=== PATIENT | female | born 1965 | race Caucasian/White ===

== ENCOUNTER 2021-09-15 23:23 | Inpatient (IN) | payer MEDICARE ==
[~2021-09-15] VITALS: Ht 165.1 cm; Wt 90.2 kg
[~2021-09-15 23:23] MED LIST: AMOX1TAB61 PO; ATEN25TA PO; BUSP15TA PO; CLON0.5T PO; DULO40CA2 PO; GLIP5TAB10 PO; INSU100I13 SQ; METF500T16 PO; PRAZ1CAP2 PO; SIMV20TA18 PO
[2021-09-16] MEDS ORDERED: PIP/TAZO PER PHARMACY MC PRN (00:45)
--- NOTE | 2021-09-16 00:52 | PHYS DOC ---
Past Medical History Past Medical History: Anxiety, Depression, Diabetes-Type II, High Cholesterol, Hypertension, Other Additional Past Medical Histor: drug abuse, sciatica, chronic back pain,neuropathy Past Surgical History: Appendectomy, Cholecystectomy, , Hysterectomy, Tonsillectomy, Other Additional Past Surgical Histo: bilateral carpal tunnel release Smoking Status: Never Smoker Alcohol Use: None Drug Use: Marijuana, Methamphetamine General Adult EDM: Chief Complaint: WOUND CHECK HPI: HPI: 56-year-old female with a history of medical ulcer, type 2 diabetes, previous substance abuse presents to the emergency department complaining of increased swelling redness pain and a lesion to the bottom of her right foot. She reports the lesion has been growing for several weeks, she tried to andrea it with a needle at home but it returned, turned more dark. She has a chronic ulcer over the right great toe that has not healed very well. She reports poor control of her diabetes. She was recently admitted for the wound on her right foot in June 2021. Pain worsens upon ambulation. She admits to some fever and chills. The patient denies nausea, vomiting, chest pain, shortness of breath, abdominal pain, urinary symptoms, cough, recent trauma, or any other complaints. Reports tdap is utd. Review of Systems: Review of Systems: ROS is otherwise negative except for what was mentioned in HPI Heart Score: C/O Chest Pain: No Family History: Family History: non contributory Current Medications: Current Medications Medications (Trade) Dose Ordered Sig/Ray Start Time Stop Time Status Last Admin Dose Admin Piperacillin Sod/ Tazobactam Sod (Zosyn Per Pharmacy) 1 each PRN DAILY PRN 09/16/21 00:45 UNV Sodium Chloride 2,000 ml @ 4,000 mls/hr 1X ONCE 09/16/21 01:00 09/16/21 01:29 UNV Vancomycin HCl (Vanco Per Pharmacy) 1 each PRN DAILY PRN 09/16/21 00:45 UNV Allergies: Allergies: Allergies Coded Allergies Type Severity Reaction Last Updated Verified No Known Drug Allergies 07/10/21 No Physical Exam: PE: Constitutional: No acute distress, non-toxic appearance. HENT: Atraumatic, bilateral external ears normal, nose normal. Eyes: PERRLA, EOMI, conjunctiva normal, no discharge. Neck: Normal range of motion, supple, no stridor. Cardiovascular: Tachycardic pulses, 2+ radial pulse Lungs & Thorax: No respiratory distress, symmetrical expansion. Abdomen: Soft, no tenderness Skin: Warm, dry. Extremities: Right foot with swelling and erythema up to the midfoot, there is a chronic appearing right great toe ulcer that does not appear to be healing well, there is a large indurated chronic appearing lesion to the medial aspect of the plantar foot that is tender to palpation Neurologic: Alert and oriented X 3, normal motor function, normal sensory function, no focal deficits noted. GCS 15. Psychologic: Affect normal, judgment normal, mood normal. Current Patient Data: Labs: Laboratory Tests Test 09/16/21 00:41 09/16/21 02:25 Glucose (Fingerstick) 368 mg/dL (70-99) White Blood Count 13.4 x10^3/uL (4.0-11.0) Red Blood Count 4.76 x10^6/uL (3.50-5.40) Hemoglobin 12.2 g/dL (12.0-15.5) Hematocrit 38.0 % (36.0-47.0) Mean Corpuscular Volume 80 fL (79-100) Mean Corpuscular Hemoglobin 26 pg (25-35) Mean Corpuscular Hemoglobin Concent 32 g/dL (31-37) Red Cell Distribution Width 13.5 % (11.5-14.5) Platelet Count 295 x10^3/uL (140-400) Neutrophils (%) (Auto) 84 % (31-73) Lymphocytes (%) (Auto) 9 % (24-48) Monocytes (%) (Auto) 7 % (0-9) Eosinophils (%) (Auto) 0 % (0-3) Basophils (%) (Auto) 1 % (0-3) Neutrophils # (Auto) 11.2 x10^3/uL (1.8-7.7) Lymphocytes # (Auto) 1.2 x10^3/uL (1.0-4.8) Monocytes # (Auto) 0.9 x10^3/uL (0.0-1.1) Eosinophils # (Auto) 0.0 x10^3/uL (0.0-0.7) Basophils # (Auto) 0.1 x10^3/uL (0.0-0.2) Sodium Level 126 mmol/L (136-145) Potassium Level 4.2 mmol/L (3.5-5.1) Chloride Level 90 mmol/L (98-107) Carbon Dioxide Level 15 mmol/L (21-32) Anion Gap 21 (6-14) Blood Urea Nitrogen 19 mg/dL (7-20) Creatinine 0.9 mg/dL (0.6-1.0) Estimated GFR (Cockcroft-Gault) 65.0 Glucose Level 399 mg/dL (70-99) Lactic Acid Level 0.8 mmol/L (0.4-2.0) Calcium Level 8.5 mg/dL (8.5-10.1) Vital Signs: Vital Signs Date Time Temp Pulse Resp B/P (MAP) Pulse Ox O2 Delivery O2 Flow Rate FiO2 09/16/21 04:00 Room Air 09/16/21 03:00 97.9 100 18 169/79 (109) 98 Room Air 97.9 09/16/21 02:37 22 98 Room Air 09/16/21 02:30 100 20 171/82 (111) 97 Room Air 09/16/21 02:00 112 20 194/88 (123) 96 Room Air 09/16/21 01:30 110 20 191/114 (139) 96 Room Air 09/16/21 00:20 100.7 107 22 194/91 (125) 98 Room Air 100.7 Radiology/Procedures: Radiology/Procedures: PROCEDURE: FOOT RIGHT 3V EXAMINATION: XR FOOT_RIGHT 3 VIEWS CLINICAL HISTORY: Infection TECHNIQUE: XR FOOT_RIGHT 3 VIEWS COMPARISON: 07/10/2021 FINDINGS/ IMPRESSION: Joint spaces and alignment maintained. No evidence of focal osteopenia, osseous destructive process, or periosteal reaction to suggest osteomyelitis. No acute fracture. Small posterior and plantar calcaneal enthesophytes. Soft tissue prominence along the dorsal foot. Vascular calcifications. Electronically signed by: Wilmer Amor DO (09/16/2021 1:05 AM) Course & Med Decision Making: Course & Med Decision Making Insert I&D procedure Indication: abscess Procedure: The patient was positioned appropriately. Local anesthesia was lidocaine with epinephrine. An incision was then made over the apex of the lesion and clear serous material was expressed. The drainage cavity was decompressed. The area was irrigated. The patient tolerated the procedure well. Complications: none. Patient has evidence for infection of the right foot, evidence for poor wound healing secondary to diabetes which is appearing to be uncontrolled. Will admit the patient to the hospital for further care. Antibiotics were given in the emergency department along with fluids, blood cultures obtained Departure Departure Impression: Primary Impression: Right foot infection Additional Impression: Diabetic foot ulcer Disposition: ADMITTED INPATIENT Admitting Physician: MIKIE Mirza) Referrals: DARIA BUSBY M.D. (PCP) PERLA MCDONALD DO Sep 16, 2021 00:52
[2021-09-16] MEDS ORDERED: MORPHINE SULFATE 4 MG/ML INJ. IV ONE (01:00)
[2021-09-16] MEDS ORDERED: ACETAMINOPHEN 500 MG TABLET PO ONE (01:00)
--- NOTE | 2021-09-16 01:07 | RAD ---
EXAMINATION: XR FOOT_RIGHT 3 VIEWS CLINICAL HISTORY: Infection TECHNIQUE: XR FOOT_RIGHT 3 VIEWS COMPARISON: 07/10/2021 FINDINGS/ IMPRESSION: Joint spaces and alignment maintained. No evidence of focal osteopenia, osseous destructive process, or periosteal reaction to suggest osteomyelitis. No acute fracture. Small posterior and plantar calca demarcus enthesophytes. Soft tissue prominence along the dorsal foot. Vascular calcifications. Electronically signed by: Wilmer Amor DO (09/16/2021 1:05 AM) LIANA
[2021-09-16] MEDS ORDERED: LIDOCAINE 1% Multi-Dose 20 ML VIAL. ONE (01:17)
[2021-09-16] MEDS ORDERED: VANCOMYCIN 2 GM in IV NORMAL SALINE 500ML BAG 500 ML IV ONE (01:30)
[2021-09-16] MEDS ORDERED: ONDANSETRON PF 4 MG/2 ML VIAL. IVP PRN (01:45)
[2021-09-16] MEDS: IV NORMAL SALINE 1000ML BAG 1,000 ML IV SCH ×2 (02:30→06:05)
[2021-09-16 02:32] LABS: BASO # 0.1 x10^3/uL (0.0-0.2); BASO % 1 % (0-3); EOS % 0 % (0-3); HEMOGLOBIN 12.2 g/dL (12.0-15.5); LYMPH # 1.2 x10^3/uL (1.0-4.8); LYMPH % 9 % (24-48); MEAN CORPUSCULAR HEMOGLOBIN 26 pg (25-35); MEAN CORPUSCULAR HGB CONC 32 g/dL (31-37); MEAN CORPUSCULAR VOLUME 80 fL (79-100); MONO # 0.9 x10^3/uL (0.0-1.1); MONO % 7 % (0-9); NEUT # 11.2 x10^3/uL (1.8-7.7); NEUT % 84 % (31-73); PLATELET COUNT 295 x10^3/uL (140-400); RED BLOOD COUNT 4.76 x10^6/uL (3.50-5.40); RED CELL DISTRIBUTION WIDTH 13.5 % (11.5-14.5); WHITE BLOOD COUNT 13.4 x10^3/uL (4.0-11.0)
[2021-09-16] MEDS: PIPERACILLIN/TAZOBACTAM 3.375 GM in IV NORMAL SALINE 50ML 50 ML IV SCH ×5 (02:32→23:03)
[2021-09-16 02:42] LABS: CALCIUM 8.5 mg/dL (8.5-10.1); CREATININE 0.9 mg/dL (0.6-1.0); POTASSIUM 4.2 mmol/L (3.5-5.1)
[2021-09-16 03:00] VITALS: BP 169/79
[2021-09-16] MEDS ORDERED: INSULIN REGULAR 100 UNIT/ML 3ML VIAL. SQ ONE (03:30)
[2021-09-16] MEDS ORDERED: INSU100V13 SQ (03:37)
[2021-09-16] MEDS ORDERED: DEXTROSE 50% 25 GM / 50ML DISP.SYRIN. IV PRN ×2 (03:45→13:00)
[2021-09-16] MEDS ORDERED: INSULIN LISPRO 300 UNITS/3 ML VIAL. SQ ONE ×3 (04:15→23:30)
--- NOTE | 2021-09-16 05:12 | NUR ---
0300 ,admitted from ED. assessment done, plan of care discussed with patient, unable to verufy medicationsn list because patient doesn't remember her doses. will refer to am doc and verify with pt's pharmacy.
[2021-09-16 07:00] VITALS: BP 140/76
[2021-09-16] MEDS: VANCOMYCIN PER PHARMACY MC PRN ×2 (07:00→10:18)
--- NOTE | 2021-09-16 07:00 | NUR ---
Pharmacy Vancomycin Dosing Note S:Consulted to monitor and dose vancomycin started 09/16/21. O:ANNABELLE AGGARWAL is a 56 year old F with DIABETIC FOOT INFECTION . Height: 5 feet, 5 inches Weight: 88.0 kg [place] Body Weight: 57.00 Adjusted Body Weight: 69.40 Dosing Weight: Actual Other Antibiotics: ZOSYN 3.375 GM Q6H LABS: Last BUN: 19 Last Creatinine: 0.9 Creatinine Clearance: 77 mL/min Last WBC: 13.4 Last Procalcitonin: Tmax (past 24 hours): Microbiology: I/O: Drug Levels: Last level: on at Last dose given 09/16/21 at 0300 Vancomycin Dosing: Loading Dose: 2000 mg x1 Dosing Weight: Actual Target Trough: 10-20 A: Based on: WT AND CRCL P: 1. Begin Vancomycin 1250 mg IV q12h 2. Follow up Trough level on 09/17/21 at 1430 3. Pharmacy will continue to monitor, follow and adjust therapy as needed. JED GOMEZ RPH, 09/16/21 0700 Signed: 09/16/21 at 0701 by JED GOMEZ RPH PHA
[2021-09-16] MEDS: INSULIN LISPRO 300 UNITS/3 ML VIAL. SQ SCH ×2 (08:00→10:29)
--- NOTE | 2021-09-16 08:48 | PDOC1 ---
History and Physical Date of Service: DOS: DATE: 09/16/21 TIME: 08:45 Chief Complaint: Chief Complain: Foot infection History of Present Illness: HPI: History obtained from discussion with the ED physician and chart review: 56-year-old female with past medical history of methamphetamine abuse, diabetes mellitus 2, depression anxiety, hypertension, dyslipidemia, chronic back pain who presents with right foot pain and lesion to the bottom. She reports that for the past several weeks wound has been worsening and she even tried to andrea it at home but returned and got dark. She also has a chronic ulcer over the right great toe does not regularly well. There is some probably noncompliance with diabetes. Patient states that fast acting insulin causes her to be nauseous and vomit. She was recently admitted for the wound on her right foot in June 2021. Pain worsens upon ambulation. She admits to some fever and chills. Denies nausea, vomiting, chest pain, shortness of breath, abdominal pain, urinary symptoms, cough, recent trauma, or any other complaints. Past Medical/Surgical History: PMH/PSH: Past Medical History: Anxiety, Depression, Diabetes-Type II, High Cholesterol, Hypertension, drug abuse, sciatica, chronic back pain,neuropathy Past Surgical History: Appendectomy, Cholecystectomy, , Hysterectomy, Tonsillectomy, bilateral carpal tunnel release Allergies: Allergies: Coded Allergies: No Known Drug Allergies (Unverified , 07/10/21) Family History: Family History: Reviewed with no relevant findings Social History: Social History: Smoking Status: Never Smoker Alcohol Use: None Drug Use: Marijuana, Methamphetamine Current Medications: Current Medications Current Medications Vancomycin HCl (Vanco Per Pharmacy) 1 each PRN DAILY PRN MC SEE COMMENTS Last administered on 09/16/21at 07:00; Start 09/16/21 at 00:45 Piperacillin Sod/ Tazobactam Sod (Zosyn Per Pharmacy) 1 each PRN DAILY PRN MC SEE COMMENTS; Start 09/16/21 at 00:45 Sodium Chloride 1,000 ml @ 1,000 mls/hr Q1H IV Last administered on 09/16/21at 06:05; Start 09/16/21 at 01:00; Stop 09/16/21 at 02:59; Status DC Morphine Sulfate (Morphine Sulfate) 4 mg 1X ONCE IV Last administered on 09/16/21at 02:37; Start 09/16/21 at 01:00; Stop 09/16/21 at 01:01; Status DC Acetaminophen (Tylenol) 1,000 mg 1X ONCE PO Last administered on 09/16/21at 02:35; Start 09/16/21 at 01:00; Stop 09/16/21 at 01:01; Status DC Vancomycin HCl 2 gm/Sodium Chloride 500 ml @ 250 mls/hr 1X ONCE IV Last administered on 09/16/21at 03:12; Start 09/16/21 at 01:30; Stop 09/16/21 at 03:29; Status DC Piperacillin Sod/ Tazobactam Sod 3.375 gm/Sodium Chloride 50 ml @ 100 mls/hr Q6HRS IV Last administered on 09/16/21at 06:36; Start 09/16/21 at 01:00 Lidocaine HCl (Lidocaine 1% 20ml Vial) 20 ml STK-MED ONCE .ROUTE ; Start 09/16/21 at 01:17; Stop 09/16/21 at 01:17; Status DC Ondansetron HCl (Zofran) 4 mg PRN Q8HRS PRN IVP NAUSEA/VOMITING 1ST CHOICE; Start 09/16/21 at 01:45; Stop 09/17/21 at 01:44 Morphine Sulfate (Morphine Sulfate) 4 mg PRN Q2HR PRN IVP SEVERE PAIN 7-10; Start 09/16/21 at 01:45; Stop 09/17/21 at 01:44 Insulin Human Regular (HumuLIN R VIAL) 10 unit 1X ONCE SQ ; Start 09/16/21 at 03:30; Stop 09/16/21 at 03:31; Status Cancel Insulin Glargine (Lantus Syringe) 15 unit BID SQ ; Start 09/16/21 at 09:00 Insulin Human Lispro (HumaLOG) 0-9 UNITS TIDWMEALS SQ ; Start 09/16/21 at 08:00 Dextrose (Dextrose 50%-Water Syringe) 12.5 gm PRN Q15MIN PRN IV SEE COMMENTS; Start 09/16/21 at 03:45 Insulin Human Lispro (HumaLOG) 10 units 1X ONCE SQ Last administered on 09/16/21at 04:09; Start 09/16/21 at 04:15; Stop 09/16/21 at 04:16; Status DC Vancomycin HCl 1.25 gm/Sodium Chloride 250 ml @ 167 mls/hr Q12H IV ; Start 09/16/21 at 15:00 Vancomycin HCl (Vancomycin Trough Level) 1 each 1X ONCE MC ; Start 09/17/21 at 14:30; Stop 09/17/21 at 14:31 Active Scripts Active Glipizide 5 Mg Tablet 5 Mg PO BIDBFRMEAL 30 Days Reported Levemir (Insulin Detemir) 100 Unit/1 Ml Vial 55 Unit SQ BID Simvastatin 20 Mg Tablet 1 Tab PO QHS Metformin Hcl 500 Mg Tablet Unknown Dose PO Atenolol 25 Mg Tablet Unknown Dose PO DAILY Duloxetine HCl 40 Mg Capsule.dr 60 Mg PO DAILY ROS: Review of Systems Review of System REVIEW OF SYSTEMS: GENERAL: Denies weakness SKIN: No bruising, hair changes or rashes. EYES: No blurred, double or loss of vision. NOSE AND THROAT: No history of nosebleeds, hoarseness or sore throat. HEART: No history of palpitations, chest pain or shortness of breath on exertion. LUNGS: Denies cough, hemoptysis, wheezing or shortness of breath. GASTROINTESTINAL: Denies changes in appetite, nausea, vomiting, diarrhea or constipation. GENITOURINARY: No history of frequency, urgency, hesitancy or nocturia. NEUROLOGIC: Denies history of numbness, tingling, or tremor. PSYCHIATRIC: No history of panic, anxiety or depression. ENDOCRINE: No history of heat or cold intolerance, polyuria or polydipsia. EXTREMITIES: Positive for foot wound Physical Exam: Vital Signs: Vital Signs Date Time Temp Pulse Resp B/P (MAP) Pulse Ox O2 Delivery O2 Flow Rate FiO2 09/16/21 07:56 Room Air 09/16/21 07:00 97.3 78 18 140/76 (97) 96 97.3 Physcial Exam: General: Well developed, well nourished, no acute distress, well appearing HEENT: Pupils equally round and reactive to light, EOMI, no discharge, normal conjunctiva Neck: Supple, no nuchal rigidity, no JVD, trachea midline, no tenderness Cardiac: RRR, no murmurs, no gallops, no rubs Chest/Lungs: CTAB, no wheeze, no rhonchi, no crackles Abdomen: soft, non-distended, no guarding, no peritoneal signs, non-tender Back: No tenderness Extremities: Right foot dressed in bandage. Slight malodorous. No active bleeding or purulence Neuro: Alert and oriented x 4, no focal deficits, normal speech Labs: Labs: Laboratory Tests Test 09/16/21 00:41 09/16/21 02:25 09/16/21 07:40 Glucose (Fingerstick) 368 mg/dL (70-99) 327 mg/dL (70-99) White Blood Count 13.4 x10^3/uL (4.0-11.0) Red Blood Count 4.76 x10^6/uL (3.50-5.40) Hemoglobin 12.2 g/dL (12.0-15.5) Hematocrit 38.0 % (36.0-47.0) Mean Corpuscular Volume 80 fL (79-100) Mean Corpuscular Hemoglobin 26 pg (25-35) Mean Corpuscular Hemoglobin Concent 32 g/dL (31-37) Red Cell Distribution Width 13.5 % (11.5-14.5) Platelet Count 295 x10^3/uL (140-400) Neutrophils (%) (Auto) 84 % (31-73) Lymphocytes (%) (Auto) 9 % (24-48) Monocytes (%) (Auto) 7 % (0-9) Eosinophils (%) (Auto) 0 % (0-3) Basophils (%) (Auto) 1 % (0-3) Neutrophils # (Auto) 11.2 x10^3/uL (1.8-7.7) Lymphocytes # (Auto) 1.2 x10^3/uL (1.0-4.8) Monocytes # (Auto) 0.9 x10^3/uL (0.0-1.1) Eosinophils # (Auto) 0.0 x10^3/uL (0.0-0.7) Basophils # (Auto) 0.1 x10^3/uL (0.0-0.2) Sodium Level 126 mmol/L (136-145) Potassium Level 4.2 mmol/L (3.5-5.1) Chloride Level 90 mmol/L (98-107) Carbon Dioxide Level 15 mmol/L (21-32) Anion Gap 21 (6-14) Blood Urea Nitrogen 19 mg/dL (7-20) Creatinine 0.9 mg/dL (0.6-1.0) Estimated GFR (Cockcroft-Gault) 65.0 Glucose Level 399 mg/dL (70-99) Lactic Acid Level 0.8 mmol/L (0.4-2.0) Calcium Level 8.5 mg/dL (8.5-10.1) Laboratory Tests Test 09/16/21 00:41 09/16/21 02:25 09/16/21 07:40 Glucose (Fingerstick) 368 mg/dL (70-99) 327 mg/dL (70-99) White Blood Count 13.4 x10^3/uL (4.0-11.0) Red Blood Count 4.76 x10^6/uL (3.50-5.40) Hemoglobin 12.2 g/dL (12.0-15.5) Hematocrit 38.0 % (36.0-47.0) Mean Corpuscular Volume 80 fL (79-100) Mean Corpuscular Hemoglobin 26 pg (25-35) Mean Corpuscular Hemoglobin Concent 32 g/dL (31-37) Red Cell Distribution Width 13.5 % (11.5-14.5) Platelet Count 295 x10^3/uL (140-400) Neutrophils (%) (Auto) 84 % (31-73) Lymphocytes (%) (Auto) 9 % (24-48) Monocytes (%) (Auto) 7 % (0-9) Eosinophils (%) (Auto) 0 % (0-3) Basophils (%) (Auto) 1 % (0-3) Neutrophils # (Auto) 11.2 x10^3/uL (1.8-7.7) Lymphocytes # (Auto) 1.2 x10^3/uL (1.0-4.8) Monocytes # (Auto) 0.9 x10^3/uL (0.0-1.1) Eosinophils # (Auto) 0.0 x10^3/uL (0.0-0.7) Basophils # (Auto) 0.1 x10^3/uL (0.0-0.2) Sodium Level 126 mmol/L (136-145) Potassium Level 4.2 mmol/L (3.5-5.1) Chloride Level 90 mmol/L (98-107) Carbon Dioxide Level 15 mmol/L (21-32) Anion Gap 21 (6-14) Blood Urea Nitrogen 19 mg/dL (7-20) Creatinine 0.9 mg/dL (0.6-1.0) Estimated GFR (Cockcroft-Gault) 65.0 Glucose Level 399 mg/dL (70-99) Lactic Acid Level 0.8 mmol/L (0.4-2.0) Calcium Level 8.5 mg/dL (8.5-10.1) Images: Images PROCEDURE: FOOT RIGHT 3V IMPRESSION: Joint spaces and alignment maintained. No evidence of focal osteopenia, osseous destructive process, or periosteal reaction to suggest osteomyelitis. No acute fracture. Small posterior and plantar calcaneal enthesophytes. Soft tissue prominence along the dorsal foot. Vascular calcifications. Assessment/Plan Assessment/Plan Sepsis Streptococcal bacteremia 2 out of 4 bottles Right diabetic foot infected ulcer Hypertensive urgency Hyperglycemia uncontrolled Acute electrolyte derangementhyponatremia, hypochloremia suggestive of acute volume depletion History of diabetes mellitus type 2 History of polysubstance abuse Admit to hospitalist service for further management Continue empiric IV antibiotics Pending vascular surgery consult Wound care consult IV antihypertensive medications Inpatient systolic blood pressure goals between 140 to 180 R ISS and Accu-Cheks, resume home long-acting insulin IV electrolyte replacement as needed PAT evaluation Lovenox for DVT prophylaxis ADA diet CODE STATUS full Discussed with RN and SW Disposition inpatient management as above DPOA: Nicole Metzger Justifications for Admission Other Justification CHRISTIANA AUSTIN MD Sep 16, 2021 08:48
[2021-09-16] MEDS: MORPHINE SULFATE 4 MG/ML INJ. IVP PRN ×3 (08:59→19:16)
[2021-09-16] MEDS ORDERED: INSULIN GLARGINE SYRINGE. SQ SCH (09:00)
[2021-09-16 11:24] VITALS: BP 149/77
[2021-09-16] MEDS: DULoxetine HCL 30 MG CAPSULE.DR PO SCH (13:49)
[2021-09-16] MEDS: VANCOMYCIN 1.25 GM in IV NORMAL SALINE 250ML 250 ML IV SCH (13:50)
--- NOTE | 2021-09-16 14:50 | NUR ---
Wound/Ostomy Care Wound Type/Assessment: Patient seen per wound care consult. See wound assessment. Patient has DFU to right plantar foot and right great toe. The plantar foot is very severe and is reddened with foul odor and infection. Patient states she may have stepped on something and she tried to doctor it at home but was unsuccessful. Patient also has right great toe DFU. Both wounds are draining. The right great toe wound is cleansed, assessed, measured, and pictured. The plantar foot wound is cleansed, assessed, and measured. Patient is tearful at this time as she discusses her diabetes and foot wounds with our wound care physician doctor Katlin. Treatment Recommendations/Plan: Recommendations for Iodoflex (left in room/remove both sides of white mesh) and cover with ABD pad and gauze roll to the right great toe, to the plantar foot just cover with ABD pad and kerlix to manage drainage at this time. Change every other day or sooner depending on drainage. Education provided: Patient educated on dressing changes and POC as well as PU prevention. Offloading surface/device: Patient to be non weight bearing on the right foot. Recommended Referrals/Tests: Dr. Dalal along for assessment, we will order a vascular consult, and arterial doppler of the right lower leg, and an x-ray of the right foot. Discharge Recommendations for dressings: Dressing change instructions left in room. No other wounds noted. Wound care will continue to follow this patient along with her POC. We will plan on seeing this patient again on 09/19/21.
[2021-09-16 15:00] VITALS: BP 149/71
--- NOTE | 2021-09-16 16:15 | RAD ---
US RIGHT LOWER EXTREMITY ARTERIAL DUPLEX EVAL Indication: Reason: foot ulcer / Spl. Instructions: / History: Pain Comparison: None. Procedure: Real-time grayscale, color flow Doppler, and Doppler spectral waveform analysis of the art erial system of the lower extremity is performed. Findings: Right lower extremity: Monophasic waveform within the right posterior tibial, peroneal and anterior t ibial arteries. No significant velocity elevation. Moderate atheromatous plaque. No occlusion. IMPRESSION: 1. Monophasic waveform within the right posterior tibial, peroneal and anterior tibial arteries, ind icating proximal stenosis. CT angiogram can further assess if clinically warranted. 2. Moderate atheromatous plaque. Electronically signed by: Rogerio Jackson DO (09/16/2021 4:12 PM) [id number]
--- NOTE | 2021-09-16 16:40 | PDOC2 ---
Chief Complaint: Chief Complaint: Right foot ulcer Problems: (1) Non-pressure chronic ulcer of right heel and midfoot with necrosis of muscle (2) TYPE 2 DIABETES MELLITUS WITH FOOT ULCER (3) Diabetic foot ulcer Vital Signs: Vital Signs: Vital Signs Date Time Temp Pulse Resp B/P (MAP) Pulse Ox O2 Delivery O2 Flow Rate FiO2 09/16/21 00:20 100.7 107 22 194/91 (125) 98 Room Air 100.7 Vital Signs Date Time Temp Pulse Resp B/P (MAP) Pulse Ox O2 Delivery O2 Flow Rate FiO2 09/16/21 11:24 97.8 81 18 149/77 (101) 96 Room Air 97.8 Allergies: Allergies: Allergies Coded Allergies Type Severity Reaction Last Updated Verified No Known Drug Allergies 07/10/21 No Medications: Home Meds Active Scripts Glipizide (GLIPIZIDE) 5 Mg Tablet, 5 MG PO BIDBFRMEAL for DM2 for 30 Days, #60 TAB 2 Refills Prov:DRAGAN GARCÍA MD 07/12/21 Reported Medications Insulin Detemir (LEVEMIR) 100 Unit/1 Ml Vial, 55 UNIT SQ BID for diabetes, EACH 09/16/21 Simvastatin (SIMVASTATIN) 20 Mg Tablet, 1 TAB PO QHS, #30 TAB 5 Refills 06/24/16 Metformin Hcl (METFORMIN HCL) 500 Mg Tablet, PO for ANTI-DIABETIC, TAB 0 Refills 06/24/16 Atenolol (ATENOLOL) 25 Mg Tablet, PO DAILY, TAB 06/24/16 Duloxetine HCl (Duloxetine HCl) 40 Mg Capsule.dr, 60 MG PO DAILY 06/24/16 Discontinued Reported Medications Insulin Glargine,Hum.rec.anlog (LANTUS SOLOSTAR) 100 Unit/1 Ml Insuln.pen, 80 UNIT SQ QHS, #15 ML 3 Refills 06/24/16 Pain: Pain Location: Foot (Right medial and plantar midfoot) Pain Description: Acute Scale (pain): 6 Pain Context: Worsening Pain Timing: Standing Date of Onset Patient reports that she thought she stepped on something 1 or 2 weeks ago. Then there was a blister. She tried to drain the blister and had a watery bloody discharge. She soaked it in Epsom salts. Pain increased. She was concerned about the look of it so she came to the emergency room. She was admitted for infected diabetic foot ulcer with a white count of 13,400 and initially tachycardia. Blood pressure however is stable. She has had difficulty healing a great toe plantar ulcer of the same foot that has been there for 1 to 2 years. She states that she has seen wound care at other facilities without success. Surgical Date Mild fever. Some nausea which is improving. Appetite is okay. Bowels unchanged (constipation). PSH Lives alone. Non-smoker. Positive history of substance abuse. Physical Exam - Wound #1 Wound Exam Location of Modifier: Right Wound Location: Medial, Plantar Body Site: Foot Associated Signs/Symptoms: Swelling, Hot, Pain, Drainage, Odor Drainage Amount: Minimal Odor: Foul Odor Surrounding Tissue Appearance: edematous (Foot is swollen, erythema extends to dorsal foot) A/P Infected diabetic foot ulcer with foul odor consistent with gangrene. Patient has elevated white count but vital signs are stable. She is on IV antibiotics. She will need surgical exploration and excision of necrotic tissue. I have informed Dr. Morris and he plans to see her tomorrow. Problems: (1) TYPE 2 DIABETES MELLITUS WITH FOOT ULCER (2) Non-pressure chronic ulcer of right heel and midfoot with necrosis of muscle (3) Right foot infection SANDRA ANDERSON MD Sep 16, 2021 16:40
[2021-09-16 17:30] LABS: AMPHETAMINE/METHAMPHETAMINE NEG (NEG); BARBITURATES NEG (NEG); BENZODIAZEPINES NEG (NEG); CANNABINOIDS NEG (NEG); COCAINE NEG (NEG); METHADONE NEG (NEG); OPIATES POS (NEG); PHENCYCLIDINE NEG (NEG)
[2021-09-16 19:00] VITALS: BP 155/92
[2021-09-16] MEDS: LACTOBACILLUS RHAMNOSUS GG 1 CAPSULE. PO SCH (20:45)
[2021-09-16] MEDS: SIMVASTATIN 20 MG TABLET PO SCH (20:45)
[2021-09-16] MEDS: INSULIN GLARGINE SYRINGE. SQ SCH (20:50)
[2021-09-16 23:00] VITALS: BP 141/78
[2021-09-17 03:00] VITALS: BP 148/88
[2021-09-17] MEDS: VANCOMYCIN 1.25 GM in IV NORMAL SALINE 250ML 250 ML IV SCH ×2 (03:15→15:10)
[2021-09-17] MEDS: PIPERACILLIN/TAZOBACTAM 3.375 GM in IV NORMAL SALINE 50ML 50 ML IV SCH ×4 (05:15→23:18)
[2021-09-17 07:00] VITALS: BP 140/94
[2021-09-17] MEDS ORDERED: INSULIN LISPRO 300 UNITS/3 ML VIAL. SQ ONE (08:30)
[2021-09-17 08:37] LABS: CREATININE 0.7 mg/dL (0.6-1.0); GFR 86.9; POTASSIUM 3.9 mmol/L (3.5-5.1)
[2021-09-17] MEDS: MORPHINE SULFATE 4 MG/ML INJ. IVP PRN ×2 (08:46→20:34)
[2021-09-17] MEDS: LACTOBACILLUS RHAMNOSUS GG 1 CAPSULE. PO SCH ×2 (08:46→19:55)
[2021-09-17] MEDS: DULoxetine HCL 30 MG CAPSULE.DR PO SCH (08:46)
[2021-09-17] MEDS: INSULIN GLARGINE SYRINGE. SQ SCH ×2 (08:51→21:00)
[2021-09-17] MEDS: INSULIN LISPRO 300 UNITS/3 ML VIAL. SQ SCH ×3 (08:52→16:11)
[2021-09-17 11:00] VITALS: BP 125/71
--- NOTE | 2021-09-17 12:04 | PDOC ---
[facility] [facility] PROGRESS NOTE Date of Service DOS: DATE: 09/17/21 TIME: 12:00 Chief Complaint Chief Complaint Sepsis Streptococcal bacteremia 2 out of 4 bottles Right diabetic foot infected ulcer Hypertensive urgency Hyperglycemia uncontrolled Acute electrolyte derangementhyponatremia, hypochloremia suggestive of acute volume depletion History of diabetes mellitus type 2 History of polysubstance abuse Pending podiatry evaluation Continue empiric IV antibiotics Pending vascular surgery consult Wound care consult IV antihypertensive medications Inpatient systolic blood pressure goals between 140 to 180 R ISS and Accu-Cheks, resume home long-acting insulin IV electrolyte replacement as needed PAT evaluation Lovenox for DVT prophylaxis ADA diet CODE STATUS full Discussed with RN and SW Disposition inpatient management as above DPOA: Nicole Metzger History of Present Illness History of Present Illness 56-year-old female with past medical history of methamphetamine abuse, diabetes mellitus 2, depression anxiety, hypertension, dyslipidemia, chronic back pain who presents with right foot pain and lesion to the bottom. She reports that for the past several weeks wound has been worsening and she even tried to andrea it at home but returned and got dark. She also has a chronic ulcer over the right great toe does not regularly well. There is some probably noncompliance with diabetes. Patient states that fast acting insulin causes her to be nauseous and vomit. She was recently admitted for the wound on her right foot in June 2021. Pain worsens upon ambulation. She admits to some fever and chills. Denies nausea, vomiting, chest pain, shortness of breath, abdominal pain, urinary symptoms, cough, recent trauma, or any other complaints. 09/17/21 No acute events overnight. Patient seen and examined bedside. Resting comfortably. Pain is well controlled. Seen by wound care Dr. Love's and recommending podiatry consult for surgical debridement of necrotic tissue. Patient's chart, labs, images were reviewed and discussed with RN Vitals/I&O Vitals/I&O: Vital Signs Date Time Temp Pulse Resp B/P (MAP) Pulse Ox O2 Delivery O2 Flow Rate FiO2 09/17/21 10:25 85 09/17/21 07:50 Room Air 09/17/21 07:00 97.9 20 140/94 (109) 94 97.9 I & O 09/16/21 09/16/21 09/17/21 15:00 23:00 07:00 Intake Total 440 ml 150 ml 300 ml Output Total 1 ml Balance 440 ml 150 ml 299 ml Physical Exam General: Alert, Oriented X3, Cooperative Heart: Regular rate Lungs: Clear Abdomen: Normal bowel sounds Extremities: Other (Necrotic wound in the right medial plantar side of the foot with surrounding erythema and some edema. Malodorous) Labs Labs: Laboratory Tests Test 09/16/21 16:58 09/16/21 18:17 09/16/21 22:30 09/17/21 03:15 Urine Opiates Screen Pos (NEG) Urine Methadone Screen Neg (NEG) Urine Barbiturates Neg (NEG) Urine Phencyclidine Screen Neg (NEG) Urine Amphetamine/Methamphetamine Neg (NEG) Urine Benzodiazepines Screen Neg (NEG) Urine Cocaine Screen Neg (NEG) Urine Cannabinoids Screen Neg (NEG) Urine Ethyl Alcohol Neg (NEG) Glucose (Fingerstick) 424 mg/dL (70-99) 305 mg/dL (70-99) 209 mg/dL (70-99) Test 09/17/21 06:05 09/17/21 07:40 09/17/21 11:10 Sodium Level 132 mmol/L (136-145) Potassium Level 3.9 mmol/L (3.5-5.1) Chloride Level 98 mmol/L (98-107) Carbon Dioxide Level 27 mmol/L (21-32) Anion Gap 7 (6-14) Blood Urea Nitrogen 20 mg/dL (7-20) Creatinine 0.7 mg/dL (0.6-1.0) Estimated GFR (Cockcroft-Gault) 86.9 Glucose Level 219 mg/dL (70-99) Calcium Level 8.0 mg/dL (8.5-10.1) Glucose (Fingerstick) 253 mg/dL (70-99) 201 mg/dL (70-99) Assessment and Plan Assessmemt and Plan Problems Medical Problems: (1) Diabetic foot ulcer Status: Acute (2) Right foot infection Status: Acute Comment Review of Relevant I have reviewed the following items jose (where applicable) has been applied. Medications: Current Medications Medications (Trade) Dose Ordered Sig/Ray Route PRN Reason Start Time Stop Time Status Last Admin Dose Admin Vancomycin HCl 1.25 gm/Sodium Chloride 250 ml @ 167 mls/hr Q12H IV 09/16/21 15:00 09/17/21 03:15 Lactobacillus Rhamnosus (Culturelle) 1 cap BID PO 09/16/21 21:00 09/17/21 08:46 Simvastatin (Zocor) 20 mg QHS PO 09/16/21 21:00 09/16/21 20:45 Duloxetine HCl (Cymbalta) 60 mg DAILY PO 09/16/21 14:00 09/16/21 13:49 Insulin Glargine (Lantus Syringe) 55 unit BID SQ 09/16/21 21:00 09/17/21 08:51 Insulin Human Lispro (HumaLOG) 10 units 1X ONCE SQ 09/16/21 19:00 09/16/21 19:03 DC 09/16/21 19:24 Insulin Human Lispro (HumaLOG) 0-9 UNITS TIDWMEALS SQ 09/17/21 08:00 09/17/21 11:46 Insulin Human Lispro (HumaLOG) 10 units 1X ONCE SQ 09/16/21 23:30 09/16/21 23:31 DC 09/16/21 23:08 Insulin Human Lispro (HumaLOG) 10 units 1X ONCE SQ 09/17/21 08:30 09/17/21 08:31 DC 09/17/21 08:53 Justifications for Admission Other Justification CHRISTIANA AUSTIN MD Sep 17, 2021 12:04
--- NOTE | 2021-09-17 13:03 | PDOC2 ---
CONSULT Date of Consult Date of Consult DATE: 09/17/21 TIME: 12:44 Reason for Consult Reason for Consult: Right foot puncture wound Source Source: Patient History of Present Illness Reason for Visit: Patient was admitted on 09/16/2021 for right foot cellulitis following a puncture injury about a week and half ago. Patient is uncertain about what she stepped on or about any residual foreign body in the foot. The puncture wound initially developed bloody/clear blisters which she drained at home herself. Subsequently, the redness, swelling, pain have worsened in addition to new nausea, fever and chills, which prompted her to seek medical attention. Prior to that, she denied any antibiotic therapy for the infection. Upon ED admission, patient was found with leukocytosis, WBC 13.4, blood culture[+] strep B, x-ray was insignificant for cortical interruption or soft tissue emphysema. Patient was then placed on broad-spectrum Vanco and Zosyn of antibiotics. At bedside, patient relates upwards to 10 out of 10 throbbing achy and sharp pain to the right mid arch. The pain is almost constant, worse with pressure, activity and movement. She also relates occasional radiating pain to the posterior calf. Arterial duplex remarked monophasic PT inflow. Per chart review, patient had a history of delayed and nonhealing wound to the right hallux in the setting of type 2 diabetes, possible PAD. Socially, patient lives by herself on disability. Past Surgical History Past Surgical History: Appendectomy, Cholecystectomy Family History Family History: Diabetes, Heart Disease Current Problem List Problem List Problems Medical Problems: (1) Diabetic foot ulcer Status: Acute (2) Right foot infection Status: Acute Current Medications Current Medications Current Medications Vancomycin HCl (Vanco Per Pharmacy) 1 each PRN DAILY PRN MC SEE COMMENTS Last administered on 09/16/21at 10:18; Start 09/16/21 at 00:45 Piperacillin Sod/ Tazobactam Sod (Zosyn Per Pharmacy) 1 each PRN DAILY PRN MC SEE COMMENTS; Start 09/16/21 at 00:45 Sodium Chloride 1,000 ml @ 1,000 mls/hr Q1H IV Last administered on 09/16/21at 06:05; Start 09/16/21 at 01:00; Stop 09/16/21 at 02:59; Status DC Morphine Sulfate (Morphine Sulfate) 4 mg 1X ONCE IV Last administered on 09/16/21at 02:37; Start 09/16/21 at 01:00; Stop 09/16/21 at 01:01; Status DC Acetaminophen (Tylenol) 1,000 mg 1X ONCE PO Last administered on 09/16/21at 02:35; Start 09/16/21 at 01:00; Stop 09/16/21 at 01:01; Status DC Vancomycin HCl 2 gm/Sodium Chloride 500 ml @ 250 mls/hr 1X ONCE IV Last administered on 09/16/21at 03:12; Start 09/16/21 at 01:30; Stop 09/16/21 at 03 :29; Status DC Piperacillin Sod/ Tazobactam Sod 3.375 gm/Sodium Chloride 50 ml @ 100 mls/hr Q6HRS IV Last administered on 09/17/21at 11:42; Start 09/16/21 at 01:00 Lidocaine HCl (Lidocaine 1% 20ml Vial) 20 ml STK-MED ONCE .ROUTE ; Start 09/16/21 at 01:17; Stop 09/16/21 at 01:17; Status DC Ondansetron HCl (Zofran) 4 mg PRN Q8HRS PRN IVP NAUSEA/VOMITING 1ST CHOICE; Start 09/16/21 at 01:45; Stop 09/20/21 at 01:44 Morphine Sulfate (Morphine Sulfate) 4 mg PRN Q2HR PRN IVP SEVERE PAIN 7-10 Last administered on 09/17/21at 08:46; Start 09/16/21 at 01:45; Stop 09/19/21 at 01:44 Insulin Human Regular (HumuLIN R VIAL) 10 unit 1X ONCE SQ ; Start 09/16/21 at 03:30; Stop 09/16/21 at 03:31; Status Cancel Insulin Glargine (Lantus Syringe) 15 unit BID SQ Last administered on 09/16/21at 09:04; Start 09/16/21 at 09:00; Stop 09/16/21 at 13:21; Status DC Insulin Human Lispro (HumaLOG) 0-9 UNITS TIDWMEALS SQ ; Start 09/16/21 at 08:00; Stop 09/16/21 at 13:21; Status DC Dextrose (Dextrose 50%-Water Syringe) 12.5 gm PRN Q15MIN PRN IV SEE COMMENTS; Start 09/16/21 at 03:45; Stop 09/16/21 at 13:46; Status DC Insulin Human Lispro (HumaLOG) 10 units 1X ONCE SQ Last administered on 09/16/21at 04:09; Start 09/16/21 at 04:15; Stop 09/16/21 at 04:16; Status DC Vancomycin HCl 1.25 gm/Sodium Chloride 250 ml @ 167 mls/hr Q12H IV Last administered on 09/17/21at 03:15; Start 09/16/21 at 15:00 Vancomycin HCl (Vancomycin Trough Level) 1 each 1X ONCE MC ; Start 09/17/21 at 14:30; Stop 09/17/21 at 14:31 Lactobacillus Rhamnosus (Culturelle) 1 cap BID PO Last administered on 09/17/21at 08:46; Start 09/16/21 at 21:00 Simvastatin (Zocor) 20 mg QHS PO Last administered on 09/16/21at 20:45; Start 09/16/21 at 21:00 Duloxetine HCl (Cymbalta) 60 mg DAILY PO Last administered on 09/16/21at 13:49; Start 09/16/21 at 14:00 Insulin Glargine (Lantus Syringe) 55 unit BID SQ Last administered on 09/17at 08:51; Start 09/16/21 at 21:00 Dextrose (Dextrose 50%-Water Syringe) 12.5 gm PRN Q15MIN PRN IV SEE COMMENTS; Start 09/16/21 at 13:00 Multivitamins (Thera M Plus) 1 tab DAILY PO ; Start 09/17/21 at 20:00 Ascorbic Acid (Vitamin C) 500 mg DAILY PO ; Start 09/17/21 at 20:00 Insulin Human Lispro (HumaLOG) 10 units 1X ONCE SQ Last administered on 09/16/21at 19:24; Start 09/16/21 at 19:00; Stop 09/16/21 at 19:03; Status DC Insulin Human Lispro (HumaLOG) 0-9 UNITS TIDWMEALS SQ Last administered on 09/17/21at 11:46; Start 09/17/21 at 08:00 Insulin Human Lispro (HumaLOG) 10 units 1X ONCE SQ Last administered on 09/16/21at 23:08; Start 09/16/21 at 23:30; Stop 09/16/21 at 23:31; Status DC Insulin Human Lispro (HumaLOG) 10 units 1X ONCE SQ Last administered on 09/17/21at 08:53; Start 09/17/21 at 08:30; Stop 09/17/21 at 08:31; Status DC Active Scripts Active Glipizide 5 Mg Tablet 5 Mg PO BIDBFRMEAL 30 Days Reported Levemir (Insulin Detemir) 100 Unit/1 Ml Vial 55 Unit SQ BID Simvastatin 20 Mg Tablet 1 Tab PO QHS Metformin Hcl 500 Mg Tablet Unknown Dose PO Atenolol 25 Mg Tablet Unknown Dose PO DAILY Duloxetine HCl 40 Mg Capsule.dr 60 Mg PO DAILY Allergies Allergies: Coded Allergies: No Known Drug Allergies (Unverified , 07/10/21) ROS Review of System CONSTITUTIONAL: No fever. No chills. No dizziness. No weakness. CARDIOVASCULAR: No chest pain. No palpitations. No lower extremity edema. RESPIRATORY: No shortness of breath, cough, pain with respiration. No hemoptysis. No dyspnea. GASTROINTESTINAL: Normal appetite. No nausea, vomiting, diarrhea. GENITOURINARY: No frequency, urgency, nocturia. No hematuria or dysuria. MUSCULOSKELETAL: No arthralgias or myalgias. INTEGUMENTARY: Refer to HPI NEUROLOGIC: No numbness or tingling of the extremities. No weakness. PSYCHIATRIC: No confusion. ENDOCRINE: No fatigue. No weakness. HEMATOLOGICAL: No bleeding. No petechiae. No bruising. ALLERGIES: No asthma. No urticaria Physical Exam Physical Exam General: Pleasant without apparent distress, AOx3 Dermatology: -A full-thickness puncture wound was noted to the medial plantar medial arch. The puncture wound is a linear, measures approximately 1 cm. The periwound is significantly erythematous, edematous and slightly necrotic with an overlying serous blister. The erythema extends > 1 cm from the puncture site. There is no active drainage from the puncture wound. Due to the pain and sensitivity, wound bed exploration was deferred -No proximal streaking or fluctuance proximally along the tarsal tunnel or to the posterior calf Vascular: -DP palpable, PT thready -Foot is warm to touch -Popliteal lymph nodes are nontender Neurology: -Light touch sensation diminished to the level of digits 1 through 5 MSK: -[+] TTP at plantar mid arch, no TTP to tarsal tunnel -Calf is soft however tender on squeeze -Able to move digits -Muscle strength 5 out of 5 across ankle joint Vitals VITALS Vital Signs Date Time Temp Pulse Resp B/P (MAP) Pulse Ox O2 Delivery O2 Flow Rate FiO2 09/17/21 11:00 97.9 89 20 125/71 (89) 96 Room Air 97.9 Labs Labs Laboratory Tests Test 09/16/21 00:41 09/16/21 02:25 09/16/21 07:40 09/16/21 16:58 Glucose (Fingerstick) 368 mg/dL (70-99) 327 mg/dL (70-99) White Blood Count 13.4 x10^3/uL (4.0-11.0) Red Blood Count 4.76 x10^6/uL (3.50-5.40) Hemoglobin 12.2 g/dL (12.0-15.5) Hematocrit 38.0 % (36.0-47.0) Mean Corpuscular Volume 80 fL (79-100) Mean Corpuscular Hemoglobin 26 pg (25-35) Mean Corpuscular Hemoglobin Concent 32 g/dL (31-37) Red Cell Distribution Width 13.5 % (11.5-14.5) Platelet Count 295 x10^3/uL (140-400) Neutrophils (%) (Auto) 84 % (31-73) Lymphocytes (%) (Auto) 9 % (24-48) Monocytes (%) (Auto) 7 % (0-9) Eosinophils (%) (Auto) 0 % (0-3) Basophils (%) (Auto) 1 % (0-3) Neutrophils # (Auto) 11.2 x10^3/uL (1.8-7.7) Lymphocytes # (Auto) 1.2 x10^3/uL (1.0-4.8) Monocytes # (Auto) 0.9 x10^3/uL (0.0-1.1) Eosinophils # (Auto) 0.0 x10^3/uL (0.0-0.7) Basophils # (Auto) 0.1 x10^3/uL (0.0-0.2) Sodium Level 126 mmol/L (136-145) Potassium Level 4.2 mmol/L (3.5-5.1) Chloride Level 90 mmol/L (98-107) Carbon Dioxide Level 15 mmol/L (21-32) Anion Gap 21 (6-14) Blood Urea Nitrogen 19 mg/dL (7-20) Creatinine 0.9 mg/dL (0.6-1.0) Estimated GFR (Cockcroft-Gault) 65.0 Glucose Level 399 mg/dL (70-99) Lactic Acid Level 0.8 mmol/L (0.4-2.0) Calcium Level 8.5 mg/dL (8.5-10.1) Urine Opiates Screen Pos (NEG) Urine Methadone Screen Neg (NEG) Urine Barbiturates Neg (NEG) Urine Phencyclidine Screen Neg (NEG) Urine Amphetamine/Methamphetamine Neg (NEG) Urine Benzodiazepines Screen Neg (NEG) Urine Cocaine Screen Neg (NEG) Urine Cannabinoids Screen Neg (NEG) Urine Ethyl Alcohol Neg (NEG) Test 09/16/21 18:17 09/16/21 22:30 09/17/21 03:15 09/17/21 06:05 Glucose (Fingerstick) 424 mg/dL (70-99) 305 mg/dL (70-99) 209 mg/dL (70-99) Sodium Level 132 mmol/L (136-145) Potassium Level 3.9 mmol/L (3.5-5.1) Chloride Level 98 mmol/L (98-107) Carbon Dioxide Level 27 mmol/L (21-32) Anion Gap 7 (6-14) Blood Urea Nitrogen 20 mg/dL (7-20) Creatinine 0.7 mg/dL (0.6-1.0) Estimated GFR (Cockcroft-Gault) 86.9 Glucose Level 219 mg/dL (70-99) Calcium Level 8.0 mg/dL (8.5-10.1) Test 09/17/21 07:40 09/17/21 11:10 Glucose (Fingerstick) 253 mg/dL (70-99) 201 mg/dL (70-99) Laboratory Tests Test 09/16/21 16:58 09/16/21 18:17 09/16/21 22:30 09/17/21 03:15 Urine Opiates Screen Pos (NEG) Urine Methadone Screen Neg (NEG) Urine Barbiturates Neg (NEG) Urine Phencyclidine Screen Neg (NEG) Urine Amphetamine/Methamphetamine Neg (NEG) Urine Benzodiazepines Screen Neg (NEG) Urine Cocaine Screen Neg (NEG) Urine Cannabinoids Screen Neg (NEG) Urine Ethyl Alcohol Neg (NEG) Glucose (Fingerstick) 424 mg/dL (70-99) 305 mg/dL (70-99) 209 mg/dL (70-99) Test 09/17/21 06:05 09/17/21 07:40 09/17/21 11:10 Sodium Level 132 mmol/L (136-145) Potassium Level 3.9 mmol/L (3.5-5.1) Chloride Level 98 mmol/L (98-107) Carbon Dioxide Level 27 mmol/L (21-32) Anion Gap 7 (6-14) Blood Urea Nitrogen 20 mg/dL (7-20) Creatinine 0.7 mg/dL (0.6-1.0) Estimated GFR (Cockcroft-Gault) 86.9 Glucose Level 219 mg/dL (70-99) Calcium Level 8.0 mg/dL (8.5-10.1) Glucose (Fingerstick) 253 mg/dL (70-99) 201 mg/dL (70-99) Assessment/Plan Assessment/Plan Cellulitis, deep tissue abscess, possible nonradiolucent residual foreign body i n the setting of type 2 diabetes, peripheral neuropathy and PAD -Wound was sharply debrided to tolerance to the dermis layer without any purulence or fluctuance noted. The site was then dressed with Betadine wet-to-dry gauze and secured with Kerlix and tape -Twice daily dressing change as above -Avoid pressure weightbearing to right lower extremity, PT evaluate and treat for upper body mobility and balance -Deep tissue culture collected and sent for anaerobes, aerobes Gram stain and sensitivity -Blood culture: Strep B -Continue with broad-spectrum IV Vanco and Zosyn, de-escalate pending wound culture speciation -Trend WBC daily -DVT prophylaxis per internal medicine -Pending MRI of the right foot to evaluate the tendon/joint/deep structure involvement for preoperative planning [however, MRI is down and not available until Sunday?] -N.p.o. after midnight -May consider deep venous ultrasound for DVT rule out given the calf tenderness. The pain could also be stemmed from midfoot infection Dispo: Based on the radiographic and clinical examination, there is no emergency with surgical intervention today. I think is reasonable to wait for MRI to further evaluate soft tissue involvement. However if the MRI is not performed by today, we need to decompress and debride the soft tissue infection tomorrow on 09/18 in order to prevent proximal spread. I explained to patient that stage I surgical intervention is source control and it may require serial debridements. Then stage II is to salvage the foot and preserve a functional limb. However given the mid arch location of puncture wound, if the infection has traveled down the flexors/ deep compartment, limb salvage will be rather challenging. The plan for surgical intervention on 09/18 is I&D of the right foot including resection of bone, tendon, antibiotic beads, wound VAC application, posterior splint application. BUZZ BERMEO DPM Sep 17, 2021 13:03
[2021-09-17 14:58] VITALS: BP 151/85
[2021-09-17 15:03] LABS: VANC TR 14.1 mcg/mL (10.0-20.0)
[2021-09-17] MEDS: VANCOMYCIN PER PHARMACY MC PRN (15:44)
--- NOTE | 2021-09-17 15:44 | NUR ---
Pharmacy Vancomycin Dosing Note S: Consulted to monitor and dose vancomycin started 09/16/21. O: ANNABELLE AGGARWAL is a 56 year old F with a diabetic foot infection. Other Antibiotics: ZOSYN 3.375 GM Q6H LABS: Last BUN: 20 Last Creatinine: 0.7 Creatinine Clearance: 99 mL/min Last WBC: 13.4 Last Procalcitonin: Tmax (past 24 hours): 100.7 Microbiology: BLOOD CX (09/16): STREP WOUND CX (09/16): STREP TISSUE CX (09/17): COLLECTED I/O: 2890/1 void Drug Levels: Last Trough level: 14.1 on 09/17/21 at 1430 Last dose given 09/17/21 at 0315 Vancomycin Dosing: Dosing Weight: Actual Target Trough: 10-20 A: Patient receiving vancomycin 1250 mg IV q 12hrs. A trough of 14.1 mcg/ml is within goal range. Renal function improved. P: 1. Continue Vancomycin 1250 mg IV q12h 2. Follow up trough in 5 - 7 days or if changes in renal function occur. 3. Pharmacy will continue to monitor, follow and adjust therapy as needed. JOHN ALVARADO, [facility], 09/17/21 [id number]
[2021-09-17] MEDS: ENOXAPARIN 40 MG/0.4 ML SYRINGE. SQ SCH (17:04)
[2021-09-17 19:00] VITALS: BP 151/77
[2021-09-17] MEDS: ASCORBIC ACID 500 MG TABLET PO SCH (19:55)
[2021-09-17] MEDS: MULTIVITAMIN with MINERAL TABLET. PO SCH (19:55)
[2021-09-17] MEDS: SIMVASTATIN 20 MG TABLET PO SCH (19:55)
[2021-09-17 23:00] VITALS: BP 143/77
[2021-09-18] VITALS (8 sets, daily range): BP systolic 131–162; BP diastolic 70–89
[2021-09-18] MEDS: VANCOMYCIN 1.25 GM in IV NORMAL SALINE 250ML 250 ML IV SCH ×2 (02:29→14:01)
[2021-09-18] MEDS ORDERED: PROCHLORPERAZINE 10 MG/2 ML VIAL. IVP PRN (06:00)
[2021-09-18] MEDS ORDERED: HYDROmorphone 2 MG/ML VIAL IVP PRN (06:00)
[2021-09-18] MEDS ORDERED: IV RINGERS,LACTATED 1000ML 1,000 ML IV SCH (06:00)
[2021-09-18] MEDS ORDERED: MORPHINE SULFATE 2 MG/ML INJ. IVP PRN (06:00)
[2021-09-18] MEDS ORDERED: fentaNYL PF VIAL 100 MCG/2 ML VIAL IVP PRN (06:00)
[2021-09-18] MEDS: PIPERACILLIN/TAZOBACTAM 3.375 GM in IV NORMAL SALINE 50ML 50 ML IV SCH ×4 (06:23→22:56)
[2021-09-18] MEDS: LACTOBACILLUS RHAMNOSUS GG 1 CAPSULE. PO SCH ×2 (06:53→20:09)
[2021-09-18] MEDS: DULoxetine HCL 30 MG CAPSULE.DR PO SCH (06:54)
[2021-09-18] MEDS: MULTIVITAMIN with MINERAL TABLET. PO SCH (06:54)
[2021-09-18] MEDS: ASCORBIC ACID 500 MG TABLET PO SCH (06:54)
[2021-09-18] MEDS: INSULIN LISPRO 300 UNITS/3 ML VIAL. SQ SCH ×3 (08:00→17:19)
[2021-09-18] MEDS: INSULIN GLARGINE SYRINGE. SQ SCH ×2 (08:08→21:06)
[2021-09-18] MEDS ORDERED: ceFAZolin SODIUM 1 GM in IV NORMAL SALINE 1000ML BAG 1,000 ML IRR ONE ×3 (08:30)
[2021-09-18] MEDS ORDERED: TOBRAMYCIN POWDER 1.2 GM VIAL. ONE (08:34)
[2021-09-18] MEDS ORDERED: VANCOMYCIN 1 GM VIAL. ONE (08:34)
[2021-09-18] MEDS ORDERED: ONDANSETRON PF 4 MG/2 ML VIAL. ONE (09:00)
[2021-09-18] MEDS ORDERED: PROPOFOL 10 MG/ML (20ML) VIAL. IV ONE (09:00)
[2021-09-18] MEDS ORDERED: LIDOCAINE 2% PF 5 ML VIAL. ONE (09:00)
[2021-09-18] MEDS ORDERED: DEXAMETHASONE SOD PHOS 4 MG/ML VIAL ONE (09:00)
[2021-09-18] MEDS ORDERED: SEVOFLURANE 61 TO 120 MINUTES. IH ONE (09:00)
[2021-09-18] MEDS: VANCOMYCIN PER PHARMACY MC PRN (09:39)
[2021-09-18] MEDS ORDERED: DEXTROSE 50% 25 GM / 50ML DISP.SYRIN. IV PRN (09:45)
[2021-09-18] MEDS ORDERED: ACETAMINOPHEN 325 MG TABLET. PO ONE (09:45)
--- NOTE | 2021-09-18 09:45 | PDOC4 ---
OPERATIVE NOTE Date: Date: Sep 18, 2021 BUZZ BERMEO DPM Sep 18, 2021 09:45
[2021-09-18] MEDS ORDERED: fentaNYL PF VIAL 100 MCG/2 ML VIAL ONE (09:58)
[2021-09-18] MEDS ORDERED: PROCHLORPERAZINE 10 MG/2 ML VIAL. ONE (09:59)
[2021-09-18] MEDS: fentaNYL PF VIAL 100 MCG/2 ML VIAL IVP PRN ×2 (10:13→10:26)
[2021-09-18] MEDS: ENOXAPARIN 40 MG/0.4 ML SYRINGE. SQ SCH (10:15)
--- NOTE | 2021-09-18 10:31 | PDOC4 ---
OPERATIVE NOTE Date: Date: Sep 18, 2021 Pre-Op Diagnosis: Right foot cellulitis, deep tissue abscess in the setting of type 2 diabetes, peripheral neuropathy Post-Op Diagnosis: Same as above Procedure Performed: Right foot incision and drainage, deep tissue culture, permanent specimen, wound VAC application. Surgeon: Buzz Bermeo DPM Anesthesia Type: General Blood Loss: 5 cc Specimans Obtained: Deep tissue of the right plantar mid arch Findings: Significant erythema, necrotic tissue changes to the plantar medial posterior mi dfoot. Upon incision, there was moderate purulence and necrotic changes to the plantar fascia, but minimally to ABH, EDB. The second compartment was not violated with intact deep fascia. There was no violation of the tarsal tunnel or deep flexor tendons. There was no foreign body noted into the wound bed. Complications: None Operative Note: Patient was brought into the operating room and placed on the operating table in a supine position. A timeout was performed to confirm patient's identity, location of surgery and procedure. After induction of general anesthesia, a pneumatic right thigh tourniquet was placed with pressure set 250 mmHg. The right lower extremity was then scrubbed, prepped and draped in the usual sterile manner. The right lower extremity was elevated for gravity exsanguination and the tourniquet was inflated to 250 mmHg. Then the attention was directed to the right plantar midfoot. A curvilinear incision was made overlying the necrotic tissue following the trajectory of the posterior tibialis tendon. The incision was carried deep to the plantar fascial layer with a combination of sharp and blunt dissection with care to preserve and protect all the neurovascular bundles. At this time, intraoperative finding remarked moderate purulence and necrotic changes to the plantar fascial band, however minimally to the ABH, EDB. The necrotic tissue and purulence were limited to the first compartment without violation of the deep fascial ligament, deep flexor tendons, tarsal tunnel. Deep tissue culture was collected at this time for anaerobes, aerobes and sensitivity. The gross specimen was sent for pathology. All the necrotic tissue including the plantar fascial band, necrotic adipose tissue and muscle belly were excised with a combination of a rongeur and a #15 blade, until healthy bleeding tissue. Then 4 L of normal saline used to irrigate the surgical site copiously. Afterwards, wound site inspection was negative for purulence, necrotic tissue. The tissue appeared granular with healthy pinpoint bleeding. Then a repeat deep tissue culture was collected for anaerobes, aerobes and sensitivity. Tourniquet was deflated and adequate wound bed bleeding was noted without any pulsating bleeders. Then the site was dressed with a wound VAC with pressure sealed at 125 millimercury on continuous. The right surgical foot was dressed with 4 x 4 gauze, soft roll and Benoit bandage with minimal compression. Patient tolerated procedure anesthesia well with vital signs stable and neurovascular status intact. Patient was then transferred to PACU for continued recovery. Plan for repeat incision and drainage and wound VAC application on Sunday. N.p.o. after midnight. Patient will also benefit from a window caser/elementary school social worker consult for short-term facility discharge given the complex social situation at home. BUZZ BERMEO DPM Sep 18, 2021 10:31
--- NOTE | 2021-09-18 12:58 | PDOC ---
[facility] PROGRESS NOTE Date of Service DOS: DATE: 09/18/21 TIME: 12:56 Chief Complaint Chief Complaint Sepsis Streptococcal bacteremia 2 out of 4 bottles Right diabetic foot infected ulcer Hypertensive urgency Hyperglycemia uncontrolled Acute electrolyte derangementhyponatremia, hypochloremia suggestive of acute volume depletion History of diabetes mellitus type 2 History of polysubstance abuse Pending podiatry evaluation Continue empiric IV antibiotics Pending vascular surgery consult Wound care consult IV antihypertensive medications Inpatient systolic blood pressure goals between 140 to 180 R ISS and Accu-Cheks, resume home long-acting insulin IV electrolyte replacement as needed PAT evaluation Lovenox for DVT prophylaxis ADA diet CODE STATUS full Discussed with RN and SW Disposition inpatient management as above DPOA: Nicole Metzger History of Present Illness History of Present Illness 56-year-old female with past medical history of methamphetamine abuse, diabetes mellitus 2, depression anxiety, hypertension, dyslipidemia, chronic back pain who presents with right foot pain and lesion to the bottom. She reports that for the past several weeks wound has been worsening and she even tried to andrea it at home but returned and got dark. She also has a chronic ulcer over the right great toe does not regularly well. There is some probably noncompliance with diabetes. Patient states that fast acting insulin causes her to be nauseous and vomit. She was recently admitted for the wound on her right foot in June 2021. Pain worsens upon ambulation. She admits to some fever and chills. Denies nausea, vomiting, chest pain, shortness of breath, abdominal pain, urinary symptoms, cough, recent trauma, or any other complaints. 09/17/21 No acute events overnight. Patient seen and examined bedside. Resting comfortably. Pain is well controlled. Seen by wound care Dr. Love's and recommending podiatry consult for surgical debridement of necrotic tissue. Patient's chart, labs, images were reviewed and discussed with RN 09/18/21 No acute events overnight. Patient taken to the OR today for surgical debridement with Dr. Morris. No concerns with nursing. Sugars are better controlled, ranging between 106-136. Patient's chart, labs, images were reviewed and discussed with RN Vitals/I&O Vitals/I&O: Vital Signs Date Time Temp Pulse Resp B/P (MAP) Pulse Ox O2 Delivery O2 Flow Rate FiO2 09/18/21 11:15 69 18 132/70 (90) 93 Room Air 10/24/21 10:35 97.3 97.3 09/18/21 10:13 10.0 I & O 09/17/21 09/17/21 09/18/21 15:00 23:00 07:00 Intake Total 300 ml 100 ml 200 ml Balance 300 ml 100 ml 200 ml Physical Exam General: Alert, Oriented X3, Cooperative Heart: Regular rate Lungs: Clear Abdomen: Normal bowel sounds Extremities: Other (Necrotic wound in the right medial plantar side of the foot with surrounding erythema and some edema. Malodorous) Labs Labs: Laboratory Tests Test 09/17/21 14:30 09/17/21 15:59 09/17/21 16:05 09/17/21 17:30 Vancomycin Level Trough 14.1 mcg/mL (10.0-20.0) Vancomycin Last Dose Date 09/17/21 Vancomycin Last Dose Time 0300 Glucose (Fingerstick) 77 mg/dL (70-99) 106 mg/dL (70-99) SARS-CoV-2 RNA (EDVIN) Negative (Negative) SARS-CoV-2 Antigen (Rapid) Negative (NEGATIVE) Test 09/18/21 08:07 09/18/21 09:52 09/18/21 10:44 Glucose (Fingerstick) 115 mg/dL (70-99) 113 mg/dL (70-99) 136 mg/dL (70-99) Assessment and Plan Assessmemt and Plan Problems Medical Problems: (1) Diabetic foot ulcer Status: Acute (2) Right foot infection Status: Acute Comment Review of Relevant I have reviewed the following items jose (where applicable) has been applied. Medications: Current Medications Medications (Trade) Dose Ordered Sig/Ray Route PRN Reason Start Time Stop Time Status Last Admin Dose Admin Vancomycin HCl (Vancomycin Trough Level) 1 each 1X ONCE MC 09/17/21 14:30 09/17/21 14:31 DC 09/17/21 14:30 Multivitamins (Thera M Plus) 1 tab DAILY PO 09/17/21 20:00 09/17/21 19:55 Ascorbic Acid (Vitamin C) 500 mg DAILY PO 09/17/21 20:00 09/17/21 19:55 Enoxaparin Sodium (Lovenox 40mg Syringe) 40 mg Q24H SQ 09/17/21 16:00 09/17/21 17:04 Fentanyl Citrate (Fentanyl 2ml Vial) 50 mcg PRN Q5MIN PRN IVP MODERATE PAIN 4-6 09/18/21 06:00 09/19/21 05:59 09/18/21 10:26 Ringer's Solution 1,000 ml @ 30 mls/hr Q24H IV 09/18/21 06:00 09/18/21 17:59 09/18/21 08:50 Prochlorperazine Edisylate (Compazine) 5 mg PACU PRN PRN IVP NAUSEA, MRX1 09/18/21 06:00 09/19/21 05:59 09/18/21 10:12 Acetaminophen (Tylenol) 650 mg 1X ONCE PO 09/18/21 09:45 09/18/21 09:46 DC 09/18/21 11:25 Justifications for Admission Other Justification CHRISTIANA AUSTIN MD Sep 18, 2021 12:58
[2021-09-18] MEDS: MORPHINE SULFATE 4 MG/ML INJ. IVP PRN ×3 (17:15→22:55)
[2021-09-18] MEDS: SIMVASTATIN 20 MG TABLET PO SCH (20:09)
[2021-09-19] MEDS: MORPHINE SULFATE 4 MG/ML INJ. IVP PRN (01:25)
[2021-09-19] MEDS: VANCOMYCIN 1.25 GM in IV NORMAL SALINE 250ML 250 ML IV SCH ×2 (03:02→16:38)
[2021-09-19 03:19] VITALS: BP 169/74
[2021-09-19] MEDS: PIPERACILLIN/TAZOBACTAM 3.375 GM in IV NORMAL SALINE 50ML 50 ML IV SCH ×3 (05:07→18:00)
[2021-09-19 07:00] VITALS: BP 157/82
[2021-09-19 07:49] LABS: BASO # 0.1 x10^3/uL (0.0-0.2); BASO % 1 % (0-3); EOS # 0.1 x10^3/uL (0.0-0.7); EOS % 1 % (0-3); HEMOGLOBIN 12.4 g/dL (12.0-15.5); LYMPH # 2.2 x10^3/uL (1.0-4.8); LYMPH % 17 % (24-48); MEAN CORPUSCULAR HEMOGLOBIN 26 pg (25-35); MEAN CORPUSCULAR HGB CONC 32 g/dL (31-37); MEAN CORPUSCULAR VOLUME 80 fL (79-100); MONO % 8 % (0-9); NEUT # 9.7 x10^3/uL (1.8-7.7); NEUT % 74 % (31-73); PLATELET COUNT 356 x10^3/uL (140-400); RED BLOOD COUNT 4.87 x10^6/uL (3.50-5.40); RED CELL DISTRIBUTION WIDTH 14.2 % (11.5-14.5); WHITE BLOOD COUNT 13.1 x10^3/uL (4.0-11.0)
[2021-09-19] MEDS: INSULIN LISPRO 300 UNITS/3 ML VIAL. SQ SCH ×3 (08:00→16:29)
[2021-09-19 08:05] LABS: CALCIUM 8.3 mg/dL (8.5-10.1); GFR 57.6; POTASSIUM 3.7 mmol/L (3.5-5.1)
[2021-09-19] MEDS: DULoxetine HCL 30 MG CAPSULE.DR PO SCH (08:43)
[2021-09-19] MEDS: MULTIVITAMIN with MINERAL TABLET. PO SCH (08:44)
[2021-09-19] MEDS: LACTOBACILLUS RHAMNOSUS GG 1 CAPSULE. PO SCH ×2 (08:45→20:57)
[2021-09-19] MEDS: INSULIN GLARGINE SYRINGE. SQ SCH ×2 (08:56→21:03)
[2021-09-19] MEDS: ASCORBIC ACID 500 MG TABLET PO SCH (09:48)
[2021-09-19 11:32] VITALS: BP 147/77
--- NOTE | 2021-09-19 13:25 | PDOC ---
[facility] PROGRESS NOTE Date of Service DOS: DATE: 09/19/21 TIME: 13:11 Chief Complaint Chief Complaint Sepsis Streptococcal bacteremia 2 out of 4 bottles Right diabetic foot infected ulcer Hypertensive urgency Hyperglycemia uncontrolled Acute electrolyte derangementhyponatremia, hypochloremia suggestive of acute volume depletion History of diabetes mellitus type 2 History of polysubstance abuse Pending podiatry evaluation Continue empiric IV antibiotics Pending vascular surgery consult Wound care consult IV antihypertensive medications Inpatient systolic blood pressure goals between 140 to 180 R ISS and Accu-Cheks, resume home long-acting insulin IV electrolyte replacement as needed PAT evaluation Lovenox for DVT prophylaxis ADA diet CODE STATUS full Discussed with RN and SW Disposition inpatient management as above DPOA: iNcole Metzger History of Present Illness History of Present Illness 56-year-old female with past medical history of methamphetamine abuse, diabetes mellitus 2, depression anxiety, hypertension, dyslipidemia, chronic back pain who presents with right foot pain and lesion to the bottom. She reports that for the past several weeks wound has been worsening and she even tried to andrea it at home but returned and got dark. She also has a chronic ulcer over the right great toe does not regularly well. There is some probably noncompliance with diabetes. Patient states that fast acting insulin causes her to be nauseous and vomit. She was recently admitted for the wound on her right foot in June 2021. Pain worsens upon ambulation. She admits to some fever and chills. Denies nausea, vomiting, chest pain, shortness of breath, abdominal pain, urinary symptoms, cough, recent trauma, or any other complaints. 09/17/21 No acute events overnight. Patient seen and examined bedside. Resting comfortably. Pain is well controlled. Seen by wound care Dr. Love's and recommending podiatry consult for surgical debridement of necrotic tissue. Patient's chart, labs, images were reviewed and discussed with RN 09/18/21 No acute events overnight. Patient taken to the OR today for surgical debridement with Dr. Morris. No concerns with nursing. Sugars are better controlled, ranging between 106-136. Patient's chart, labs, images were reviewed and discussed with RN 09/19: Afebrile. S/P right foot I&D with placement of wound VAC. Blood cultures positive for strep agalactiae (group B strep) that is resistant to erythromycin but largely pansensitive. Wound cultures with staph aureus and group B strep. Continue current antibiotic regimen for now, follow wound cultures for final cultures and sensitivities. Patient tells me that she is having repeat surgery on Sunday. Discussed p.o. pain medication is more appropriate at this time but will leave IV morphine on for when she becomes n.p.o. for any further surgical intervention. Vitals/I&O Vitals/I&O: Vital Signs Date Time Temp Pulse Resp B/P (MAP) Pulse Ox O2 Delivery O2 Flow Rate FiO2 09/19/21 11:32 97.4 74 16 147/77 (100) 95 Room Air 97.4 09/19/21 01:57 10.0 I & O 09/18/21 09/18/21 09/19/21 15:00 23:00 07:00 Intake Total 1160 ml 5400 ml 480 ml Output Total 30 ml Balance 1130 ml 5400 ml 480 ml Physical Exam General: Alert, Oriented X3, Cooperative Heart: Regular rate Lungs: Clear Abdomen: Normal bowel sounds Extremities: Other (Right with dressings clean/dry/intact. No active bleeding or purulence.) Skin: Other (Necrotic wound in the right medial plantar side of the foot with surrounding erythema and some edema) Labs Labs: Laboratory Tests Test 09/18/21 17:10 09/18/21 20:49 09/19/21 07:25 09/19/21 08:07 Glucose (Fingerstick) 207 mg/dL (70-99) 307 mg/dL (70-99) 290 mg/dL (70-99) White Blood Count 13.1 x10^3/uL (4.0-11.0) Red Blood Count 4.87 x10^6/uL (3.50-5.40) Hemoglobin 12.4 g/dL (12.0-15.5) Hematocrit 39.0 % (36.0-47.0) Mean Corpuscular Volume 80 fL (79-100) Mean Corpuscular Hemoglobin 26 pg (25-35) Mean Corpuscular Hemoglobin Concent 32 g/dL (31-37) Red Cell Distribution Width 14.2 % (11.5-14.5) Platelet Count 356 x10^3/uL (140-400) Neutrophils (%) (Auto) 74 % (31-73) Lymphocytes (%) (Auto) 17 % (24-48) Monocytes (%) (Auto) 8 % (0-9) Eosinophils (%) (Auto) 1 % (0-3) Basophils (%) (Auto) 1 % (0-3) Neutrophils # (Auto) 9.7 x10^3/uL (1.8-7.7) Lymphocytes # (Auto) 2.2 x10^3/uL (1.0-4.8) Monocytes # (Auto) 1.0 x10^3/uL (0.0-1.1) Eosinophils # (Auto) 0.1 x10^3/uL (0.0-0.7) Basophils # (Auto) 0.1 x10^3/uL (0.0-0.2) Sodium Level 135 mmol/L (136-145) Potassium Level 3.7 mmol/L (3.5-5.1) Chloride Level 99 mmol/L (98-107) Carbon Dioxide Level 31 mmol/L (21-32) Anion Gap 5 (6-14) Blood Urea Nitrogen 20 mg/dL (7-20) Creatinine 1.0 mg/dL (0.6-1.0) Estimated GFR (Cockcroft-Gault) 57.6 Glucose Level 296 mg/dL (70-99) Calcium Level 8.3 mg/dL (8.5-10.1) Test 09/19/21 11:08 Glucose (Fingerstick) 314 mg/dL (70-99) Assessment and Plan Assessmemt and Plan Problems Medical Problems: (1) Diabetic foot ulcer Status: Acute (2) Right foot infection Status: Acute Comment Review of Relevant I have reviewed the following items jose (where applicable) has been applied. Justifications for Admission Other Justification PAU CHENG MD Sep 19, 2021 13:25
[2021-09-19] MEDS: VANCOMYCIN PER PHARMACY MC PRN ×2 (14:10→18:10)
[2021-09-19 14:49] VITALS: BP 130/67
[2021-09-19] MEDS ORDERED: MORPHINE SULFATE 4 MG/ML INJ. IV PRN (15:00)
--- NOTE | 2021-09-19 16:35 | NUR ---
50ml sanguinous drainage in vac
[2021-09-19] MEDS: ENOXAPARIN 40 MG/0.4 ML SYRINGE. SQ SCH (16:39)
--- NOTE | 2021-09-19 17:39 | NUR ---
pt stated that her iv in the right hand was stinging when vancomycin started to run at 1500. Tried running the vancomycin in the in in the left wrist. pt said it was stinging also. tried flushing both IV but pt stated stinging when flushing. pt was nervous about starting a new IV. Charge nurse came in to try to start a new IV but was unable to. She stated she would contact the nursing form setter supervisor to start IV. Was not able to run the Vancomycin @1500. Removed iv in the left wrist.
--- NOTE | 2021-09-19 18:38 | NUR ---
d/c pt's iv in right hand. Pt had swelling in her hand and stated it was painful.
[2021-09-19 19:28] VITALS: BP 145/75
[2021-09-19] MEDS: SIMVASTATIN 20 MG TABLET PO SCH (20:57)
[2021-09-19] MEDS: HYDROcodone/APAP 7.5/325MG 1 TAB TABLET PO PRN (20:59)
[2021-09-19 22:43] VITALS: BP 147/70
[2021-09-20] MEDS: PIPERACILLIN/TAZOBACTAM 3.375 GM in IV NORMAL SALINE 50ML 50 ML IV SCH ×5 (00:21→23:47)
[2021-09-20 03:00] VITALS: BP 136/70
[2021-09-20] MEDS: VANCOMYCIN 1.25 GM in IV NORMAL SALINE 250ML 250 ML IV SCH ×2 (03:02→14:33)
[2021-09-20] MEDS: HYDROcodone/APAP 7.5/325MG 1 TAB TABLET PO PRN ×4 (03:03→23:48)
[2021-09-20 04:48] LABS: BASO # 0.1 x10^3/uL (0.0-0.2); BASO % 1 % (0-3); EOS # 0.3 x10^3/uL (0.0-0.7); EOS % 3 % (0-3); HEMATOCRIT 36.8 % (36.0-47.0); HEMOGLOBIN 11.6 g/dL (12.0-15.5); LYMPH # 2.7 x10^3/uL (1.0-4.8); LYMPH % 27 % (24-48); MEAN CORPUSCULAR HEMOGLOBIN 25 pg (25-35); MEAN CORPUSCULAR HGB CONC 31 g/dL (31-37); MEAN CORPUSCULAR VOLUME 80 fL (79-100); MONO # 0.8 x10^3/uL (0.0-1.1); MONO % 7 % (0-9); NEUT # 6.4 x10^3/uL (1.8-7.7); NEUT % 63 % (31-73); PLATELET COUNT 355 x10^3/uL (140-400); RED BLOOD COUNT 4.63 x10^6/uL (3.50-5.40); RED CELL DISTRIBUTION WIDTH 14.4 % (11.5-14.5); WHITE BLOOD COUNT 10.3 x10^3/uL (4.0-11.0)
[2021-09-20 07:00] VITALS: BP 183/90
[2021-09-20] MEDS: INSULIN LISPRO 300 UNITS/3 ML VIAL. SQ SCH ×3 (08:00→16:22)
[2021-09-20] MEDS ORDERED: hydrALAZINE 20 MG/ML VIAL. IVP PRN (08:15)
[2021-09-20] MEDS: ASCORBIC ACID 500 MG TABLET PO SCH (08:32)
[2021-09-20] MEDS: LACTOBACILLUS RHAMNOSUS GG 1 CAPSULE. PO SCH ×2 (08:32→20:47)
[2021-09-20] MEDS: DULoxetine HCL 30 MG CAPSULE.DR PO SCH (08:32)
[2021-09-20] MEDS: MULTIVITAMIN with MINERAL TABLET. PO SCH (08:33)
[2021-09-20] MEDS: INSULIN GLARGINE SYRINGE. SQ SCH ×2 (08:37→20:52)
--- NOTE | 2021-09-20 08:58 | PDOC ---
PROGRESS NOTES Date of Service DATE: 09/20/21 TIME: 08:50 Subjective Subjective [DOS 09/18/21] right foot incision and drainage, wound VAC application Patient was seen at bedside. Denies overnight events or constitutional symptoms. The dressing/VAC has been kept clean and dry and tolerated well. The VAC is functioning at 125 millimercury. The pain is well managed with current medicine, and rated 4/10, sharp localized to the plantar midfoot, radiating towards the ankle?. Otherwise, patient has tolerated the IV antibiotics well. Objective Objective Vital Signs Date Time Temp Pulse Resp B/P (MAP) Pulse Ox O2 Delivery O2 Flow Rate FiO2 09/20/21 08:34 77 183/90 09/20/21 07:00 98.3 16 98 Room Air 98.3 09/19/21 01:57 10.0 Intake and Output 09/20/21 07:00 Intake Total 1900 ml Output Total 300 ml Balance 1600 ml Intake Oral 1500 ml IV Total 400 ml Output Urine Total 300 ml # Voids 2 Physical Exam Physical Exam General: Pleasant without apparent distress, AOx3 Right foot focused Dermatology: -Dressing is clean, dry and intact -VAC is functioning at 125 mill mercury, less than 50 cc of sanguinous drainage since surgery -No proximal streaking, erythema, fluctuance to the tarsal tunnel or proximal leg Vascular: -Foot is warm to touch with CFT less than 3 seconds x 5 -Calf is soft and nontender Neurology: -Light touch sensation diminished to the level of digits 1 through 5 MSK: -[+] Minimal TTP at the surgical site near plantar mid arch and also along the tarsal tunnel -Able to move digits -Muscle strength 5 out of 5 across ankle joint -Calf is soft and nontender -No TTP to popliteal lymph nodes Diagnosis DIAGNOSIS Cellulitis, deep tissue abscess, bacteremia in the setting of type 2 diabetes, PAD, peripheral neuropathy Assessment Assessment Problems Medical Problems: (1) Diabetic foot ulcer Status: Acute (2) Right foot infection Status: Acute Plan Plan of Care -Explained clinical findings to patient. Intraoperatively, the infection was limited to the first compartment of the foot with near complete necrosis of the plantar fascial band. There was no proximal tracking along the flexor tendons or deeper compartment. The wound bed was granular with exposed muscle bellies. The challenges with healing is vascular inflow to the plantar foot, soft tissue coverage, compliance with nonweightbearing and wound care recommendations. -Continue with broad-spectrum IV antibiotics -Deep tissue culture 09/18: + Strep B and GPC before washout, only rare amount strep B after washout -Blood culture 09/16: + Strep B, repeat blood culture 09/19: NGTD -Trend WBC daily, today downtrending to 10.3 -Keep the dressing and VAC clean, dry and intact with seal at 125 mmHg -Nonweightbearing to right lower extremity, PT eval and treat -N.p.o. after midnight in preparation for surgery tomorrow for repeat I&D, wound VAC application and possible Achilles lengthening and possible resection of tendon, ligament, bone for source control -Recommend ID consult -Recommend sr. social media & mobile manager consult for discharge placement Dispo: Source control stage will likely conclude after tomorrow where patient will be discharged with a wound VAC therapy, 3 times a week dressing change by wound care nurse. Then the second stage of limb salvage with possible skin graft will be a week or 2 after that. Comment Review of Relevant I have reviewed the following items jose (where applicable) has been applied. Labs Laboratory Tests Test 09/18/21 09:52 09/18/21 10:44 09/18/21 17:10 09/18/21 20:49 Glucose (Fingerstick) 113 mg/dL (70-99) 136 mg/dL (70-99) 207 mg/dL (70-99) 307 mg/dL (70-99) Test 09/19/21 07:25 09/19/21 08:07 09/19/21 11:08 09/19/21 20:32 White Blood Count 13.1 x10^3/uL (4.0-11.0) Red Blood Count 4.87 x10^6/uL (3.50-5.40) Hemoglobin 12.4 g/dL (12.0-15.5) Hematocrit 39.0 % (36.0-47.0) Mean Corpuscular Volume 80 fL (79-100) Mean Corpuscular Hemoglobin 26 pg (25-35) Mean Corpuscular Hemoglobin Concent 32 g/dL (31-37) Red Cell Distribution Width 14.2 % (11.5-14.5) Platelet Count 356 x10^3/uL (140-400) Neutrophils (%) (Auto) 74 % (31-73) Lymphocytes (%) (Auto) 17 % (24-48) Monocytes (%) (Auto) 8 % (0-9) Eosinophils (%) (Auto) 1 % (0-3) Basophils (%) (Auto) 1 % (0-3) Neutrophils # (Auto) 9.7 x10^3/uL (1.8-7.7) Lymphocytes # (Auto) 2.2 x10^3/uL (1.0-4.8) Monocytes # (Auto) 1.0 x10^3/uL (0.0-1.1) Eosinophils # (Auto) 0.1 x10^3/uL (0.0-0.7) Basophils # (Auto) 0.1 x10^3/uL (0.0-0.2) Sodium Level 135 mmol/L (136-145) Potassium Level 3.7 mmol/L (3.5-5.1) Chloride Level 99 mmol/L (98-107) Carbon Dioxide Level 31 mmol/L (21-32) Anion Gap 5 (6-14) Blood Urea Nitrogen 20 mg/dL (7-20) Creatinine 1.0 mg/dL (0.6-1.0) Estimated GFR (Cockcroft-Gault) 57.6 Glucose Level 296 mg/dL (70-99) Calcium Level 8.3 mg/dL (8.5-10.1) Glucose (Fingerstick) 290 mg/dL (70-99) 314 mg/dL (70-99) 291 mg/dL (70-99) Test 09/20/21 03:55 09/20/21 07:43 White Blood Count 10.3 x10^3/uL (4.0-11.0) Red Blood Count 4.63 x10^6/uL (3.50-5.40) Hemoglobin 11.6 g/dL (12.0-15.5) Hematocrit 36.8 % (36.0-47.0) Mean Corpuscular Volume 80 fL (79-100) Mean Corpuscular Hemoglobin 25 pg (25-35) Mean Corpuscular Hemoglobin Concent 31 g/dL (31-37) Red Cell Distribution Width 14.4 % (11.5-14.5) Platelet Count 355 x10^3/uL (140-400) Neutrophils (%) (Auto) 63 % (31-73) Lymphocytes (%) (Auto) 27 % (24-48) Monocytes (%) (Auto) 7 % (0-9) Eosinophils (%) (Auto) 3 % (0-3) Basophils (%) (Auto) 1 % (0-3) Neutrophils # (Auto) 6.4 x10^3/uL (1.8-7.7) Lymphocytes # (Auto) 2.7 x10^3/uL (1.0-4.8) Monocytes # (Auto) 0.8 x10^3/uL (0.0-1.1) Eosinophils # (Auto) 0.3 x10^3/uL (0.0-0.7) Basophils # (Auto) 0.1 x10^3/uL (0.0-0.2) Glucose (Fingerstick) 124 mg/dL (70-99) Laboratory Tests Test 09/19/21 11:08 09/19/21 20:32 09/20/21 03:55 09/20/21 07:43 Glucose (Fingerstick) 314 mg/dL (70-99) 291 mg/dL (70-99) 124 mg/dL (70-99) White Blood Count 10.3 x10^3/uL (4.0-11.0) Red Blood Count 4.63 x10^6/uL (3.50-5.40) Hemoglobin 11.6 g/dL (12.0-15.5) Hematocrit 36.8 % (36.0-47.0) Mean Corpuscular Volume 80 fL (79-100) Mean Corpuscular Hemoglobin 25 pg (25-35) Mean Corpuscular Hemoglobin Concent 31 g/dL (31-37) Red Cell Distribution Width 14.4 % (11.5-14.5) Platelet Count 355 x10^3/uL (140-400) Neutrophils (%) (Auto) 63 % (31-73) Lymphocytes (%) (Auto) 27 % (24-48) Monocytes (%) (Auto) 7 % (0-9) Eosinophils (%) (Auto) 3 % (0-3) Basophils (%) (Auto) 1 % (0-3) Neutrophils # (Auto) 6.4 x10^3/uL (1.8-7.7) Lymphocytes # (Auto) 2.7 x10^3/uL (1.0-4.8) Monocytes # (Auto) 0.8 x10^3/uL (0.0-1.1) Eosinophils # (Auto) 0.3 x10^3/uL (0.0-0.7) Basophils # (Auto) 0.1 x10^3/uL (0.0-0.2) Microbiology 09/19/21 Blood Culture - Preliminary, Resulted NO GROWTH AFTER 1 DAY 09/18/21 Gram Stain - Final, Resulted 09/18/21 Aerobic and Anaerobic Culture - Preliminary, Resulted Medications Current Medications Vancomycin HCl (Vanco Per Pharmacy) 1 each PRN DAILY PRN MC SEE COMMENTS Last administered on 09/19/21at 14:10; Start 09/16/21 at 00:45 Piperacillin Sod/ Tazobactam Sod (Zosyn Per Pharmacy) 1 each PRN DAILY PRN MC SEE COMMENTS; Start 09/16/21 at 00:45 Sodium Chloride 1,000 ml @ 1,000 mls/hr Q1H IV Last administered on 09/16/21at 06:05; Start 09/16/21 at 01:00; Stop 09/16/21 at 02:59; Status DC Morphine Sulfate (Morphine Sulfate) 4 mg 1X ONCE IV Last administered on 09/16/21at 02:37; Start 09/16/21 at 01:00; Stop 09/16/21 at 01:01; Status DC Acetaminophen (Tylenol) 1,000 mg 1X ONCE PO Last administered on 09/16/21at 02:35; Start 09/16/21 at 01:00; Stop 09/16/21 at 01:01; Status DC Vancomycin HCl 2 gm/Sodium Chloride 500 ml @ 250 mls/hr 1X ONCE IV Last administered on 09/16/21at 03:12; Start 09/16/21 at 01:30; Stop 09/16/21 at 03:29; Status DC Piperacillin Sod/ Tazobactam Sod 3.375 gm/Sodium Chloride 50 ml @ 100 mls/hr Q6HRS IV Last administered on 09/20/21at 05:38; Start 09/16/21 at 01:00 Lidocaine HCl (Lidocaine 1% 20ml Vial) 20 ml STK-MED ONCE .ROUTE ; Start 09/16/21 at 01:17; Stop 09/16/21 at 01:17; Status DC Ondansetron HCl (Zofran) 4 mg PRN Q8HRS PRN IVP NAUSEA/VOMITING 1ST CHOICE; Start 09/16/21 at 01:45; Stop 09/20/21 at 01:44; Status DC Morphine Sulfate (Morphine Sulfate) 4 mg PRN Q2HR PRN IVP SEVERE PAIN 7-10 Last administered on 09/19/21at 01:25; Start 09/16/21 at 01:45; Stop 09/19/21 at 01:44; Status DC Insulin Human Regular (HumuLIN R VIAL) 10 unit 1X ONCE SQ ; Start 09/16/21 at 03:30; Stop 09/16/21 at 03:31; Status Cancel Insulin Glargine (Lantus Syringe) 15 unit BID SQ Last administered on 09/16at 09:04; Start 09/16/21 at 09:00; Stop 09/16/21 at 13:21; Status DC Insulin Human Lispro (HumaLOG) 0-9 UNITS TIDWMEALS SQ ; Start 09/16/21 at 08:00; Stop 09/16/21 at 13:21; Status DC Dextrose (Dextrose 50%-Water Syringe) 12.5 gm PRN Q15MIN PRN IV SEE COMMENTS; Start 09/16/21 at 03:45; Stop 09/16/21 at 13:46; Status DC Insulin Human Lispro (HumaLOG) 10 units 1X ONCE SQ Last administered on 09/16/21at 04:09; Start 09/16/21 at 04:15; Stop 09/16/21 at 04:16; Status DC Vancomycin HCl 1.25 gm/Sodium Chloride 250 ml @ 167 mls/hr Q12H IV Last administered on 09/20/21at 03:02; Start 09/16/21 at 15:00 Vancomycin HCl (Vancomycin Trough Level) 1 each 1X ONCE MC Last administered on 09/17/21at 14:30; Start 09/17/21 at 14:30; Stop 09/17/21 at 14:31; Status DC Lactobacillus Rhamnosus (Culturelle) 1 cap BID PO Last administered on 09/20/21at 08:32; Start 09/16/21 at 21:00 Simvastatin (Zocor) 20 mg QHS PO Last administered on 09/19/21at 20:57; Start 09/16/21 at 21:00 Duloxetine HCl (Cymbalta) 60 mg DAILY PO Last administered on 09/16/21at 13:49; Start 09/16/21 at 14:00 Insulin Glargine (Lantus Syringe) 55 unit BID SQ Last administered on 09/20/21at 08:37; Start 09/16/21 at 21:00 Dextrose (Dextrose 50%-Water Syringe) 12.5 gm PRN Q15MIN PRN IV SEE COMMENTS; Start 09/16/21 at 13:00 Multivitamins (Thera M Plus) 1 tab DAILY PO Last administered on 09/20/21at 08:33; Start 09/17/21 at 20:00 Ascorbic Acid (Vitamin C) 500 mg DAILY PO Last administered on 09/20/21at 08:32; Start 09/17/21 at 20:00 Insulin Human Lispro (HumaLOG) 10 units 1X ONCE SQ Last administered on 09/16/21at 19:24; Start 09/16/21 at 19:00; Stop 09/16/21 at 19:03; Status DC Insulin Human Lispro (HumaLOG) 0-9 UNITS TIDWMEALS SQ Last administered on 09/18/21at 17:19; Start 09/17/21 at 08:00 Insulin Human Lispro (HumaLOG) 10 units 1X ONCE SQ Last administered on 09/16/21at 23:08; Start 09/16/21 at 23:30; Stop 09/16/21 at 23:31; Status DC Insulin Human Lispro (HumaLOG) 10 units 1X ONCE SQ Last administered on 09/17/21at 08:53; Start 09/17/21 at 08:30; Stop 09/17/21 at 08:31; Status DC Enoxaparin Sodium (Lovenox 40mg Syringe) 40 mg Q24H SQ Last administered on 09/19/21at 16:39; Start 09/17/21 at 16:00 Fentanyl Citrate (Fentanyl 2ml Vial) 25 mcg PRN Q5MIN PRN IVP MILD PAIN 1-3; Start 09/18/21 at 06:00; Stop 09/19/21 at 05:59; Status DC Fentanyl Citrate (Fentanyl 2ml Vial) 50 mcg PRN Q5MIN PRN IVP MODERATE PAIN 4-6 Last administered on 09/18/21at 10:26; Start 09/18/21 at 06:00; Stop 09/19/21 at 05:59; Status DC Morphine Sulfate (Morphine Sulfate) 1 mg PRN Q10MIN PRN IVP SEVERE PAIN 7-10; Start 09/18/21 at 06:00; Stop 09/19/21 at 05:59; Status DC Ringer's Solution 1,000 ml @ 30 mls/hr Q24H IV Last administered on 09/18/21at 08:50; Start 09/18/21 at 06:00; Stop 09/18/21 at 17:59; Status DC Hydromorphone HCl (Dilaudid) 0.5 mg PRN Q10MIN PRN IVP SEVERE PAIN 7-10, 2nd CHOICE; Start 09/18/21 at 06:00; Stop 09/19/21 at 05:59; Status DC Prochlorperazine Edisylate (Compazine) 5 mg PACU PRN PRN IVP NAUSEA, MRX1 Last administered on 09/18/21at 10:12; Start 09/18/21 at 06:00; Stop 09/19/21 at 05:59; Status DC Cefazolin Sodium 1 gm/Sodium Chloride 1,000 ml @ 1,000 mls/hr 1X ONCE IRR ; Start 09/18/21 at 08:30; Stop 09/18/21 at 09:29; Status DC Cefazolin Sodium 1 gm/Sodium Chloride 1,000 ml @ 1,000 mls/hr 1X ONCE IRR ; Start 09/18/21 at 08:30; Stop 09/18/21 at 09:29; Status DC Cefazolin Sodium 1 gm/Sodium Chloride 1,000 ml @ 1,000 mls/hr 1X ONCE IRR ; Start 09/18/21 at 08:30; Stop 09/18/21 at 09:29; Status DC Vancomycin HCl (Vancomycin) 1 gm STK-MED ONCE .ROUTE ; Start 09/18/21 at 08:34; Stop 09/18/21 at 08:34; Status DC Tobramycin Sulfate (Tobramycin Powder) 1.2 gm STK-MED ONCE .ROUTE ; Start 09/18/21 at 08:34; Stop 09/18/21 at 08:35; Status DC Ondansetron HCl (Zofran) 4 mg STK-MED ONCE .ROUTE ; Start 09/18/21 at 09:00; Stop 09/18/21 at 09:00; Status DC Propofol (Diprivan) 200 mg STK-MED ONCE IV ; Start 09/18/21 at 09:00; Stop 09/18/21 at 09:00; Status DC Lidocaine HCl (Lidocaine Pf 2% Vial) 5 ml STK-MED ONCE .ROUTE ; Start 09/18/21 at 09:00; Stop 09/18/21 at 09:00; Status DC Dexamethasone Sodium Phosphate (Decadron) 4 mg STK-MED ONCE .ROUTE ; Start 09/18/21 at 09:00; Stop 09/18/21 at 09:01; Status DC Sevoflurane (Ultane) 60 ml STK-MED ONCE IH ; Start 09/18/21 at 09:00; Stop 09/18/21 at 09:01; Status DC Dextrose (Dextrose 50%-Water Syringe) 12.5 gm PRN Q15MIN PRN IV SEE COMMENTS; Start 09/18/21 at 09:45; Stop 09/19/21 at 10:20; Status DC Acetaminophen (Tylenol) 650 mg 1X ONCE PO Last administered on 09/18/21at 11:25; Start 09/18/21 at 09:45; Stop 09/18/21 at 09:46; Status DC Fentanyl Citrate (Fentanyl 2ml Vial) 100 mcg STK-MED ONCE .ROUTE ; Start 09/18/21 at 09:58; Stop 09/18/21 at 09:58; Status DC Prochlorperazine Edisylate (Compazine) 10 mg STK-MED ONCE .ROUTE ; Start 09/18/21 at 09:59; Stop 09/18/21 at 09:59; Status DC Acetaminophen/ Hydrocodone Bitart (Lortab 5/325) 1 tab PRN Q4HRS PRN PO MILD- MODERATE PAIN; Start 09/19/21 at 15:00 Acetaminophen/ Hydrocodone Bitart (Lortab 7.5/325) 1 tab PRN Q6HRS PRN PO SEVERE PAIN Last administered on 09/20/21at 03:03; Start 09/19/21 at 15:00 Morphine Sulfate (Morphine Sulfate) 4 mg PRN Q2HR PRN IV PAIN; Start 09/19/21 at 15:00 Hydralazine HCl (Apresoline Inj) 10 mg PRN Q4HRS PRN IVP ELEVATED BP, SEE COMMENTS Last administered on 09/20/21at 08:34; Start 09/20/21 at 08:15 Active Scripts Active Glipizide 5 Mg Tablet 5 Mg PO BIDBFRMEAL 30 Days Reported Levemir (Insulin Detemir) 100 Unit/1 Ml Vial 55 Unit SQ BID Simvastatin 20 Mg Tablet 1 Tab PO QHS Metformin Hcl 500 Mg Tablet Unknown Dose PO Atenolol 25 Mg Tablet Unknown Dose PO DAILY Duloxetine HCl 40 Mg Capsule.dr 60 Mg PO DAILY Vitals/I & O Vital Sign - Last 24 Hours 09/19/21 09/19/21 09/19/21 09/19/21 11:32 14:49 19:28 19:40 Temp 97.4 97.4 97.6 97.4 97.4 97.6 Pulse 74 75 81 Resp 16 16 16 B/P (MAP) 147/77 (100) 130/67 (88) 145/75 (98) Pulse Ox 95 98 95 O2 Delivery Room Air Room Air Room Air Room Air 09/19/21 09/19/21 09/19/21 09/20/21 20:59 21:30 22:43 03:00 Temp 98.1 97.9 98.1 97.9 Pulse 74 77 Resp 18 16 B/P (MAP) 147/70 (95) 136/70 (92) Pulse Ox 95 96 O2 Delivery Room Air Room Air Room Air Room Air 09/20/21 09/20/21 09/20/21 03:03 07:00 08:34 Temp 98.3 98.3 Pulse 77 77 Resp 16 B/P (MAP) 183/90 (121) 183/90 Pulse Ox 98 O2 Delivery Room Air Room Air Intake and Output 09/19/21 09/19/21 09/20/21 15:00 23:00 07:00 Intake Total 750 ml 300 ml 850 ml Output Total 300 ml Balance 450 ml 300 ml 850 ml Justifications for Admission Other Justification BUZZ BERMEO DPKurt Sep 20, 2021 08:58
[2021-09-20 11:00] VITALS: BP 157/70
--- NOTE | 2021-09-20 11:46 | PDOC ---
Infectious Disease Note Vital Signs: Vital Signs Vital Signs Date Time Temp Pulse Resp B/P (MAP) Pulse Ox O2 Delivery O2 Flow Rate FiO2 09/20/21 10:18 Room Air 09/20/21 08:34 77 183/90 09/20/21 07:00 98.3 16 98 98.3 Medications: Inpatient Meds: Medications reviewed. Labs: Lab Laboratory Tests Test 09/19/21 20:32 09/20/21 03:55 09/20/21 07:43 09/20/21 10:25 Glucose (Fingerstick) 291 mg/dL (70-99) 124 mg/dL (70-99) 148 mg/dL (70-99) White Blood Count 10.3 x10^3/uL (4.0-11.0) Red Blood Count 4.63 x10^6/uL (3.50-5.40) Hemoglobin 11.6 g/dL (12.0-15.5) Hematocrit 36.8 % (36.0-47.0) Mean Corpuscular Volume 80 fL (79-100) Mean Corpuscular Hemoglobin 25 pg (25-35) Mean Corpuscular Hemoglobin Concent 31 g/dL (31-37) Red Cell Distribution Width 14.4 % (11.5-14.5) Platelet Count 355 x10^3/uL (140-400) Neutrophils (%) (Auto) 63 % (31-73) Lymphocytes (%) (Auto) 27 % (24-48) Monocytes (%) (Auto) 7 % (0-9) Eosinophils (%) (Auto) 3 % (0-3) Basophils (%) (Auto) 1 % (0-3) Neutrophils # (Auto) 6.4 x10^3/uL (1.8-7.7) Lymphocytes # (Auto) 2.7 x10^3/uL (1.0-4.8) Monocytes # (Auto) 0.8 x10^3/uL (0.0-1.1) Eosinophils # (Auto) 0.3 x10^3/uL (0.0-0.7) Basophils # (Auto) 0.1 x10^3/uL (0.0-0.2) Objective: Assessment: Patient seen and examined ID consult to follow Bacteremia Right foot infection Sepsis Streptococcal bacteremia 2 out of 4 bottles present on admission Right diabetic foot infected ulcer polymicrobial infection status post surgery last Sunday Hypertensive urgency Hyperglycemia uncontrolled Acute electrolyte derangementhyponatremia, hypochloremia suggestive of acute volume depletion History of diabetes mellitus type 2 History of polysubstance abuse Plan: Plan of Care Continue current treatment Monitor renal functions closely Vancomycin dosing per renal function and pharmacy protocol Awaiting repeat surgery tomorrow Wound care as directed Offload Continue supportive care Thank you for this consult HALLIE SNELL MD Sep 20, 2021 11:46
--- NOTE | 2021-09-20 14:10 | PDOC ---
[facility] PROGRESS NOTE Date of Service DOS: DATE: 09/20/21 TIME: 14:08 Chief Complaint Chief Complaint Sepsis Streptococcal bacteremia 2 out of 4 bottles Right diabetic foot infected ulcer Hypertensive urgency Hyperglycemia uncontrolled Acute electrolyte derangementhyponatremia, hypochloremia suggestive of acute volume depletion History of diabetes mellitus type 2 History of polysubstance abuse Pending podiatry evaluation Continue empiric IV antibiotics Pending vascular surgery consult Wound care consult IV antihypertensive medications Inpatient systolic blood pressure goals between 140 to 180 R ISS and Accu-Cheks, resume home long-acting insulin IV electrolyte replacement as needed PAT evaluation Lovenox for DVT prophylaxis ADA diet CODE STATUS full Discussed with RN and SW Disposition inpatient management as above DPOA: Nicole Metzger History of Present Illness History of Present Illness 56-year-old female with past medical history of methamphetamine abuse, diabetes mellitus 2, depression anxiety, hypertension, dyslipidemia, chronic back pain who presents with right foot pain and lesion to the bottom. She reports that for the past several weeks wound has been worsening and she even tried to andrea it at home but returned and got dark. She also has a chronic ulcer over the right great toe does not regularly well. There is some probably noncompliance with diabetes. Patient states that fast acting insulin causes her to be nauseous and vomit. She was recently admitted for the wound on her right foot in June 2021. Pain worsens upon ambulation. She admits to some fever and chills. Denies nausea, vomiting, chest pain, shortness of breath, abdominal pain, urinary symptoms, cough, recent trauma, or any other complaints. 09/17/21 No acute events overnight. Patient seen and examined bedside. Resting comfortably. Pain is well controlled. Seen by wound care Dr. Love's and recommending podiatry consult for surgical debridement of necrotic tissue. Patient's chart, labs, images were reviewed and discussed with RN 09/18/21 No acute events overnight. Patient taken to the OR today for surgical debridement with Dr. Morris. No concerns with nursing. Sugars are better controlled, ranging between 106-136. Patient's chart, labs, images were reviewed and discussed with RN 09/19: Afebrile. S/P right foot I&D with placement of wound VAC. Blood cultures positive for strep agalactiae (group B strep) that is resistant to erythromycin but largely pansensitive. Wound cultures with staph aureus and group B strep. Continue current antibiotic regimen for now, follow wound cultures for final cultures and sensitivities. Patient tells me that she is having repeat surgery on Sunday. Discussed p.o. pain medication is more appropriate at this time but will leave IV morphine on for when she becomes n.p.o. for any further surgical intervention. 09/20: Afebrile. WBC improving. She will need to be NPO after midnight for repeat I&D, wound VAC application, and possible Achilles lengthening. Discussed with RN. Vitals/I&O Vitals/I&O: Vital Signs Date Time Temp Pulse Resp B/P (MAP) Pulse Ox O2 Delivery O2 Flow Rate FiO2 09/20/21 11:00 97.8 85 18 157/70 (99) 97 Room Air 97.8 I & O 09/19/21 09/19/21 09/20/21 15:00 23:00 07:00 Intake Total 750 ml 300 ml 850 ml Output Total 300 ml Balance 450 ml 300 ml 850 ml Physical Exam General: Alert, Oriented X3, Cooperative Heart: Regular rate Lungs: Clear Abdomen: Normal bowel sounds Extremities: Other (Right with dressings clean/dry/intact. No active bleeding or purulence.) Skin: Other (Necrotic wound in the right medial plantar side of the foot with surrounding erythema and some edema) Labs Labs: Laboratory Tests Test 09/19/21 20:32 09/20/21 03:55 09/20/21 07:43 09/20/21 10:25 Glucose (Fingerstick) 291 mg/dL (70-99) 124 mg/dL (70-99) 148 mg/dL (70-99) White Blood Count 10.3 x10^3/uL (4.0-11.0) Red Blood Count 4.63 x10^6/uL (3.50-5.40) Hemoglobin 11.6 g/dL (12.0-15.5) Hematocrit 36.8 % (36.0-47.0) Mean Corpuscular Volume 80 fL (79-100) Mean Corpuscular Hemoglobin 25 pg (25-35) Mean Corpuscular Hemoglobin Concent 31 g/dL (31-37) Red Cell Distribution Width 14.4 % (11.5-14.5) Platelet Count 355 x10^3/uL (140-400) Neutrophils (%) (Auto) 63 % (31-73) Lymphocytes (%) (Auto) 27 % (24-48) Monocytes (%) (Auto) 7 % (0-9) Eosinophils (%) (Auto) 3 % (0-3) Basophils (%) (Auto) 1 % (0-3) Neutrophils # (Auto) 6.4 x10^3/uL (1.8-7.7) Lymphocytes # (Auto) 2.7 x10^3/uL (1.0-4.8) Monocytes # (Auto) 0.8 x10^3/uL (0.0-1.1) Eosinophils # (Auto) 0.3 x10^3/uL (0.0-0.7) Basophils # (Auto) 0.1 x10^3/uL (0.0-0.2) Assessment and Plan Assessmemt and Plan Problems Medical Problems: (1) Diabetic foot ulcer Status: Acute (2) Right foot infection Status: Acute Comment Review of Relevant I have reviewed the following items jose (where applicable) has been applied. Medications: Current Medications Medications (Trade) Dose Ordered Sig/Ray Route PRN Reason Start Time Stop Time Status Last Admin Dose Admin Acetaminophen/ Hydrocodone Bitart (Lortab 7.5/325) 1 tab PRN Q6HRS PRN PO SEVERE PAIN 09/19/21 15:00 09/20/21 09:48 Hydralazine HCl (Apresoline Inj) 10 mg PRN Q4HRS PRN IVP ELEVATED BP, SEE COMMENTS 09/20/21 08:15 09/20/21 08:34 Justifications for Admission Other Justification PAU CHENG MD Sep 20, 2021 14:10
[2021-09-20 15:00] VITALS: BP 157/72
[2021-09-20] MEDS: VANCOMYCIN PER PHARMACY MC PRN (15:06)
[2021-09-20] MEDS: ENOXAPARIN 40 MG/0.4 ML SYRINGE. SQ SCH (15:29)
[2021-09-20 19:00] VITALS: BP 168/81
[2021-09-20] MEDS: SIMVASTATIN 20 MG TABLET PO SCH (20:47)
--- NOTE | 2021-09-20 22:26 | CONS ---
DATE OF CONSULTATION: 09/20/2021 REFERRING PHYSICIAN: Dr. Lopez. REASON FOR CONSULTATION: Antibiotic management. HISTORY OF PRESENT ILLNESS: A 56-year-old female with past medical history of methamphetamine use, diabetes mellitus 2, depression, anxiety, hypertension, dyslipidemia, chronic pain, presented to the ER with complaints of right foot pain and blister on the bottom of the foot, which started 2 weeks ago. The patient had a wound, which she noticed a couple of weeks ago, but tried to andrea at home and started getting swollen, redness and pain, worse over the last 2 weeks. The patient has been noncompliant with her diabetes control. She had been treated recently for the wound on the right foot in 06/2021. She had trouble with ambulation. She had fevers, chills white count was elevated on admission. She was started on vancomycin and Zosyn. She underwent I and D by Podiatry on last Sunday. She is awaiting repeat surgery tomorrow. ID consult has been requested for antibiotic management. The patient had wound culture, which was positive for Staph aureus, MSSA, Lactobacillus jensenii and group B strep. The patient's blood cultures were positive for group B strep on 09/16/2021. The patient had surgical cultures are positive for group B strep. Repeat blood cultures are negative from 09/19. ID consultation requested for antibiotic management. Today, the patient complains of pain in the foot, but which is under control with pain medication. She denies any further episodes of fevers, chills, nausea, vomiting, diarrhea, abdominal pain, chest pain, shortness of breath, headache, sore throat, difficulty swallowing, symptoms, rash or other joint pain. PAST MEDICAL HISTORY: Anxiety, depression, diabetes mellitus 2, hyperlipidemia, hypertension, methamphetamine use, sciatica, chronic back pain, neuropathy. PAST SURGICAL HISTORY: Reviewed. ALLERGIES: NO KNOWN DRUG ALLERGIES. SOCIAL HISTORY: Nonsmoker, no alcohol, marijuana, methamphetamine. Lives alone. CURRENT MEDICATIONS: IV vancomycin and Zosyn. Other medications reviewed in medication list. REVIEW OF SYSTEMS: Negative except for above in HPI. PHYSICAL EXAMINATION: VITAL SIGNS: Stable, afebrile. GENERAL APPEARANCE: Well-developed, well-nourished female, lying in bed comfortably, in no acute distress, nontoxic appearing. HEENT: Normocephalic, atraumatic. Normal conjunctivae. NECK: Supple, no JVD, no lymphadenopathy. LUNGS: Clear bilaterally. No wheezing. HEART: S1, S2. No gallops or murmurs. ABDOMEN: Soft, obese. Bowel sounds present, nontender, nondistended. GENITOURINARY: No Givens in place. EXTREMITIES: Right foot dressing in place along with wound VAC, not taken down. Slight swelling, mild redness and warmth. Per the patient, warmth and edema have been improving. NEUROLOGIC: Alert and oriented x 3, grossly nonfocal. PIV looks clean. PSYCHIATRIC: Calm and cooperative. LABORATORY DATA: WBC 10.3, was 13.4, hemoglobin 11.6, platelets 355. Sodium 135, potassium 3.7, chloride 99, bicarbonate 31, BUN 20, creatinine 1.0, glucose 296, calcium 8.3. Lactate 0.8. MICRO: Wound culture as above. Blood culture as above. Repeat blood cultures negative from 09/19/2021. IMAGING: Foot x-ray reviewed, duplex lower extremity arterial study reviewed. IMPRESSION: 1. Sepsis from right foot infection. 2. Right foot infection, status post incision and drainage. 3. Streptococcal bacteremia, 2/4 bottles present on admission. 4. Leukocytosis 5. Diabetes mellitus. 6. Fever 7. Hypertensive urgency 8. History of polysubstance abuse. 9. Anemia. RECOMMENDATIONS: 1. Continue IV Vanco and Zosyn 2. Monitor renal functions closely. 3. Vancomycin dosing per renal function per pharmacy protocol. 4. The patient is awaiting repeat surgery tomorrow. 5. Wound/VAC care as directed. 6. Offload. 7. Monitor labs and cultures. 8. Continue supportive care. Discussed with nursing staff. Thank you for allowing me to participate in this patient's care. If you have any questions, do not hesitate to contact me. MARIELA/PRETTY/CHERRI DR: Олег TID: [id number] MTDD
[2021-09-20 23:11] VITALS: BP 168/78
[2021-09-21] MEDS: VANCOMYCIN 1.25 GM in IV NORMAL SALINE 250ML 250 ML IV SCH ×2 (02:42→15:26)
[2021-09-21 03:13] VITALS: BP 145/64
[2021-09-21] MEDS: PIPERACILLIN/TAZOBACTAM 3.375 GM in IV NORMAL SALINE 50ML 50 ML IV SCH ×4 (05:42→23:40)
[2021-09-21] MEDS ORDERED: PROCHLORPERAZINE 10 MG/2 ML VIAL. IVP PRN (06:00)
[2021-09-21] MEDS ORDERED: HYDROmorphone 2 MG/ML VIAL IVP PRN (06:00)
[2021-09-21] MEDS ORDERED: fentaNYL PF VIAL 100 MCG/2 ML VIAL IVP PRN (06:00)
[2021-09-21] MEDS ORDERED: MORPHINE SULFATE 2 MG/ML INJ. IVP PRN (06:00)
[2021-09-21] MEDS: IV RINGERS,LACTATED 1000ML 1,000 ML IV SCH ×2 (06:00→09:00)
[2021-09-21 07:00] VITALS: BP 208/88
[2021-09-21 07:53] LABS: BASO # 0.1 x10^3/uL (0.0-0.2); BASO % 1 % (0-3); EOS # 0.4 x10^3/uL (0.0-0.7); EOS % 3 % (0-3); HEMATOCRIT 38.3 % (36.0-47.0); HEMOGLOBIN 12.5 g/dL (12.0-15.5); LYMPH # 3.1 x10^3/uL (1.0-4.8); LYMPH % 23 % (24-48); MEAN CORPUSCULAR HEMOGLOBIN 26 pg (25-35); MEAN CORPUSCULAR HGB CONC 33 g/dL (31-37); MEAN CORPUSCULAR VOLUME 80 fL (79-100); MONO # 1.2 x10^3/uL (0.0-1.1); MONO % 9 % (0-9); NEUT # 8.9 x10^3/uL (1.8-7.7); NEUT % 65 % (31-73); PLATELET COUNT 434 x10^3/uL (140-400); RED BLOOD COUNT 4.81 x10^6/uL (3.50-5.40); RED CELL DISTRIBUTION WIDTH 14.3 % (11.5-14.5); WHITE BLOOD COUNT 13.6 x10^3/uL (4.0-11.0)
[2021-09-21 07:57] LABS: CALCIUM 8.3 mg/dL (8.5-10.1); CREATININE 1.1 mg/dL (0.6-1.0); GFR 51.6; POTASSIUM 3.1 mmol/L (3.5-5.1)
[2021-09-21] MEDS: INSULIN LISPRO 300 UNITS/3 ML VIAL. SQ SCH ×3 (08:00→17:00)
--- NOTE | 2021-09-21 08:10 | PDOC ---
Infectious Disease Note Subjective: Subjective Pt just returned from surgery Has postop pain Vital Signs: Vital Signs Vital Signs Date Time Temp Pulse Resp B/P (MAP) Pulse Ox O2 Delivery O2 Flow Rate FiO2 09/21/21 03:17 Room Air 09/21/21 03:13 98.1 79 16 145/64 (91) 96 98.1 Physical Exam: PHYSICAL EXAM GENERAL APPEARANCE: Well-developed, well-nourished female, lying in bed comfortably, in no acute distress, nontoxic appearing. HEENT: Normocephalic, atraumatic. Normal conjunctivae. NECK: Supple, no JVD, no lymphadenopathy. LUNGS: Clear bilaterally. No wheezing. HEART: S1, S2. No gallops or murmurs. ABDOMEN: Soft, obese. Bowel sounds present, nontender, nondistended. GENITOURINARY: No Givens in place. EXTREMITIES: Right foot dressing in place along with wound VAC, not taken down. Slight swelling, mild redness and warmth. Per the patient, warmth and edema have been improving. NEUROLOGIC: Alert and oriented x 3, grossly nonfocal. PIV looks clean. PSYCHIATRIC: Calm and cooperative. Medications: Inpatient Meds: Medications reviewed. Labs: Lab Laboratory Tests Test 09/20/21 10:25 09/20/21 17:01 09/20/21 19:34 09/21/21 06:30 Glucose (Fingerstick) 148 mg/dL (70-99) 152 mg/dL (70-99) 165 mg/dL (70-99) White Blood Count 13.6 x10^3/uL (4.0-11.0) Red Blood Count 4.81 x10^6/uL (3.50-5.40) Hemoglobin 12.5 g/dL (12.0-15.5) Hematocrit 38.3 % (36.0-47.0) Mean Corpuscular Volume 80 fL (79-100) Mean Corpuscular Hemoglobin 26 pg (25-35) Mean Corpuscular Hemoglobin Concent 33 g/dL (31-37) Red Cell Distribution Width 14.3 % (11.5-14.5) Platelet Count 434 x10^3/uL (140-400) Neutrophils (%) (Auto) 65 % (31-73) Lymphocytes (%) (Auto) 23 % (24-48) Monocytes (%) (Auto) 9 % (0-9) Eosinophils (%) (Auto) 3 % (0-3) Basophils (%) (Auto) 1 % (0-3) Neutrophils # (Auto) 8.9 x10^3/uL (1.8-7.7) Lymphocytes # (Auto) 3.1 x10^3/uL (1.0-4.8) Monocytes # (Auto) 1.2 x10^3/uL (0.0-1.1) Eosinophils # (Auto) 0.4 x10^3/uL (0.0-0.7) Basophils # (Auto) 0.1 x10^3/uL (0.0-0.2) Sodium Level 145 mmol/L (136-145) Potassium Level 3.1 mmol/L (3.5-5.1) Chloride Level 107 mmol/L (98-107) Carbon Dioxide Level 31 mmol/L (21-32) Anion Gap 7 (6-14) Blood Urea Nitrogen 14 mg/dL (7-20) Creatinine 1.1 mg/dL (0.6-1.0) Estimated GFR (Cockcroft-Gault) 51.6 Glucose Level 65 mg/dL (70-99) Calcium Level 8.3 mg/dL (8.5-10.1) Test 09/21/21 07:38 Glucose (Fingerstick) 79 mg/dL (70-99) Micro 1023 STAPHYLOCOCCUS AUREUS methicillin sensitive STREPTOCOCCUS AGALACTIAE GRP B UNIDENTIFIED ORGANISM LACTOBACILLUS JENSENII BETA STREP GROUP B Objective: Assessment: 1. Sepsis from right foot infection. 2. Deep right foot infection, status post incision and drainage on September 18. 3. Streptococcal bacteremia, 2/4 bottles present on admission. 4. Fever and leukocytosis 5. Diabetes mellitus. 6. Electrolyte imbalance 7. Hypertensive urgency. 8. History of polysubstance abuse. 9. Anemia. Cultures positive for Plan: Plan of Care 1. Continue IV Zosyn and IV vancomycin.MOnitor renal func 2. Intra-operative cultures pending at this time 3. s/p repeat surgery today 4.. Wound/VAC care as directed. 5 offload. 6.. Monitor labs and cultures. 7. Continue supportive care. HALLIE SNELL MD Sep 21, 2021 08:10
[2021-09-21] MEDS ORDERED: PROPOFOL 10 MG/ML (20ML) VIAL. IV ONE (08:11)
[2021-09-21] MEDS ORDERED: ONDANSETRON PF 4 MG/2 ML VIAL. ONE (08:11)
[2021-09-21] MEDS ORDERED: LIDOCAINE 2% PF 5 ML VIAL. ONE (08:11)
[2021-09-21] MEDS ORDERED: DEXAMETHASONE SOD PHOS 4 MG/ML VIAL ONE (08:11)
[2021-09-21] MEDS ORDERED: PHENYLEPHRINE in 0.9% NACL PF 1 MG/10 ML SYRINGE. IV ONE (08:11)
[2021-09-21] MEDS ORDERED: MIDAZOLAM HCL/PF 2 MG/2 ML VIAL. ONE (08:12)
[2021-09-21] MEDS ORDERED: LIDOCAINE 1% PF 2 ML VIAL. ONE (08:27)
[2021-09-21] MEDS: ASCORBIC ACID 500 MG TABLET PO SCH (09:00)
[2021-09-21] MEDS: LACTOBACILLUS RHAMNOSUS GG 1 CAPSULE. PO SCH ×2 (09:00→20:44)
[2021-09-21] MEDS: INSULIN GLARGINE SYRINGE. SQ SCH ×2 (09:00→20:49)
[2021-09-21] MEDS: DULoxetine HCL 30 MG CAPSULE.DR PO SCH (09:00)
[2021-09-21] MEDS: MULTIVITAMIN with MINERAL TABLET. PO SCH (09:00)
[2021-09-21] MEDS ORDERED: GLYCOPYRROLATE 1 MG/5 ML VIAL. ONE (09:11)
[2021-09-21] MEDS ORDERED: ePHEDrine PF IN SALINE 50 MG/10 ML SYRINGE. IV ONE (09:11)
[2021-09-21 09:20] LABS: % BANDS 9 % (0-9); % EOS 1 % (0-5); % LYMPHS 26 % (24-48); % MONOS 6 % (0-10); % SEGS 58 % (35-66); PLT ESTIMATE ADEQUATE (ADEQUATE)
[2021-09-21] MEDS ORDERED: fentaNYL PF VIAL 100 MCG/2 ML VIAL ONE ×2 (09:28→10:10)
[2021-09-21] MEDS ORDERED: SEVOFLURANE 31 TO 60 MINUTES. IH ONE (09:37)
--- NOTE | 2021-09-21 09:58 | PDOC4 ---
OPERATIVE NOTE Date: Date: Sep 18, 2021 Pre-Op Diagnosis: Right foot soft tissue infection without osseous involvement in the setting of type 2 diabetes, peripheral neuropathy and PAD Post-Op Diagnosis: Same as above Procedure Performed: Right foot repeat I&D, wound VAC application and a posterior splint application Surgeon: Buzz Bermeo DPM Anesthesia Type: General Blood Loss: 5 cc Specimans Obtained: None except for swab culture after washout for anaerobes, aerobes, culture and sensitivity Findings: Wound base is granular without exposed tendon, bone or neurovascular structures. The soft tissue violation is limited to the first plantar compartment with total resection of the plantar fascia from the incision site. There is no proximal streaking, fluctuance. The periwound erythema, edema have almost completely resolved. Wound bed bleeds adequately. Complications: None Operative Note: Patient was brought into the operating room and placed on the operating table in a supine position. A timeout was performed to confirm patient's identity, location of surgery and procedure. After induction of general anesthesia, a pneumatic right thigh tourniquet was placed with pressure set 250 mmHg. The right lower extremity was then scrubbed, prepped and draped in the usual sterile manner. The right lower extremity was elevated for gravity exsanguination and the tourniquet was inflated to 250 mmHg. Then the attention was directed to the right plantar midfoot. The wound bed was noted to granular without violation of the deep flexor tendons, Achilles tendon, osseous structures or tarsal tunnel. The ABH, EDB muscle bellies were granular without any necrotic changes. The plantar fascia was resected from last surgery. There was no undermining, proximal streaking, fluctuance around the wound margins. The periwound erythema, edema had almost completely resolved. Then 3 L of normal saline used to irrigate the surgical site copiously. Then a repeat deep tissue culture was collected for anaerobes, aerobes and sensitivity. The wound size was measured at 7 x 8.5 cm, tourniquet was deflated and adequate wound bed bleeding was noted without any pulsating bleeders. Then the site was dressed with a wound VAC with pressure sealed at 125 millimercury on continuous. The right surgical foot was dressed with 4 x 4 gauze, soft roll and Benoit bandage with minimal compression. Patient tolerated procedure anesthesia well with vital signs stable and neurovascular status intact. Patient was then transferred to PACU for continued recovery. Plan for wound VAC change in 2 days at bedside and then patient can be discharged to a SNF with wound care dressing change by a nurse twice a week and weekly office dressing change by me. Patient's white blood cell count spiked but clinically not likely stemmed from the foot. Please work-up for possible atelectasis or UTI. BUZZ BERMEO DPM Sep 21, 2021 09:58
[2021-09-21] MEDS: fentaNYL PF VIAL 100 MCG/2 ML VIAL IVP PRN ×6 (10:12→12:33)
[2021-09-21] MEDS ORDERED: oxyCODONE/APAP 5/325 1 TAB TABLET PO ONE (10:30)
[2021-09-21] MEDS ORDERED: ACETAMINOPHEN 325 MG TABLET. PO ONE (10:30)
[2021-09-21 11:18] VITALS: BP 199/93
--- NOTE | 2021-09-21 11:22 | PDOC ---
[employer] PROGRESS NOTE Date of Service DOS: DATE: 09/21/21 TIME: 11:20 Chief Complaint Chief Complaint Sepsis Streptococcal bacteremia 2 out of 4 bottles Right diabetic foot infected ulcer Hypertensive urgency Hyperglycemia uncontrolled Acute electrolyte derangementhyponatremia, hypochloremia suggestive of acute volume depletion History of diabetes mellitus type 2 History of polysubstance abuse Pending podiatry evaluation Continue empiric IV antibiotics Pending vascular surgery consult Wound care consult IV antihypertensive medications Inpatient systolic blood pressure goals between 140 to 180 R ISS and Accu-Cheks, resume home long-acting insulin IV electrolyte replacement as needed PAT evaluation Lovenox for DVT prophylaxis ADA diet CODE STATUS full Discussed with RN and SW Disposition inpatient management as above DPOA: Nicole Metzger History of Present Illness History of Present Illness 56-year-old female with past medical history of methamphetamine abuse, diabetes mellitus 2, depression anxiety, hypertension, dyslipidemia, chronic back pain who presents with right foot pain and lesion to the bottom. She reports that for the past several weeks wound has been worsening and she even tried to andrea it at home but returned and got dark. She also has a chronic ulcer over the right great toe does not regularly well. There is some probably noncompliance with diabetes. Patient states that fast acting insulin causes her to be nauseous and vomit. She was recently admitted for the wound on her right foot in June 2021. Pain worsens upon ambulation. She admits to some fever and chills. Denies nausea, vomiting, chest pain, shortness of breath, abdominal pain, urinary symptoms, cough, recent trauma, or any other complaints. 09/17/21 No acute events overnight. Patient seen and examined bedside. Resting comfortably. Pain is well controlled. Seen by wound care Dr. Love's and recommending podiatry consult for surgical debridement of necrotic tissue. Patient's chart, labs, images were reviewed and discussed with RN 09/18/21 No acute events overnight. Patient taken to the OR today for surgical debridement with Dr. Morris. No concerns with nursing. Sugars are better controlled, ranging between 106-136. Patient's chart, labs, images were reviewed and discussed with RN 09/19: Afebrile. S/P right foot I&D with placement of wound VAC. Blood cultures positive for strep agalactiae (group B strep) that is resistant to erythromycin but largely pansensitive. Wound cultures with staph aureus and group B strep. Continue current antibiotic regimen for now, follow wound cultures for final cultures and sensitivities. Patient tells me that she is having repeat surgery on Sunday. Discussed p.o. pain medication is more appropriate at this time but will leave IV morphine on for when she becomes n.p.o. for any further surgical intervention. 09/20: Afebrile. WBC improving. She will need to be NPO after midnight for repeat I&D, wound VAC application, and possible Achilles lengthening. Discussed with RN. 09/21: Patient seen postoperatively this morning. Right foot is wrapped in bed and bandaged with wound VAC in place. Follow intraoperative cultures. Patient has some questions about repeat surgical cramps; will defer to Dr. Morris. Continue IV antibiotics, per ID. Vitals/I&O Vitals/I&O: Vital Signs Date Time Temp Pulse Resp B/P (MAP) Pulse Ox O2 Delivery O2 Flow Rate FiO2 09/21/21 11:18 97.3 94 18 199/93 (128) 98 Room Air 97.3 09/21/21 10:12 6.0 I & O 09/20/21 09/20/21 09/21/21 15:00 23:00 07:00 Intake Total 50 ml 410 ml 170 ml Output Total 25 ml Balance 50 ml 385 ml 170 ml Physical Exam Physical Exam: GENERAL APPEARANCE: Well-developed, well-nourished female, lying in bed comfortably, in no acute distress, nontoxic appearing. HEENT: Normocephalic, atraumatic. Normal conjunctivae. NECK: Supple, no JVD, no lymphadenopathy. LUNGS: Clear bilaterally. No wheezing. HEART: S1, S2. No gallops or murmurs. ABDOMEN: Soft, obese. Bowel sounds present, nontender, nondistended. GENITOURINARY: No Givens in place. EXTREMITIES: Right foot dressing in place along with wound VAC, not taken down. Slight swelling, mild redness and warmth. Per the patient, warmth and edema have been improving. NEUROLOGIC: Alert and oriented x 3, grossly nonfocal. PIV looks clean. PSYCHIATRIC: Calm and cooperative. General: Alert, Oriented X3, Cooperative Heart: Regular rate Lungs: Clear Abdomen: Normal bowel sounds Extremities: Other (Right with dressings clean/dry/intact. No active bleeding or purulence.) Skin: Other (Necrotic wound in the right medial plantar side of the foot with surrounding erythema and some edema) Labs Labs: Laboratory Tests Test 09/20/21 17:01 09/20/21 19:34 09/21/21 06:30 09/21/21 07:38 Glucose (Fingerstick) 152 mg/dL (70-99) 165 mg/dL (70-99) 79 mg/dL (70-99) White Blood Count 13.6 x10^3/uL (4.0-11.0) Red Blood Count 4.81 x10^6/uL (3.50-5.40) Hemoglobin 12.5 g/dL (12.0-15.5) Hematocrit 38.3 % (36.0-47.0) Mean Corpuscular Volume 80 fL (79-100) Mean Corpuscular Hemoglobin 26 pg (25-35) Mean Corpuscular Hemoglobin Concent 33 g/dL (31-37) Red Cell Distribution Width 14.3 % (11.5-14.5) Platelet Count 434 x10^3/uL (140-400) Neutrophils (%) (Auto) 65 % (31-73) Lymphocytes (%) (Auto) 23 % (24-48) Monocytes (%) (Auto) 9 % (0-9) Eosinophils (%) (Auto) 3 % (0-3) Basophils (%) (Auto) 1 % (0-3) Neutrophils # (Auto) 8.9 x10^3/uL (1.8-7.7) Lymphocytes # (Auto) 3.1 x10^3/uL (1.0-4.8) Monocytes # (Auto) 1.2 x10^3/uL (0.0-1.1) Eosinophils # (Auto) 0.4 x10^3/uL (0.0-0.7) Basophils # (Auto) 0.1 x10^3/uL (0.0-0.2) Segmented Neutrophils % 58 % (35-66) Band Neutrophils % 9 % (0-9) Lymphocytes % 26 % (24-48) Monocytes % 6 % (0-10) Eosinophils % 1 % (0-5) Platelet Estimate Adequate (ADEQUATE) Sodium Level 145 mmol/L (136-145) Potassium Level 3.1 mmol/L (3.5-5.1) Chloride Level 107 mmol/L (98-107) Carbon Dioxide Level 31 mmol/L (21-32) Anion Gap 7 (6-14) Blood Urea Nitrogen 14 mg/dL (7-20) Creatinine 1.1 mg/dL (0.6-1.0) Estimated GFR (Cockcroft-Gault) 51.6 Glucose Level 65 mg/dL (70-99) Calcium Level 8.3 mg/dL (8.5-10.1) Test 09/21/21 09:55 Glucose (Fingerstick) 135 mg/dL (70-99) Assessment and Plan Assessmemt and Plan Problems Medical Problems: (1) Diabetic foot ulcer Status: Acute (2) Right foot infection Status: Acute Comment Review of Relevant I have reviewed the following items jose (where applicable) has been applied. Medications: Current Medications Medications (Trade) Dose Ordered Sig/Ray Route PRN Reason Start Time Stop Time Status Last Admin Dose Admin Fentanyl Citrate (Fentanyl 2ml Vial) 25 mcg PRN Q5MIN PRN IVP MILD PAIN 1-3 09/21/21 06:00 09/22/21 05:59 09/21/21 10:33 Ringer's Solution 1,000 ml @ 30 mls/hr Q24H IV 09/21/21 06:00 09/21/21 17:59 09/21/21 09:00 Justifications for Admission Other Justification PAU CHENG MD Sep 21, 2021 11:22
[2021-09-21] MEDS: HYDROcodone/APAP 5/325MG 1 TAB TABLET PO PRN ×3 (13:06→23:47)
[2021-09-21] MEDS: VANCOMYCIN PER PHARMACY MC PRN (13:29)
[2021-09-21 15:00] VITALS: BP 186/92
[2021-09-21] MEDS: hydrALAZINE 20 MG/ML VIAL. IVP PRN (15:44)
--- NOTE | 2021-09-21 16:09 | PATHOLOGY ---
[facility] Accession Number: [id number] . 01 Material submitted: . foot - R MIDFOOT. Modifiers: right, mid . 01 Clinical history: . I and D R MIDFOOT DIABETIC FOOT ULCER . 02 Diagnosis: Segment of skin, subcutaneous tissue, and skeletal muscle tissue, right mid foot incision and drainage: - Ulceration and necrosis of skin and subcutaneous tissue with acute cellulitis and with focal acute inflammation of underlying skeletal muscle tissue. (JPM:[facility]; 09/21/2021) [facility] 09/21/2021 1049 Local . 02 Electronically signed: . Pete Zelaya MD, Pathologist NPI- [id number] . 01 Gross description: . The specimen is received in formalin, labeled "Lou Metzger, R mid foot". Received is an excision of gonzales-crawford skin with attached underlying necrotic-appearing tissue measuring 4.2 x 0.7 x 1.4 cm in greatest dimensions. The specimen is submitted representatively in cassette A1. ([facility]; 09/20/2021) QA/[facility] 09/20/2021 1148 Local . 02 Pathologist provided ICD-10: L97.519, I96, L03.031, M60.88 . 02 CPT . 830403 Specimen Comment: A courtesy copy of this report has been sent to [phone] Specimen Comment: [id number], Specimen Comment: Report sent to , DR AUSTIN / DR BUSBY Specimen Comment: A duplicate report has been generated due to demographic updates. Performed at: 01 [facility] [address], [place], [place] [id number] MD Melvin Flowers MD Phone: [phone] Performed at: [address] [id number] MD Pete Zelaya MD Phone: [phone]
[2021-09-21] MEDS: ENOXAPARIN 40 MG/0.4 ML SYRINGE. SQ SCH (16:30)
[2021-09-21 19:00] VITALS: BP 158/76
[2021-09-21] MEDS: SIMVASTATIN 20 MG TABLET PO SCH (20:44)
[2021-09-21 22:53] VITALS: BP 166/79
[2021-09-22] MEDS: VANCOMYCIN 1.25 GM in IV NORMAL SALINE 250ML 250 ML IV SCH (02:34)
[2021-09-22 03:25] VITALS: BP 175/77
[2021-09-22 05:07] LABS: CREATININE 1.4 mg/dL (0.6-1.0)
[2021-09-22] MEDS: PIPERACILLIN/TAZOBACTAM 3.375 GM in IV NORMAL SALINE 50ML 50 ML IV SCH (06:04)
[2021-09-22] MEDS: HYDROcodone/APAP 5/325MG 1 TAB TABLET PO PRN ×2 (06:05→10:37)
--- NOTE | 2021-09-22 06:36 | NUR ---
IP: Pt is mrsa + in foot wound requiring contact precautions.
[2021-09-22 07:15] VITALS: BP 183/81
[2021-09-22] MEDS: INSULIN LISPRO 300 UNITS/3 ML VIAL. SQ SCH ×3 (08:00→16:55)
--- NOTE | 2021-09-22 08:11 | PDOC ---
Infectious Disease Note Subjective: Subjective Patient without complaints Vital Signs: Vital Signs Vital Signs Date Time Temp Pulse Resp B/P (MAP) Pulse Ox O2 Delivery O2 Flow Rate FiO2 09/22/21 07:15 98.1 79 18 183/81 (115) 98 Room Air 98.1 09/21/21 10:12 6.0 Physical Exam: PHYSICAL EXAM GENERAL APPEARANCE: Well-developed, well-nourished female, lying in bed comfortably, in no acute distress, nontoxic appearing. HEENT: Normocephalic, atraumatic. Normal conjunctivae. NECK: Supple, no JVD, no lymphadenopathy. LUNGS: Clear bilaterally. No wheezing. HEART: S1, S2. No gallops or murmurs. ABDOMEN: Soft, obese. Bowel sounds present, nontender, nondistended. GENITOURINARY: No Givens in place. EXTREMITIES: Right foot dressing in place along with wound VAC, not taken down. Slight swelling, mild redness and warmth. Per the patient, warmth and edema have been improving. NEUROLOGIC: Alert and oriented x 3, grossly nonfocal. PIV looks clean. PSYCHIATRIC: Calm and cooperative. Medications: Inpatient Meds: Medications reviewed. Labs: Lab Laboratory Tests Test 09/21/21 09:55 09/21/21 11:46 09/21/21 16:28 09/21/21 20:39 Glucose (Fingerstick) 135 mg/dL (70-99) 126 mg/dL (70-99) 262 mg/dL (70-99) 327 mg/dL (70-99) Test 09/22/21 03:35 09/22/21 07:10 Creatinine 1.4 mg/dL (0.6-1.0) Estimated GFR (Cockcroft-Gault) 39.0 Glucose (Fingerstick) 198 mg/dL (70-99) Micro 1023 STAPHYLOCOCCUS AUREUS methicillin sensitive STREPTOCOCCUS AGALACTIAE GRP B UNIDENTIFIED ORGANISM LACTOBACILLUS JENSENII BETA STREP GROUP B Objective: Assessment: 1. Sepsis from right foot infection. 2. Deep right foot infection, status post incision and drainage on September 18. And September 21 3. Streptococcal bacteremia, 2/4 bottles present on admission. 4. Fever and leukocytosis 5. Diabetes mellitus. 6. Electrolyte imbalance 7. Hypertensive urgency. 8. History of polysubstance abuse. 9. Anemia. Cultures positive as above Plan: Plan of Care 1. Change IV Zosyn to meropenem and DC IV vancomycin 2. Intra-operative cultures pending at this time 3. s/p repeat surgery September 21, 2021 4.. Wound/VAC care as directed. 5 offload. 6.. Monitor labs and cultures. 7. Continue supportive care. HALLIE SNELL MD Sep 22, 2021 08:11
[2021-09-22] MEDS: LACTOBACILLUS RHAMNOSUS GG 1 CAPSULE. PO SCH ×2 (08:43→21:42)
[2021-09-22] MEDS: MULTIVITAMIN with MINERAL TABLET. PO SCH (08:43)
[2021-09-22] MEDS: ASCORBIC ACID 500 MG TABLET PO SCH (08:43)
[2021-09-22] MEDS: INSULIN GLARGINE SYRINGE. SQ SCH ×2 (08:49→21:46)
[2021-09-22] MEDS: DULoxetine HCL 30 MG CAPSULE.DR PO SCH (09:00)
--- NOTE | 2021-09-22 09:25 | NUR ---
Patient refuses Humalog saying makes her sick and cymbalta makes her drowsy.
--- NOTE | 2021-09-22 09:34 | PDOC ---
[facility] [facility] PROGRESS NOTE Date of Service DOS: DATE: 09/22/21 TIME: 09:26 Chief Complaint Chief Complaint Sepsis Streptococcal bacteremia 2 out of 4 bottles Right diabetic foot infected ulcer Hypertensive urgency Hyperglycemia uncontrolled Acute electrolyte derangementhyponatremia, hypochloremia suggestive of acute volume depletion History of diabetes mellitus type 2 History of polysubstance abuse Pending podiatry evaluation Continue empiric IV antibiotics Pending vascular surgery consult Wound care consult IV antihypertensive medications Inpatient systolic blood pressure goals between 140 to 180 R ISS and Accu-Cheks, resume home long-acting insulin IV electrolyte replacement as needed PAT evaluation Lovenox for DVT prophylaxis ADA diet CODE STATUS full Discussed with RN and SW Disposition inpatient management as above DPOA: Nicole Metzger History of Present Illness History of Present Illness 56-year-old female with past medical history of methamphetamine abuse, diabetes mellitus 2, depression anxiety, hypertension, dyslipidemia, chronic back pain who presents with right foot pain and lesion to the bottom. She reports that for the past several weeks wound has been worsening and she even tried to andrea it at home but returned and got dark. She also has a chronic ulcer over the right great toe does not regularly well. There is some probably noncompliance with diabetes. Patient states that fast acting insulin causes her to be nauseous and vomit. She was recently admitted for the wound on her right foot in June 2021. Pain worsens upon ambulation. She admits to some fever and chills. Denies nausea, vomiting, chest pain, shortness of breath, abdominal pain, urinary symptoms, cough, recent trauma, or any other complaints. 09/17/21 No acute events overnight. Patient seen and examined bedside. Resting comfortably. Pain is well controlled. Seen by wound care Dr. Love's and recommending podiatry consult for surgical debridement of necrotic tissue. Patient's chart, labs, images were reviewed and discussed with RN 09/18/21 No acute events overnight. Patient taken to the OR today for surgical debridement with Dr. Morris. No concerns with nursing. Sugars are better controlled, ranging between 106-136. Patient's chart, labs, images were reviewed and discussed with RN 09/19: Afebrile. S/P right foot I&D with placement of wound VAC. Blood cultures positive for strep agalactiae (group B strep) that is resistant to erythromycin but largely pansensitive. Wound cultures with staph aureus and group B strep. Continue current antibiotic regimen for now, follow wound cultures for final cultures and sensitivities. Patient tells me that she is having repeat surgery on Sunday. Discussed p.o. pain medication is more appropriate at this time but will leave IV morphine on for when she becomes n.p.o. for any further surgical intervention. 09/20: Afebrile. WBC improving. She will need to be NPO after midnight for repeat I&D, wound VAC application, and possible Achilles lengthening. Discussed with RN. 09/21: Patient seen postoperatively this morning. Right foot is wrapped in bed and bandaged with wound VAC in place. Follow intraoperative cultures. Patient has some questions about repeat surgical grafts; will defer to Dr. Morris. Continue IV antibiotics, per ID. 09/22: Patient seen POD #1, s/p right foot repeat I&D, with wound VAC and posterior splint application. Plan for wound VAC change tomorrow at bedside, per Dr. Morris. Will continue to follow intraoperative cultures. Encourage working with PT today. Asking for increase and dose of pain medication. Vitals/I&O Vitals/I&O: Vital Signs Date Time Temp Pulse Resp B/P (MAP) Pulse Ox O2 Delivery O2 Flow Rate FiO2 09/22/21 07:15 98.1 79 18 183/81 (115) 98 Room Air 98.1 09/21/21 10:12 6.0 I & O 09/21/21 09/21/21 09/22/21 15:00 23:00 07:00 Intake Total 1000 ml 490 ml 400 ml Output Total 5 ml Balance 995 ml 490 ml 400 ml Physical Exam Physical Exam: GENERAL APPEARANCE: Well-developed, well-nourished female, lying in bed comfortably, in no acute distress, nontoxic appearing. HEENT: Normocephalic, atraumatic. Normal conjunctivae. NECK: Supple, no JVD, no lymphadenopathy. LUNGS: Clear bilaterally. No wheezing. HEART: S1, S2. No gallops or murmurs. ABDOMEN: Soft, obese. Bowel sounds present, nontender, nondistended. GENITOURINARY: No Givens in place. EXTREMITIES: Right foot dressing in place along with wound VAC, not taken down. Slight swelling, mild redness and warmth. Per the patient, warmth and edema have been improving. NEUROLOGIC: Alert and oriented x 3, grossly nonfocal. PIV looks clean. PSYCHIATRIC: Calm and cooperative. General: Alert, Oriented X3, Cooperative Heart: Regular rate Lungs: Clear Abdomen: Normal bowel sounds Extremities: Other (Right with dressings clean/dry/intact. No active bleeding or purulence.) Skin: Other (Necrotic wound in the right medial plantar side of the foot with surrounding erythema and some edema) Labs Labs: Laboratory Tests Test 09/21/21 09:55 09/21/21 11:46 09/21/21 16:28 09/21/21 20:39 Glucose (Fingerstick) 135 mg/dL (70-99) 126 mg/dL (70-99) 262 mg/dL (70-99) 327 mg/dL (70-99) Test 09/22/21 03:35 09/22/21 07:10 Creatinine 1.4 mg/dL (0.6-1.0) Estimated GFR (Cockcroft-Gault) 39.0 Glucose (Fingerstick) 198 mg/dL (70-99) Assessment and Plan Assessmemt and Plan Problems Medical Problems: (1) Diabetic foot ulcer Status: Acute (2) Right foot infection Status: Acute Comment Review of Relevant I have reviewed the following items jose (where applicable) has been applied. Medications: Current Medications Medications (Trade) Dose Ordered Sig/Ray Route PRN Reason Start Time Stop Time Status Last Admin Dose Admin Hydralazine HCl (Apresoline Inj) 10 mg PRN Q4HRS PRN IVP ELEVATED BP, SEE COMMENTS 09/21/21 15:00 09/21/21 15:44 Justifications for Admission Other Justification PAU CHENG MD Sep 22, 2021 09:34
[2021-09-22 11:03] VITALS: BP 172/85
[2021-09-22] MEDS: MEROPENEM 500 MG in IV NORMAL SALINE 50ML 50 ML IV SCH ×2 (12:45→17:39)
[2021-09-22 15:04] VITALS: BP 129/73
[2021-09-22] MEDS: ENOXAPARIN 40 MG/0.4 ML SYRINGE. SQ SCH (16:22)
[2021-09-22 19:00] VITALS: BP 159/82
[2021-09-22] MEDS: HYDROcodone/APAP 10/325 1 TAB TABLET PO PRN (19:53)
[2021-09-22] MEDS: SIMVASTATIN 20 MG TABLET PO SCH (21:43)
[2021-09-22 23:00] VITALS: BP 181/88
[2021-09-23] MEDS: MEROPENEM 500 MG in IV NORMAL SALINE 50ML 50 ML IV SCH ×5 (00:09→23:09)
[2021-09-23 03:00] VITALS: BP 203/105
[2021-09-23] MEDS: HYDROcodone/APAP 10/325 1 TAB TABLET PO PRN ×2 (03:38→16:56)
[2021-09-23] MEDS: hydrALAZINE 20 MG/ML VIAL. IVP PRN ×3 (03:41→14:49)
[2021-09-23 07:00] VITALS: BP 232/112
[2021-09-23] MEDS: INSULIN LISPRO 300 UNITS/3 ML VIAL. SQ SCH ×3 (07:00→11:39)
--- NOTE | 2021-09-23 08:32 | PDOC ---
Infectious Disease Note Subjective: Subjective Patient complains of nausea Underwent wound dressing earlier today and is complaining of postop site pain Denies fever, vomiting, diarrhea, abdominal pain. Patient has constipation Vital Signs: Vital Signs Vital Signs Date Time Temp Pulse Resp B/P (MAP) Pulse Ox O2 Delivery O2 Flow Rate FiO2 09/23/21 07:00 98.1 89 18 232/112 (152) 96 Room Air 98.1 09/22/21 08:00 6.0 Physical Exam: PHYSICAL EXAM GENERAL APPEARANCE: Well-developed, well-nourished female, lying in bed comfortably, in no acute distress, nontoxic appearing. HEENT: Normocephalic, atraumatic. Normal conjunctivae. NECK: Supple, no JVD, no lymphadenopathy. LUNGS: Clear bilaterally. No wheezing. HEART: S1, S2. No gallops or murmurs. ABDOMEN: Soft, obese. Bowel sounds present, nontender, nondistended. GENITOURINARY: No Givens in place. EXTREMITIES: Right foot dressing in place along with wound VAC, not taken down. Slight swelling, mild redness and warmth. Per the patient, warmth and edema have been improving. NEUROLOGIC: Alert and oriented x 3, grossly nonfocal. PIV looks clean. PSYCHIATRIC: Calm and cooperative. Medications: Inpatient Meds: Medications reviewed. Labs: Lab Laboratory Tests Test 09/22/21 11:52 09/22/21 16:50 09/22/21 20:09 09/23/21 07:36 Glucose (Fingerstick) 154 mg/dL (70-99) 149 mg/dL (70-99) 227 mg/dL (70-99) 114 mg/dL (70-99) Micro 1023 STAPHYLOCOCCUS AUREUS methicillin sensitive STREPTOCOCCUS AGALACTIAE GRP B UNIDENTIFIED ORGANISM LACTOBACILLUS JENSENII BETA STREP GROUP B RUN DATE: 09/21/21 [facility] *LIVE* PAGE 1 RUN TIME: 1028 Specimen Inquiry PATIENT: ANNABELLE AGGARWAL ACCT: [id number] LOC: [address] [place] [address] U: [id number] AGE/SX: 56/F ROOM: 414 RE09/16/[address]: CHRISTIANA AUSTIN MD : 1965 BED: 1 DIS: STATUS: ADM IN TLOC: ---- -------- SPEC #: [id number] DIPIKA: 09/17/21 STATUS: RES REQ #: [id number] RECD: 09/17/[address]: BUZZ BERMEO Kurt SOURCE: FOOT ENTR: 09/17/[address]: MARLINE WHITMORE [facility] ADRIA HIGGINBOTHAM M.D., KEVIN Y MD ORDERED: EDWIGE/JULIA/YANY COMMENTS: Has specimen been collected/obtained? Y Procedure Result GRAM STAIN Final Final GRAM POSITIVE RODS:MANY GRAM POSITIVE COCCI:MANY SQUAMOUS EPI CELL:MODERATE PMN (WBCs):NONE SEEN Unless otherwise specified, Testing Performed by: [address] [id number] For Inquires, the Physician may contact the Microbiology department at [phone] ANAEROBIC-AEROBIC CULTURE Preliminary Preliminary MODERATE GRAM POSITIVE COCCI on 09/19/21 at 0745 FINAL ID= [STAPHYLOCOCCUS AUREUS (MRSA)] FINAL ID= [BETA STREP GROUP B] FEW Mixed skin josr isolated on 09/20/21 at 0859 STAPHYLOCOCCUS AUREUS (MRSA) STREPTOCOCCUS AGALACTIAE GRP B UNIDENTIFIED ORGANISM LACTOBACILLUS JENSENII BETA STREP GROUP B ANTIMICROBIAL SUSCEPTIBILITY Preliminary Comment POS MOR TYPE 38 STAPHYLOCOCCUS AUREUS (MRSA) ANTIBIOTIC RESULT INTERPRETATION AZITHROMYCIN >4 R CLINDAMYCIN <=0.25 S CEFOXITIN SCREEN >4 POS CIPROFLOXACIN <=1 S CEFTAROLINE <=0.5 S DAPTOMYCIN <=0.5 S ERYTHROMYCIN >4 R GENTAMICIN <=4 S - RUN DATE: 09/21/21 [facility] *LIVE* PAGE 2 RUN TIME: 1028 Specimen Inquiry SPEC: [id number] PATIENT: ANNABELLE AGGARWAL [id number] (Continued) Procedure Result CONTINUED ON NEXT PAGE RUN DATE: 09/21/21 [facility] *LIVE* PAGE 3 RUN TIME: 1028 Specimen Inquiry -- SPEC: [id number] PATIENT: ANNABELLE AGGARWAL [id number] (Continued) Procedure Result ANTIMICROBIAL SUSCEPTIBILITY Preliminary (continued) INDUCIBLE CLINDAMYCIN <=4/0.5 NEG LINEZOLID 2 S LEVOFLOXACIN <=1 S OXACILLIN >2 R PENICILLIN >2 R* RIFAMPIN <=1 S TRIMETHOPRIM/SULFAMETHOXAZOLE <=0.5/9.5 S TETRACYCLINE <=4 S VANCOMYCIN 1 S Unless otherwise specified, Testing Performed by: [address] [id number] For Inquires, the Physician may contact the Microbiology department at [phone] Objective: Assessment: 1. Sepsis from right foot infection. 2. Deep right foot infection, status post incision and drainage on September 18. And September 21 3. Streptococcal bacteremia, 2/4 bottles present on admission. 4. Fever and leukocytosis 5. Diabetes mellitus. 6. Electrolyte imbalance 7. Hypertensive urgency. 8. History of polysubstance abuse. 9. Anemia. Cultures MRSA not MSSA including others Plan: Plan of Care 1. Continue meropenem and start daptomycin was on IV vancomycin 2. Intra-operative cultures pending 3. Wound/VAC care as directed. 4. Monitor labs including weekly CPK 5 offload. 6.. Monitor cultures. 7. Continue supportive care. HALLIE SNELL MD Sep 23, 2021 08:32
[2021-09-23 08:42] LABS: BASO # 0.2 x10^3/uL (0.0-0.2); BASO % 1 % (0-3); EOS # 0.5 x10^3/uL (0.0-0.7); EOS % 3 % (0-3); HEMATOCRIT 41.5 % (36.0-47.0); HEMOGLOBIN 12.6 g/dL (12.0-15.5); LYMPH # 2.9 x10^3/uL (1.0-4.8); LYMPH % 17 % (24-48); MEAN CORPUSCULAR HEMOGLOBIN 25 pg (25-35); MEAN CORPUSCULAR HGB CONC 30 g/dL (31-37); MEAN CORPUSCULAR VOLUME 82 fL (79-100); MONO # 1.2 x10^3/uL (0.0-1.1); MONO % 7 % (0-9); NEUT # 12.2 x10^3/uL (1.8-7.7); NEUT % 72 % (31-73); PLATELET COUNT 457 x10^3/uL (140-400); RED BLOOD COUNT 5.08 x10^6/uL (3.50-5.40); RED CELL DISTRIBUTION WIDTH 14.8 % (11.5-14.5)
[2021-09-23] MEDS: INSULIN GLARGINE SYRINGE. SQ SCH ×2 (09:00→21:27)
[2021-09-23] MEDS: LACTOBACILLUS RHAMNOSUS GG 1 CAPSULE. PO SCH ×2 (09:21→21:23)
[2021-09-23] MEDS: MULTIVITAMIN with MINERAL TABLET. PO SCH (09:21)
[2021-09-23] MEDS: ASCORBIC ACID 500 MG TABLET PO SCH (09:21)
[2021-09-23] MEDS: DULoxetine HCL 30 MG CAPSULE.DR PO SCH (09:21)
[2021-09-23] MEDS ORDERED: ONDANSETRON PF 4 MG/2 ML VIAL. IVP PRN (09:45)
[2021-09-23] MEDS: DOCUSATE SODIUM 100 MG CAPSULE. PO SCH (10:37)
--- NOTE | 2021-09-23 10:42 | PDOC ---
PROGRESS NOTES Date of Service DATE: 09/23/21 TIME: 10:42 Subjective Subjective Patient was seen resting comfortably in bed. She relates the pain to the surgical foot is very tolerable. She has been tolerating the dressing, VAC well. She denies any constitutional symptoms however she has not had a bowel movement for a few days. Otherwise, she denies any symptoms of UTI, shortness of breath, calf pain. Objective Objective Vital Signs Date Time Temp Pulse Resp B/P (MAP) Pulse Ox O2 Delivery O2 Flow Rate FiO2 09/23/21 09:23 89 232/112 09/23/21 08:00 Room Air 09/23/21 07:00 98.1 18 96 98.1 09/22/21 08:00 6.0 Intake and Output 09/23/21 07:00 Intake Total 1340 ml Balance 1340 ml Intake Oral 1240 ml IV Total 100 ml # Voids 2 Physical Exam Physical Exam General: Pleasant without apparent distress, AOx3 Right foot focused Dermatology: -Dressing is clean, dry and intact -VAC is functioning at 125 mill mercury, less than 100 cc of sanguinous drainage since surgery -No proximal streaking, erythema, fluctuance to the tarsal tunnel or proximal leg Vascular: -Foot is warm to touch with CFT less than 3 seconds x 5 -Calf is soft and nontender Neurology: -Light touch sensation diminished to the level of digits 1 through 5 MSK: -[-] TTP at the tarsal tunnel or the distal leg -Able to move digits -Muscle strength 5 out of 5 across ankle joint -Calf is soft and nontender -No TTP to popliteal lymph nodes Assessment Assessment Problems Medical Problems: (1) Diabetic foot ulcer Status: Acute (2) Right foot infection Status: Acute Plan Plan of Care -Explained clinical findings to patient -Patient currently is on meropenem and daptomycin, ID is following -Deep tissue culture 09/21: No growth to date -Deep tissue culture 09/18: + Strep B, lactobacilli -Blood culture 09/16: + Strep B, MRSA. -Repeat blood culture: NGTD -WBC is trending up at 17, however clinically, the wound was clean, granular from surgery. Clinical exam was insignificant for proximal streaking or tracking infection. -Keep the dressing and VAC clean, dry and intact with seal at 125 mmHg -Nonweightbearing to right lower extremity, PT eval and treat -Recommend social work assistant consult for discharge placement -Continue with daily WBC trending, continue desiccating possible other source of infection in the setting of leukocytosis -Plan for dressing change and wound VAC change on Sunday. If the intraoperative culture returns negative, WBC trends down, clinically the wound looks clean and healthy, will consider skin graft application on next Sunday. Comment Review of Relevant I have reviewed the following items jose (where applicable) has been applied. Labs Laboratory Tests Test 09/21/21 11:46 09/21/21 16:28 09/21/21 20:39 09/22/21 03:35 Glucose (Fingerstick) 126 mg/dL (70-99) 262 mg/dL (70-99) 327 mg/dL (70-99) Creatinine 1.4 mg/dL (0.6-1.0) Estimated GFR (Cockcroft-Gault) 39.0 Test 09/22/21 07:10 09/22/21 11:52 09/22/21 16:50 09/22/21 20:09 Glucose (Fingerstick) 198 mg/dL (70-99) 154 mg/dL (70-99) 149 mg/dL (70-99) 227 mg/dL (70-99) Test 09/23/21 07:36 09/23/21 08:30 Glucose (Fingerstick) 114 mg/dL (70-99) White Blood Count 17.0 x10^3/uL (4.0-11.0) Red Blood Count 5.08 x10^6/uL (3.50-5.40) Hemoglobin 12.6 g/dL (12.0-15.5) Hematocrit 41.5 % (36.0-47.0) Mean Corpuscular Volume 82 fL (79-100) Mean Corpuscular Hemoglobin 25 pg (25-35) Mean Corpuscular Hemoglobin Concent 30 g/dL (31-37) Red Cell Distribution Width 14.8 % (11.5-14.5) Platelet Count 457 x10^3/uL (140-400) Neutrophils (%) (Auto) 72 % (31-73) Lymphocytes (%) (Auto) 17 % (24-48) Monocytes (%) (Auto) 7 % (0-9) Eosinophils (%) (Auto) 3 % (0-3) Basophils (%) (Auto) 1 % (0-3) Neutrophils # (Auto) 12.2 x10^3/uL (1.8-7.7) Lymphocytes # (Auto) 2.9 x10^3/uL (1.0-4.8) Monocytes # (Auto) 1.2 x10^3/uL (0.0-1.1) Eosinophils # (Auto) 0.5 x10^3/uL (0.0-0.7) Basophils # (Auto) 0.2 x10^3/uL (0.0-0.2) Laboratory Tests Test 09/22/21 11:52 09/22/21 16:50 09/22/21 20:09 09/23/21 07:36 Glucose (Fingerstick) 154 mg/dL (70-99) 149 mg/dL (70-99) 227 mg/dL (70-99) 114 mg/dL (70-99) Test 09/23/21 08:30 White Blood Count 17.0 x10^3/uL (4.0-11.0) Red Blood Count 5.08 x10^6/uL (3.50-5.40) Hemoglobin 12.6 g/dL (12.0-15.5) Hematocrit 41.5 % (36.0-47.0) Mean Corpuscular Volume 82 fL (79-100) Mean Corpuscular Hemoglobin 25 pg (25-35) Mean Corpuscular Hemoglobin Concent 30 g/dL (31-37) Red Cell Distribution Width 14.8 % (11.5-14.5) Platelet Count 457 x10^3/uL (140-400) Neutrophils (%) (Auto) 72 % (31-73) Lymphocytes (%) (Auto) 17 % (24-48) Monocytes (%) (Auto) 7 % (0-9) Eosinophils (%) (Auto) 3 % (0-3) Basophils (%) (Auto) 1 % (0-3) Neutrophils # (Auto) 12.2 x10^3/uL (1.8-7.7) Lymphocytes # (Auto) 2.9 x10^3/uL (1.0-4.8) Monocytes # (Auto) 1.2 x10^3/uL (0.0-1.1) Eosinophils # (Auto) 0.5 x10^3/uL (0.0-0.7) Basophils # (Auto) 0.2 x10^3/uL (0.0-0.2) Microbiology 09/21/21 Gram Stain - Final, Resulted 09/21/21 Aerobic and Anaerobic Culture - Preliminary, Resulted 09/19/21 Blood Culture - Preliminary, Resulted NO GROWTH AFTER 4 DAYS Medications Current Medications Vancomycin HCl (Vanco Per Pharmacy) 1 each PRN DAILY PRN MC SEE COMMENTS Last administered on 09/21/21at 13:29; Start 09/16/21 at 00:45; Stop 09/22/21 at 08:12; Status DC Piperacillin Sod/ Tazobactam Sod (Zosyn Per Pharmacy) 1 each PRN DAILY PRN MC SEE COMMENTS; Start 09/16/21 at 00:45; Stop 09/22/21 at 09:42; Status DC Sodium Chloride 1,000 ml @ 1,000 mls/hr Q1H IV Last administered on 09/16/21at 06:05; Start 09/16/21 at 01:00; Stop 09/16/21 at 02:59; Status DC Morphine Sulfate (Morphine Sulfate) 4 mg 1X ONCE IV Last administered on 09/16/21at 02:37; Start 09/16/21 at 01:00; Stop 09/16/21 at 01:01; Status DC Acetaminophen (Tylenol) 1,000 mg 1X ONCE PO Last administered on 09/16/21at 02:35; Start 09/16/21 at 01:00; Stop 09/16/21 at 01:01; Status DC Vancomycin HCl 2 gm/Sodium Chloride 500 ml @ 250 mls/hr 1X ONCE IV Last administered on 09/16/21at 03:12; Start 09/16/21 at 01:30; Stop 09/16/21 at 03:29; Status DC Piperacillin Sod/ Tazobactam Sod 3.375 gm/Sodium Chloride 50 ml @ 100 mls/hr Q6HRS IV Last administered on 09/22/21at 06:04; Start 09/16/21 at 01:00; Stop 09/22/21 at 08:12; Status DC Lidocaine HCl (Lidocaine 1% 20ml Vial) 20 ml STK-MED ONCE .ROUTE ; Start 09/16/21 at 01:17; Stop 09/16/21 at 01:17; Status DC Ondansetron HCl (Zofran) 4 mg PRN Q8HRS PRN IVP NAUSEA/VOMITING 1ST CHOICE; Start 09/16/21 at 01:45; Stop 09/20/21 at 01:44; Status DC Morphine Sulfate (Morphine Sulfate) 4 mg PRN Q2HR PRN IVP SEVERE PAIN 7-10 Last administered on 09/19/21at 01:25; Start 09/16/21 at 01:45; Stop 09/19/21 at 01:44; Status DC Insulin Human Regular (HumuLIN R VIAL) 10 unit 1X ONCE SQ ; Start 09/16/21 at 03:30; Stop 09/16/21 at 03:31; Status Cancel Insulin Glargine (Lantus Syringe) 15 unit BID SQ Last administered on 09/16/21at 09:04; Start 09/16/21 at 09:00; Stop 09/16/21 at 13:21; Status DC Insulin Human Lispro (HumaLOG) 0-9 UNITS TIDWMEALS SQ ; Start 09/16/21 at 08:00; Stop 09/16/21 at 13:21; Status DC Dextrose (Dextrose 50%-Water Syringe) 12.5 gm PRN Q15MIN PRN IV SEE COMMENTS; Start 09/16/21 at 03:45; Stop 09/16/21 at 13:46; Status DC Insulin Human Lispro (HumaLOG) 10 units 1X ONCE SQ Last administered on 09/16/21at 04:09; Start 09/16/21 at 04:15; Stop 09/16/21 at 04:16; Status DC Vancomycin HCl 1.25 gm/Sodium Chloride 250 ml @ 167 mls/hr Q12H IV Last administered on 09/22/21at 02:34; Start 09/16/21 at 15:00; Stop 09/22/21 at 08:12; Status DC Vancomycin HCl (Vancomycin Trough Level) 1 each 1X ONCE MC Last administered on 09/17/21at 14:30; Start 09/17/21 at 14:30; Stop 09/17/21 at 14:31; Status DC Lactobacillus Rhamnosus (Culturelle) 1 cap BID PO Last administered on 09/23/21at 09:21; Start 09/16/21 at 21:00 Simvastatin (Zocor) 20 mg QHS PO Last administered on 09/22/21at 21:43; Start 09/16/21 at 21:00 Duloxetine HCl (Cymbalta) 60 mg DAILY PO Last administered on 09/23/21at 09:21; Start 09/16/21 at 14:00 Insulin Glargine (Lantus Syringe) 55 unit BID SQ Last administered on 1 at 21:46; Start 09/16/21 at 21:00 Dextrose (Dextrose 50%-Water Syringe) 12.5 gm PRN Q15MIN PRN IV SEE COMMENTS; Start 09/16/21 at 13:00 Multivitamins (Thera M Plus) 1 tab DAILY PO Last administered on 09/23/21at 09:21; Start 09/17/21 at 20:00 Ascorbic Acid (Vitamin C) 500 mg DAILY PO Last administered on 09/23/21at 09:21; Start 09/17/21 at 20:00 Insulin Human Lispro (HumaLOG) 10 units 1X ONCE SQ Last administered on 09/16/21at 19:24; Start 09/16/21 at 19:00; Stop 09/16/21 at 19:03; Status DC Insulin Human Lispro (HumaLOG) 0-9 UNITS TIDWMEALS SQ Last administered on 09/18/21at 17:19; Start 09/17/21 at 08:00 Insulin Human Lispro (HumaLOG) 10 units 1X ONCE SQ Last administered on 09/16/21at 23:08; Start 09/16/21 at 23:30; Stop 09/16/21 at 23:31; Status DC Insulin Human Lispro (HumaLOG) 10 units 1X ONCE SQ Last administered on 09/17/21at 08:53; Start 09/17/21 at 08:30; Stop 09/17/21 at 08:31; Status DC Enoxaparin Sodium (Lovenox 40mg Syringe) 40 mg Q24H SQ Last administered on 09/22/21at 16:22; Start 09/17/21 at 16:00 Fentanyl Citrate (Fentanyl 2ml Vial) 25 mcg PRN Q5MIN PRN IVP MILD PAIN 1-3; Start 09/18/21 at 06:00; Stop 09/19/21 at 05:59; Status DC Fentanyl Citrate (Fentanyl 2ml Vial) 50 mcg PRN Q5MIN PRN IVP MODERATE PAIN 4-6 Last administered on 09/18/21at 10:26; Start 09/18/21 at 06:00; Stop 09/19/21 at 05:59; Status DC Morphine Sulfate (Morphine Sulfate) 1 mg PRN Q10MIN PRN IVP SEVERE PAIN 7-10; Start 09/18/21 at 06:00; Stop 09/19/21 at 05:59; Status DC Ringer's Solution 1,000 ml @ 30 mls/hr Q24H IV Last administered on 09/18/21at 08:50; Start 09/18/21 at 06:00; Stop 09/18/21 at 17:59; Status DC Hydromorphone HCl (Dilaudid) 0.5 mg PRN Q10MIN PRN IVP SEVERE PAIN 7-10, 2nd CHOICE; Start 09/18/21 at 06:00; Stop 09/19/21 at 05:59; Status DC Prochlorperazine Edisylate (Compazine) 5 mg PACU PRN PRN IVP NAUSEA, MRX1 Last administered on 09/18/21at 10:12; Start 09/18/21 at 06:00; Stop 09/19/21 at 05:59; Status DC Cefazolin Sodium 1 gm/Sodium Chloride 1,000 ml @ 1,000 mls/hr 1X ONCE IRR ; Start 09/18/21 at 08:30; Stop 09/18/21 at 09:29; Status DC Cefazolin Sodium 1 gm/Sodium Chloride 1,000 ml @ 1,000 mls/hr 1X ONCE IRR ; Start 09/18/21 at 08:30; Stop 09/18/21 at 09:29; Status DC Cefazolin Sodium 1 gm/Sodium Chloride 1,000 ml @ 1,000 mls/hr 1X ONCE IRR ; Start 09/18/21 at 08:30; Stop 09/18/21 at 09:29; Status DC Vancomycin HCl (Vancomycin) 1 gm STK-MED ONCE .ROUTE ; Start 09/18/21 at 08:34; Stop 09/18/21 at 08:34; Status DC Tobramycin Sulfate (Tobramycin Powder) 1.2 gm STK-MED ONCE .ROUTE ; Start 09/18/21 at 08:34; Stop 09/18/21 at 08:35; Status DC Ondansetron HCl (Zofran) 4 mg STK-MED ONCE .ROUTE ; Start 09/18/21 at 09:00; Stop 09/18/21 at 09:00; Status DC Propofol (Diprivan) 200 mg STK-MED ONCE IV ; Start 09/18/21 at 09:00; Stop 09/18/21 at 09:00; Status DC Lidocaine HCl (Lidocaine Pf 2% Vial) 5 ml STK-MED ONCE .ROUTE ; Start 09/18/21 at 09:00; Stop 09/18/21 at 09:00; Status DC Dexamethasone Sodium Phosphate (Decadron) 4 mg STK-MED ONCE .ROUTE ; Start 09/18/21 at 09:00; Stop 09/18/21 at 09:01; Status DC Sevoflurane (Ultane) 60 ml STK-MED ONCE IH ; Start 09/18/21 at 09:00; Stop 09/18/21 at 09:01; Status DC Dextrose (Dextrose 50%-Water Syringe) 12.5 gm PRN Q15MIN PRN IV SEE COMMENTS; Start 09/18/21 at 09:45; Stop 09/19/21 at 10:20; Status DC Acetaminophen (Tylenol) 650 mg 1X ONCE PO Last administered on 09/18/21at 11:25; Start 09/18/21 at 09:45; Stop 09/18/21 at 09:46; Status DC Fentanyl Citrate (Fentanyl 2ml Vial) 100 mcg STK-MED ONCE .ROUTE ; Start 09/18/21 at 09:58; Stop 09/18/21 at 09:58; Status DC Prochlorperazine Edisylate (Compazine) 10 mg STK-MED ONCE .ROUTE ; Start 09/18/21 at 09:59; Stop 09/18/21 at 09:59; Status DC Acetaminophen/ Hydrocodone Bitart (Lortab 5/325) 1 tab PRN Q4HRS PRN PO MILD- MODERATE PAIN Last administered on 09/22/21at 10:37; Start 09/19/21 at 15:00; Stop 09/22/21 at 11:36; Status DC Acetaminophen/ Hydrocodone Bitart (Lortab 7.5/325) 1 tab PRN Q6HRS PRN PO SEVERE PAIN Last administered on 09/20/21at 23:48; Start 09/19/21 at 15:00; Stop 09/21/21 at 09:58; Status DC Morphine Sulfate (Morphine Sulfate) 4 mg PRN Q2HR PRN IV PAIN Last administered on 09/21/21at 02:47; Start 09/19/21 at 15:00; Stop 09/21/21 at 09:58; Status DC Hydralazine HCl (Apresoline Inj) 10 mg PRN Q4HRS PRN IVP ELEVATED BP, SEE COMMENTS Last administered on 09/20/21at 08:34; Start 09/20/21 at 08:15; Stop 09/21/21 at 09:58; Status DC Fentanyl Citrate (Fentanyl 2ml Vial) 25 mcg PRN Q5MIN PRN IVP MILD PAIN 1-3 Last administered on 09/21/21at 10:33; Start 09/21/21 at 06:00; Stop 09/22/21 at 05:59; Status DC Fentanyl Citrate (Fentanyl 2ml Vial) 50 mcg PRN Q5MIN PRN IVP MODERATE PAIN 4- 6; Start 09/21/21 at 06:00; Stop 09/21/21 at 09:58; Status DC Morphine Sulfate (Morphine Sulfate) 1 mg PRN Q10MIN PRN IVP SEVERE PAIN 7-10; Start 09/21/21 at 06:00; Stop 09/21/21 at 09:58; Status DC Ringer's Solution 1,000 ml @ 30 mls/hr Q24H IV Last administered on 09/21/21at 09:00; Start 09/21/21 at 06:00; Stop 09/21/21 at 17:59; Status DC Hydromorphone HCl (Dilaudid) 0.5 mg PRN Q10MIN PRN IVP SEVERE PAIN 7-10, 2nd CHOICE; Start 09/21/21 at 06:00; Stop 09/22/21 at 05:59; Status DC Prochlorperazine Edisylate (Compazine) 5 mg PACU PRN PRN IVP NAUSEA, MRX1; Start 09/21/21 at 06:00; Stop 09/22/21 at 05:59; Status DC Phenylephrine HCl (PHENYLEPHRINE in 0.9% NACL PF) 1 mg STK-MED ONCE IV ; Start 09/21/21 at 08:11; Stop 09/21/21 at 08:11; Status DC Dexamethasone Sodium Phosphate (Decadron) 4 mg STK-MED ONCE .ROUTE ; Start 09/21/21 at 08:11; Stop 09/21/21 at 08:11; Status DC Ondansetron HCl (Zofran) 4 mg STK-MED ONCE .ROUTE ; Start 09/21/21 at 08:11; Stop 09/21/21 at 08:11; Status DC Propofol (Diprivan) 200 mg STK-MED ONCE IV ; Start 09/21/21 at 08:11; Stop 09/21/21 at 08:12; Status DC Lidocaine HCl (Lidocaine Pf 2% Vial) 5 ml STK-MED ONCE .ROUTE ; Start 09/21/21 at 08:11; Stop 09/21/21 at 08:12; Status DC Midazolam HCl (Versed) 2 mg STK-MED ONCE .ROUTE ; Start 09/21/21 at 08:12; Stop 09/21/21 at 08:13; Status DC Lidocaine HCl (Xylocaine-Mpf 1% 2ml Vial) 2 ml STK-MED ONCE .ROUTE ; Start 09/21/21 at 08:27; Stop 09/21/21 at 08:27; Status DC Glycopyrrolate (Robinul) 1 mg STK-MED ONCE .ROUTE ; Start 09/21/21 at 09:11; Stop 09/21/21 at 09:11; Status DC Ephedrine Sulfate (ePHEDrine PF IN SALINE SYRINGE) 50 mg STK-MED ONCE IV ; Start 09/21/21 at 09:11; Stop 09/21/21 at 09:11; Status DC Fentanyl Citrate (Fentanyl 2ml Vial) 100 mcg STK-MED ONCE .ROUTE ; Start 09/21/21 at 09:28; Stop 09/21/21 at 09:28; Status DC Sevoflurane (Ultane) 30 ml STK-MED ONCE IH ; Start 09/21/21 at 09:37; Stop 09/21/21 at 09:38; Status DC Acetaminophen (Tylenol) 650 mg 1X ONCE PO ; Start 09/21/21 at 10:30; Stop 09/21/21 at 09:58; Status DC Oxycodone/ Acetaminophen (Percocet 5/325) 1 tab 1X ONCE PO ; Start 09/21/21 at 10:30; Stop 09/21/21 at 09:58; Status DC Fentanyl Citrate (Fentanyl 2ml Vial) 100 mcg STK-MED ONCE .ROUTE ; Start 09/21/21 at 10:10; Stop 09/21/21 at 10:10; Status DC Vancomycin HCl (Vancomycin Trough Level) 1 each 1X ONCE MC ; Start 09/22/21 at 14:30; Stop 09/22/21 at 08:15; Status DC Hydralazine HCl (Apresoline Inj) 10 mg PRN Q4HRS PRN IVP ELEVATED BP, SEE COMMENTS Last administered on 09/23/21at 09:23; Start 09/21/21 at 15:00 Meropenem 500 mg/ Sodium Chloride 50 ml @ 100 mls/hr Q6HRS IV Last administered on 09/23/21at 05:55; Start 09/22/21 at 12:00 Acetaminophen/ Hydrocodone Bitart (Lortab 10/325) 1 tab PRN Q6HRS PRN PO PAIN Last administered on 09/23/21at 03:38; Start 09/22/21 at 11:45 Daptomycin 420 mg/ Sodium Chloride 50 ml @ 100 mls/hr Q24H IV ; Start 09/23/21 at 10:00 Ondansetron HCl (Zofran) 4 mg PRN Q6HRS PRN IVP NAUSEA/VOMITING Last administered on 09/23/21at 10:37; Start 09/23/21 at 09:45 Docusate Sodium (Colace) 100 mg DAILY PO ; Start 09/24/21 at 10:00; Stop 09/23/21 at 09:47; Status DC Docusate Sodium (Colace) 100 mg DAILY PO Last administered on 09/23/21at 10:37; Start 09/23/21 at 10:00 Active Scripts Active Glipizide 5 Mg Tablet 5 Mg PO BIDBFRMEAL 30 Days Reported Levemir (Insulin Detemir) 100 Unit/1 Ml Vial 55 Unit SQ BID Simvastatin 20 Mg Tablet 1 Tab PO QHS Metformin Hcl 500 Mg Tablet Unknown Dose PO Atenolol 25 Mg Tablet Unknown Dose PO DAILY Duloxetine HCl 40 Mg Capsule.dr 60 Mg PO DAILY Vitals/I & O Vital Sign - Last 24 Hours 09/22/21 09/22/21 09/22/21 09/22/21 11:03 15:04 19:00 19:50 Temp 98.3 97.3 97.9 98.3 97.3 97.9 Pulse 69 69 92 Resp 20 18 18 B/P (MAP) 172/85 (114) 129/73 (91) 159/82 (107) Pulse Ox 96 95 93 O2 Delivery Room Air Room Air Room Air 09/22/21 09/22/21 09/22/21 09/23/21 19:53 20:23 23:00 03:00 Temp 98.1 98.0 98.1 98.0 Pulse 79 94 Resp 20 20 18 18 B/P (MAP) 181/88 (119) 203/105 (137) Pulse Ox 95 96 O2 Delivery Room Air Room Air 09/23/21 09/23/21 09/23/21 09/23/21 03:38 03:41 04:08 07:00 Temp 98.1 98.1 Pulse 60 89 Resp 18 18 18 B/P (MAP) 203/105 232/112 (152) Pulse Ox 96 O2 Delivery Room Air Room Air Room Air 09/23/21 09/23/21 08:00 09:23 Pulse 89 B/P (MAP) 232/112 O2 Delivery Room Air Intake and Output 09/22/21 09/22/21 09/23/21 15:00 23:00 07:00 Intake Total 410 ml 570 ml 360 ml Balance 410 ml 570 ml 360 ml Justifications for Admission Other Justification BUZZ BERMEO DPM Sep 23, 2021 10:42
[2021-09-23] MEDS: DAPTOmycin (GENERIC) IVPB 420 MG in IV NORMAL SALINE 50ML 50 ML IV SCH (11:04)
[2021-09-23 11:27] VITALS: BP 190/85
--- NOTE | 2021-09-23 14:42 | PDOC ---
[facility] PROGRESS NOTE Date of Service DOS: DATE: 09/23/21 TIME: 14:38 Chief Complaint Chief Complaint Sepsis Streptococcal bacteremia 2 out of 4 bottles Right diabetic foot infected ulcer Hypertensive urgency Hyperglycemia uncontrolled Acute electrolyte derangementhyponatremia, hypochloremia suggestive of acute volume depletion History of diabetes mellitus type 2 History of polysubstance abuse Pending podiatry evaluation Continue empiric IV antibiotics Pending vascular surgery consult Wound care consult IV antihypertensive medications Inpatient systolic blood pressure goals between 140 to 180 R ISS and Accu-Cheks, resume home long-acting insulin IV electrolyte replacement as needed PAT evaluation Lovenox for DVT prophylaxis ADA diet CODE STATUS full Discussed with RN and SW Disposition inpatient management as above DPOA: Nicole Metzger History of Present Illness History of Present Illness 56-year-old female with past medical history of methamphetamine abuse, diabetes mellitus 2, depression anxiety, hypertension, dyslipidemia, chronic back pain who presents with right foot pain and lesion to the bottom. She reports that for the past several weeks wound has been worsening and she even tried to andrea it at home but returned and got dark. She also has a chronic ulcer over the right great toe does not regularly well. There is some probably noncompliance with diabetes. Patient states that fast acting insulin causes her to be nauseous and vomit. She was recently admitted for the wound on her right foot in June 2021. Pain worsens upon ambulation. She admits to some fever and chills. Denies nausea, vomiting, chest pain, shortness of breath, abdominal pain, urinary symptoms, cough, recent trauma, or any other complaints. 09/17/21 No acute events overnight. Patient seen and examined bedside. Resting comfortably. Pain is well controlled. Seen by wound care Dr. Love's and recommending podiatry consult for surgical debridement of necrotic tissue. Patient's chart, labs, images were reviewed and discussed with RN 09/18/21 No acute events overnight. Patient taken to the OR today for surgical debridement with Dr. Morris. No concerns with nursing. Sugars are better controlled, ranging between 106-136. Patient's chart, labs, images were reviewed and discussed with RN 09/19: Afebrile. S/P right foot I&D with placement of wound VAC. Blood cultures positive for strep agalactiae (group B strep) that is resistant to erythromycin but largely pansensitive. Wound cultures with staph aureus and group B strep. Continue current antibiotic regimen for now, follow wound cultures for final cultures and sensitivities. Patient tells me that she is having repeat surgery on Sunday. Discussed p.o. pain medication is more appropriate at this time but will leave IV morphine on for when she becomes n.p.o. for any further surgical intervention. 09/20: Afebrile. WBC improving. She will need to be NPO after midnight for repeat I&D, wound VAC application, and possible Achilles lengthening. Discussed with RN. 09/21: Patient seen postoperatively this morning. Right foot is wrapped in bed and bandaged with wound VAC in place. Follow intraoperative cultures. Patient has some questions about repeat surgical grafts; will defer to Dr. Morris. Continue IV antibiotics, per ID. 09/22: Patient seen POD #1, s/p right foot repeat I&D, with wound VAC and posterior splint application. Plan for wound VAC change tomorrow at bedside, per Dr. Morris. Will continue to follow intraoperative cultures. Encourage working with PT today. Asking for increase and dose of pain medication. 09/15: POD #2 s/p right foot repeat I&D, with wound VAC and posterior splint application. Worsening leukocytosis noted this morning. Wound cultures came back positive for MRSA. Daptomycin initiated, per ID. Also some significant hyperte nsion today. Started on Norvasc. If blood pressure improves with pain improvement, Norvasc can likely be stopped. Poor appetite this morning that she contributes to antibiotic regimen. Recommended liquid diet and antiemetics as needed. Continue IV antibiotics, per ID. Vitals/I&O Vitals/I&O: Vital Signs Date Time Temp Pulse Resp B/P (MAP) Pulse Ox O2 Delivery O2 Flow Rate FiO2 09/23/21 11:27 97.9 96 18 190/85 (120) 93 Room Air 97.9 09/22/21 08:00 6.0 I & O 09/22/21 09/22/21 09/23/21 14:59 22:59 06:59 Intake Total 410 ml 570 ml 360 ml Balance 410 ml 570 ml 360 ml Physical Exam Physical Exam: GENERAL APPEARANCE: Well-developed, well-nourished female, lying in bed comfortably, in no acute distress, nontoxic appearing. HEENT: Normocephalic, atraumatic. Normal conjunctivae. NECK: Supple, no JVD, no lymphadenopathy. LUNGS: Clear bilaterally. No wheezing. HEART: S1, S2. No gallops or murmurs. ABDOMEN: Soft, obese. Bowel sounds present, nontender, nondistended. GENITOURINARY: No Givens in place. EXTREMITIES: Right foot dressing in place along with wound VAC, not taken down. Slight swelling, mild redness and warmth. Per the patient, warmth and edema have been improving. NEUROLOGIC: Alert and oriented x 3, grossly nonfocal. PIV looks clean. PSYCHIATRIC: Calm and cooperative. General: Alert, Oriented X3, Cooperative Heart: Regular rate Lungs: Clear Abdomen: Normal bowel sounds Extremities: Other (Right with dressings clean/dry/intact. No active bleeding or purulence.) Skin: Other (Necrotic wound in the right medial plantar side of the foot with surrounding erythema and some edema) Labs Labs: Laboratory Tests Test 09/22/21 16:50 09/22/21 20:09 09/23/21 07:36 09/23/21 08:30 Glucose (Fingerstick) 149 mg/dL (70-99) 227 mg/dL (70-99) 114 mg/dL (70-99) White Blood Count 17.0 x10^3/uL (4.0-11.0) Red Blood Count 5.08 x10^6/uL (3.50-5.40) Hemoglobin 12.6 g/dL (12.0-15.5) Hematocrit 41.5 % (36.0-47.0) Mean Corpuscular Volume 82 fL (79-100) Mean Corpuscular Hemoglobin 25 pg (25-35) Mean Corpuscular Hemoglobin Concent 30 g/dL (31-37) Red Cell Distribution Width 14.8 % (11.5-14.5) Platelet Count 457 x10^3/uL (140-400) Neutrophils (%) (Auto) 72 % (31-73) Lymphocytes (%) (Auto) 17 % (24-48) Monocytes (%) (Auto) 7 % (0-9) Eosinophils (%) (Auto) 3 % (0-3) Basophils (%) (Auto) 1 % (0-3) Neutrophils # (Auto) 12.2 x10^3/uL (1.8-7.7) Lymphocytes # (Auto) 2.9 x10^3/uL (1.0-4.8) Monocytes # (Auto) 1.2 x10^3/uL (0.0-1.1) Eosinophils # (Auto) 0.5 x10^3/uL (0.0-0.7) Basophils # (Auto) 0.2 x10^3/uL (0.0-0.2) Assessment and Plan Assessmemt and Plan Problems Medical Problems: (1) Diabetic foot ulcer Status: Acute (2) Right foot infection Status: Acute Comment Review of Relevant I have reviewed the following items jose (where applicable) has been applied. Medications: Current Medications Medications (Trade) Dose Ordered Sig/Ray Route PRN Reason Start Time Stop Time Status Last Admin Dose Admin Daptomycin 420 mg/ Sodium Chloride 50 ml @ 100 mls/hr Q24H IV 09/23/21 10:00 09/23/21 11:04 Ondansetron HCl (Zofran) 4 mg PRN Q6HRS PRN IVP NAUSEA/VOMITING 09/23/21 09:45 09/23/21 10:37 Docusate Sodium (Colace) 100 mg DAILY PO 09/23/21 10:00 09/23/21 10:37 Justifications for Admission Other Justification PAU CHENG MD Sep 23, 2021 14:42
[2021-09-23] MEDS: ENOXAPARIN 40 MG/0.4 ML SYRINGE. SQ SCH (14:46)
[2021-09-23 15:05] VITALS: BP 189/92
[2021-09-23 19:25] VITALS: BP 161/70
[2021-09-23] MEDS: SIMVASTATIN 20 MG TABLET PO SCH (21:23)
[2021-09-23 23:02] VITALS: BP 142/78
[2021-09-24 03:04] VITALS: BP 174/84
[2021-09-24] MEDS: MEROPENEM 500 MG in IV NORMAL SALINE 50ML 50 ML IV SCH ×3 (05:21→18:02)
[2021-09-24 07:00] VITALS: BP 156/70
[2021-09-24 07:15] LABS: BASO # 0.1 x10^3/uL (0.0-0.2); BASO % 0 % (0-3); EOS # 0.5 x10^3/uL (0.0-0.7); EOS % 3 % (0-3); HEMATOCRIT 40.1 % (36.0-47.0); HEMOGLOBIN 12.6 g/dL (12.0-15.5); LYMPH # 2.2 x10^3/uL (1.0-4.8); LYMPH % 13 % (24-48); MEAN CORPUSCULAR HEMOGLOBIN 25 pg (25-35); MEAN CORPUSCULAR HGB CONC 32 g/dL (31-37); MEAN CORPUSCULAR VOLUME 80 fL (79-100); MONO # 1.1 x10^3/uL (0.0-1.1); MONO % 7 % (0-9); NEUT # 13.1 x10^3/uL (1.8-7.7); NEUT % 77 % (31-73); PLATELET COUNT 477 x10^3/uL (140-400); RED CELL DISTRIBUTION WIDTH 14.9 % (11.5-14.5)
[2021-09-24 07:32] LABS: CALCIUM 8.5 mg/dL (8.5-10.1); GFR 25.9; POTASSIUM 4.4 mmol/L (3.5-5.1)
[2021-09-24] MEDS: INSULIN LISPRO 300 UNITS/3 ML VIAL. SQ SCH ×3 (08:00→17:00)
--- NOTE | 2021-09-24 08:08 | PDOC ---
Infectious Disease Note Subjective: Subjective Patient feels much better today next Underwent wound dressing earlier today and wound pictures noted on patient's mother's phone Discussed with Dr. Morris and her wound is stable Denies headache sore throat fever, vomiting, diarrhea, abdominal pain. symptoms Patient has constipation Vital Signs: Vital Signs Vital Signs Date Time Temp Pulse Resp B/P (MAP) Pulse Ox O2 Delivery O2 Flow Rate FiO2 09/24/21 03:04 98.7 94 18 174/84 (114) 95 Room Air 98.7 Physical Exam: PHYSICAL EXAM GENERAL APPEARANCE: Well-developed, well-nourished female, lying in bed comfortably, in no acute distress, nontoxic appearing. HEENT: Normocephalic, atraumatic. Normal conjunctivae. NECK: Supple, no JVD, no lymphadenopathy. LUNGS: Clear bilaterally. No wheezing. HEART: S1, S2. No gallops or murmurs. ABDOMEN: Soft, obese. Bowel sounds present, nontender, nondistended. GENITOURINARY: No Givens in place. EXTREMITIES: Right foot dressing in place along with wound VAC, not taken down. No warmth or swelling noted in the right lower extremity NEUROLOGIC: Alert and oriented x 3, grossly nonfocal. PIV looks clean. PSYCHIATRIC: Calm and cooperative. Medications: Inpatient Meds: Medications reviewed. Labs: Lab Laboratory Tests Test 09/23/21 08:30 09/23/21 16:55 09/23/21 20:48 09/24/21 06:25 White Blood Count 17.0 x10^3/uL (4.0-11.0) 17.0 x10^3/uL (4.0-11.0) Red Blood Count 5.08 x10^6/uL (3.50-5.40) 5.00 x10^6/uL (3.50-5.40) Hemoglobin 12.6 g/dL (12.0-15.5) 12.6 g/dL (12.0-15.5) Hematocrit 41.5 % (36.0-47.0) 40.1 % (36.0-47.0) Mean Corpuscular Volume 82 fL (79-100) 80 fL (79-100) Mean Corpuscular Hemoglobin 25 pg (25-35) 25 pg (25-35) Mean Corpuscular Hemoglobin Concent 30 g/dL (31-37) 32 g/dL (31-37) Red Cell Distribution Width 14.8 % (11.5-14.5) 14.9 % (11.5-14.5) Platelet Count 457 x10^3/uL (140-400) 477 x10^3/uL (140-400) Neutrophils (%) (Auto) 72 % (31-73) 77 % (31-73) Lymphocytes (%) (Auto) 17 % (24-48) 13 % (24-48) Monocytes (%) (Auto) 7 % (0-9) 7 % (0-9) Eosinophils (%) (Auto) 3 % (0-3) 3 % (0-3) Basophils (%) (Auto) 1 % (0-3) 0 % (0-3) Neutrophils # (Auto) 12.2 x10^3/uL (1.8-7.7) 13.1 x10^3/uL (1.8-7.7) Lymphocytes # (Auto) 2.9 x10^3/uL (1.0-4.8) 2.2 x10^3/uL (1.0-4.8) Monocytes # (Auto) 1.2 x10^3/uL (0.0-1.1) 1.1 x10^3/uL (0.0-1.1) Eosinophils # (Auto) 0.5 x10^3/uL (0.0-0.7) 0.5 x10^3/uL (0.0-0.7) Basophils # (Auto) 0.2 x10^3/uL (0.0-0.2) 0.1 x10^3/uL (0.0-0.2) Glucose (Fingerstick) 191 mg/dL (70-99) 145 mg/dL (70-99) Sodium Level 139 mmol/L (136-145) Potassium Level 4.4 mmol/L (3.5-5.1) Chloride Level 104 mmol/L (98-107) Carbon Dioxide Level 30 mmol/L (21-32) Anion Gap 5 (6-14) Blood Urea Nitrogen 27 mg/dL (7-20) Creatinine 2.0 mg/dL (0.6-1.0) Estimated GFR (Cockcroft-Gault) 25.9 Glucose Level 76 mg/dL (70-99) Calcium Level 8.5 mg/dL (8.5-10.1) Creatine Kinase 16 U/L (26-192) Test 09/24/21 07:34 Glucose (Fingerstick) 80 mg/dL (70-99) Micro 1023 STAPHYLOCOCCUS AUREUS methicillin sensitive STREPTOCOCCUS AGALACTIAE GRP B UNIDENTIFIED ORGANISM LACTOBACILLUS JENSENII BETA STREP GROUP B RUN DATE: 09/21/21 [facility] *LIVE* PAGE 1 RUN TIME: 1028 Specimen Inquiry PATIENT: ANNABELLE AGGARWAL ACCT: [id number] LOC: [address] [place] [address] U: [id number] AGE/SX: 56/F ROOM: [facility] RE09/16/[address]: CHRISTIANA AUSTIN MD : 1965 BED: 1 DIS: STATUS: ADM IN TLOC: SPEC #: [id number] DIPIKA: 09/17/21-1199 STATUS: RES REQ #: [id number] RECD: 09/17/[address]: BUZZ MORRISM SOURCE: FOOT ENTR: 09/17/[address]: MARLINE WHITMORE DO [facility]: ADRIA HIGGINBOTHAM M.D., KEVIN Y MD ORDERED: ANAER/AEROB/GS COMMENTS: Has specimen been collected/obtained? Y Procedure Result GRAM STAIN Final Final GRAM POSITIVE RODS:MANY GRAM POSITIVE COCCI:MANY SQUAMOUS EPI CELL:MODERATE PMN (WBCs):NONE SEEN Unless otherwise specified, Testing Performed by: [place] [address] For Inquires, the Physician may contact the Microbiology department at [phone] ANAEROBIC-AEROBIC CULTURE Preliminary Preliminary MODERATE GRAM POSITIVE COCCI on 09/19/21 at 0745 FINAL ID= [STAPHYLOCOCCUS AUREUS (MRSA)] FINAL ID= [BETA STREP GROUP B] FEW Mixed skin josr isolated on 09/20/21 at 0859 STAPHYLOCOCCUS AUREUS (MRSA) STREPTOCOCCUS AGALACTIAE GRP B UNIDENTIFIED ORGANISM LACTOBACILLUS JENSENII BETA STREP GROUP B ANTIMICROBIAL SUSCEPTIBILITY Preliminary Comment POS MOR TYPE 38 STAPHYLOCOCCUS AUREUS (MRSA) ANTIBIOTIC RESULT INTERPRETATION AZITHROMYCIN >4 R CLINDAMYCIN <=0.25 S CEFOXITIN SCREEN >4 POS CIPROFLOXACIN <=1 S CEFTAROLINE <=0.5 S DAPTOMYCIN <=0.5 S ERYTHROMYCIN >4 R GENTAMICIN <=4 S RUN DATE: 09/21/21 [facility] *LIVE* PAGE 2 RUN TIME: 1028 Specimen Inquiry SPEC: [id number] PATIENT: ANNABELLE AGGARWAL [id number] (Continued) Procedure Result CONTINUED ON NEXT PAGE RUN DATE: 09/21/21 [facility] *LIVE* PAGE 3 RUN TIME: 1028 Specimen Inquiry SPEC: [id number] PATIENT: ANNABELLE AGGARWAL [id number] (Continued) ---- -------- Procedure Result ANTIMICROBIAL SUSCEPTIBILITY Preliminary (continued) INDUCIBLE CLINDAMYCIN <=4/0.5 NEG LINEZOLID 2 S LEVOFLOXACIN <=1 S OXACILLIN >2 R PENICILLIN >2 R* RIFAMPIN <=1 S TRIMETHOPRIM/SULFAMETHOXAZOLE <=0.5/9.5 S TETRACYCLINE <=4 S VANCOMYCIN 1 S Unless otherwise specified, Testing Performed by: [address] [address] For Inquires, the Physician may contact the Microbiology department at [phone] Objective: Assessment: 1. Sepsis from right foot infection. 2. Deep right foot infection, status post incision and drainage on September 18. And September 21 3. Streptococcal bacteremia, 2/4 bottles present on admission. 4. Fever improving 5. Diabetes mellitus. 6. Electrolyte imbalance 7. Hypertensive urgency. 8. History of polysubstance abuse. 9. Anemia. Cultures MRSA not MSSA including others Leukocytosis could be reactive. If fevers will panculture. Plan: Plan of Care 1. Continue meropenem and daptomycin was on IV vancomycin 2. Intra-operative cultures pending 3. Wound/VAC care as directed. 4. Monitor labs including weekly CPK 5 offload. 6.. Monitor cultures. 7. Continue supportive care. Leukocytosis could be reactive from nausea and or constipation. Wound is healthy per discussion with Dr. Morris. Management per primary. Will trend WBC Discussed with Dr. Morris Discussed with RN Discussed with mother at bedside HALLIE SNELL MD Sep 24, 2021 08:08
[2021-09-24] MEDS: HYDROcodone/APAP 10/325 1 TAB TABLET PO PRN (08:11)
[2021-09-24] MEDS: DOCUSATE SODIUM 100 MG CAPSULE. PO SCH (09:21)
[2021-09-24] MEDS: LACTOBACILLUS RHAMNOSUS GG 1 CAPSULE. PO SCH ×2 (09:22→21:18)
[2021-09-24] MEDS: MULTIVITAMIN with MINERAL TABLET. PO SCH (09:22)
[2021-09-24] MEDS: ASCORBIC ACID 500 MG TABLET PO SCH (09:23)
[2021-09-24] MEDS: DULoxetine HCL 30 MG CAPSULE.DR PO SCH (09:23)
[2021-09-24] MEDS: INSULIN GLARGINE SYRINGE. SQ SCH ×2 (09:28→21:24)
[2021-09-24] MEDS: DAPTOmycin (GENERIC) IVPB 420 MG in IV NORMAL SALINE 50ML 50 ML IV SCH (09:29)
[2021-09-24] MEDS ORDERED: DOCUSATE SODIUM 100 MG CAPSULE. PO SCH (10:00)
--- NOTE | 2021-09-24 10:02 | PDOC ---
[employer] PROGRESS NOTE Date of Service DOS: DATE: 09/24/21 TIME: 09:57 Chief Complaint Chief Complaint Sepsis Streptococcal bacteremia 2 out of 4 bottles Right diabetic foot infected ulcer Hypertensive urgency Hyperglycemia uncontrolled Acute electrolyte derangementhyponatremia, hypochloremia suggestive of acute volume depletion History of diabetes mellitus type 2 History of polysubstance abuse Pending podiatry evaluation Continue empiric IV antibiotics Pending vascular surgery consult Wound care consult IV antihypertensive medications Inpatient systolic blood pressure goals between 140 to 180 R ISS and Accu-Cheks, resume home long-acting insulin IV electrolyte replacement as needed PAT evaluation Lovenox for DVT prophylaxis ADA diet CODE STATUS full Discussed with RN and SW Disposition inpatient management as above DPOA: Nicole Metzger History of Present Illness History of Present Illness 56-year-old female with past medical history of methamphetamine abuse, diabetes mellitus 2, depression anxiety, hypertension, dyslipidemia, chronic back pain who presents with right foot pain and lesion to the bottom. She reports that for the past several weeks wound has been worsening and she even tried to andrea it at home but returned and got dark. She also has a chronic ulcer over the right great toe does not regularly well. There is some probably noncompliance with diabetes. Patient states that fast acting insulin causes her to be nauseous and vomit. She was recently admitted for the wound on her right foot in June 2021. Pain worsens upon ambulation. She admits to some fever and chills. Denies nausea, vomiting, chest pain, shortness of breath, abdominal pain, urinary symptoms, cough, recent trauma, or any other complaints. 09/17/21 No acute events overnight. Patient seen and examined bedside. Resting comfortably. Pain is well controlled. Seen by wound care Dr. Love's and recommending podiatry consult for surgical debridement of necrotic tissue. Patient's chart, labs, images were reviewed and discussed with RN 09/18/21 No acute events overnight. Patient taken to the OR today for surgical debridement with Dr. Morris. No concerns with nursing. Sugars are better controlled, ranging between 106-136. Patient's chart, labs, images were reviewed and discussed with RN 09/19: Afebrile. S/P right foot I&D with placement of wound VAC. Blood cultures positive for strep agalactiae (group B strep) that is resistant to erythromycin but largely pansensitive. Wound cultures with staph aureus and group B strep. Continue current antibiotic regimen for now, follow wound cultures for final cultures and sensitivities. Patient tells me that she is having repeat surgery on Sunday. Discussed p.o. pain medication is more appropriate at this time but will leave IV morphine on for when she becomes n.p.o. for any further surgical intervention. 09/20: Afebrile. WBC improving. She will need to be NPO after midnight for repeat I&D, wound VAC application, and possible Achilles lengthening. Discussed with RN. 09/21: Patient seen postoperatively this morning. Right foot is wrapped in bed and bandaged with wound VAC in place. Follow intraoperative cultures. Patient has some questions about repeat surgical grafts; will defer to Dr. Morris. Continue IV antibiotics, per ID. 09/22: Patient seen POD #1, s/p right foot repeat I&D, with wound VAC and posterior splint application. Plan for wound VAC change tomorrow at bedside, per Dr. Morris. Will continue to follow intraoperative cultures. Encourage working with PT today. Asking for increase and dose of pain medication. 09/23: POD #2 s/p right foot repeat I&D, with wound VAC and posterior splint application. Worsening leukocytosis noted this morning. Wound cultures came back positive for MRSA. Daptomycin initiated, per ID. Also some significant hyperte nsion today. Started on Norvasc. If blood pressure improves with pain improvement, Norvasc can likely be stopped. Poor appetite this morning that she contributes to antibiotic regimen. Recommended liquid diet and antiemetics as needed. Continue IV antibiotics, per ID. 09/24: WBC 17.0. Right diabetic foot wound growing MRSA. Continue treatment with daptomycin and meropenem, per ID. Repeat blood cultures with no growth to date. Some worsening renal function this morning. Will provide IV fluids; if no improvement will consult nephrology. She reports she has not had a bowel movement 2 days, requesting for some prune juice. She is now amenable to rehab; given wound VAC requirements, likely [facility]. Vitals/I&O Vitals/I&O: Vital Signs Date Time Temp Pulse Resp B/P (MAP) Pulse Ox O2 Delivery O2 Flow Rate FiO2 09/24/21 09:22 83 156/70 09/24/21 07:00 97.6 18 95 Room Air 97.6 I & O 09/23/21 09/23/21 09/24/21 15:00 23:00 07:00 Intake Total 420 ml 200 ml 480 ml Balance 420 ml 200 ml 480 ml Physical Exam Physical Exam: GENERAL APPEARANCE: Well-developed, well-nourished female, lying in bed comfortably, in no acute distress, nontoxic appearing. HEENT: Normocephalic, atraumatic. Normal conjunctivae. NECK: Supple, no JVD, no lymphadenopathy. LUNGS: Clear bilaterally. No wheezing. HEART: S1, S2. No gallops or murmurs. ABDOMEN: Soft, obese. Bowel sounds present, nontender, nondistended. GENITOURINARY: No Givens in place. EXTREMITIES: Right foot dressing in place along with wound VAC, not taken down. Slight swelling, mild redness and warmth. Per the patient, warmth and edema have been improving. NEUROLOGIC: Alert and oriented x 3, grossly nonfocal. PIV looks clean. PSYCHIATRIC: Calm and cooperative. General: Alert, Oriented X3, Cooperative Heart: Regular rate Lungs: Clear Abdomen: Normal bowel sounds Extremities: Other (Right with dressings clean/dry/intact. No active bleeding or purulence.) Skin: Other (Necrotic wound in the right medial plantar side of the foot with surrounding erythema and some edema) Labs Labs: Laboratory Tests Test 09/23/21 16:55 09/23/21 20:48 09/24/21 06:25 09/24/21 07:34 Glucose (Fingerstick) 191 mg/dL (70-99) 145 mg/dL (70-99) 80 mg/dL (70-99) White Blood Count 17.0 x10^3/uL (4.0-11.0) Red Blood Count 5.00 x10^6/uL (3.50-5.40) Hemoglobin 12.6 g/dL (12.0-15.5) Hematocrit 40.1 % (36.0-47.0) Mean Corpuscular Volume 80 fL (79-100) Mean Corpuscular Hemoglobin 25 pg (25-35) Mean Corpuscular Hemoglobin Concent 32 g/dL (31-37) Red Cell Distribution Width 14.9 % (11.5-14.5) Platelet Count 477 x10^3/uL (140-400) Neutrophils (%) (Auto) 77 % (31-73) Lymphocytes (%) (Auto) 13 % (24-48) Monocytes (%) (Auto) 7 % (0-9) Eosinophils (%) (Auto) 3 % (0-3) Basophils (%) (Auto) 0 % (0-3) Neutrophils # (Auto) 13.1 x10^3/uL (1.8-7.7) Lymphocytes # (Auto) 2.2 x10^3/uL (1.0-4.8) Monocytes # (Auto) 1.1 x10^3/uL (0.0-1.1) Eosinophils # (Auto) 0.5 x10^3/uL (0.0-0.7) Basophils # (Auto) 0.1 x10^3/uL (0.0-0.2) Sodium Level 139 mmol/L (136-145) Potassium Level 4.4 mmol/L (3.5-5.1) Chloride Level 104 mmol/L (98-107) Carbon Dioxide Level 30 mmol/L (21-32) Anion Gap 5 (6-14) Blood Urea Nitrogen 27 mg/dL (7-20) Creatinine 2.0 mg/dL (0.6-1.0) Estimated GFR (Cockcroft-Gault) 25.9 Glucose Level 76 mg/dL (70-99) Calcium Level 8.5 mg/dL (8.5-10.1) Creatine Kinase 16 U/L (26-192) Assessment and Plan Assessmemt and Plan Problems Medical Problems: (1) Diabetic foot ulcer Status: Acute (2) Right foot infection Status: Acute Comment Review of Relevant I have reviewed the following items jose (where applicable) has been applied. Medications: Current Medications Medications (Trade) Dose Ordered Sig/Ray Route PRN Reason Start Time Stop Time Status Last Admin Dose Admin Daptomycin 420 mg/ Sodium Chloride 50 ml @ 100 mls/hr Q24H IV 09/23/21 10:00 09/24/21 09:29 Docusate Sodium (Colace) 100 mg DAILY PO 09/23/21 10:00 09/24/21 09:21 Amlodipine Besylate (Norvasc) 10 mg DAILY PO 09/24/21 09:00 09/24/21 09:22 Amlodipine Besylate (Norvasc) 10 mg 1X ONCE PO 10/29/21 14:45 09/23/21 14:46 DC 09/23/21 14:45 Justifications for Admission Other Justification PAU CHENG MD Sep 24, 2021 10:02
[2021-09-24] MEDS ORDERED: traMADol 50 MG TABLET PO PRN (10:15)
[2021-09-24] MEDS ORDERED: ACETAMINOPHEN 325 MG TABLET. PO PRN (10:15)
[2021-09-24] MEDS ORDERED: IV NORMAL SALINE 1000ML BAG 1,000 ML IV ONE (10:15)
[2021-09-24 11:00] VITALS: BP 181/92
--- NOTE | 2021-09-24 11:25 | PDOC ---
PROGRESS NOTES Date of Service DATE: 09/24/21 TIME: 11:20 Subjective Subjective Patient was seen resting comfortably in bed. She has been tolerating the VAC, dressing and splint well. Her nausea has improved since last night. Patient denies any constitutional symptoms however relates diminished appetite. Patient denies any bowel movement. Objective Objective Vital Signs Date Time Temp Pulse Resp B/P (MAP) Pulse Ox O2 Delivery O2 Flow Rate FiO2 09/24/21 09:22 83 156/70 09/24/21 07:00 97.6 18 95 Room Air 97.6 09/22/21 08:00 6.0 Intake and Output 09/24/21 07:00 Intake Total 1100 ml Balance 1100 ml Intake Oral 1100 ml # Voids 3 Physical Exam Physical Exam General: Pleasant without apparent distress, AOx3 Right foot focused Dermatology: -Dressing is clean, dry and intact -VAC is functioning at 125 mmHg, less than 50 cc of sanguinous drainage since surgery -Upon dressing change, the wound bed is granular with exposed tendon without any necrotic changes. There is no proximal tracking, undermining or deep compartment violation -Skin edges are healthy and granular -No proximal streaking, erythema, fluctuance to the tarsal tunnel or proximal leg Vascular: -Foot is warm to touch with CFT less than 3 seconds x 5 -Calf is soft and nontender Neurology: -Light touch sensation diminished to the level of digits 1 through 5 MSK: -[-] TTP at the tarsal tunnel or the distal leg or foot -Able to move digits -Muscle strength 5 out of 5 across ankle joint -Calf is soft and nontender -No TTP to popliteal lymph nodes Assessment Assessment Problems Medical Problems: (1) Diabetic foot ulcer Status: Acute (2) Right foot infection Status: Acute Plan Plan of Care -Explained clinical findings to patient -Patient currently is on meropenem and daptomycin, ID is following -Deep tissue culture 09/21: No growth to date -Deep tissue culture 09/18: + Strep B, lactobacilli -Blood culture 09/16: + Strep B, MRSA. -Repeat blood culture: neg -WBC is still at 17, however clinically, the wound was clean, granular from surgery. Clinical exam was insignificant for proximal streaking or tracking infection. -The foot was dressed with VAC functioning at 125 mmHg. Surgical lower extremity was immobilized in a well-padded posterior splint with ankle held in near 90 degrees -Nonweightbearing to right lower extremity, PT eval and treat -Recommend director of social services consult for discharge placement -Continue with daily WBC trending, continue investigating possible other source of infection in the setting of leukocytosis Dispo: Clinically, the wound looks clean granular without residual infection. Last wound culture has been negative. I will plan for possible skin graft application for wound closure on next Sunday if the leukocytosis resolves. Comment Review of Relevant I have reviewed the following items jose (where applicable) has been applied. Labs Laboratory Tests Test 09/22/21 11:52 09/22/21 16:50 09/22/21 20:09 09/23/21 07:36 Glucose (Fingerstick) 154 mg/dL (70-99) 149 mg/dL (70-99) 227 mg/dL (70-99) 114 mg/dL (70-99) Test 09/23/21 08:30 09/23/21 16:55 09/23/21 20:48 09/24/21 06:25 White Blood Count 17.0 x10^3/uL (4.0-11.0) 17.0 x10^3/uL (4.0-11.0) Red Blood Count 5.08 x10^6/uL (3.50-5.40) 5.00 x10^6/uL (3.50-5.40) Hemoglobin 12.6 g/dL (12.0-15.5) 12.6 g/dL (12.0-15.5) Hematocrit 41.5 % (36.0-47.0) 40.1 % (36.0-47.0) Mean Corpuscular Volume 82 fL (79-100) 80 fL (79-100) Mean Corpuscular Hemoglobin 25 pg (25-35) 25 pg (25-35) Mean Corpuscular Hemoglobin Concent 30 g/dL (31-37) 32 g/dL (31-37) Red Cell Distribution Width 14.8 % (11.5-14.5) 14.9 % (11.5-14.5) Platelet Count 457 x10^3/uL (140-400) 477 x10^3/uL (140-400) Neutrophils (%) (Auto) 72 % (31-73) 77 % (31-73) Lymphocytes (%) (Auto) 17 % (24-48) 13 % (24-48) Monocytes (%) (Auto) 7 % (0-9) 7 % (0-9) Eosinophils (%) (Auto) 3 % (0-3) 3 % (0-3) Basophils (%) (Auto) 1 % (0-3) 0 % (0-3) Neutrophils # (Auto) 12.2 x10^3/uL (1.8-7.7) 13.1 x10^3/uL (1.8-7.7) Lymphocytes # (Auto) 2.9 x10^3/uL (1.0-4.8) 2.2 x10^3/uL (1.0-4.8) Monocytes # (Auto) 1.2 x10^3/uL (0.0-1.1) 1.1 x10^3/uL (0.0-1.1) Eosinophils # (Auto) 0.5 x10^3/uL (0.0-0.7) 0.5 x10^3/uL (0.0-0.7) Basophils # (Auto) 0.2 x10^3/uL (0.0-0.2) 0.1 x10^3/uL (0.0-0.2) Glucose (Fingerstick) 191 mg/dL (70-99) 145 mg/dL (70-99) Sodium Level 139 mmol/L (136-145) Potassium Level 4.4 mmol/L (3.5-5.1) Chloride Level 104 mmol/L (98-107) Carbon Dioxide Level 30 mmol/L (21-32) Anion Gap 5 (6-14) Blood Urea Nitrogen 27 mg/dL (7-20) Creatinine 2.0 mg/dL (0.6-1.0) Estimated GFR (Cockcroft-Gault) 25.9 Glucose Level 76 mg/dL (70-99) Calcium Level 8.5 mg/dL (8.5-10.1) Creatine Kinase 16 U/L (26-192) Test 09/24/21 07:34 Glucose (Fingerstick) 80 mg/dL (70-99) Laboratory Tests Test 09/23/21 16:55 09/23/21 20:48 09/24/21 06:25 09/24/21 07:34 Glucose (Fingerstick) 191 mg/dL (70-99) 145 mg/dL (70-99) 80 mg/dL (70-99) White Blood Count 17.0 x10^3/uL (4.0-11.0) Red Blood Count 5.00 x10^6/uL (3.50-5.40) Hemoglobin 12.6 g/dL (12.0-15.5) Hematocrit 40.1 % (36.0-47.0) Mean Corpuscular Volume 80 fL (79-100) Mean Corpuscular Hemoglobin 25 pg (25-35) Mean Corpuscular Hemoglobin Concent 32 g/dL (31-37) Red Cell Distribution Width 14.9 % (11.5-14.5) Platelet Count 477 x10^3/uL (140-400) Neutrophils (%) (Auto) 77 % (31-73) Lymphocytes (%) (Auto) 13 % (24-48) Monocytes (%) (Auto) 7 % (0-9) Eosinophils (%) (Auto) 3 % (0-3) Basophils (%) (Auto) 0 % (0-3) Neutrophils # (Auto) 13.1 x10^3/uL (1.8-7.7) Lymphocytes # (Auto) 2.2 x10^3/uL (1.0-4.8) Monocytes # (Auto) 1.1 x10^3/uL (0.0-1.1) Eosinophils # (Auto) 0.5 x10^3/uL (0.0-0.7) Basophils # (Auto) 0.1 x10^3/uL (0.0-0.2) Sodium Level 139 mmol/L (136-145) Potassium Level 4.4 mmol/L (3.5-5.1) Chloride Level 104 mmol/L (98-107) Carbon Dioxide Level 30 mmol/L (21-32) Anion Gap 5 (6-14) Blood Urea Nitrogen 27 mg/dL (7-20) Creatinine 2.0 mg/dL (0.6-1.0) Estimated GFR (Cockcroft-Gault) 25.9 Glucose Level 76 mg/dL (70-99) Calcium Level 8.5 mg/dL (8.5-10.1) Creatine Kinase 16 U/L (26-192) Microbiology 09/21/21 Gram Stain - Final, Resulted 09/21/21 Aerobic and Anaerobic Culture - Preliminary, Resulted 09/19/21 Blood Culture - Final, Complete NO GROWTH AFTER 5 DAYS Medications Current Medications Vancomycin HCl (Vanco Per Pharmacy) 1 each PRN DAILY PRN MC SEE COMMENTS Last administered on 09/21/21at 13:29; Start 09/16/21 at 00:45; Stop 09/22/21 at 08:12; Status DC Piperacillin Sod/ Tazobactam Sod (Zosyn Per Pharmacy) 1 each PRN DAILY PRN MC SEE COMMENTS; Start 09/16/21 at 00:45; Stop 09/22/21 at 09:42; Status DC Sodium Chloride 1,000 ml @ 1,000 mls/hr Q1H IV Last administered on 09/16/21at 06:05; Start 09/16/21 at 01:00; Stop 09/16/21 at 02:59; Status DC Morphine Sulfate (Morphine Sulfate) 4 mg 1X ONCE IV Last administered on 09/16/21at 02:37; Start 09/16/21 at 01:00; Stop 09/16/21 at 01:01; Status DC Acetaminophen (Tylenol) 1,000 mg 1X ONCE PO Last administered on 09/16/21at 02:35; Start 09/16/21 at 01:00; Stop 09/16/21 at 01:01; Status DC Vancomycin HCl 2 gm/Sodium Chloride 500 ml @ 250 mls/hr 1X ONCE IV Last administered on 09/16/21at 03:12; Start 09/16/21 at 01:30; Stop 09/16/21 at 03:29; Status DC Piperacillin Sod/ Tazobactam Sod 3.375 gm/Sodium Chloride 50 ml @ 100 mls/hr Q6HRS IV Last administered on 09/22/21at 06:04; Start 09/16/21 at 01:00; Stop 09/22/21 at 08:12; Status DC Lidocaine HCl (Lidocaine 1% 20ml Vial) 20 ml STK-MED ONCE .ROUTE ; Start 09/16/21 at 01:17; Stop 09/16/21 at 01:17; Status DC Ondansetron HCl (Zofran) 4 mg PRN Q8HRS PRN IVP NAUSEA/VOMITING 1ST CHOICE; Start 09/16/21 at 01:45; Stop 09/20/21 at 01:44; Status DC Morphine Sulfate (Morphine Sulfate) 4 mg PRN Q2HR PRN IVP SEVERE PAIN 7-10 Last administered on 09/19/21at 01:25; Start 09/16/21 at 01:45; Stop 09/19/21 at 01:44; Status DC Insulin Human Regular (HumuLIN R VIAL) 10 unit 1X ONCE SQ ; Start 09/16/21 at 03:30; Stop 09/16/21 at 03:31; Status Cancel Insulin Glargine (Lantus Syringe) 15 unit BID SQ Last administered on 09/16/21at 09:04; Start 09/16/21 at 09:00; Stop 09/16/21 at 13:21; Status DC Insulin Human Lispro (HumaLOG) 0-9 UNITS TIDWMEALS SQ ; Start 09/16/21 at 08:00; Stop 09/16/21 at 13:21; Status DC Dextrose (Dextrose 50%-Water Syringe) 12.5 gm PRN Q15MIN PRN IV SEE COMMENTS; Start 09/16/21 at 03:45; Stop 09/16/21 at 13:46; Status DC Insulin Human Lispro (HumaLOG) 10 units 1X ONCE SQ Last administered on 09/16/21at 04:09; Start 09/16/21 at 04:15; Stop 09/16/21 at 04:16; Status DC Vancomycin HCl 1.25 gm/Sodium Chloride 250 ml @ 167 mls/hr Q12H IV Last administered on 09/22/21at 02:34; Start 09/16/21 at 15:00; Stop 09/22/21 at 08:12; Status DC Vancomycin HCl (Vancomycin Trough Level) 1 each 1X ONCE MC Last administered on 09/17/21at 14:30; Start 09/17/21 at 14:30; Stop 09/17/21 at 14:31; Status DC Lactobacillus Rhamnosus (Culturelle) 1 cap BID PO Last administered on 09/24/21at 09:22; Start 09/16/21 at 21:00 Simvastatin (Zocor) 20 mg QHS PO Last administered on 09/23/21at 21:23; Start 09/16/21 at 21:00 Duloxetine HCl (Cymbalta) 60 mg DAILY PO Last administered on 09/24/21at 09:23; Start 09/16/21 at 14:00 Insulin Glargine (Lantus Syringe) 55 unit BID SQ Last administered on 09/24/21at 09:28; Start 09/16/21 at 21:00 Dextrose (Dextrose 50%-Water Syringe) 12.5 gm PRN Q15MIN PRN IV SEE COMMENTS; Start 09/16/21 at 13:00 Multivitamins (Thera M Plus) 1 tab DAILY PO Last administered on 09/24/21at 09:22; Start 09/17/21 at 20:00 Ascorbic Acid (Vitamin C) 500 mg DAILY PO Last administered on 09/24/21at 09:23; Start 09/17/21 at 20:00 Insulin Human Lispro (HumaLOG) 10 units 1X ONCE SQ Last administered on 09/16/21at 19:24; Start 09/16/21 at 19:00; Stop 09/16/21 at 19:03; Status DC Insulin Human Lispro (HumaLOG) 0-9 UNITS TIDWMEALS SQ Last administered on 09/18/21at 17:19; Start 09/17/21 at 08:00 Insulin Human Lispro (HumaLOG) 10 units 1X ONCE SQ Last administered on 09/16/21at 23:08; Start 09/16/21 at 23:30; Stop 09/16/21 at 23:31; Status DC Insulin Human Lispro (HumaLOG) 10 units 1X ONCE SQ Last administered on 09/17/21at 08:53; Start 09/17/21 at 08:30; Stop 09/17/21 at 08:31; Status DC Enoxaparin Sodium (Lovenox 40mg Syringe) 40 mg Q24H SQ Last administered on 09/23/21at 14:46; Start 09/17/21 at 16:00 Fentanyl Citrate (Fentanyl 2ml Vial) 25 mcg PRN Q5MIN PRN IVP MILD PAIN 1-3; Start 09/18/21 at 06:00; Stop 09/19/21 at 05:59; Status DC Fentanyl Citrate (Fentanyl 2ml Vial) 50 mcg PRN Q5MIN PRN IVP MODERATE PAIN 4-6 Last administered on 09/18/21at 10:26; Start 09/18/21 at 06:00; Stop 09/19/21 at 05:59; Status DC Morphine Sulfate (Morphine Sulfate) 1 mg PRN Q10MIN PRN IVP SEVERE PAIN 7-10; Start 09/18/21 at 06:00; Stop 09/19/21 at 05:59; Status DC Ringer's Solution 1,000 ml @ 30 mls/hr Q24H IV Last administered on 09/18/21at 08:50; Start 09/18/21 at 06:00; Stop 09/18/21 at 17:59; Status DC Hydromorphone HCl (Dilaudid) 0.5 mg PRN Q10MIN PRN IVP SEVERE PAIN 7-10, 2nd CHOICE; Start 09/18/21 at 06:00; Stop 09/19/21 at 05:59; Status DC Prochlorperazine Edisylate (Compazine) 5 mg PACU PRN PRN IVP NAUSEA, MRX1 Last administered on 09/18/21at 10:12; Start 09/18/21 at 06:00; Stop 09/19/21 at 05:59; Status DC Cefazolin Sodium 1 gm/Sodium Chloride 1,000 ml @ 1,000 mls/hr 1X ONCE IRR ; Start 09/18/21 at 08:30; Stop 09/18/21 at 09:29; Status DC Cefazolin Sodium 1 gm/Sodium Chloride 1,000 ml @ 1,000 mls/hr 1X ONCE IRR ; Start 09/18/21 at 08:30; Stop 09/18/21 at 09:29; Status DC Cefazolin Sodium 1 gm/Sodium Chloride 1,000 ml @ 1,000 mls/hr 1X ONCE IRR ; Start 09/18/21 at 08:30; Stop 09/18/21 at 09:29; Status DC Vancomycin HCl (Vancomycin) 1 gm STK-MED ONCE .ROUTE ; Start 09/18/21 at 08:34; Stop 09/18/21 at 08:34; Status DC Tobramycin Sulfate (Tobramycin Powder) 1.2 gm STK-MED ONCE .ROUTE ; Start 09/18/21 at 08:34; Stop 09/18/21 at 08:35; Status DC Ondansetron HCl (Zofran) 4 mg STK-MED ONCE .ROUTE ; Start 09/18/21 at 09:00; Stop 09/18/21 at 09:00; Status DC Propofol (Diprivan) 200 mg STK-MED ONCE IV ; Start 09/18/21 at 09:00; Stop 09/18/21 at 09:00; Status DC Lidocaine HCl (Lidocaine Pf 2% Vial) 5 ml STK-MED ONCE .ROUTE ; Start 09/18/21 at 09:00; Stop 09/18/21 at 09:00; Status DC Dexamethasone Sodium Phosphate (Decadron) 4 mg STK-MED ONCE .ROUTE ; Start 09/18/21 at 09:00; Stop 09/18/21 at 09:01; Status DC Sevoflurane (Ultane) 60 ml STK-MED ONCE IH ; Start 09/18/21 at 09:00; Stop 09/18/21 at 09:01; Status DC Dextrose (Dextrose 50%-Water Syringe) 12.5 gm PRN Q15MIN PRN IV SEE COMMENTS; Start 09/18/21 at 09:45; Stop 09/19/21 at 10:20; Status DC Acetaminophen (Tylenol) 650 mg 1X ONCE PO Last administered on 09/18/21at 11:25; Start 09/18/21 at 09:45; Stop 09/18/21 at 09:46; Status DC Fentanyl Citrate (Fentanyl 2ml Vial) 100 mcg STK-MED ONCE .ROUTE ; Start 09/18/21 at 09:58; Stop 09/18/21 at 09:58; Status DC Prochlorperazine Edisylate (Compazine) 10 mg STK-MED ONCE .ROUTE ; Start 09/18/21 at 09:59; Stop 09/18/21 at 09:59; Status DC Acetaminophen/ Hydrocodone Bitart (Lortab 5/325) 1 tab PRN Q4HRS PRN PO MILD- MODERATE PAIN Last administered on 09/22/21at 10:37; Start 09/19/21 at 15:00; Stop 09/22/21 at 11:36; Status DC Acetaminophen/ Hydrocodone Bitart (Lortab 7.5/325) 1 tab PRN Q6HRS PRN PO SEVERE PAIN Last administered on 09/20/21at 23:48; Start 09/19/21 at 15:00; Stop 09/21/21 at 09:58; Status DC Morphine Sulfate (Morphine Sulfate) 4 mg PRN Q2HR PRN IV PAIN Last administered on 09/21/21at 02:47; Start 09/19/21 at 15:00; Stop 09/21/21 at 09:58; Status DC Hydralazine HCl (Apresoline Inj) 10 mg PRN Q4HRS PRN IVP ELEVATED BP, SEE COMMENTS Last administered on 09/20/21at 08:34; Start 09/20/21 at 08:15; Stop 09/21/21 at 09:58; Status DC Fentanyl Citrate (Fentanyl 2ml Vial) 25 mcg PRN Q5MIN PRN IVP MILD PAIN 1-3 Last administered on 09/21/21at 10:33; Start 09/21/21 at 06:00; Stop 09/22/21 at 05:59; Status DC Fentanyl Citrate (Fentanyl 2ml Vial) 50 mcg PRN Q5MIN PRN IVP MODERATE PAIN 4- 6; Start 09/21/21 at 06:00; Stop 09/21/21 at 09:58; Status DC Morphine Sulfate (Morphine Sulfate) 1 mg PRN Q10MIN PRN IVP SEVERE PAIN 7-10; Start 09/21/21 at 06:00; Stop 09/21/21 at 09:58; Status DC Ringer's Solution 1,000 ml @ 30 mls/hr Q24H IV Last administered on 09/21/21at 09:00; Start 09/21/21 at 06:00; Stop 09/21/21 at 17:59; Status DC Hydromorphone HCl (Dilaudid) 0.5 mg PRN Q10MIN PRN IVP SEVERE PAIN 7-10, 2nd CHOICE; Start 09/21/21 at 06:00; Stop 09/22/21 at 05:59; Status DC Prochlorperazine Edisylate (Compazine) 5 mg PACU PRN PRN IVP NAUSEA, MRX1; Start 09/21/21 at 06:00; Stop 09/22/21 at 05:59; Status DC Phenylephrine HCl (PHENYLEPHRINE in 0.9% NACL PF) 1 mg STK-MED ONCE IV ; Start 09/21/21 at 08:11; Stop 09/21/21 at 08:11; Status DC Dexamethasone Sodium Phosphate (Decadron) 4 mg STK-MED ONCE .ROUTE ; Start 09/21/21 at 08:11; Stop 09/21/21 at 08:11; Status DC Ondansetron HCl (Zofran) 4 mg STK-MED ONCE .ROUTE ; Start 09/21/21 at 08:11; Stop 09/21/21 at 08:11; Status DC Propofol (Diprivan) 200 mg STK-MED ONCE IV ; Start 09/21/21 at 08:11; Stop 09/21/21 at 08:12; Status DC Lidocaine HCl (Lidocaine Pf 2% Vial) 5 ml STK-MED ONCE .ROUTE ; Start 09/21/21 at 08:11; Stop 09/21/21 at 08:12; Status DC Midazolam HCl (Versed) 2 mg STK-MED ONCE .ROUTE ; Start 09/21/21 at 08:12; Stop 09/21/21 at 08:13; Status DC Lidocaine HCl (Xylocaine-Mpf 1% 2ml Vial) 2 ml STK-MED ONCE .ROUTE ; Start 09/21/21 at 08:27; Stop 09/21/21 at 08:27; Status DC Glycopyrrolate (Robinul) 1 mg STK-MED ONCE .ROUTE ; Start 09/21/21 at 09:11; Stop 09/21/21 at 09:11; Status DC Ephedrine Sulfate (ePHEDrine PF IN SALINE SYRINGE) 50 mg STK-MED ONCE IV ; Start 09/21/21 at 09:11; Stop 09/21/21 at 09:11; Status DC Fentanyl Citrate (Fentanyl 2ml Vial) 100 mcg STK-MED ONCE .ROUTE ; Start 09/21/21 at 09:28; Stop 09/21/21 at 09:28; Status DC Sevoflurane (Ultane) 30 ml STK-MED ONCE IH ; Start 09/21/21 at 09:37; Stop 09/21/21 at 09:38; Status DC Acetaminophen (Tylenol) 650 mg 1X ONCE PO ; Start 09/21/21 at 10:30; Stop 09/21/21 at 09:58; Status DC Oxycodone/ Acetaminophen (Percocet 5/325) 1 tab 1X ONCE PO ; Start 09/21/21 at 10:30; Stop 09/21/21 at 09:58; Status DC Fentanyl Citrate (Fentanyl 2ml Vial) 100 mcg STK-MED ONCE .ROUTE ; Start 09/21/21 at 10:10; Stop 09/21/21 at 10:10; Status DC Vancomycin HCl (Vancomycin Trough Level) 1 each 1X ONCE MC ; Start 09/22/21 at 14:30; Stop 09/22/21 at 08:15; Status DC Hydralazine HCl (Apresoline Inj) 10 mg PRN Q4HRS PRN IVP ELEVATED BP, SEE COMMENTS Last administered on 09/23/21at 14:49; Start 09/21/21 at 15:00 Meropenem 500 mg/ Sodium Chloride 50 ml @ 100 mls/hr Q6HRS IV Last administered on 09/24/21at 05:21; Start 09/22/21 at 12:00 Acetaminophen/ Hydrocodone Bitart (Lortab 10/325) 1 tab PRN Q6HRS PRN PO PAIN Last administered on 09/24/21at 08:11; Start 09/22/21 at 11:45; Stop 09/24/21 at 10:14; Status DC Daptomycin 420 mg/ Sodium Chloride 50 ml @ 100 mls/hr Q24H IV Last administered on 09/24/21at 09:29; Start 09/23/21 at 10:00 Ondansetron HCl (Zofran) 4 mg PRN Q6HRS PRN IVP NAUSEA/VOMITING Last administered on 09/23/21at 10:37; Start 09/23/21 at 09:45 Docusate Sodium (Colace) 100 mg DAILY PO ; Start 09/24/21 at 10:00; Stop 09/23/21 at 09:47; Status DC Docusate Sodium (Colace) 100 mg DAILY PO Last administered on 09/24/21at 09:21; Start 09/23/21 at 10:00 Amlodipine Besylate (Norvasc) 10 mg DAILY PO Last administered on 09/24/21at 09:22; Start 09/24/21 at 09:00 Amlodipine Besylate (Norvasc) 10 mg 1X ONCE PO Last administered on 09/23/21at 14:45; Start 09/23/21 at 14:45; Stop 09/23/21 at 14:46; Status DC Sodium Chloride 1,000 ml @ 125 mls/hr 1X ONCE IV ; Start 09/24/21 at 10:15; Stop 09/24/21 at 18:14 Tramadol HCl (Ultram) 50 mg PRN Q6HRS PRN PO MODERATE PAIN; Start 09/24/21 at 10:15 Acetaminophen (Tylenol) 650 mg QID PRN PO MILD PAIN / TEMP > 100.3'F; Start 09/24/21 at 10:15 Acetaminophen/ Hydrocodone Bitart (Lortab 5/325) 1 tab PRN QID PRN PO SEVERE PAIN; Start 09/24/21 at 10:15 Active Scripts Active Glipizide 5 Mg Tablet 5 Mg PO BIDBFRMEAL 30 Days Reported Levemir (Insulin Detemir) 100 Unit/1 Ml Vial 55 Unit SQ BID Simvastatin 20 Mg Tablet 1 Tab PO QHS Metformin Hcl 500 Mg Tablet Unknown Dose PO Atenolol 25 Mg Tablet Unknown Dose PO DAILY Duloxetine HCl 40 Mg Capsule.dr 60 Mg PO DAILY Vitals/I & O Vital Sign - Last 24 Hours 09/23/21 09/23/21 09/23/21 09/23/21 11:27 14:45 14:49 15:05 Temp 97.9 98.2 97.9 98.2 Pulse 96 94 94 95 Resp 18 18 B/P (MAP) 190/85 (120) 189/92 189/92 189/92 (124) Pulse Ox 93 92 O2 Delivery Room Air Room Air 09/23/21 09/23/21 09/23/21 09/24/21 19:25 20:00 23:02 03:04 Temp 98.6 98.8 98.7 98.6 98.8 98.7 Pulse 91 86 94 Resp 20 18 18 B/P (MAP) 161/70 (100) 142/78 (99) 174/84 (114) Pulse Ox 93 94 95 O2 Delivery Room Air Room Air Room Air Room Air 09/24/21 09/24/21 07:00 09:22 Temp 97.6 97.6 Pulse 83 83 Resp 18 B/P (MAP) 156/70 (98) 156/70 Pulse Ox 95 O2 Delivery Room Air Intake and Output 09/23/21 09/23/21 09/24/21 15:00 23:00 07:00 Intake Total 420 ml 200 ml 480 ml Balance 420 ml 200 ml 480 ml Justifications for Admission Other Justification BUZZ BERMEO DPM Sep 24, 2021 11:25
[2021-09-24 15:00] VITALS: BP 180/85
[2021-09-24] MEDS: ENOXAPARIN 40 MG/0.4 ML SYRINGE. SQ SCH (18:01)
[2021-09-24 19:00] VITALS: BP 133/76
[2021-09-24] MEDS: SIMVASTATIN 20 MG TABLET PO SCH (21:18)
[2021-09-24 23:00] VITALS: BP 124/73
[2021-09-25 03:00] VITALS: BP 179/78
[2021-09-25] MEDS: MEROPENEM 500 MG in IV NORMAL SALINE 50ML 50 ML IV SCH ×4 (05:51→18:15)
[2021-09-25 07:00] VITALS: BP 175/80
[2021-09-25 07:58] LABS: BASO % 0 % (0-3); EOS # 0.7 x10^3/uL (0.0-0.7); EOS % 5 % (0-3); HEMATOCRIT 37.4 % (36.0-47.0); LYMPH # 2.5 x10^3/uL (1.0-4.8); LYMPH % 16 % (24-48); MEAN CORPUSCULAR HEMOGLOBIN 26 pg (25-35); MEAN CORPUSCULAR HGB CONC 32 g/dL (31-37); MEAN CORPUSCULAR VOLUME 80 fL (79-100); MONO # 1.1 x10^3/uL (0.0-1.1); MONO % 7 % (0-9); NEUT # 10.9 x10^3/uL (1.8-7.7); NEUT % 72 % (31-73); PLATELET COUNT 425 x10^3/uL (140-400); RED BLOOD COUNT 4.68 x10^6/uL (3.50-5.40); RED CELL DISTRIBUTION WIDTH 14.5 % (11.5-14.5); WHITE BLOOD COUNT 15.3 x10^3/uL (4.0-11.0)
[2021-09-25] MEDS: INSULIN LISPRO 300 UNITS/3 ML VIAL. SQ SCH ×3 (08:00→17:00)
[2021-09-25 08:25] LABS: CALCIUM 8.4 mg/dL (8.5-10.1); GFR 25.9; POTASSIUM 4.8 mmol/L (3.5-5.1)
[2021-09-25] MEDS: MULTIVITAMIN with MINERAL TABLET. PO SCH (09:00)
[2021-09-25] MEDS: DULoxetine HCL 30 MG CAPSULE.DR PO SCH (09:00)
--- NOTE | 2021-09-25 09:18 | PDOC ---
[employer] PROGRESS NOTE Date of Service DOS: DATE: 09/25/21 TIME: 09:14 Chief Complaint Chief Complaint Sepsis Streptococcal bacteremia 2 out of 4 bottles Right diabetic foot infected ulcer Hypertensive urgency Hyperglycemia uncontrolled Acute electrolyte derangementhyponatremia, hypochloremia suggestive of acute volume depletion History of diabetes mellitus type 2 History of polysubstance abuse Pending podiatry evaluation Continue empiric IV antibiotics Pending vascular surgery consult Wound care consult IV antihypertensive medications Inpatient systolic blood pressure goals between 140 to 180 R ISS and Accu-Cheks, resume home long-acting insulin IV electrolyte replacement as needed PAT evaluation Lovenox for DVT prophylaxis ADA diet CODE STATUS full Discussed with RN and SW Disposition inpatient management as above DPOA: Nicole Metzger History of Present Illness History of Present Illness 56-year-old female with past medical history of methamphetamine abuse, diabetes mellitus 2, depression anxiety, hypertension, dyslipidemia, chronic back pain who presents with right foot pain and lesion to the bottom. She reports that for the past several weeks wound has been worsening and she even tried to andrea it at home but returned and got dark. She also has a chronic ulcer over the right great toe does not regularly well. There is some probably noncompliance with diabetes. Patient states that fast acting insulin causes her to be nauseous and vomit. She was recently admitted for the wound on her right foot in June 2021. Pain worsens upon ambulation. She admits to some fever and chills. Denies nausea, vomiting, chest pain, shortness of breath, abdominal pain, urinary symptoms, cough, recent trauma, or any other complaints. 09/17/21 No acute events overnight. Patient seen and examined bedside. Resting comfortably. Pain is well controlled. Seen by wound care Dr. Love's and recommending podiatry consult for surgical debridement of necrotic tissue. Patient's chart, labs, images were reviewed and discussed with RN 09/18/21 No acute events overnight. Patient taken to the OR today for surgical debridement with Dr. Morris. No concerns with nursing. Sugars are better controlled, ranging between 106-136. Patient's chart, labs, images were reviewed and discussed with RN 09/19: Afebrile. S/P right foot I&D with placement of wound VAC. Blood cultures positive for strep agalactiae (group B strep) that is resistant to erythromycin but largely pansensitive. Wound cultures with staph aureus and group B strep. Continue current antibiotic regimen for now, follow wound cultures for final cultures and sensitivities. Patient tells me that she is having repeat surgery on Sunday. Discussed p.o. pain medication is more appropriate at this time but will leave IV morphine on for when she becomes n.p.o. for any further surgical intervention. 09/20: Afebrile. WBC improving. She will need to be NPO after midnight for repeat I&D, wound VAC application, and possible Achilles lengthening. Discussed with RN. 09/21: Patient seen postoperatively this morning. Right foot is wrapped in bed and bandaged with wound VAC in place. Follow intraoperative cultures. Patient has some questions about repeat surgical grafts; will defer to Dr. Morris. Continue IV antibiotics, per ID. 09/22: Patient seen POD #1, s/p right foot repeat I&D, with wound VAC and posterior splint application. Plan for wound VAC change tomorrow at bedside, per Dr. Morris. Will continue to follow intraoperative cultures. Encourage working with PT today. Asking for increase and dose of pain medication. 09/23: POD #2 s/p right foot repeat I&D, with wound VAC and posterior splint application. Worsening leukocytosis noted this morning. Wound cultures came back positive for MRSA. Daptomycin initiated, per ID. Also some significant hyperte nsion today. Started on Norvasc. If blood pressure improves with pain improvement, Norvasc can likely be stopped. Poor appetite this morning that she contributes to antibiotic regimen. Recommended liquid diet and antiemetics as needed. Continue IV antibiotics, per ID. 09/24: WBC 17.0. Right diabetic foot wound growing MRSA. Continue treatment with daptomycin and meropenem, per ID. Repeat blood cultures with no growth to date. Some worsening renal function this morning. Will provide IV fluids; if no improvement will consult nephrology. She reports she has not had a bowel movement 2 days, requesting for some prune juice. She is now amenable to rehab; given wound VAC requirements, likely [facility]. 09/25: WBC 15.3. Will place consult with nephrology due to EN. Dr. Morris will plan for skin graft application for wound closure next week. Wound VAC in place; once stable will look to [facility] for rehab. Continue daptomycin and meropenem, per ID. Vitals/I&O Vitals/I&O: Vital Signs Date Time Temp Pulse Resp B/P (MAP) Pulse Ox O2 Delivery O2 Flow Rate FiO2 09/25/21 07:00 97.6 82 18 175/80 (111) 94 Room Air 97.6 I & O 09/24/21 09/24/21 09/25/21 15:00 23:00 07:00 Intake Total 100 ml 410 ml Balance 100 ml 410 ml Physical Exam Physical Exam: GENERAL APPEARANCE: Well-developed, well-nourished female, lying in bed comfortably, in no acute distress, nontoxic appearing. HEENT: Normocephalic, atraumatic. Normal conjunctivae. NECK: Supple, no JVD, no lymphadenopathy. LUNGS: Clear bilaterally. No wheezing. HEART: S1, S2. No gallops or murmurs. ABDOMEN: Soft, obese. Bowel sounds present, nontender, nondistended. GENITOURINARY: No Givens in place. EXTREMITIES: Right foot dressing in place along with wound VAC, not taken down. No warmth or swelling noted in the right lower extremity NEUROLOGIC: Alert and oriented x 3, grossly nonfocal. PIV looks clean. PSYCHIATRIC: Calm and cooperative. General: Alert, Oriented X3, Cooperative Heart: Regular rate Lungs: Clear Abdomen: Normal bowel sounds Extremities: Other (Right with dressings clean/dry/intact. No active bleeding or purulence.) Skin: Other (Necrotic wound in the right medial plantar side of the foot with surrounding erythema and some edema) Labs Labs: Laboratory Tests Test 09/24/21 11:38 09/24/21 16:43 09/24/21 20:08 09/25/21 06:55 Glucose (Fingerstick) 146 mg/dL (70-99) 227 mg/dL (70-99) 263 mg/dL (70-99) White Blood Count 15.3 x10^3/uL (4.0-11.0) Red Blood Count 4.68 x10^6/uL (3.50-5.40) Hemoglobin 12.0 g/dL (12.0-15.5) Hematocrit 37.4 % (36.0-47.0) Mean Corpuscular Volume 80 fL (79-100) Mean Corpuscular Hemoglobin 26 pg (25-35) Mean Corpuscular Hemoglobin Concent 32 g/dL (31-37) Red Cell Distribution Width 14.5 % (11.5-14.5) Platelet Count 425 x10^3/uL (140-400) Neutrophils (%) (Auto) 72 % (31-73) Lymphocytes (%) (Auto) 16 % (24-48) Monocytes (%) (Auto) 7 % (0-9) Eosinophils (%) (Auto) 5 % (0-3) Basophils (%) (Auto) 0 % (0-3) Neutrophils # (Auto) 10.9 x10^3/uL (1.8-7.7) Lymphocytes # (Auto) 2.5 x10^3/uL (1.0-4.8) Monocytes # (Auto) 1.1 x10^3/uL (0.0-1.1) Eosinophils # (Auto) 0.7 x10^3/uL (0.0-0.7) Basophils # (Auto) 0.0 x10^3/uL (0.0-0.2) Sodium Level 137 mmol/L (136-145) Potassium Level 4.8 mmol/L (3.5-5.1) Chloride Level 103 mmol/L (98-107) Carbon Dioxide Level 31 mmol/L (21-32) Anion Gap 3 (6-14) Blood Urea Nitrogen 32 mg/dL (7-20) Creatinine 2.0 mg/dL (0.6-1.0) Estimated GFR (Cockcroft-Gault) 25.9 Glucose Level 81 mg/dL (70-99) Calcium Level 8.4 mg/dL (8.5-10.1) Test 09/25/21 07:31 Glucose (Fingerstick) 88 mg/dL (70-99) Assessment and Plan Assessmemt and Plan Problems Medical Problems: (1) Diabetic foot ulcer Status: Acute (2) Right foot infection Status: Acute Comment Review of Relevant I have reviewed the following items jose (where applicable) has been applied. Medications: Current Medications Medications (Trade) Dose Ordered Sig/Ray Route PRN Reason Start Time Stop Time Status Last Admin Dose Admin Sodium Chloride 1,000 ml @ 125 mls/hr 1X ONCE IV 09/24/21 10:15 09/24/21 18:14 DC 09/24/21 10:15 Justifications for Admission Other Justification PAU CHENG MD Sep 25, 2021 09:18
--- NOTE | 2021-09-25 09:23 | PDOC ---
Infectious Disease Note Subjective: Subjective Patient feels very tired today. Again has nausea today Tolerating p.o. intake well WBC down to 15 K Denies headache sore throat fever, vomiting, diarrhea, abdominal pain. symptoms, shortness of breath or cough Patient has constipation Had small bowel movement yesterday Vital Signs: Vital Signs Vital Signs Date Time Temp Pulse Resp B/P (MAP) Pulse Ox O2 Delivery O2 Flow Rate FiO2 09/25/21 07:00 97.6 82 18 175/80 (111) 94 Room Air 97.6 Physical Exam: PHYSICAL EXAM GENERAL APPEARANCE: Well-developed, well-nourished female, lying in bed comfortably, in no acute distress, nontoxic appearing. HEENT: Normocephalic, atraumatic. Normal conjunctivae. NECK: Supple, no JVD, no lymphadenopathy. LUNGS: Clear bilaterally. No wheezing. HEART: S1, S2. No gallops or murmurs. ABDOMEN: Soft, obese. Bowel sounds present, nontender, nondistended. GENITOURINARY: No Givens in place. EXTREMITIES: Right foot dressing in place along with wound VAC, not taken down. No warmth or swelling noted in the right lower extremity NEUROLOGIC: Alert and oriented x 3, grossly nonfocal. PIV looks clean. PSYCHIATRIC: Calm and cooperative. Medications: Inpatient Meds: Medications reviewed. Labs: Lab Laboratory Tests Test 09/24/21 11:38 09/24/21 16:43 09/24/21 20:08 09/25/21 06:55 Glucose (Fingerstick) 146 mg/dL (70-99) 227 mg/dL (70-99) 263 mg/dL (70-99) White Blood Count 15.3 x10^3/uL (4.0-11.0) Red Blood Count 4.68 x10^6/uL (3.50-5.40) Hemoglobin 12.0 g/dL (12.0-15.5) Hematocrit 37.4 % (36.0-47.0) Mean Corpuscular Volume 80 fL (79-100) Mean Corpuscular Hemoglobin 26 pg (25-35) Mean Corpuscular Hemoglobin Concent 32 g/dL (31-37) Red Cell Distribution Width 14.5 % (11.5-14.5) Platelet Count 425 x10^3/uL (140-400) Neutrophils (%) (Auto) 72 % (31-73) Lymphocytes (%) (Auto) 16 % (24-48) Monocytes (%) (Auto) 7 % (0-9) Eosinophils (%) (Auto) 5 % (0-3) Basophils (%) (Auto) 0 % (0-3) Neutrophils # (Auto) 10.9 x10^3/uL (1.8-7.7) Lymphocytes # (Auto) 2.5 x10^3/uL (1.0-4.8) Monocytes # (Auto) 1.1 x10^3/uL (0.0-1.1) Eosinophils # (Auto) 0.7 x10^3/uL (0.0-0.7) Basophils # (Auto) 0.0 x10^3/uL (0.0-0.2) Sodium Level 137 mmol/L (136-145) Potassium Level 4.8 mmol/L (3.5-5.1) Chloride Level 103 mmol/L (98-107) Carbon Dioxide Level 31 mmol/L (21-32) Anion Gap 3 (6-14) Blood Urea Nitrogen 32 mg/dL (7-20) Creatinine 2.0 mg/dL (0.6-1.0) Estimated GFR (Cockcroft-Gault) 25.9 Glucose Level 81 mg/dL (70-99) Calcium Level 8.4 mg/dL (8.5-10.1) Test 09/25/21 07:31 Glucose (Fingerstick) 88 mg/dL (70-99) Micro 1023 STAPHYLOCOCCUS AUREUS methicillin sensitive STREPTOCOCCUS AGALACTIAE GRP B UNIDENTIFIED ORGANISM LACTOBACILLUS JENSENII BETA STREP GROUP B RUN DATE: 09/21/21 [facility] *LIVE* PAGE 1 RUN TIME: 1028 Specimen Inquiry PATIENT: ANNABELLE AGGARWAL ACCT: [id number] LOC: [address] [place] [address] U: [id number] AGE/SX: 56/F ROOM: 414 RE09/16/[address]: CHRISTIANA AUSTIN MD : 1965 BED: 1 DIS: STATUS: ADM IN TLOC: -------- ---- SPEC #: [id number] DIPIKA: 09/17/21 STATUS: RES REQ #: [id number] RECD: 09/17/[address]: BUZZ MORRIS DP SOURCE: FOOT ENTR: 09/17/[address]: MARLINE WHITMORE DO SPDESC: ADRIA HIGGINBOTHAM M.D., KEVIN Y MD ORDERED: EDWIGE/JULIA/YANY COMMENTS: Has specimen been collected/obtained? Y Procedure Result GRAM STAIN Final Final GRAM POSITIVE RODS:MANY GRAM POSITIVE COCCI:MANY SQUAMOUS EPI CELL:MODERATE PMN (WBCs):NONE SEEN Unless otherwise specified, Testing Performed by: [address] [address] For Inquires, the Physician may contact the Microbiology department at [phone] ANAEROBIC-AEROBIC CULTURE Preliminary Preliminary MODERATE GRAM POSITIVE COCCI on 09/19/21 at 0745 FINAL ID= [STAPHYLOCOCCUS AUREUS (MRSA)] FINAL ID= [BETA STREP GROUP B] FEW Mixed skin josr isolated on 09/20/21 at 0880 STAPHYLOCOCCUS AUREUS (MRSA) STREPTOCOCCUS AGALACTIAE GRP B UNIDENTIFIED ORGANISM LACTOBACILLUS JENSENII BETA STREP GROUP B ANTIMICROBIAL SUSCEPTIBILITY Preliminary Comment POS MOR TYPE 38 STAPHYLOCOCCUS AUREUS (MRSA) ANTIBIOTIC RESULT INTERPRETATION AZITHROMYCIN >4 R CLINDAMYCIN <=0.25 S CEFOXITIN SCREEN >4 POS CIPROFLOXACIN <=1 S CEFTAROLINE <=0.5 S DAPTOMYCIN <=0.5 S ERYTHROMYCIN >4 R GENTAMICIN <=4 S ----- ------- RUN DATE: 09/21/21 [facility] *LIVE* PAGE 2 RUN TIME: 1028 Specimen Inquiry SPEC: [id number] PATIENT: ALESSIAANNABELLE [id number] (Continued) Procedure Result CONTINUED ON NEXT PAGE RUN DATE: 09/21/21 [facility] *LIVE* PAGE 3 RUN TIME: 1028 Specimen Inquiry ------ ------ SPEC: [id number] PATIENT: ANNABELLE AGGARWAL [id number] (Continued) Procedure Result ANTIMICROBIAL SUSCEPTIBILITY Preliminary (continued) INDUCIBLE CLINDAMYCIN <=4/0.5 NEG LINEZOLID 2 S LEVOFLOXACIN <=1 S OXACILLIN >2 R PENICILLIN >2 R* RIFAMPIN <=1 S TRIMETHOPRIM/SULFAMETHOXAZOLE <=0.5/9.5 S TETRACYCLINE <=4 S VANCOMYCIN 1 S Unless otherwise specified, Testing Performed by: [address] [address] For Inquires, the Physician may contact the Microbiology department at [phone] Objective: Assessment: 1. Sepsis from right foot infection. 2. Deep right foot infection, status post incision and drainage on September 18. And September 21 3. Streptococcal bacteremia, 2/4 bottles present on admission. 4. Fever improving 5. Diabetes mellitus. 6. Electrolyte imbalance 7. Hypertensive urgency. 8. History of polysubstance abuse. 9. Anemia. Cultures MRSA and MSSA including others Leukocytosis could be reactive. Improving. If fevers will panculture. Plan: Plan of Care 1. Continue meropenem and daptomycin was on IV vancomycin patient has polymicrobial organisms on cultures including MRSA, MSSA, lactobacillus, group B strep 2. Intra-operative cultures pending 3. Wound/VAC care as directed. 4. Monitor labs including weekly CPK 5 offload. 6.. Monitor cultures. 7. Continue supportive care. Leukocytosis could be reactive from nausea and or constipation. Wound is healthy per discussion with Dr. Morris. Management per primary. Micro results reviewed. Will trend WBC Discussed with Dr. Morris Discussed with RN Discussed with mother at bedside HALLIE SNELL MD Sep 25, 2021 09:23
[2021-09-25] MEDS: ASCORBIC ACID 500 MG TABLET PO SCH (09:42)
[2021-09-25] MEDS: DOCUSATE SODIUM 100 MG CAPSULE. PO SCH (09:42)
[2021-09-25] MEDS: LACTOBACILLUS RHAMNOSUS GG 1 CAPSULE. PO SCH ×2 (09:42→21:38)
[2021-09-25] MEDS: INSULIN GLARGINE SYRINGE. SQ SCH ×2 (09:48→21:43)
[2021-09-25 11:00] VITALS: BP 176/81
[2021-09-25] MEDS: DAPTOmycin (GENERIC) IVPB 420 MG in IV NORMAL SALINE 50ML 50 ML IV SCH (11:15)
[2021-09-25 15:00] VITALS: BP 181/83
[2021-09-25] MEDS: ENOXAPARIN 40 MG/0.4 ML SYRINGE. SQ SCH (18:15)
[2021-09-25 19:00] VITALS: BP 145/65
[2021-09-25] MEDS: SIMVASTATIN 20 MG TABLET PO SCH (21:38)
[2021-09-25] MEDS: hydrALAZINE 20 MG/ML VIAL. IVP PRN (22:39)
[2021-09-25 23:00] VITALS: BP 164/75
[2021-09-26] MEDS: MEROPENEM 500 MG in IV NORMAL SALINE 50ML 50 ML IV SCH ×4 (00:04→21:41)
[2021-09-26] MEDS: HYDROcodone/APAP 5/325MG 1 TAB TABLET PO PRN (00:27)
[2021-09-26 03:00] VITALS: BP 152/65
[2021-09-26 07:00] VITALS: BP 159/69
[2021-09-26 07:55] LABS: BASO # 0.1 x10^3/uL (0.0-0.2); BASO % 0 % (0-3); EOS # 0.7 x10^3/uL (0.0-0.7); EOS % 5 % (0-3); HEMATOCRIT 38.6 % (36.0-47.0); LYMPH # 2.6 x10^3/uL (1.0-4.8); LYMPH % 17 % (24-48); MEAN CORPUSCULAR HEMOGLOBIN 25 pg (25-35); MEAN CORPUSCULAR HGB CONC 31 g/dL (31-37); MEAN CORPUSCULAR VOLUME 80 fL (79-100); MONO # 1.3 x10^3/uL (0.0-1.1); MONO % 9 % (0-9); NEUT # 10.3 x10^3/uL (1.8-7.7); NEUT % 69 % (31-73); PLATELET COUNT 425 x10^3/uL (140-400); RED BLOOD COUNT 4.83 x10^6/uL (3.50-5.40); RED CELL DISTRIBUTION WIDTH 14.9 % (11.5-14.5); WHITE BLOOD COUNT 14.9 x10^3/uL (4.0-11.0)
[2021-09-26] MEDS: INSULIN LISPRO 300 UNITS/3 ML VIAL. SQ SCH ×3 (08:00→17:00)
[2021-09-26 08:15] LABS: CALCIUM 8.6 mg/dL (8.5-10.1); CREATININE 2.1 mg/dL (0.6-1.0); GFR 24.5; POTASSIUM 5.1 mmol/L (3.5-5.1)
[2021-09-26] MEDS: DULoxetine HCL 30 MG CAPSULE.DR PO SCH (09:00)
[2021-09-26] MEDS: INSULIN GLARGINE SYRINGE. SQ SCH ×2 (09:00→21:48)
[2021-09-26] MEDS: DOCUSATE SODIUM 100 MG CAPSULE. PO SCH (09:00)
[2021-09-26] MEDS: LACTOBACILLUS RHAMNOSUS GG 1 CAPSULE. PO SCH ×2 (09:06→21:41)
[2021-09-26] MEDS: MULTIVITAMIN with MINERAL TABLET. PO SCH (09:06)
[2021-09-26] MEDS: ASCORBIC ACID 500 MG TABLET PO SCH (09:06)
--- NOTE | 2021-09-26 09:30 | PDOC ---
Infectious Disease Note Subjective: Subjective Patient states she feels tired as she did not get good sleep last night Tolerating p.o. intake well WBC down to 15 K Denies headache sore throat fever, nausea or vomiting, diarrhea, abdominal pain. symptoms, shortness of breath or cough Vital Signs: Vital Signs Vital Signs Date Time Temp Pulse Resp B/P (MAP) Pulse Ox O2 Delivery O2 Flow Rate FiO2 09/26/21 09:07 82 159/69 09/26/21 07:00 98.2 18 92 Room Air 98.2 Physical Exam: PHYSICAL EXAM GENERAL APPEARANCE: Well-developed, well-nourished female, lying in bed comfortably, in no acute distress, nontoxic appearing. HEENT: Normocephalic, atraumatic. Normal conjunctivae. NECK: Supple, no JVD, no lymphadenopathy. LUNGS: Clear bilaterally. No wheezing. HEART: S1, S2. No gallops or murmurs. ABDOMEN: Soft, obese. Bowel sounds present, nontender, nondistended. GENITOURINARY: No Givens in place. EXTREMITIES: Right foot dressing in place along with wound VAC, not taken down. No warmth or swelling noted in the right lower extremity NEUROLOGIC: Alert and oriented x 3, grossly nonfocal. PIV looks clean. PSYCHIATRIC: Calm and cooperative. Medications: Inpatient Meds: Medications reviewed. Labs: Lab Laboratory Tests Test 09/25/21 11:50 09/25/21 16:45 09/25/21 20:12 09/26/21 06:40 Glucose (Fingerstick) 133 mg/dL (70-99) 148 mg/dL (70-99) 181 mg/dL (70-99) White Blood Count 14.9 x10^3/uL (4.0-11.0) Red Blood Count 4.83 x10^6/uL (3.50-5.40) Hemoglobin 12.0 g/dL (12.0-15.5) Hematocrit 38.6 % (36.0-47.0) Mean Corpuscular Volume 80 fL (79-100) Mean Corpuscular Hemoglobin 25 pg (25-35) Mean Corpuscular Hemoglobin Concent 31 g/dL (31-37) Red Cell Distribution Width 14.9 % (11.5-14.5) Platelet Count 425 x10^3/uL (140-400) Neutrophils (%) (Auto) 69 % (31-73) Lymphocytes (%) (Auto) 17 % (24-48) Monocytes (%) (Auto) 9 % (0-9) Eosinophils (%) (Auto) 5 % (0-3) Basophils (%) (Auto) 0 % (0-3) Neutrophils # (Auto) 10.3 x10^3/uL (1.8-7.7) Lymphocytes # (Auto) 2.6 x10^3/uL (1.0-4.8) Monocytes # (Auto) 1.3 x10^3/uL (0.0-1.1) Eosinophils # (Auto) 0.7 x10^3/uL (0.0-0.7) Basophils # (Auto) 0.1 x10^3/uL (0.0-0.2) Sodium Level 139 mmol/L (136-145) Potassium Level 5.1 mmol/L (3.5-5.1) Chloride Level 102 mmol/L (98-107) Carbon Dioxide Level 31 mmol/L (21-32) Anion Gap 6 (6-14) Blood Urea Nitrogen 30 mg/dL (7-20) Creatinine 2.1 mg/dL (0.6-1.0) Estimated GFR (Cockcroft-Gault) 24.5 Glucose Level 68 mg/dL (70-99) Calcium Level 8.6 mg/dL (8.5-10.1) Test 09/26/21 08:18 Glucose (Fingerstick) 65 mg/dL (70-99) Micro 1023 STAPHYLOCOCCUS AUREUS methicillin sensitive STREPTOCOCCUS AGALACTIAE GRP B UNIDENTIFIED ORGANISM LACTOBACILLUS JENSENII BETA STREP GROUP B RUN DATE: 09/21/21 [facility] [employer] [facility] *LIVE* PAGE 1 RUN TIME: 1028 Specimen Inquiry PATIENT: ANNABELLE AGGARWAL ACCT: [id number] LOC: [address] [place] [address] U: [id number] AGE/SX: 56/F ROOM: 414 RE09/16/[address]: CHRISTIANA AUSTIN MD : 1965 BED: 1 DIS: STATUS: ADM IN TLOC: SPEC #: [id number] DIPIKA: 09/17/21 STATUS: RES REQ #: [id number] RECD: 09/17/[address]: BUZZ MORRIS [facility] SOURCE: FOOT ENTR: 09/17/[address]: MARLINE WHITMORE DO SPDESC: ADRIA HIGGINBOTHAM M.D., KEVIN Y MD ORDERED: EDWIGE/JULIA/YANY COMMENTS: Has specimen been collected/obtained? Y Procedure Result GRAM STAIN Final Final GRAM POSITIVE RODS:MANY GRAM POSITIVE COCCI:MANY SQUAMOUS EPI CELL:MODERATE PMN (WBCs):NONE SEEN Unless otherwise specified, Testing Performed by: [address] [address] For Inquires, the Physician may contact the Microbiology department at [phone] ANAEROBIC-AEROBIC CULTURE Preliminary Preliminary MODERATE GRAM POSITIVE COCCI on 09/19/21 at 0745 FINAL ID= [STAPHYLOCOCCUS AUREUS (MRSA)] FINAL ID= [BETA STREP GROUP B] FEW Mixed skin josr isolated on 09/20/21 at 0827 STAPHYLOCOCCUS AUREUS (MRSA) STREPTOCOCCUS AGALACTIAE GRP B UNIDENTIFIED ORGANISM LACTOBACILLUS JENSENII BETA STREP GROUP B ANTIMICROBIAL SUSCEPTIBILITY Preliminary Comment POS MOR TYPE 38 STAPHYLOCOCCUS AUREUS (MRSA) ANTIBIOTIC RESULT INTERPRETATION AZITHROMYCIN >4 R CLINDAMYCIN <=0.25 S CEFOXITIN SCREEN >4 POS CIPROFLOXACIN <=1 S CEFTAROLINE <=0.5 S DAPTOMYCIN <=0.5 S ERYTHROMYCIN >4 R GENTAMICIN <=4 S RUN DATE: 09/21/21 [facility] *LIVE* PAGE 2 RUN TIME: 1028 Specimen Inquiry SPEC: [id number] PATIENT: MARY ALICE AGGARWALSA [id number] (Continued) Procedure Result CONTINUED ON NEXT PAGE RUN DATE: 09/21/21 [facility] *LIVE* PAGE 3 RUN TIME: 1028 Specimen Inquiry SPEC: [id number] PATIENT: ANNABELLE AGGARWAL [id number] (Continued) --- --------- Procedure Result ANTIMICROBIAL SUSCEPTIBILITY Preliminary (continued) INDUCIBLE CLINDAMYCIN <=4/0.5 NEG LINEZOLID 2 S LEVOFLOXACIN <=1 S OXACILLIN >2 R PENICILLIN >2 R* RIFAMPIN <=1 S TRIMETHOPRIM/SULFAMETHOXAZOLE <=0.5/9.5 S TETRACYCLINE <=4 S VANCOMYCIN 1 S Unless otherwise specified, Testing Performed by: [address] [address] For Inquires, the Physician may contact the Microbiology department at [phone] Objective: Assessment: 1. Sepsis from right foot infection. 2. Deep right foot infection, status post incision and drainage on September 18. And September 21 3. Streptococcal bacteremia, 2/4 bottles present on admission. 4. Fever improving 5. Diabetes mellitus. 6. Electrolyte imbalance 7. Hypertensive urgency. 8. History of polysubstance abuse. 9. Anemia. Cultures MRSA and MSSA including others Leukocytosis could be reactive. Improving. If fevers will panculture. Plan: Plan of Care 1. Continue meropenem and daptomycin -was on IV vancomycin patient has polymicrobial organisms on cultures including MRSA, MSSA, lactobacillus, group B strep 2. Intra-operative cultures pending from 09/21/2021 3. Wound/VAC care as directed. 4. Monitor labs including weekly CPK 5 strict offload. 6.. Monitor cultures. 7. Continue supportive care. Leukocytosis could be reactive from nausea and or constipation. Wound is healthy per discussion with Dr. Morris. Management per primary. Trend WBC Discussed with Dr. Morris last weekend Discussed with HALLIE SCHILLING MD Sep 26, 2021 09:30
[2021-09-26] MEDS: DAPTOmycin (GENERIC) IVPB 420 MG in IV NORMAL SALINE 50ML 50 ML IV SCH (10:32)
[2021-09-26 11:00] VITALS: BP 173/86
--- NOTE | 2021-09-26 13:06 | PDOC ---
[facility] PROGRESS NOTE Date of Service DOS: DATE: 09/26/21 TIME: 13:05 Chief Complaint Chief Complaint Sepsis Streptococcal bacteremia 2 out of 4 bottles Right diabetic foot infected ulcer Hypertensive urgency Hyperglycemia uncontrolled Acute electrolyte derangementhyponatremia, hypochloremia suggestive of acute volume depletion History of diabetes mellitus type 2 History of polysubstance abuse Podiatry following Continue IV antibiotics per infectious disease Wound care consult IV antihypertensive medications Inpatient systolic blood pressure goals between 140 to 180 R ISS and Accu-Cheks, resume home long-acting insulin IV electrolyte replacement as needed PAT evaluation Lovenox for DVT prophylaxis ADA diet CODE STATUS full Discussed with RN and SW Disposition inpatient management as above DPOA: Nicole Metzger History of Present Illness History of Present Illness 56-year-old female with past medical history of methamphetamine abuse, diabetes mellitus 2, depression anxiety, hypertension, dyslipidemia, chronic back pain w ho presents with right foot pain and lesion to the bottom. She reports that for the past several weeks wound has been worsening and she even tried to andrea it at home but returned and got dark. She also has a chronic ulcer over the right great toe does not regularly well. There is some probably noncompliance with diabetes. Patient states that fast acting insulin causes her to be nauseous and vomit. She was recently admitted for the wound on her right foot in June 2021. Pain worsens upon ambulation. She admits to some fever and chills. Denies nausea, vomiting, chest pain, shortness of breath, abdominal pain, urinary symptoms, cough, recent trauma, or any other complaints. 09/17/21 No acute events overnight. Patient seen and examined bedside. Resting comfortably. Pain is well controlled. Seen by wound care Dr. Love's and recommending podiatry consult for surgical debridement of necrotic tissue. Patient's chart, labs, images were reviewed and discussed with RN 09/18/21 No acute events overnight. Patient taken to the OR today for surgical debridement with Dr. Morris. No concerns with nursing. Sugars are better controlled, ranging between 106-136. Patient's chart, labs, images were reviewed and discussed with RN 09/19: Afebrile. S/P right foot I&D with placement of wound VAC. Blood cultures positive for strep agalactiae (group B strep) that is resistant to erythromycin but largely pansensitive. Wound cultures with staph aureus and group B strep. Continue current antibiotic regimen for now, follow wound cultures for final cultures and sensitivities. Patient tells me that she is having repeat surgery on Sunday. Discussed p.o. pain medication is more appropriate at this time but will leave IV morphine on for when she becomes n.p.o. for any further surgical intervention. 09/20: Afebrile. WBC improving. She will need to be NPO after midnight for repeat I&D, wound VAC application, and possible Achilles lengthening. Discussed with RN. 09/21: Patient seen postoperatively this morning. Right foot is wrapped in bed and bandaged with wound VAC in place. Follow intraoperative cultures. Patient has some questions about repeat surgical grafts; will defer to Dr. Morris. Continue IV antibiotics, per ID. 09/22: Patient seen POD #1, s/p right foot repeat I&D, with wound VAC and posterior splint application. Plan for wound VAC change tomorrow at bedside, per Dr. Morris. Will continue to follow intraoperative cultures. Encourage working with PT today. Asking for increase and dose of pain medication. 09/23: POD #2 s/p right foot repeat I&D, with wound VAC and posterior splint application. Worsening leukocytosis noted this morning. Wound cultures came back positive for MRSA. Daptomycin initiated, per ID. Also some significant hypertension today. Started on Norvasc. If blood pressure improves with pain improvement, Norvasc can likely be stopped. Poor appetite this morning that she contributes to antibiotic regimen. Recommended liquid diet and antiemetics as needed. Continue IV antibiotics, per ID. 09/24: WBC 17.0. Right diabetic foot wound growing MRSA. Continue treatment with daptomycin and meropenem, per ID. Repeat blood cultures with no growth to date. Some worsening renal function this morning. Will provide IV fluids; if no improvement will consult nephrology. She reports she has not had a bowel movement 2 days, requesting for some prune juice. She is now amenable to rehab; given wound VAC requirements, likely [facility]. 09/25: WBC 15.3. Will place consult with nephrology due to EN. Dr. Morris will plan for skin graft application for wound closure next week. Wound VAC in place; once stable will look to [facility] for rehab. Continue daptomycin and meropenem, per ID. 09/26 Patient evaluated examined at bedside. White cell trending down. Patient complaining of some tiredness this morning did not get much sleep last night. Appears planning for skin graft on Sunday. Continue wound care. Plan of care discussed with bedside RN. Vitals/I&O Vitals/I&O: Vital Signs Date Time Temp Pulse Resp B/P (MAP) Pulse Ox O2 Delivery O2 Flow Rate FiO2 09/26/21 11:00 98.2 92 18 173/86 (115) 96 Room Air 98.2 I & O 09/25/21 09/25/21 09/26/21 15:00 23:00 07:00 Intake Total 100 ml Balance 100 ml Physical Exam Physical Exam: GENERAL APPEARANCE: Well-developed, well-nourished female, lying in bed comfortably, in no acute distress, nontoxic appearing. HEENT: Normocephalic, atraumatic. Normal conjunctivae. NECK: Supple, no JVD, no lymphadenopathy. LUNGS: Clear bilaterally. No wheezing. HEART: S1, S2. No gallops or murmurs. ABDOMEN: Soft, obese. Bowel sounds present, nontender, nondistended. GENITOURINARY: No Givens in place. EXTREMITIES: Right foot dressing in place along with wound VAC, not taken down. No warmth or swelling noted in the right lower extremity NEUROLOGIC: Alert and oriented x 3, grossly nonfocal. PIV looks clean. PSYCHIATRIC: Calm and cooperative. General: Alert, Oriented X3, Cooperative Heart: Regular rate Lungs: Clear Abdomen: Normal bowel sounds Extremities: Other (Right with dressings clean/dry/intact. No active bleeding or purulence.) Skin: Other (Necrotic wound in the right medial plantar side of the foot with s urrounding erythema and some edema) Labs Labs: Laboratory Tests Test 09/25/21 16:45 09/25/21 20:12 09/26/21 06:40 09/26/21 08:18 Glucose (Fingerstick) 148 mg/dL (70-99) 181 mg/dL (70-99) 65 mg/dL (70-99) White Blood Count 14.9 x10^3/uL (4.0-11.0) Red Blood Count 4.83 x10^6/uL (3.50-5.40) Hemoglobin 12.0 g/dL (12.0-15.5) Hematocrit 38.6 % (36.0-47.0) Mean Corpuscular Volume 80 fL (79-100) Mean Corpuscular Hemoglobin 25 pg (25-35) Mean Corpuscular Hemoglobin Concent 31 g/dL (31-37) Red Cell Distribution Width 14.9 % (11.5-14.5) Platelet Count 425 x10^3/uL (140-400) Neutrophils (%) (Auto) 69 % (31-73) Lymphocytes (%) (Auto) 17 % (24-48) Monocytes (%) (Auto) 9 % (0-9) Eosinophils (%) (Auto) 5 % (0-3) Basophils (%) (Auto) 0 % (0-3) Neutrophils # (Auto) 10.3 x10^3/uL (1.8-7.7) Lymphocytes # (Auto) 2.6 x10^3/uL (1.0-4.8) Monocytes # (Auto) 1.3 x10^3/uL (0.0-1.1) Eosinophils # (Auto) 0.7 x10^3/uL (0.0-0.7) Basophils # (Auto) 0.1 x10^3/uL (0.0-0.2) Sodium Level 139 mmol/L (136-145) Potassium Level 5.1 mmol/L (3.5-5.1) Chloride Level 102 mmol/L (98-107) Carbon Dioxide Level 31 mmol/L (21-32) Anion Gap 6 (6-14) Blood Urea Nitrogen 30 mg/dL (7-20) Creatinine 2.1 mg/dL (0.6-1.0) Estimated GFR (Cockcroft-Gault) 24.5 Glucose Level 68 mg/dL (70-99) Calcium Level 8.6 mg/dL (8.5-10.1) Test 09/26/21 11:37 Glucose (Fingerstick) 129 mg/dL (70-99) Assessment and Plan Assessmemt and Plan Problems Medical Problems: (1) Diabetic foot ulcer Status: Acute (2) Right foot infection Status: Acute Comment Review of Relevant I have reviewed the following items jose (where applicable) has been applied. Justifications for Admission Other Justification DRAGAN CARDENAS MD Sep 26, 2021 13:06
--- NOTE | 2021-09-26 13:11 | PDOC2 ---
CONSULT Date of Consult Date of Consult DATE: 09/26/21 TIME: 13:04 Reason for Consult Reason for Consult: EN Referring Physician Referring Physician: PROSPER Identification/Chief Complaint Chief Complaint FOOT PAIN Source Source: Chart review, Patient History of Present Illness Reason for Visit: THIS IS A 56 YR OLD WITH RIGHT FOOT PAIN. SHE APPARENTLY TRIED TO TX AT HOME BY LANCING IT. DEVELOPED SWELLING, REDNESS WITH FEVERS AND CHILLS. NOTED TO LEUCOCYTOSIS ON EVALUATION. NOW ON ANTIBIOTICS. SHE HAS UNDERWENT I&D BY PODIATRY. NO HX OF ANY CKD. NO HX REPORTED. NO NEPHROTOXINS READILY IDENTIFIED. SHE HAS BEEN HEMODYNAMICALLY STABLE. CR OF 2.1 NOW. RENAL CONSULT DUE TO ABOVE Past Medical History Past Medical History METH ABUSE, SCIATICA Cardiovascular: HTN, Hyperlipidemia CENTRAL NERVOUS SYSTEM: Periperal neuropathy GI: Constipation Musculoskeletal: Osteoarthritis Endocrine: Diabetes Past Surgical History Past Surgical History: Appendectomy, Cholecystectomy Family History Family History: Diabetes, Heart Disease Social History <1 pack per day ALCOHOL: rare Drugs: Crystal meth Lives: with Family Current Problem List Problem List Problems Medical Problems: (1) Diabetic foot ulcer Status: Acute (2) Right foot infection Status: Acute Current Medications Current Medications Current Medications Vancomycin HCl (Vanco Per Pharmacy) 1 each PRN DAILY PRN MC SEE COMMENTS Last administered on 09/21/21at 13:29; Start 09/16/21 at 00:45; Stop 09/22/21 at 08:12; Status DC Piperacillin Sod/ Tazobactam Sod (Zosyn Per Pharmacy) 1 each PRN DAILY PRN MC SEE COMMENTS; Start 09/16/21 at 00:45; Stop 09/22/21 at 09:42; Status DC Sodium Chloride 1,000 ml @ 1,000 mls/hr Q1H IV Last administered on 09/16/21at 06:05; Start 09/16/21 at 01:00; Stop 09/16/21 at 02:59; Status DC Morphine Sulfate (Morphine Sulfate) 4 mg 1X ONCE IV Last administered on 09/16/21at 02:37; Start 09/16/21 at 01:00; Stop 09/16/21 at 01:01; Status DC Acetaminophen (Tylenol) 1,000 mg 1X ONCE PO Last administered on 09/16/21at 02:35; Start 09/16/21 at 01:00; Stop 09/16/21 at 01:01; Status DC Vancomycin HCl 2 gm/Sodium Chloride 500 ml @ 250 mls/hr 1X ONCE IV Last administered on 09/16/21at 03:12; Start 09/16/21 at 01:30; Stop 09/16/21 at 03:29; Status DC Piperacillin Sod/ Tazobactam Sod 3.375 gm/Sodium Chloride 50 ml @ 100 mls/hr Q6HRS IV Last administered on 09/22/21at 06:04; Start 09/16/21 at 01:00; Stop 09/22/21 at 08:12; Status DC Lidocaine HCl (Lidocaine 1% 20ml Vial) 20 ml STK-MED ONCE .ROUTE ; Start 09/16/21 at 01:17; Stop 09/16/21 at 01:17; Status DC Ondansetron HCl (Zofran) 4 mg PRN Q8HRS PRN IVP NAUSEA/VOMITING 1ST CHOICE; Start 09/16/21 at 01:45; Stop 09/20/21 at 01:44; Status DC Morphine Sulfate (Morphine Sulfate) 4 mg PRN Q2HR PRN IVP SEVERE PAIN 7-10 Last administered on 09/19/21at 01:25; Start 09/16/21 at 01:45; Stop 09/19/21 at 01:44; Status DC Insulin Human Regular (HumuLIN R VIAL) 10 unit 1X ONCE SQ ; Start 09/16/21 at 03:30; Stop 09/16/21 at 03:31; Status Cancel Insulin Glargine (Lantus Syringe) 15 unit BID SQ Last administered on 09/16/21at 09:04; Start 09/16/21 at 09:00; Stop 09/16/21 at 13:21; Status DC Insulin Human Lispro (HumaLOG) 0-9 UNITS TIDWMEALS SQ ; Start 09/16/21 at 08 :00; Stop 09/16/21 at 13:21; Status DC Dextrose (Dextrose 50%-Water Syringe) 12.5 gm PRN Q15MIN PRN IV SEE COMMENTS; Start 09/16/21 at 03:45; Stop 09/16/21 at 13:46; Status DC Insulin Human Lispro (HumaLOG) 10 units 1X ONCE SQ Last administered on 09/16/21at 04:09; Start 09/16/21 at 04:15; Stop 09/16/21 at 04:16; Status DC Vancomycin HCl 1.25 gm/Sodium Chloride 250 ml @ 167 mls/hr Q12H IV Last administered on 09/22/21at 02:34; Start 09/16/21 at 15:00; Stop 09/22/21 at 08:12; Status DC Vancomycin HCl (Vancomycin Trough Level) 1 each 1X ONCE MC Last administered on 09/17/21at 14:30; Start 09/17/21 at 14:30; Stop 09/17/21 at 14:31; Status DC Lactobacillus Rhamnosus (Culturelle) 1 cap BID PO Last administered on 09/26/21at 09:06; Start 09/16/21 at 21:00 Simvastatin (Zocor) 20 mg QHS PO Last administered on 09/25/21at 21:38; Start 09/16/21 at 21:00 Duloxetine HCl (Cymbalta) 60 mg DAILY PO Last administered on 09/24/21at 09:23; Start 09/16/21 at 14:00 Insulin Glargine (Lantus Syringe) 55 unit BID SQ Last administered on 09/25/21at 21:43; Start 09/16/21 at 21:00 Dextrose (Dextrose 50%-Water Syringe) 12.5 gm PRN Q15MIN PRN IV SEE COMMENTS; Start 09/16/21 at 13:00 Multivitamins (Thera M Plus) 1 tab DAILY PO Last administered on 09/26/21at 09:06; Start 09/17/21 at 20:00 Ascorbic Acid (Vitamin C) 500 mg DAILY PO Last administered on 09/26/21at 09:06; Start 09/17/21 at 20:00 Insulin Human Lispro (HumaLOG) 10 units 1X ONCE SQ Last administered on 09/16/21at 19:24; Start 09/16/21 at 19:00; Stop 09/16/21 at 19:03; Status DC Insulin Human Lispro (HumaLOG) 0-9 UNITS TIDWMEALS SQ Last administered on 09/18/21at 17:19; Start 09/17/21 at 08:00 Insulin Human Lispro (HumaLOG) 10 units 1X ONCE SQ Last administered on 09/16/21at 23:08; Start 09/16/21 at 23:30; Stop 09/16/21 at 23:31; Status DC Insulin Human Lispro (HumaLOG) 10 units 1X ONCE SQ Last administered on 1 at 08:53; Start 09/17/21 at 08:30; Stop 09/17/21 at 08:31; Status DC Enoxaparin Sodium (Lovenox 40mg Syringe) 40 mg Q24H SQ Last administered on 09/25/21at 18:15; Start 09/17/21 at 16:00 Fentanyl Citrate (Fentanyl 2ml Vial) 25 mcg PRN Q5MIN PRN IVP MILD PAIN 1-3; Start 09/18/21 at 06:00; Stop 09/19/21 at 05:59; Status DC Fentanyl Citrate (Fentanyl 2ml Vial) 50 mcg PRN Q5MIN PRN IVP MODERATE PAIN 4-6 Last administered on 09/18/21at 10:26; Start 09/18/21 at 06:00; Stop 09/19/21 at 05:59; Status DC Morphine Sulfate (Morphine Sulfate) 1 mg PRN Q10MIN PRN IVP SEVERE PAIN 7-10; Start 09/18/21 at 06:00; Stop 09/19/21 at 05:59; Status DC Ringer's Solution 1,000 ml @ 30 mls/hr Q24H IV Last administered on 09/18/21at 08:50; Start 09/18/21 at 06:00; Stop 09/18/21 at 17:59; Status DC Hydromorphone HCl (Dilaudid) 0.5 mg PRN Q10MIN PRN IVP SEVERE PAIN 7-10, 2nd CHOICE; Start 09/18/21 at 06:00; Stop 09/19/21 at 05:59; Status DC Prochlorperazine Edisylate (Compazine) 5 mg PACU PRN PRN IVP NAUSEA, MRX1 Last administered on 09/18/21at 10:12; Start 09/18/21 at 06:00; Stop 09/19/21 at 05:59; Status DC Cefazolin Sodium 1 gm/Sodium Chloride 1,000 ml @ 1,000 mls/hr 1X ONCE IRR ; Start 09/18/21 at 08:30; Stop 09/18/21 at 09:29; Status DC Cefazolin Sodium 1 gm/Sodium Chloride 1,000 ml @ 1,000 mls/hr 1X ONCE IRR ; Start 09/18/21 at 08:30; Stop 09/18/21 at 09:29; Status DC Cefazolin Sodium 1 gm/Sodium Chloride 1,000 ml @ 1,000 mls/hr 1X ONCE IRR ; Start 09/18/21 at 08:30; Stop 09/18/21 at 09:29; Status DC Vancomycin HCl (Vancomycin) 1 gm STK-MED ONCE .ROUTE ; Start 09/18/21 at 08:34; Stop 09/18/21 at 08:34; Status DC Tobramycin Sulfate (Tobramycin Powder) 1.2 gm STK-MED ONCE .ROUTE ; Start 09/18/21 at 08:34; Stop 09/18/21 at 08:35; Status DC Ondansetron HCl (Zofran) 4 mg STK-MED ONCE .ROUTE ; Start 09/18/21 at 09:00; Stop 09/18/21 at 09:00; Status DC Propofol (Diprivan) 200 mg STK-MED ONCE IV ; Start 09/18/21 at 09:00; Stop 09/18/21 at 09:00; Status DC Lidocaine HCl (Lidocaine Pf 2% Vial) 5 ml STK-MED ONCE .ROUTE ; Start 09/18/21 at 09:00; Stop 09/18/21 at 09:00; Status DC Dexamethasone Sodium Phosphate (Decadron) 4 mg STK-MED ONCE .ROUTE ; Start 09/18/21 at 09:00; Stop 09/18/21 at 09:01; Status DC Sevoflurane (Ultane) 60 ml STK-MED ONCE IH ; Start 09/18/21 at 09:00; Stop 09/18/21 at 09:01; Status DC Dextrose (Dextrose 50%-Water Syringe) 12.5 gm PRN Q15MIN PRN IV SEE COMMENTS; Start 09/18/21 at 09:45; Stop 09/19/21 at 10:20; Status DC Acetaminophen (Tylenol) 650 mg 1X ONCE PO Last administered on 09/18/21at 11:25; Start 09/18/21 at 09:45; Stop 09/18/21 at 09:46; Status DC Fentanyl Citrate (Fentanyl 2ml Vial) 100 mcg STK-MED ONCE .ROUTE ; Start 09/18/21 at 09:58; Stop 09/18/21 at 09:58; Status DC Prochlorperazine Edisylate (Compazine) 10 mg STK-MED ONCE .ROUTE ; Start 09/18/21 at 09:59; Stop 09/18/21 at 09:59; Status DC Acetaminophen/ Hydrocodone Bitart (Lortab 5/325) 1 tab PRN Q4HRS PRN PO MILD- MODERATE PAIN Last administered on 09/22/21at 10:37; Start 09/19/21 at 15:00; Stop 09/22/21 at 11:36; Status DC Acetaminophen/ Hydrocodone Bitart (Lortab 7.5/325) 1 tab PRN Q6HRS PRN PO SEVERE PAIN Last administered on 09/20/21at 23:48; Start 09/19/21 at 15:00; Stop 09/21/21 at 09:58; Status DC Morphine Sulfate (Morphine Sulfate) 4 mg PRN Q2HR PRN IV PAIN Last administered on 09/21/21at 02:47; Start 09/19/21 at 15:00; Stop 09/21/21 at 09:58; Status DC Hydralazine HCl (Apresoline Inj) 10 mg PRN Q4HRS PRN IVP ELEVATED BP, SEE COMMENTS Last administered on 09/20/21at 08:34; Start 09/20/21 at 08:15; Stop 09/21/21 at 09:58; Status DC Fentanyl Citrate (Fentanyl 2ml Vial) 25 mcg PRN Q5MIN PRN IVP MILD PAIN 1-3 Last administered on 09/21/21at 10:33; Start 09/21/21 at 06:00; Stop 09/22/21 at 05:59; Status DC Fentanyl Citrate (Fentanyl 2ml Vial) 50 mcg PRN Q5MIN PRN IVP MODERATE PAIN 4- 6; Start 09/21/21 at 06:00; Stop 09/21/21 at 09:58; Status DC Morphine Sulfate (Morphine Sulfate) 1 mg PRN Q10MIN PRN IVP SEVERE PAIN 7-10; Start 09/21/21 at 06:00; Stop 09/21/21 at 09:58; Status DC Ringer's Solution 1,000 ml @ 30 mls/hr Q24H IV Last administered on 09/21/21at 09:00; Start 09/21/21 at 06:00; Stop 09/21/21 at 17:59; Status DC Hydromorphone HCl (Dilaudid) 0.5 mg PRN Q10MIN PRN IVP SEVERE PAIN 7-10, 2nd CHOICE; Start 09/21/21 at 06:00; Stop 09/22/21 at 05:59; Status DC Prochlorperazine Edisylate (Compazine) 5 mg PACU PRN PRN IVP NAUSEA, MRX1; Start 09/21/21 at 06:00; Stop 09/22/21 at 05:59; Status DC Phenylephrine HCl (PHENYLEPHRINE in 0.9% NACL PF) 1 mg STK-MED ONCE IV ; Start 09/21/21 at 08:11; Stop 09/21/21 at 08:11; Status DC Dexamethasone Sodium Phosphate (Decadron) 4 mg STK-MED ONCE .ROUTE ; Start 09/21/21 at 08:11; Stop 09/21/21 at 08:11; Status DC Ondansetron HCl (Zofran) 4 mg STK-MED ONCE .ROUTE ; Start 09/21/21 at 08:11; Stop 09/21/21 at 08:11; Status DC Propofol (Diprivan) 200 mg STK-MED ONCE IV ; Start 09/21/21 at 08:11; Stop 09/21/21 at 08:12; Status DC Lidocaine HCl (Lidocaine Pf 2% Vial) 5 ml STK-MED ONCE .ROUTE ; Start 09/21/21 at 08:11; Stop 09/21/21 at 08:12; Status DC Midazolam HCl (Versed) 2 mg STK-MED ONCE .ROUTE ; Start 09/21/21 at 08:12; Stop 09/21/21 at 08:13; Status DC Lidocaine HCl (Xylocaine-Mpf 1% 2ml Vial) 2 ml STK-MED ONCE .ROUTE ; Start 09/21/21 at 08:27; Stop 09/21/21 at 08:27; Status DC Glycopyrrolate (Robinul) 1 mg STK-MED ONCE .ROUTE ; Start 09/21/21 at 09:11; Stop 09/21/21 at 09:11; Status DC Ephedrine Sulfate (ePHEDrine PF IN SALINE SYRINGE) 50 mg STK-MED ONCE IV ; Start 09/21/21 at 09:11; Stop 09/21/21 at 09:11; Status DC Fentanyl Citrate (Fentanyl 2ml Vial) 100 mcg STK-MED ONCE .ROUTE ; Start 09/21/21 at 09:28; Stop 09/21/21 at 09:28; Status DC Sevoflurane (Ultane) 30 ml STK-MED ONCE IH ; Start 09/21/21 at 09:37; Stop 09/21/21 at 09:38; Status DC Acetaminophen (Tylenol) 650 mg 1X ONCE PO ; Start 09/21/21 at 10:30; Stop 09/21/21 at 09:58; Status DC Oxycodone/ Acetaminophen (Percocet 5/325) 1 tab 1X ONCE PO ; Start 09/21/21 at 10:30; Stop 09/21/21 at 09:58; Status DC Fentanyl Citrate (Fentanyl 2ml Vial) 100 mcg STK-MED ONCE .ROUTE ; Start 09/21/21 at 10:10; Stop 09/21/21 at 10:10; Status DC Vancomycin HCl (Vancomycin Trough Level) 1 each 1X ONCE MC ; Start 09/22/21 at 14:30; Stop 09/22/21 at 08:15; Status DC Hydralazine HCl (Apresoline Inj) 10 mg PRN Q4HRS PRN IVP ELEVATED BP, SEE COMMENTS Last administered on 09/25/21at 22:39; Start 09/21/21 at 15:00 Meropenem 500 mg/ Sodium Chloride 50 ml @ 100 mls/hr Q6HRS IV Last administered on 09/26/21at 06:00; Start 09/22/21 at 12:00; Stop 09/26/21 at 11:13; Status DC Acetaminophen/ Hydrocodone Bitart (Lortab 10/325) 1 tab PRN Q6HRS PRN PO PAIN Last administered on 09/24/21at 08:11; Start 09/22/21 at 11:45; Stop 09/24/21 at 10:14; Status DC Daptomycin 420 mg/ Sodium Chloride 50 ml @ 100 mls/hr Q24H IV Last administered on 09/26/21at 10:32; Start 09/23/21 at 10:00 Ondansetron HCl (Zofran) 4 mg PRN Q6HRS PRN IVP NAUSEA/VOMITING Last administered on 09/23/21at 10:37; Start 09/23/21 at 09:45 Docusate Sodium (Colace) 100 mg DAILY PO ; Start 09/24/21 at 10:00; Stop 09/23/21 at 09:47; Status DC Docusate Sodium (Colace) 100 mg DAILY PO Last administered on 09/25/21at 09:42; Start 09/23/21 at 10:00 Amlodipine Besylate (Norvasc) 10 mg DAILY PO Last administered on 09/26/21at 0 9:07; Start 09/24/21 at 09:00 Amlodipine Besylate (Norvasc) 10 mg 1X ONCE PO Last administered on 09/23/21at 14:45; Start 09/23/21 at 14:45; Stop 09/23/21 at 14:46; Status DC Sodium Chloride 1,000 ml @ 125 mls/hr 1X ONCE IV Last administered on at 10:15; Start 09/24/21 at 10:15; Stop 09/24/21 at 18:14; Status DC Tramadol HCl (Ultram) 50 mg PRN Q6HRS PRN PO MODERATE PAIN; Start 09/24/21 at 10:15 Acetaminophen (Tylenol) 650 mg QID PRN PO MILD PAIN / TEMP > 100.3'F; Start 09/24/21 at 10:15 Acetaminophen/ Hydrocodone Bitart (Lortab 5/325) 1 tab PRN QID PRN PO SEVERE PAIN Last administered on 09/26/21at 00:27; Start 09/24/21 at 10:15 Meropenem 500 mg/ Sodium Chloride 50 ml @ 100 mls/hr Q8HRS IV ; Start 09/26/21 at 14:00 Active Scripts Active Glipizide 5 Mg Tablet 5 Mg PO BIDBFRMEAL 30 Days Reported Levemir (Insulin Detemir) 100 Unit/1 Ml Vial 55 Unit SQ BID Simvastatin 20 Mg Tablet 1 Tab PO QHS Metformin Hcl 500 Mg Tablet Unknown Dose PO Atenolol 25 Mg Tablet Unknown Dose PO DAILY Duloxetine HCl 40 Mg Capsule.dr 60 Mg PO DAILY Allergies Allergies: Coded Allergies: I S O L A T I O N *CONTACT* (Verified Allergy, Unknown, 09/22/21) mrsa No Known Medication Allergies (Verified Allergy, Unknown, 09/22/21) ROS General: YES: Chills, Fatigue PSYCHOLOGICAL ROS: YES: Anxiety, Depression Eyes: Yes Decreased vision HEENT: YES: Heacaches Respiratory: YES: Cough Gastrointestinal: Yes Constipation Genitourinary: YES Frequency Musculoskeletal: Yes Muscular Weakness Neurological: Yes Weakness Skin: Yes Skin Lesion Changes Physical Exam General: Alert, Oriented X3, Cooperative, No acute distress HEENT: Atraumatic, PERRLA Lungs: Clear to auscultation Heart: Regular rate Abdomen: Normal bowel sounds, Soft, No tenderness Extremities: Other (RLE EDEMA, WOUND BANDAGED) Skin: No breakdown Neuro: Normal speech Psych/Mental Status: Mental status NL MUSCULOSKELETAL: No deformity Vitals VITALS Vital Signs Date Time Temp Pulse Resp B/P (MAP) Pulse Ox O2 Delivery O2 Flow Rate FiO2 09/26/21 11:00 98.2 92 18 173/86 (115) 96 Room Air 98.2 Labs Labs Laboratory Tests Test 09/24/21 16:43 09/24/21 20:08 09/25/21 06:55 09/25/21 07:31 Glucose (Fingerstick) 227 mg/dL (70-99) 263 mg/dL (70-99) 88 mg/dL (70-99) White Blood Count 15.3 x10^3/uL (4.0-11.0) Red Blood Count 4.68 x10^6/uL (3.50-5.40) Hemoglobin 12.0 g/dL (12.0-15.5) Hematocrit 37.4 % (36.0-47.0) Mean Corpuscular Volume 80 fL (79-100) Mean Corpuscular Hemoglobin 26 pg (25-35) Mean Corpuscular Hemoglobin Concent 32 g/dL (31-37) Red Cell Distribution Width 14.5 % (11.5-14.5) Platelet Count 425 x10^3/uL (140-400) Neutrophils (%) (Auto) 72 % (31-73) Lymphocytes (%) (Auto) 16 % (24-48) Monocytes (%) (Auto) 7 % (0-9) Eosinophils (%) (Auto) 5 % (0-3) Basophils (%) (Auto) 0 % (0-3) Neutrophils # (Auto) 10.9 x10^3/uL (1.8-7.7) Lymphocytes # (Auto) 2.5 x10^3/uL (1.0-4.8) Monocytes # (Auto) 1.1 x10^3/uL (0.0-1.1) Eosinophils # (Auto) 0.7 x10^3/uL (0.0-0.7) Basophils # (Auto) 0.0 x10^3/uL (0.0-0.2) Sodium Level 137 mmol/L (136-145) Potassium Level 4.8 mmol/L (3.5-5.1) Chloride Level 103 mmol/L (98-107) Carbon Dioxide Level 31 mmol/L (21-32) Anion Gap 3 (6-14) Blood Urea Nitrogen 32 mg/dL (7-20) Creatinine 2.0 mg/dL (0.6-1.0) Estimated GFR (Cockcroft-Gault) 25.9 Glucose Level 81 mg/dL (70-99) Calcium Level 8.4 mg/dL (8.5-10.1) Test 09/25/21 11:50 09/25/21 16:45 09/25/21 20:12 09/26/21 06:40 Glucose (Fingerstick) 133 mg/dL (70-99) 148 mg/dL (70-99) 181 mg/dL (70-99) White Blood Count 14.9 x10^3/uL (4.0-11.0) Red Blood Count 4.83 x10^6/uL (3.50-5.40) Hemoglobin 12.0 g/dL (12.0-15.5) Hematocrit 38.6 % (36.0-47.0) Mean Corpuscular Volume 80 fL (79-100) Mean Corpuscular Hemoglobin 25 pg (25-35) Mean Corpuscular Hemoglobin Concent 31 g/dL (31-37) Red Cell Distribution Width 14.9 % (11.5-14.5) Platelet Count 425 x10^3/uL (140-400) Neutrophils (%) (Auto) 69 % (31-73) Lymphocytes (%) (Auto) 17 % (24-48) Monocytes (%) (Auto) 9 % (0-9) Eosinophils (%) (Auto) 5 % (0-3) Basophils (%) (Auto) 0 % (0-3) Neutrophils # (Auto) 10.3 x10^3/uL (1.8-7.7) Lymphocytes # (Auto) 2.6 x10^3/uL (1.0-4.8) Monocytes # (Auto) 1.3 x10^3/uL (0.0-1.1) Eosinophils # (Auto) 0.7 x10^3/uL (0.0-0.7) Basophils # (Auto) 0.1 x10^3/uL (0.0-0.2) Sodium Level 139 mmol/L (136-145) Potassium Level 5.1 mmol/L (3.5-5.1) Chloride Level 102 mmol/L (98-107) Carbon Dioxide Level 31 mmol/L (21-32) Anion Gap 6 (6-14) Blood Urea Nitrogen 30 mg/dL (7-20) Creatinine 2.1 mg/dL (0.6-1.0) Estimated GFR (Cockcroft-Gault) 24.5 Glucose Level 68 mg/dL (70-99) Calcium Level 8.6 mg/dL (8.5-10.1) Test 09/26/21 08:18 09/26/21 11:37 Glucose (Fingerstick) 65 mg/dL (70-99) 129 mg/dL (70-99) Laboratory Tests Test 09/25/21 16:45 09/25/21 20:12 09/26/21 06:40 09/26/21 08:18 Glucose (Fingerstick) 148 mg/dL (70-99) 181 mg/dL (70-99) 65 mg/dL (70-99) White Blood Count 14.9 x10^3/uL (4.0-11.0) Red Blood Count 4.83 x10^6/uL (3.50-5.40) Hemoglobin 12.0 g/dL (12.0-15.5) Hematocrit 38.6 % (36.0-47.0) Mean Corpuscular Volume 80 fL (79-100) Mean Corpuscular Hemoglobin 25 pg (25-35) Mean Corpuscular Hemoglobin Concent 31 g/dL (31-37) Red Cell Distribution Width 14.9 % (11.5-14.5) Platelet Count 425 x10^3/uL (140-400) Neutrophils (%) (Auto) 69 % (31-73) Lymphocytes (%) (Auto) 17 % (24-48) Monocytes (%) (Auto) 9 % (0-9) Eosinophils (%) (Auto) 5 % (0-3) Basophils (%) (Auto) 0 % (0-3) Neutrophils # (Auto) 10.3 x10^3/uL (1.8-7.7) Lymphocytes # (Auto) 2.6 x10^3/uL (1.0-4.8) Monocytes # (Auto) 1.3 x10^3/uL (0.0-1.1) Eosinophils # (Auto) 0.7 x10^3/uL (0.0-0.7) Basophils # (Auto) 0.1 x10^3/uL (0.0-0.2) Sodium Level 139 mmol/L (136-145) Potassium Level 5.1 mmol/L (3.5-5.1) Chloride Level 102 mmol/L (98-107) Carbon Dioxide Level 31 mmol/L (21-32) Anion Gap 6 (6-14) Blood Urea Nitrogen 30 mg/dL (7-20) Creatinine 2.1 mg/dL (0.6-1.0) Estimated GFR (Cockcroft-Gault) 24.5 Glucose Level 68 mg/dL (70-99) Calcium Level 8.6 mg/dL (8.5-10.1) Test 09/26/21 11:37 Glucose (Fingerstick) 129 mg/dL (70-99) Assessment/Plan Assessment/Plan IMP EN-SUSPICIOUS FOR IN SEPSIS RIGHT FOOT INFECTION STREP BACTEREMIA HTN POORLY CONTROLLED DM II-POORLY CONTROLLED PLAN ANTIBIOTICS HYDRATION AVOID NEPHROTOXINS CHECK UA-RULE OUT INTERSTITIAL NEPHRITIS WILL FOLLOW LABS IN BETTINA BHATTI MD Sep 26, 2021 13:11
[2021-09-26] MEDS: IV NORMAL SALINE 1000ML BAG 1,000 ML IV SCH (13:28)
[2021-09-26 15:00] VITALS: BP 192/85
[2021-09-26] MEDS: ENOXAPARIN 40 MG/0.4 ML SYRINGE. SQ SCH (17:16)
[2021-09-26] MEDS: hydrALAZINE 20 MG/ML VIAL. IVP PRN (17:16)
[2021-09-26 19:00] VITALS: BP 144/64
[2021-09-26] MEDS: SIMVASTATIN 20 MG TABLET PO SCH (21:41)
[2021-09-26 23:00] VITALS: BP 155/70
[2021-09-27 03:00] VITALS: BP 159/71
[2021-09-27] MEDS: IV NORMAL SALINE 1000ML BAG 1,000 ML IV SCH ×3 (03:06→14:16)
[2021-09-27 04:54] LABS: BASO # 0.1 x10^3/uL (0.0-0.2); BASO % 1 % (0-3); EOS # 0.7 x10^3/uL (0.0-0.7); EOS % 5 % (0-3); HEMATOCRIT 35.6 % (36.0-47.0); HEMOGLOBIN 11.2 g/dL (12.0-15.5); LYMPH # 2.5 x10^3/uL (1.0-4.8); LYMPH % 19 % (24-48); MEAN CORPUSCULAR HEMOGLOBIN 25 pg (25-35); MEAN CORPUSCULAR HGB CONC 32 g/dL (31-37); MEAN CORPUSCULAR VOLUME 80 fL (79-100); MONO # 1.2 x10^3/uL (0.0-1.1); MONO % 9 % (0-9); NEUT # 9.1 x10^3/uL (1.8-7.7); NEUT % 67 % (31-73); PLATELET COUNT 414 x10^3/uL (140-400); RED BLOOD COUNT 4.46 x10^6/uL (3.50-5.40); WHITE BLOOD COUNT 13.6 x10^3/uL (4.0-11.0)
[2021-09-27 05:02] LABS: CALCIUM 8.3 mg/dL (8.5-10.1); GFR 25.9; POTASSIUM 5.1 mmol/L (3.5-5.1)
[2021-09-27 05:05] LABS: BILIRUBIN,URINE NEGATIVE (NEG); CLARITY,URINE CLEAR; COLOR,URINE YELLOW; NITRITE,URINE NEGATIVE (NEG); PH,URINE 7.5 (<5.0-8.0); PROTEIN,URINE NEGATIVE (NEG-TRACE); UROBILINOGEN,URINE 0.2 mg/dL (0.2 mg/dL)
[2021-09-27 05:13] LABS: BACTERIA,URINE FEW /HPF (0-FEW); YEAST,URINE PRESENT /HPF
[2021-09-27] MEDS: MEROPENEM 500 MG in IV NORMAL SALINE 50ML 50 ML IV SCH ×3 (06:29→21:05)
[2021-09-27 07:00] VITALS: BP 178/82
[2021-09-27] MEDS: INSULIN LISPRO 300 UNITS/3 ML VIAL. SQ SCH ×3 (08:00→17:00)
--- NOTE | 2021-09-27 08:27 | PDOC ---
Infectious Disease Note Subjective: Subjective Patient feels okay WBC trending down Still feels very tired Cannot sleep well at night Postoperative pain is under control Vital Signs: Vital Signs Vital Signs Date Time Temp Pulse Resp B/P (MAP) Pulse Ox O2 Delivery O2 Flow Rate FiO2 09/27/21 07:00 97.3 84 18 178/82 (114) 96 Room Air 97.3 Physical Exam: PHYSICAL EXAM GENERAL APPEARANCE: Well-developed, well-nourished female, lying in bed comfortably, in no acute distress, nontoxic appearing. HEENT: Normocephalic, atraumatic. Normal conjunctivae. NECK: Supple, no JVD, no lymphadenopathy. LUNGS: Clear bilaterally. No wheezing. HEART: S1, S2. No gallops or murmurs. ABDOMEN: Soft, obese. Bowel sounds present, nontender, nondistended. GENITOURINARY: No Givens in place. EXTREMITIES: Right foot dressing in place along with wound VAC, not taken down. No warmth or swelling noted in the right lower extremity NEUROLOGIC: Alert and oriented x 3, grossly nonfocal. PIV looks clean. PSYCHIATRIC: Calm and cooperative. Medications: Inpatient Meds: Medications reviewed. Labs: Lab Laboratory Tests Test 09/26/21 11:37 09/26/21 17:07 09/26/21 21:14 09/27/21 03:40 Glucose (Fingerstick) 129 mg/dL (70-99) 200 mg/dL (70-99) 227 mg/dL (70-99) White Blood Count 13.6 x10^3/uL (4.0-11.0) Red Blood Count 4.46 x10^6/uL (3.50-5.40) Hemoglobin 11.2 g/dL (12.0-15.5) Hematocrit 35.6 % (36.0-47.0) Mean Corpuscular Volume 80 fL (79-100) Mean Corpuscular Hemoglobin 25 pg (25-35) Mean Corpuscular Hemoglobin Concent 32 g/dL (31-37) Red Cell Distribution Width 15.0 % (11.5-14.5) Platelet Count 414 x10^3/uL (140-400) Neutrophils (%) (Auto) 67 % (31-73) Lymphocytes (%) (Auto) 19 % (24-48) Monocytes (%) (Auto) 9 % (0-9) Eosinophils (%) (Auto) 5 % (0-3) Basophils (%) (Auto) 1 % (0-3) Neutrophils # (Auto) 9.1 x10^3/uL (1.8-7.7) Lymphocytes # (Auto) 2.5 x10^3/uL (1.0-4.8) Monocytes # (Auto) 1.2 x10^3/uL (0.0-1.1) Eosinophils # (Auto) 0.7 x10^3/uL (0.0-0.7) Basophils # (Auto) 0.1 x10^3/uL (0.0-0.2) Sodium Level 138 mmol/L (136-145) Potassium Level 5.1 mmol/L (3.5-5.1) Chloride Level 104 mmol/L (98-107) Carbon Dioxide Level 30 mmol/L (21-32) Anion Gap 4 (6-14) Blood Urea Nitrogen 30 mg/dL (7-20) Creatinine 2.0 mg/dL (0.6-1.0) Estimated GFR (Cockcroft-Gault) 25.9 Glucose Level 98 mg/dL (70-99) Calcium Level 8.3 mg/dL (8.5-10.1) Test 09/27/21 04:00 09/27/21 08:15 Urine Collection Type Void Urine Color Yellow Urine Clarity Clear Urine pH 7.5 (<5.0-8.0) Urine Specific [place] 1.010 (1.000-1.030) Urine Protein Negative mg/dL (NEG-TRACE) Urine Glucose (UA) Negative mg/dL (NEG) Urine Ketones (Stick) Negative mg/dL (NEG) Urine Blood Small (NEG) Urine Nitrite Negative (NEG) Urine Bilirubin Negative (NEG) Urine Urobilinogen Dipstick 0.2 mg/dL (0.2 mg/dL) Urine Leukocyte Esterase Trace (NEG) Urine RBC 3-5 /HPF (0-2) Urine WBC 1-4 /HPF (0-4) Urine Squamous Epithelial Cells Many /LPF Urine Bacteria Few /HPF (0-FEW) Urine Mucus Slight /LPF Urine Yeast Present /HPF Glucose (Fingerstick) 85 mg/dL (70-99) Micro 1023 STAPHYLOCOCCUS AUREUS methicillin sensitive STREPTOCOCCUS AGALACTIAE GRP B UNIDENTIFIED ORGANISM LACTOBACILLUS JENSENII BETA STREP GROUP B -- RUN DATE: 09/21/21 [facility] *LIVE* PAGE 1 RUN TIME: 1028 Specimen Inquiry PATIENT: ANNABELLE AGGARWAL ACCT: [id number] LOC: [address] [place] [address] U: [id number] AGE/SX: 56/F ROOM: [facility] RE09/16/[address]: CHRISTIANA AUSTIN MD : 1965 BED: 1 DIS: STATUS: ADM IN TLOC: SPEC #: [id number] DIPIKA: 09/17/21 STATUS: RES REQ #: [id number] RECD: 09/17/[address]: BUZZ BERMEO DPM SOURCE: FOOT ENTR: 09/17/[address]: MARLINE WHITMORE DO SPDESC: ADRIA HIGGINBOTHAM M.D., KEVIN Y MD ORDERED: ANAER/AEROB/GS COMMENTS: Has specimen been collected/obtained? Y Procedure Result GRAM STAIN Final Final GRAM POSITIVE RODS:MANY GRAM POSITIVE COCCI:MANY SQUAMOUS EPI CELL:MODERATE PMN (WBCs):NONE SEEN Unless otherwise specified, Testing Performed by: [address] [address] For Inquires, the Physician may contact the Microbiology department at [phone] ANAEROBIC-AEROBIC CULTURE Preliminary Preliminary MODERATE GRAM POSITIVE COCCI on 09/19/21 at 0745 FINAL ID= [STAPHYLOCOCCUS AUREUS (MRSA)] FINAL ID= [BETA STREP GROUP B] FEW Mixed skin josr isolated on 09/20/21 at 0859 STAPHYLOCOCCUS AUREUS (MRSA) STREPTOCOCCUS AGALACTIAE GRP B UNIDENTIFIED ORGANISM LACTOBACILLUS JENSENII BETA STREP GROUP B ANTIMICROBIAL SUSCEPTIBILITY Preliminary Comment POS MOR TYPE 38 STAPHYLOCOCCUS AUREUS (MRSA) ANTIBIOTIC RESULT INTERPRETATION AZITHROMYCIN >4 R CLINDAMYCIN <=0.25 S CEFOXITIN SCREEN >4 POS CIPROFLOXACIN <=1 S CEFTAROLINE <=0.5 S DAPTOMYCIN <=0.5 S ERYTHROMYCIN >4 R GENTAMICIN <=4 S RUN DATE: 09/21/21 [facility] *LIVE* PAGE 2 RUN TIME: 1028 Specimen Inquiry SPEC: [id number] PATIENT: ANNABELLE AGGARWAL [id number] (C ontinued) Procedure Result CONTINUED ON NEXT PAGE RUN DATE: 09/21/21 [facility] *LIVE* PAGE 3 RUN TIME: 1028 Specimen Inquiry SPEC: [id number] PATIENT: ANNABELLE AGGARWAL [id number] (Continued) - Procedure Result ANTIMICROBIAL SUSCEPTIBILITY Preliminary (continued) INDUCIBLE CLINDAMYCIN <=4/0.5 NEG LINEZOLID 2 S LEVOFLOXACIN <=1 S OXACILLIN >2 R PENICILLIN >2 R* RIFAMPIN <=1 S TRIMETHOPRIM/SULFAMETHOXAZOLE <=0.5/9.5 S TETRACYCLINE <=4 S VANCOMYCIN 1 S Unless otherwise specified, Testing Performed by: [facility] [address] [place] [address] For Inquires, the Physician may contact the Microbiology department at [phone] Objective: Assessment: 1. Sepsis from right foot infection. 2. Deep right foot infection, status post incision and drainage on September 18. And September 21 Cultures from September 21 remain negative 3. Group B streptococcal bacteremia, 2/4 bottles present on admission. 4. Fever improving 5. Diabetes mellitus. 6. Electrolyte imbalance 7. Hypertensive urgency. 8. History of polysubstance abuse. 9. Anemia. Cultures MRSA and MSSA including others Leukocytosis could be reactive. Improving. If fevers will panculture. Plan: Plan of Care 1. Continue meropenem and daptomycin -was on IV vancomycin patient has polymicrobial organisms on cultures including MRSA, MSSA, lactobacillus, group B strep 2. Intra-operative cultures pending from 09/21/2021 3. Wound/VAC care as directed. 4. Monitor labs including weekly CPK 5 strict offload. 6.. Monitor cultures. 7. Continue supportive care. Leukocytosis could be reactive from nausea and or constipation. HALLIE SNELL MD Sep 27, 2021 08:27
[2021-09-27] MEDS: DOCUSATE SODIUM 100 MG CAPSULE. PO SCH (08:50)
[2021-09-27] MEDS: LACTOBACILLUS RHAMNOSUS GG 1 CAPSULE. PO SCH ×2 (08:53→21:05)
[2021-09-27] MEDS: ASCORBIC ACID 500 MG TABLET PO SCH (08:54)
[2021-09-27] MEDS: MULTIVITAMIN with MINERAL TABLET. PO SCH (08:54)
[2021-09-27] MEDS: DULoxetine HCL 30 MG CAPSULE.DR PO SCH (08:54)
[2021-09-27] MEDS: INSULIN GLARGINE SYRINGE. SQ SCH ×2 (09:04→21:11)
[2021-09-27] MEDS: DAPTOmycin (GENERIC) IVPB 420 MG in IV NORMAL SALINE 50ML 50 ML IV SCH (10:46)
[2021-09-27 11:28] VITALS: BP 169/82
--- NOTE | 2021-09-27 11:58 | PDOC ---
DATE OF SERVICE DATE: 09/27/21 TIME: 11:51 SUBJECTIVE ROS Stable OBJECTIVE Vital Signs Vital Signs Date Time Temp Pulse Resp B/P (MAP) Pulse Ox O2 Delivery O2 Flow Rate FiO2 09/27/21 11:28 97.7 86 18 169/82 (111) 97 Room Air 97.7 I & 0 Intake and Output 09/27/21 07:00 Intake Total 3040 ml Output Total 250 ml Balance 2790 ml Intake Oral 640 ml IV Total 1200 ml Other 1200 ml Output Urine Total 250 ml # Bowel Movements 1 PHYSICAL EXAM Physical Exam GENERAL: NAD HEENT: Normocephalic, atraumatic. NECK: Supple, LUNGS: Clear bilaterally. No wheezing. HEART: S1, S2. No gallops or murmurs. ABDOMEN: Soft, obese. Bowel sounds present, nontender, nondistended. GENITOURINARY: No Givens in place. EXTREMITIES: Right foot dressing in place along with wound NEUROLOGIC: Alert and oriented x 3, grossly nonfocal. PIV looks clean. PSYCHIATRIC: Calm and cooperative. No Givens DIAGNOSIS/ASSESSMENT Assessment & Plan EN - ATN vs AIN (was on Vanc) ,Baseline Creat Normal. Currently Creat stable at 2.0?Plateau ; supportive care, Monitor, strict I/O (Urine Output not recorded) Sepsis from right foot infection. Deep right foot infection, status post incision and drainage on September 18. And September 21 Cultures from September 21 remain negative Fever improving Diabetes mellitus. Hypertensive urgency. History of polysubstance abuse. Anemia. COMMENT/RELEVANT DATA Meds Current Medications Medications (Trade) Dose Ordered Sig/Ray Start Time Stop Time Status Last Admin Dose Admin Acetaminophen (Tylenol) 650 mg QID PRN 09/24/21 10:15 Acetaminophen/ Hydrocodone Bitart (Lortab 10/325) 1 tab PRN Q6HRS PRN 09/22/21 11:45 09/24/21 10:14 DC 09/24/21 08:11 1 TAB Acetaminophen/ Hydrocodone Bitart (Lortab 5/325) 1 tab PRN QID PRN 09/24/21 10:15 09/26/21 00:27 1 TAB Acetaminophen/ Hydrocodone Bitart (Lortab 7.5/325) 1 tab PRN Q6HRS PRN 09/19/21 15:00 09/21/21 09:58 DC 09/20/21 23:48 1 TAB Amlodipine Besylate (Norvasc) 10 mg 1X ONCE 09/23/21 14:45 09/23/21 14:46 DC 09/23/21 14:45 10 MG Ascorbic Acid (Vitamin C) 500 mg DAILY 09/17/21 20:00 09/27/21 08:54 500 MG Cefazolin Sodium 1 gm/Sodium Chloride 1,000 ml @ 1,000 mls/hr 1X ONCE 09/18/21 08:30 09/18/21 09:29 DC Daptomycin 420 mg/ Sodium Chloride 50 ml @ 100 mls/hr Q24H 09/23/21 10:00 09/27/21 10:46 100 MLS/HR Dexamethasone Sodium Phosphate (Decadron) 4 mg STK-MED ONCE 09/21/21 08:11 09/21/21 08:11 DC Dextrose (Dextrose 50%-Water Syringe) 12.5 gm PRN Q15MIN PRN 09/18/21 09:45 09/19/21 10:20 DC Docusate Sodium (Colace) 100 mg DAILY 09/23/21 10:00 09/25/21 09:42 100 MG Duloxetine HCl (Cymbalta) 60 mg DAILY 09/16/21 14:00 09/24/21 09:23 60 MG Enoxaparin Sodium (Lovenox 40mg Syringe) 40 mg Q24H 09/17/21 16:00 09/26/21 17:16 40 MG Ephedrine Sulfate (ePHEDrine PF IN SALINE SYRINGE) 50 mg STK-MED ONCE 09/21/21 09:11 09/21/21 09:11 DC Fentanyl Citrate (Fentanyl 2ml Vial) 100 mcg STK-MED ONCE 09/21/21 10:10 09/21/21 10:10 DC Glycopyrrolate (Robinul) 1 mg STK-MED ONCE 09/21/21 09:11 09/21/21 09:11 DC Hydralazine HCl (Apresoline Inj) 10 mg PRN Q4HRS PRN 09/21/21 15:00 09/26/21 17:16 10 MG Hydromorphone HCl (Dilaudid) 0.5 mg PRN Q10MIN PRN 09/21/21 06:00 09/22/21 05:59 DC Insulin Glargine (Lantus Syringe) 55 unit BID 09/16/21 21:00 09/27/21 09:04 55 UNIT Insulin Human Lispro (HumaLOG) 10 units 1X ONCE 09/17/21 08:30 09/17/21 08:31 DC 09/17/21 08:53 10 UNITS Insulin Human Regular (HumuLIN R VIAL) 10 unit 1X ONCE 09/16/21 03:30 09/16/21 03:31 Cancel Lactobacillus Rhamnosus (Culturelle) 1 cap BID 09/16/21 21:00 09/27/21 08:53 1 CAP Lidocaine HCl (Lidocaine 1% 20ml Vial) 20 ml STK-MED ONCE 09/16/21 01:17 09/16/21 01:17 DC Lidocaine HCl (Lidocaine Pf 2% Vial) 5 ml STK-MED ONCE 09/21/21 08:11 09/21/21 08:12 DC Lidocaine HCl (Xylocaine-Mpf 1% 2ml Vial) 2 ml STK-MED ONCE 09/21/21 08:27 09/21/21 08:27 DC Meropenem 500 mg/ Sodium Chloride 50 ml @ 100 mls/hr Q8HRS 09/26/21 14:00 09/27/21 06:29 100 MLS/HR Midazolam HCl (Versed) 2 mg STK-MED ONCE 09/21/21 08:12 09/21/21 08:13 DC Morphine Sulfate (Morphine Sulfate) 1 mg PRN Q10MIN PRN 09/21/21 06:00 09/21/21 09:58 DC Multivitamins (Thera M Plus) 1 tab DAILY 09/17/21 20:00 09/27/21 08:54 1 TAB Ondansetron HCl (Zofran) 4 mg PRN Q6HRS PRN 09/23/21 09:45 09/23/21 10:37 4 MG Oxycodone/ Acetaminophen (Percocet 5/325) 1 tab 1X ONCE 09/21/21 10:30 09/21/21 09:58 DC Phenylephrine HCl (PHENYLEPHRINE in 0.9% NACL PF) 1 mg STK-MED ONCE 09/21/21 08:11 09/21/21 08:11 DC Piperacillin Sod/ Tazobactam Sod (Zosyn Per Pharmacy) 1 each PRN DAILY PRN 09/16/21 00:45 09/22/21 09:42 DC Piperacillin Sod/ Tazobactam Sod 3.375 gm/Sodium Chloride 50 ml @ 100 mls/hr Q6HRS 09/16/21 01:00 09/22/21 08:12 DC 09/22/21 06:04 100 MLS/HR Prochlorperazine Edisylate (Compazine) 5 mg PACU PRN PRN 09/21/21 06:00 09/22/21 05:59 DC Propofol (Diprivan) 200 mg STK-MED ONCE 09/21/21 08:11 09/21/21 08:12 DC Ringer's Solution 1,000 ml @ 30 mls/hr Q24H 09/21/21 06:00 09/21/21 17:59 DC 09/21/21 09:00 30 MLS/HR Sevoflurane (Ultane) 30 ml STK-MED ONCE 09/21/21 09:37 09/21/21 09:38 DC Simvastatin (Zocor) 20 mg QHS 09/16/21 21:00 09/26/21 21:41 20 MG Sodium Chloride 1,000 ml @ 100 mls/hr Q10H 09/26/21 13:15 09/27/21 03:06 100 MLS/HR Tobramycin Sulfate (Tobramycin Powder) 1.2 gm STK-MED ONCE 09/18/21 08:34 09/18/21 08:35 DC Tramadol HCl (Ultram) 50 mg PRN Q6HRS PRN 09/24/21 10:15 Vancomycin HCl (Vanco Per Pharmacy) 1 each PRN DAILY PRN 09/16/21 00:45 09/22/21 08:12 DC 09/21/21 13:29 1 EACH Vancomycin HCl (Vancomycin Trough Level) 1 each 1X ONCE 09/22/21 14:30 09/22/21 08:15 DC Vancomycin HCl (Vancomycin) 1 gm STK-MED ONCE 09/18/21 08:34 09/18/21 08:34 DC Vancomycin HCl 1.25 gm/Sodium Chloride 250 ml @ 167 mls/hr Q12H 09/16/21 15:00 09/22/21 08:12 DC 09/22/21 02:34 167 MLS/HR Vancomycin HCl 2 gm/Sodium Chloride 500 ml @ 250 mls/hr 1X ONCE 09/16/21 01:30 09/16/21 03:29 DC 09/16/21 03:12 250 MLS/HR Lab Laboratory Tests Test 09/26/21 17:07 09/26/21 21:14 09/27/21 03:40 09/27/21 04:00 Glucose (Fingerstick) 200 mg/dL (70-99) 227 mg/dL (70-99) White Blood Count 13.6 x10^3/uL (4.0-11.0) Red Blood Count 4.46 x10^6/uL (3.50-5.40) Hemoglobin 11.2 g/dL (12.0-15.5) Hematocrit 35.6 % (36.0-47.0) Mean Corpuscular Volume 80 fL (79-100) Mean Corpuscular Hemoglobin 25 pg (25-35) Mean Corpuscular Hemoglobin Concent 32 g/dL (31-37) Red Cell Distribution Width 15.0 % (11.5-14.5) Platelet Count 414 x10^3/uL (140-400) Neutrophils (%) (Auto) 67 % (31-73) Lymphocytes (%) (Auto) 19 % (24-48) Monocytes (%) (Auto) 9 % (0-9) Eosinophils (%) (Auto) 5 % (0-3) Basophils (%) (Auto) 1 % (0-3) Neutrophils # (Auto) 9.1 x10^3/uL (1.8-7.7) Lymphocytes # (Auto) 2.5 x10^3/uL (1.0-4.8) Monocytes # (Auto) 1.2 x10^3/uL (0.0-1.1) Eosinophils # (Auto) 0.7 x10^3/uL (0.0-0.7) Basophils # (Auto) 0.1 x10^3/uL (0.0-0.2) Sodium Level 138 mmol/L (136-145) Potassium Level 5.1 mmol/L (3.5-5.1) Chloride Level 104 mmol/L (98-107) Carbon Dioxide Level 30 mmol/L (21-32) Anion Gap 4 (6-14) Blood Urea Nitrogen 30 mg/dL (7-20) Creatinine 2.0 mg/dL (0.6-1.0) Estimated GFR (Cockcroft-Gault) 25.9 Glucose Level 98 mg/dL (70-99) Calcium Level 8.3 mg/dL (8.5-10.1) Urine Collection Type Void Urine Color Yellow Urine Clarity Clear Urine pH 7.5 (<5.0-8.0) Urine Specific [place] 1.010 (1.000-1.030) Urine Protein Negative mg/dL (NEG-TRACE) Urine Glucose (UA) Negative mg/dL (NEG) Urine Ketones (Stick) Negative mg/dL (NEG) Urine Blood Small (NEG) Urine Nitrite Negative (NEG) Urine Bilirubin Negative (NEG) Urine Urobilinogen Dipstick 0.2 mg/dL (0.2 mg/dL) Urine Leukocyte Esterase Trace (NEG) Urine RBC 3-5 /HPF (0-2) Urine WBC 1-4 /HPF (0-4) Urine Squamous Epithelial Cells Many /LPF Urine Bacteria Few /HPF (0-FEW) Urine Mucus Slight /LPF Urine Yeast Present /HPF Test 09/27/21 08:15 Glucose (Fingerstick) 85 mg/dL (70-99) Results All relevant outside records, renal labs, imaging studies, telemetry/EKG's were reviewed. Justicifation of Admission Dx: Justifications for Admission: Justification of Admission Dx: N/A [place] MD Sep 27, 2021 11:58
[2021-09-27 15:00] VITALS: BP 163/76
[2021-09-27] MEDS: ENOXAPARIN 40 MG/0.4 ML SYRINGE. SQ SCH (15:03)
--- NOTE | 2021-09-27 15:47 | PDOC ---
[employer] PROGRESS NOTE Date of Service DOS: DATE: 09/27/21 TIME: 15:46 Chief Complaint Chief Complaint Sepsis Streptococcal bacteremia 2 out of 4 bottles Right diabetic foot infected ulcer Hypertensive urgency Hyperglycemia uncontrolled Acute electrolyte derangementhyponatremia, hypochloremia suggestive of acute volume depletion History of diabetes mellitus type 2 History of polysubstance abuse Podiatry following Continue IV antibiotics per infectious disease Wound care consult IV antihypertensive medications Inpatient systolic blood pressure goals between 140 to 180 R ISS and Accu-Cheks, resume home long-acting insulin IV electrolyte replacement as needed PAT evaluation Lovenox for DVT prophylaxis ADA diet CODE STATUS full Discussed with RN and SW Disposition inpatient management as above DPOA: Nicole Metzger History of Present Illness History of Present Illness 56-year-old female with past medical history of methamphetamine abuse, diabetes mellitus 2, depression anxiety, hypertension, dyslipidemia, chronic back pain w ho presents with right foot pain and lesion to the bottom. She reports that for the past several weeks wound has been worsening and she even tried to andrea it at home but returned and got dark. She also has a chronic ulcer over the right great toe does not regularly well. There is some probably noncompliance with diabetes. Patient states that fast acting insulin causes her to be nauseous and vomit. She was recently admitted for the wound on her right foot in June 2021. Pain worsens upon ambulation. She admits to some fever and chills. Denies nausea, vomiting, chest pain, shortness of breath, abdominal pain, urinary symptoms, cough, recent trauma, or any other complaints. 09/17/21 No acute events overnight. Patient seen and examined bedside. Resting comfortably. Pain is well controlled. Seen by wound care Dr. Love's and recommending podiatry consult for surgical debridement of necrotic tissue. Patient's chart, labs, images were reviewed and discussed with RN 09/18/21 No acute events overnight. Patient taken to the OR today for surgical debridement with Dr. Morris. No concerns with nursing. Sugars are better controlled, ranging between 106-136. Patient's chart, labs, images were reviewed and discussed with RN 09/19: Afebrile. S/P right foot I&D with placement of wound VAC. Blood cultures positive for strep agalactiae (group B strep) that is resistant to erythromycin but largely pansensitive. Wound cultures with staph aureus and group B strep. Continue current antibiotic regimen for now, follow wound cultures for final cultures and sensitivities. Patient tells me that she is having repeat surgery on Sunday. Discussed p.o. pain medication is more appropriate at this time but will leave IV morphine on for when she becomes n.p.o. for any further surgical intervention. 09/20: Afebrile. WBC improving. She will need to be NPO after midnight for repeat I&D, wound VAC application, and possible Achilles lengthening. Discussed with RN. 09/21: Patient seen postoperatively this morning. Right foot is wrapped in bed and bandaged with wound VAC in place. Follow intraoperative cultures. Patient has some questions about repeat surgical grafts; will defer to Dr. Morris. Continue IV antibiotics, per ID. 09/22: Patient seen POD #1, s/p right foot repeat I&D, with wound VAC and posterior splint application. Plan for wound VAC change tomorrow at bedside, per Dr. Morris. Will continue to follow intraoperative cultures. Encourage working with PT today. Asking for increase and dose of pain medication. 09/23: POD #2 s/p right foot repeat I&D, with wound VAC and posterior splint application. Worsening leukocytosis noted this morning. Wound cultures came back positive for MRSA. Daptomycin initiated, per ID. Also some significant hypertension today. Started on Norvasc. If blood pressure improves with pain improvement, Norvasc can likely be stopped. Poor appetite this morning that she contributes to antibiotic regimen. Recommended liquid diet and antiemetics as needed. Continue IV antibiotics, per ID. 09/24: WBC 17.0. Right diabetic foot wound growing MRSA. Continue treatment with daptomycin and meropenem, per ID. Repeat blood cultures with no growth to date. Some worsening renal function this morning. Will provide IV fluids; if no improvement will consult nephrology. She reports she has not had a bowel movement 2 days, requesting for some prune juice. She is now amenable to rehab; given wound VAC requirements, likely [facility]. 09/25: WBC 15.3. Will place consult with nephrology due to EN. Dr. Morris will plan for skin graft application for wound closure next week. Wound VAC in place; once stable will look to [facility] for rehab. Continue daptomycin and meropenem, per ID. 09/26 Patient evaluated examined at bedside. White cell trending down. Patient complaining of some tiredness this morning did not get much sleep last night. Appears planning for skin graft on Sunday. Continue wound care. Plan of care discussed with bedside RN. 09/27 Patient evaluated and examined at bedside. No major complaints says pain is controlled tolerating antibiotics well. Plan for surgery tomorrow for skin grafting and wound closure. N.p.o. midnight. Plan of care discussed with bedside RN. Vitals/I&O Vitals/I&O: Vital Signs Date Time Temp Pulse Resp B/P (MAP) Pulse Ox O2 Delivery O2 Flow Rate FiO2 09/27/21 15:00 98.1 85 18 163/76 (105) 96 Room Air 98.1 09/27/21 07:55 6.0 I & O 09/26/21 09/26/21 09/27/21 15:00 23:00 07:00 Intake Total 200 ml 2840 ml Output Total 250 ml Balance -50 ml 2840 ml Physical Exam Physical Exam: GENERAL APPEARANCE: Well-developed, well-nourished female, lying in bed comfortably, in no acute distress, nontoxic appearing. HEENT: Normocephalic, atraumatic. Normal conjunctivae. NECK: Supple, no JVD, no lymphadenopathy. LUNGS: Clear bilaterally. No wheezing. HEART: S1, S2. No gallops or murmurs. ABDOMEN: Soft, obese. Bowel sounds present, nontender, nondistended. GENITOURINARY: No Givens in place. EXTREMITIES: Right foot dressing in place along with wound VAC, not taken down. No warmth or swelling noted in the right lower extremity NEUROLOGIC: Alert and oriented x 3, grossly nonfocal. PIV looks clean. PSYCHIATRIC: Calm and cooperative. General: Alert, Oriented X3, Cooperative, No acute distress Heart: Regular rate Lungs: Clear Abdomen: Normal bowel sounds, Soft, No tenderness Extremities: Other (RLE EDEMA, WOUND BANDAGED) Skin: No breakdown Labs Labs: Laboratory Tests Test 09/26/21 17:07 09/26/21 21:14 09/27/21 03:40 09/27/21 04:00 Glucose (Fingerstick) 200 mg/dL (70-99) 227 mg/dL (70-99) White Blood Count 13.6 x10^3/uL (4.0-11.0) Red Blood Count 4.46 x10^6/uL (3.50-5.40) Hemoglobin 11.2 g/dL (12.0-15.5) Hematocrit 35.6 % (36.0-47.0) Mean Corpuscular Volume 80 fL (79-100) Mean Corpuscular Hemoglobin 25 pg (25-35) Mean Corpuscular Hemoglobin Concent 32 g/dL (31-37) Red Cell Distribution Width 15.0 % (11.5-14.5) Platelet Count 414 x10^3/uL (140-400) Neutrophils (%) (Auto) 67 % (31-73) Lymphocytes (%) (Auto) 19 % (24-48) Monocytes (%) (Auto) 9 % (0-9) Eosinophils (%) (Auto) 5 % (0-3) Basophils (%) (Auto) 1 % (0-3) Neutrophils # (Auto) 9.1 x10^3/uL (1.8-7.7) Lymphocytes # (Auto) 2.5 x10^3/uL (1.0-4.8) Monocytes # (Auto) 1.2 x10^3/uL (0.0-1.1) Eosinophils # (Auto) 0.7 x10^3/uL (0.0-0.7) Basophils # (Auto) 0.1 x10^3/uL (0.0-0.2) Sodium Level 138 mmol/L (136-145) Potassium Level 5.1 mmol/L (3.5-5.1) Chloride Level 104 mmol/L (98-107) Carbon Dioxide Level 30 mmol/L (21-32) Anion Gap 4 (6-14) Blood Urea Nitrogen 30 mg/dL (7-20) Creatinine 2.0 mg/dL (0.6-1.0) Estimated GFR (Cockcroft-Gault) 25.9 Glucose Level 98 mg/dL (70-99) Calcium Level 8.3 mg/dL (8.5-10.1) Urine Collection Type Void Urine Color Yellow Urine Clarity Clear Urine pH 7.5 (<5.0-8.0) Urine Specific [place] 1.010 (1.000-1.030) Urine Protein Negative mg/dL (NEG-TRACE) Urine Glucose (UA) Negative mg/dL (NEG) Urine Ketones (Stick) Negative mg/dL (NEG) Urine Blood Small (NEG) Urine Nitrite Negative (NEG) Urine Bilirubin Negative (NEG) Urine Urobilinogen Dipstick 0.2 mg/dL (0.2 mg/dL) Urine Leukocyte Esterase Trace (NEG) Urine RBC 3-5 /HPF (0-2) Urine WBC 1-4 /HPF (0-4) Urine Squamous Epithelial Cells Many /LPF Urine Bacteria Few /HPF (0-FEW) Urine Mucus Slight /LPF Urine Yeast Present /HPF Test 09/27/21 08:15 09/27/21 11:53 Glucose (Fingerstick) 85 mg/dL (70-99) 142 mg/dL (70-99) Assessment and Plan Assessmemt and Plan Problems Medical Problems: (1) Diabetic foot ulcer Status: Acute (2) Right foot infection Status: Acute Comment Review of Relevant I have reviewed the following items jose (where applicable) has been applied. Justifications for Admission Other Justification DRAGAN CARDENAS MD Sep 27, 2021 15:47
[2021-09-27 19:35] VITALS: BP 163/73
[2021-09-27] MEDS: SIMVASTATIN 20 MG TABLET PO SCH (21:05)
[2021-09-27] MEDS: HYDROcodone/APAP 5/325MG 1 TAB TABLET PO PRN (22:23)
--- NOTE | 2021-09-27 22:31 | PDOC ---
PROGRESS NOTES Date of Service DATE: 09/27/21 TIME: 22:27 Subjective Subjective Patient was seen resting comfortably in bed. Patient had 2 bowel movements since yesterday. She denies any constitutional symptoms. She is tolerating the splint, dressing, VAC well. She is working well with physical therapy. Objective Objective Vital Signs Date Time Temp Pulse Resp B/P (MAP) Pulse Ox O2 Delivery O2 Flow Rate FiO2 09/27/21 22:23 16 96 Room Air 09/27/21 19:35 98.5 87 163/73 (103) 98.5 09/27/21 07:55 6.0 Intake and Output 09/27/21 07:00 Intake Total 3040 ml Output Total 250 ml Balance 2790 ml Intake Oral 640 ml IV Total 1200 ml Other 1200 ml Output Urine Total 250 ml # Bowel Movements 1 Physical Exam Physical Exam Physical Exam General: Pleasant without apparent distress, AOx3 Right foot focused Dermatology: -Dressing is clean, dry and intact -VAC is functioning at 125 mmHg, less than 100 cc of sanguinous drainage since surgery -No proximal streaking, erythema, fluctuance to the tarsal tunnel or proximal leg Vascular: -Foot is warm to touch with CFT less than 3 seconds x 5 -Calf is soft and nontender Neurology: -Light touch sensation diminished to the level of digits 1 through 5 MSK: -[-] TTP at the tarsal tunnel or the distal leg or foot -Able to move digits -Muscle strength 5 out of 5 across ankle joint -Calf is soft and nontender -No TTP to popliteal lymph nodes Assessment Assessment Problems Medical Problems: (1) Diabetic foot ulcer Status: Acute (2) Right foot infection Status: Acute Plan Plan of Care Plan of Care -Explained clinical findings to patient -Patient currently is on meropenem and daptomycin, ID is following -Deep tissue culture 09/21: No growth to date -Deep tissue culture 09/18: + Strep B, lactobacilli -Blood culture 09/16: + Strep B, MRSA. -Repeat blood culture: neg -WBC is trending down. ID suspects leukocytosis to be reactive associated with nausea and constipation. otherwise, the surgical wound was clean, granular from surgery. Clinical exam was insignificant for proximal streaking or tracking infection. -Nonweightbearing to right lower extremity, PT eval and treat -Recommend social professionals consult for discharge placement Dispo: WBC is trending down and likely to be reactive. plan for ID, STSG, vac, posterior splint on 09/28. NPO after MN. patient consented for the procedure Comment Review of Relevant I have reviewed the following items jose (where applicable) has been applied. Labs Laboratory Tests Test 09/26/21 06:40 09/26/21 08:18 09/26/21 11:37 09/26/21 17:07 White Blood Count 14.9 x10^3/uL (4.0-11.0) Red Blood Count 4.83 x10^6/uL (3.50-5.40) Hemoglobin 12.0 g/dL (12.0-15.5) Hematocrit 38.6 % (36.0-47.0) Mean Corpuscular Volume 80 fL (79-100) Mean Corpuscular Hemoglobin 25 pg (25-35) Mean Corpuscular Hemoglobin Concent 31 g/dL (31-37) Red Cell Distribution Width 14.9 % (11.5-14.5) Platelet Count 425 x10^3/uL (140-400) Neutrophils (%) (Auto) 69 % (31-73) Lymphocytes (%) (Auto) 17 % (24-48) Monocytes (%) (Auto) 9 % (0-9) Eosinophils (%) (Auto) 5 % (0-3) Basophils (%) (Auto) 0 % (0-3) Neutrophils # (Auto) 10.3 x10^3/uL (1.8-7.7) Lymphocytes # (Auto) 2.6 x10^3/uL (1.0-4.8) Monocytes # (Auto) 1.3 x10^3/uL (0.0-1.1) Eosinophils # (Auto) 0.7 x10^3/uL (0.0-0.7) Basophils # (Auto) 0.1 x10^3/uL (0.0-0.2) Sodium Level 139 mmol/L (136-145) Potassium Level 5.1 mmol/L (3.5-5.1) Chloride Level 102 mmol/L (98-107) Carbon Dioxide Level 31 mmol/L (21-32) Anion Gap 6 (6-14) Blood Urea Nitrogen 30 mg/dL (7-20) Creatinine 2.1 mg/dL (0.6-1.0) Estimated GFR (Cockcroft-Gault) 24.5 Glucose Level 68 mg/dL (70-99) Calcium Level 8.6 mg/dL (8.5-10.1) Glucose (Fingerstick) 65 mg/dL (70-99) 129 mg/dL (70-99) 200 mg/dL (70-99) Test 09/26/21 21:14 09/27/21 03:40 09/27/21 04:00 09/27/21 08:15 Glucose (Fingerstick) 227 mg/dL (70-99) 85 mg/dL (70-99) White Blood Count 13.6 x10^3/uL (4.0-11.0) Red Blood Count 4.46 x10^6/uL (3.50-5.40) Hemoglobin 11.2 g/dL (12.0-15.5) Hematocrit 35.6 % (36.0-47.0) Mean Corpuscular Volume 80 fL (79-100) Mean Corpuscular Hemoglobin 25 pg (25-35) Mean Corpuscular Hemoglobin Concent 32 g/dL (31-37) Red Cell Distribution Width 15.0 % (11.5-14.5) Platelet Count 414 x10^3/uL (140-400) Neutrophils (%) (Auto) 67 % (31-73) Lymphocytes (%) (Auto) 19 % (24-48) Monocytes (%) (Auto) 9 % (0-9) Eosinophils (%) (Auto) 5 % (0-3) Basophils (%) (Auto) 1 % (0-3) Neutrophils # (Auto) 9.1 x10^3/uL (1.8-7.7) Lymphocytes # (Auto) 2.5 x10^3/uL (1.0-4.8) Monocytes # (Auto) 1.2 x10^3/uL (0.0-1.1) Eosinophils # (Auto) 0.7 x10^3/uL (0.0-0.7) Basophils # (Auto) 0.1 x10^3/uL (0.0-0.2) Sodium Level 138 mmol/L (136-145) Potassium Level 5.1 mmol/L (3.5-5.1) Chloride Level 104 mmol/L (98-107) Carbon Dioxide Level 30 mmol/L (21-32) Anion Gap 4 (6-14) Blood Urea Nitrogen 30 mg/dL (7-20) Creatinine 2.0 mg/dL (0.6-1.0) Estimated GFR (Cockcroft-Gault) 25.9 Glucose Level 98 mg/dL (70-99) Calcium Level 8.3 mg/dL (8.5-10.1) Urine Collection Type Void Urine Color Yellow Urine Clarity Clear Urine pH 7.5 (<5.0-8.0) Urine Specific [place] 1.010 (1.000-1.030) Urine Protein Negative mg/dL (NEG-TRACE) Urine Glucose (UA) Negative mg/dL (NEG) Urine Ketones (Stick) Negative mg/dL (NEG) Urine Blood Small (NEG) Urine Nitrite Negative (NEG) Urine Bilirubin Negative (NEG) Urine Urobilinogen Dipstick 0.2 mg/dL (0.2 mg/dL) Urine Leukocyte Esterase Trace (NEG) Urine RBC 3-5 /HPF (0-2) Urine WBC 1-4 /HPF (0-4) Urine Squamous Epithelial Cells Many /LPF Urine Bacteria Few /HPF (0-FEW) Urine Mucus Slight /LPF Urine Yeast Present /HPF Test 09/27/21 11:53 09/27/21 16:47 09/27/21 20:45 Glucose (Fingerstick) 142 mg/dL (70-99) 223 mg/dL (70-99) 238 mg/dL (70-99) Laboratory Tests Test 09/27/21 03:40 09/27/21 04:00 09/27/21 08:15 09/27/21 11:53 White Blood Count 13.6 x10^3/uL (4.0-11.0) Red Blood Count 4.46 x10^6/uL (3.50-5.40) Hemoglobin 11.2 g/dL (12.0-15.5) Hematocrit 35.6 % (36.0-47.0) Mean Corpuscular Volume 80 fL (79-100) Mean Corpuscular Hemoglobin 25 pg (25-35) Mean Corpuscular Hemoglobin Concent 32 g/dL (31-37) Red Cell Distribution Width 15.0 % (11.5-14.5) Platelet Count 414 x10^3/uL (140-400) Neutrophils (%) (Auto) 67 % (31-73) Lymphocytes (%) (Auto) 19 % (24-48) Monocytes (%) (Auto) 9 % (0-9) Eosinophils (%) (Auto) 5 % (0-3) Basophils (%) (Auto) 1 % (0-3) Neutrophils # (Auto) 9.1 x10^3/uL (1.8-7.7) Lymphocytes # (Auto) 2.5 x10^3/uL (1.0-4.8) Monocytes # (Auto) 1.2 x10^3/uL (0.0-1.1) Eosinophils # (Auto) 0.7 x10^3/uL (0.0-0.7) Basophils # (Auto) 0.1 x10^3/uL (0.0-0.2) Sodium Level 138 mmol/L (136-145) Potassium Level 5.1 mmol/L (3.5-5.1) Chloride Level 104 mmol/L (98-107) Carbon Dioxide Level 30 mmol/L (21-32) Anion Gap 4 (6-14) Blood Urea Nitrogen 30 mg/dL (7-20) Creatinine 2.0 mg/dL (0.6-1.0) Estimated GFR (Cockcroft-Gault) 25.9 Glucose Level 98 mg/dL (70-99) Calcium Level 8.3 mg/dL (8.5-10.1) Urine Collection Type Void Urine Color Yellow Urine Clarity Clear Urine pH 7.5 (<5.0-8.0) Urine Specific [place] 1.010 (1.000-1.030) Urine Protein Negative mg/dL (NEG-TRACE) Urine Glucose (UA) Negative mg/dL (NEG) Urine Ketones (Stick) Negative mg/dL (NEG) Urine Blood Small (NEG) Urine Nitrite Negative (NEG) Urine Bilirubin Negative (NEG) Urine Urobilinogen Dipstick 0.2 mg/dL (0.2 mg/dL) Urine Leukocyte Esterase Trace (NEG) Urine RBC 3-5 /HPF (0-2) Urine WBC 1-4 /HPF (0-4) Urine Squamous Epithelial Cells Many /LPF Urine Bacteria Few /HPF (0-FEW) Urine Mucus Slight /LPF Urine Yeast Present /HPF Glucose (Fingerstick) 85 mg/dL (70-99) 142 mg/dL (70-99) Test 09/27/21 16:47 09/27/21 20:45 Glucose (Fingerstick) 223 mg/dL (70-99) 238 mg/dL (70-99) Microbiology 09/21/21 Gram Stain - Final, Complete 09/21/21 Aerobic and Anaerobic Culture - Final, Complete 09/19/21 Blood Culture - Final, Complete NO GROWTH AFTER 5 DAYS Medications Current Medications Vancomycin HCl (Vanco Per Pharmacy) 1 each PRN DAILY PRN MC SEE COMMENTS Last administered on 09/21/21at 13:29; Start 09/16/21 at 00:45; Stop 09/22/21 at 08:12; Status DC Piperacillin Sod/ Tazobactam Sod (Zosyn Per Pharmacy) 1 each PRN DAILY PRN MC SEE COMMENTS; Start 09/16/21 at 00:45; Stop 09/22/21 at 09:42; Status DC Sodium Chloride 1,000 ml @ 1,000 mls/hr Q1H IV Last administered on 09/16/21at 06:05; Start 09/16/21 at 01:00; Stop 09/16/21 at 02:59; Status DC Morphine Sulfate (Morphine Sulfate) 4 mg 1X ONCE IV Last administered on 09/16/21at 02:37; Start 09/16/21 at 01:00; Stop 09/16/21 at 01:01; Status DC Acetaminophen (Tylenol) 1,000 mg 1X ONCE PO Last administered on 09/16/21at 02:35; Start 09/16/21 at 01:00; Stop 09/16/21 at 01:01; Status DC Vancomycin HCl 2 gm/Sodium Chloride 500 ml @ 250 mls/hr 1X ONCE IV Last administered on 09/16/21at 03:12; Start 09/16/21 at 01:30; Stop 09/16/21 at 03:29; Status DC Piperacillin Sod/ Tazobactam Sod 3.375 gm/Sodium Chloride 50 ml @ 100 mls/hr Q6HRS IV Last administered on 09/22/21at 06:04; Start 09/16/21 at 01:00; Stop 09/22/21 at 08:12; Status DC Lidocaine HCl (Lidocaine 1% 20ml Vial) 20 ml STK-MED ONCE .ROUTE ; Start 09/16/21 at 01:17; Stop 09/16/21 at 01:17; Status DC Ondansetron HCl (Zofran) 4 mg PRN Q8HRS PRN IVP NAUSEA/VOMITING 1ST CHOICE; Start 09/16/21 at 01:45; Stop 09/20/21 at 01:44; Status DC Morphine Sulfate (Morphine Sulfate) 4 mg PRN Q2HR PRN IVP SEVERE PAIN 7-10 Last administered on 09/19/21at 01:25; Start 09/16/21 at 01:45; Stop 09/19/21 at 01:44; Status DC Insulin Human Regular (HumuLIN R VIAL) 10 unit 1X ONCE SQ ; Start 09/16/21 at 03:30; Stop 09/16/21 at 03:31; Status Cancel Insulin Glargine (Lantus Syringe) 15 unit BID SQ Last administered on 09/16/21at 09:04; Start 09/16/21 at 09:00; Stop 09/16/21 at 13:21; Status DC Insulin Human Lispro (HumaLOG) 0-9 UNITS TIDWMEALS SQ ; Start 09/16/21 at 08:00; Stop 09/16/21 at 13:21; Status DC Dextrose (Dextrose 50%-Water Syringe) 12.5 gm PRN Q15MIN PRN IV SEE COMMENTS; Start 09/16/21 at 03:45; Stop 09/16/21 at 13:46; Status DC Insulin Human Lispro (HumaLOG) 10 units 1X ONCE SQ Last administered on 09/16/21at 04:09; Start 09/16/21 at 04:15; Stop 09/16/21 at 04:16; Status DC Vancomycin HCl 1.25 gm/Sodium Chloride 250 ml @ 167 mls/hr Q12H IV Last administered on 09/22/21at 02:34; Start 09/16/21 at 15:00; Stop 09/22/21 at 08:12; Status DC Vancomycin HCl (Vancomycin Trough Level) 1 each 1X ONCE MC Last administered on 09/17/21at 14:30; Start 09/17/21 at 14:30; Stop 09/17/21 at 14:31; Status DC Lactobacillus Rhamnosus (Culturelle) 1 cap BID PO Last administered on 09/27/21at 21:05; Start 09/16/21 at 21:00 Simvastatin (Zocor) 20 mg QHS PO Last administered on 09/27/21at 21:05; Start 09/16/21 at 21:00 Duloxetine HCl (Cymbalta) 60 mg DAILY PO Last administered on 09/24/21at 09:23; Start 09/16/21 at 14:00 Insulin Glargine (Lantus Syringe) 55 unit BID SQ Last administered on 09/27/21at 21:11; Start 09/16/21 at 21:00 Dextrose (Dextrose 50%-Water Syringe) 12.5 gm PRN Q15MIN PRN IV SEE COMMENTS; Start 09/16/21 at 13:00 Multivitamins (Thera M Plus) 1 tab DAILY PO Last administered on 09/27/21at 08:54; Start 09/17/21 at 20:00 Ascorbic Acid (Vitamin C) 500 mg DAILY PO Last administered on 09/27/21at 08:54; Start 09/17/21 at 20:00 Insulin Human Lispro (HumaLOG) 10 units 1X ONCE SQ Last administered on 09/16/21at 19:24; Start 09/16/21 at 19:00; Stop 09/16/21 at 19:03; Status DC Insulin Human Lispro (HumaLOG) 0-9 UNITS TIDWMEALS SQ Last administered on at 17:19; Start 09/17/21 at 08:00 Insulin Human Lispro (HumaLOG) 10 units 1X ONCE SQ Last administered on 09/16/21at 23:08; Start 09/16/21 at 23:30; Stop 09/16/21 at 23:31; Status DC Insulin Human Lispro (HumaLOG) 10 units 1X ONCE SQ Last administered on 09/17/21at 08:53; Start 09/17/21 at 08:30; Stop 09/17/21 at 08:31; Status DC Enoxaparin Sodium (Lovenox 40mg Syringe) 40 mg Q24H SQ Last administered on 09/27/21at 15:03; Start 09/17/21 at 16:00 Fentanyl Citrate (Fentanyl 2ml Vial) 25 mcg PRN Q5MIN PRN IVP MILD PAIN 1-3; Start 09/18/21 at 06:00; Stop 09/19/21 at 05:59; Status DC Fentanyl Citrate (Fentanyl 2ml Vial) 50 mcg PRN Q5MIN PRN IVP MODERATE PAIN 4-6 Last administered on 09/18/21at 10:26; Start 09/18/21 at 06:00; Stop 09/19/21 at 05:59; Status DC Morphine Sulfate (Morphine Sulfate) 1 mg PRN Q10MIN PRN IVP SEVERE PAIN 7-10; Start 09/18/21 at 06:00; Stop 09/19/21 at 05:59; Status DC Ringer's Solution 1,000 ml @ 30 mls/hr Q24H IV Last administered on 09/18/21at 08:50; Start 09/18/21 at 06:00; Stop 09/18/21 at 17:59; Status DC Hydromorphone HCl (Dilaudid) 0.5 mg PRN Q10MIN PRN IVP SEVERE PAIN 7-10, 2nd CHOICE; Start 09/18/21 at 06:00; Stop 09/19/21 at 05:59; Status DC Prochlorperazine Edisylate (Compazine) 5 mg PACU PRN PRN IVP NAUSEA, MRX1 Last administered on 09/18/21at 10:12; Start 09/18/21 at 06:00; Stop 09/19/21 at 05:59; Status DC Cefazolin Sodium 1 gm/Sodium Chloride 1,000 ml @ 1,000 mls/hr 1X ONCE IRR ; Start 09/18/21 at 08:30; Stop 09/18/21 at 09:29; Status DC Cefazolin Sodium 1 gm/Sodium Chloride 1,000 ml @ 1,000 mls/hr 1X ONCE IRR ; Start 09/18/21 at 08:30; Stop 09/18/21 at 09:29; Status DC Cefazolin Sodium 1 gm/Sodium Chloride 1,000 ml @ 1,000 mls/hr 1X ONCE IRR ; Start 09/18/21 at 08:30; Stop 09/18/21 at 09:29; Status DC Vancomycin HCl (Vancomycin) 1 gm STK-MED ONCE .ROUTE ; Start 09/18/21 at 08:34; Stop 09/18/21 at 08:34; Status DC Tobramycin Sulfate (Tobramycin Powder) 1.2 gm STK-MED ONCE .ROUTE ; Start 09/18/21 at 08:34; Stop 09/18/21 at 08:35; Status DC Ondansetron HCl (Zofran) 4 mg STK-MED ONCE .ROUTE ; Start 09/18/21 at 09:00; Stop 09/18/21 at 09:00; Status DC Propofol (Diprivan) 200 mg STK-MED ONCE IV ; Start 09/18/21 at 09:00; Stop 09/18/21 at 09:00; Status DC Lidocaine HCl (Lidocaine Pf 2% Vial) 5 ml STK-MED ONCE .ROUTE ; Start 09/18/21 at 09:00; Stop 09/18/21 at 09:00; Status DC Dexamethasone Sodium Phosphate (Decadron) 4 mg STK-MED ONCE .ROUTE ; Start 09/18/21 at 09:00; Stop 09/18/21 at 09:01; Status DC Sevoflurane (Ultane) 60 ml STK-MED ONCE IH ; Start 09/18/21 at 09:00; Stop 09/18/21 at 09:01; Status DC Dextrose (Dextrose 50%-Water Syringe) 12.5 gm PRN Q15MIN PRN IV SEE COMMENTS; Start 09/18/21 at 09:45; Stop 09/19/21 at 10:20; Status DC Acetaminophen (Tylenol) 650 mg 1X ONCE PO Last administered on 09/18/21at 11:25; Start 09/18/21 at 09:45; Stop 09/18/21 at 09:46; Status DC Fentanyl Citrate (Fentanyl 2ml Vial) 100 mcg STK-MED ONCE .ROUTE ; Start 09/18/21 at 09:58; Stop 09/18/21 at 09:58; Status DC Prochlorperazine Edisylate (Compazine) 10 mg STK-MED ONCE .ROUTE ; Start 09/18/21 at 09:59; Stop 09/18/21 at 09:59; Status DC Acetaminophen/ Hydrocodone Bitart (Lortab 5/325) 1 tab PRN Q4HRS PRN PO MILD- MODERATE PAIN Last administered on 09/22/21at 10:37; Start 09/19/21 at 15:00; Stop 09/22/21 at 11:36; Status DC Acetaminophen/ Hydrocodone Bitart (Lortab 7.5/325) 1 tab PRN Q6HRS PRN PO SEVERE PAIN Last administered on 09/20/21at 23:48; Start 09/19/21 at 15:00; Stop 09/21/21 at 09:58; Status DC Morphine Sulfate (Morphine Sulfate) 4 mg PRN Q2HR PRN IV PAIN Last administered on 09/21/21at 02:47; Start 09/19/21 at 15:00; Stop 09/21/21 at 09:58; Status DC Hydralazine HCl (Apresoline Inj) 10 mg PRN Q4HRS PRN IVP ELEVATED BP, SEE COMMENTS Last administered on 09/20/21at 08:34; Start 09/20/21 at 08:15; Stop 09/21/21 at 09:58; Status DC Fentanyl Citrate (Fentanyl 2ml Vial) 25 mcg PRN Q5MIN PRN IVP MILD PAIN 1-3 Last administered on 09/21/21at 10:33; Start 09/21/21 at 06:00; Stop 09/22/21 at 05:59; Status DC Fentanyl Citrate (Fentanyl 2ml Vial) 50 mcg PRN Q5MIN PRN IVP MODERATE PAIN 4- 6; Start 09/21/21 at 06:00; Stop 09/21/21 at 09:58; Status DC Morphine Sulfate (Morphine Sulfate) 1 mg PRN Q10MIN PRN IVP SEVERE PAIN 7-10; Start 09/21/21 at 06:00; Stop 09/21/21 at 09:58; Status DC Ringer's Solution 1,000 ml @ 30 mls/hr Q24H IV Last administered on 09/21/21at 09:00; Start 09/21/21 at 06:00; Stop 09/21/21 at 17:59; Status DC Hydromorphone HCl (Dilaudid) 0.5 mg PRN Q10MIN PRN IVP SEVERE PAIN 7-10, 2nd CHOICE; Start 09/21/21 at 06:00; Stop 09/22/21 at 05:59; Status DC Prochlorperazine Edisylate (Compazine) 5 mg PACU PRN PRN IVP NAUSEA, MRX1; Start 09/21/21 at 06:00; Stop 09/22/21 at 05:59; Status DC Phenylephrine HCl (PHENYLEPHRINE in 0.9% NACL PF) 1 mg STK-MED ONCE IV ; Start 09/21/21 at 08:11; Stop 09/21/21 at 08:11; Status DC Dexamethasone Sodium Phosphate (Decadron) 4 mg STK-MED ONCE .ROUTE ; Start 09/21/21 at 08:11; Stop 09/21/21 at 08:11; Status DC Ondansetron HCl (Zofran) 4 mg STK-MED ONCE .ROUTE ; Start 09/21/21 at 08:11; Stop 09/21/21 at 08:11; Status DC Propofol (Diprivan) 200 mg STK-MED ONCE IV ; Start 09/21/21 at 08:11; Stop 09/21/21 at 08:12; Status DC Lidocaine HCl (Lidocaine Pf 2% Vial) 5 ml STK-MED ONCE .ROUTE ; Start 09/21/21 at 08:11; Stop 09/21/21 at 08:12; Status DC Midazolam HCl (Versed) 2 mg STK-MED ONCE .ROUTE ; Start 09/21/21 at 08:12; Stop 09/21/21 at 08:13; Status DC Lidocaine HCl (Xylocaine-Mpf 1% 2ml Vial) 2 ml STK-MED ONCE .ROUTE ; Start 1 at 08:27; Stop 09/21/21 at 08:27; Status DC Glycopyrrolate (Robinul) 1 mg STK-MED ONCE .ROUTE ; Start 09/21/21 at 09:11; Stop 09/21/21 at 09:11; Status DC Ephedrine Sulfate (ePHEDrine PF IN SALINE SYRINGE) 50 mg STK-MED ONCE IV ; Start 09/21/21 at 09:11; Stop 09/21/21 at 09:11; Status DC Fentanyl Citrate (Fentanyl 2ml Vial) 100 mcg STK-MED ONCE .ROUTE ; Start 09/21 at 09:28; Stop 09/21/21 at 09:28; Status DC Sevoflurane (Ultane) 30 ml STK-MED ONCE IH ; Start 09/21/21 at 09:37; Stop 1 at 09:38; Status DC Acetaminophen (Tylenol) 650 mg 1X ONCE PO ; Start 09/21/21 at 10:30; Stop 09/21/21 at 09:58; Status DC Oxycodone/ Acetaminophen (Percocet 5/325) 1 tab 1X ONCE PO ; Start 09/21/21 at 10:30; Stop 09/21/21 at 09:58; Status DC Fentanyl Citrate (Fentanyl 2ml Vial) 100 mcg STK-MED ONCE .ROUTE ; Start 09/21/21 at 10:10; Stop 09/21/21 at 10:10; Status DC Vancomycin HCl (Vancomycin Trough Level) 1 each 1X ONCE MC ; Start 09/22/21 at 14:30; Stop 09/22/21 at 08:15; Status DC Hydralazine HCl (Apresoline Inj) 10 mg PRN Q4HRS PRN IVP ELEVATED BP, SEE COMMENTS Last administered on 09/26/21at 17:16; Start 09/21/21 at 15:00 Meropenem 500 mg/ Sodium Chloride 50 ml @ 100 mls/hr Q6HRS IV Last administered on 09/26/21at 06:00; Start 09/22/21 at 12:00; Stop 09/26/21 at 11:13; Status DC Acetaminophen/ Hydrocodone Bitart (Lortab 10/325) 1 tab PRN Q6HRS PRN PO PAIN Last administered on 09/24/21at 08:11; Start 09/22/21 at 11:45; Stop 09/24/21 at 10:14; Status DC Daptomycin 420 mg/ Sodium Chloride 50 ml @ 100 mls/hr Q24H IV Last administered on 09/27/21at 10:46; Start 09/23/21 at 10:00 Ondansetron HCl (Zofran) 4 mg PRN Q6HRS PRN IVP NAUSEA/VOMITING Last administered on 09/23/21at 10:37; Start 09/23/21 at 09:45 Docusate Sodium (Colace) 100 mg DAILY PO ; Start 09/24/21 at 10:00; Stop 09/23/21 at 09:47; Status DC Docusate Sodium (Colace) 100 mg DAILY PO Last administered on 09/25/21at 09:42; Start 09/23/21 at 10:00 Amlodipine Besylate (Norvasc) 10 mg DAILY PO Last administered on 09/27/21at 08:54; Start 09/24/21 at 09:00 Amlodipine Besylate (Norvasc) 10 mg 1X ONCE PO Last administered on 09/23/21at 14:45; Start 09/23/21 at 14:45; Stop 09/23/21 at 14:46; Status DC Sodium Chloride 1,000 ml @ 125 mls/hr 1X ONCE IV Last administered on 09/24/21at 10:15; Start 09/24/21 at 10:15; Stop 09/24/21 at 18:14; Status DC Tramadol HCl (Ultram) 50 mg PRN Q6HRS PRN PO MODERATE PAIN; Start 09/24/21 at 10:15 Acetaminophen (Tylenol) 650 mg QID PRN PO MILD PAIN / TEMP > 100.3'F; Start at 10:15 Acetaminophen/ Hydrocodone Bitart (Lortab 5/325) 1 tab PRN QID PRN PO SEVERE PAIN Last administered on 09/27/21at 22:23; Start 09/24/21 at 10:15 Meropenem 500 mg/ Sodium Chloride 50 ml @ 100 mls/hr Q8HRS IV Last administered on 09/27/21at 21:05; Start 09/26/21 at 14:00 Sodium Chloride 1,000 ml @ 100 mls/hr Q10H IV Last administered on 09/27/21at 14:16; Start 09/26/21 at 13:15 Fentanyl Citrate (Fentanyl 2ml Vial) 25 mcg PRN Q5MIN PRN IVP MILD PAIN 1-3; Start 09/28/21 at 06:00; Stop 09/29/21 at 05:59 Fentanyl Citrate (Fentanyl 2ml Vial) 50 mcg PRN Q5MIN PRN IVP MODERATE PAIN 4- 6; Start 09/28/21 at 06:00; Stop 09/29/21 at 05:59 Morphine Sulfate (Morphine Sulfate) 1 mg PRN Q10MIN PRN IVP SEVERE PAIN 7-10; Start 09/28/21 at 06:00; Stop 09/29/21 at 05:59 Ringer's Solution 1,000 ml @ 30 mls/hr Q24H IV ; Start 09/28/21 at 06:00; Stop 09/28/21 at 17:59 Hydromorphone HCl (Dilaudid) 0.5 mg PRN Q10MIN PRN IVP SEVERE PAIN 7-10, 2nd CHOICE; Start 09/28/21 at 06:00; Stop 09/29/21 at 05:59 Prochlorperazine Edisylate (Compazine) 5 mg PACU PRN PRN IVP NAUSEA, MRX1; Start 09/28/21 at 06:00; Stop 09/29/21 at 05:59 Active Scripts Active Glipizide 5 Mg Tablet 5 Mg PO BIDBFRMEAL 30 Days Reported Levemir (Insulin Detemir) 100 Unit/1 Ml Vial 55 Unit SQ BID Simvastatin 20 Mg Tablet 1 Tab PO QHS Metformin Hcl 500 Mg Tablet Unknown Dose PO Atenolol 25 Mg Tablet Unknown Dose PO DAILY Duloxetine HCl 40 Mg Capsule.dr 60 Mg PO DAILY Vitals/I & O Vital Sign - Last 24 Hours 09/26/21 09/27/21 09/27/21 09/27/21 23:00 03:00 07:00 07:55 Temp 98.5 98.0 97.3 98.5 98.0 97.3 Pulse 74 84 84 Resp 20 18 B/P (MAP) 155/70 (98) 159/71 (100) 178/82 (114) Pulse Ox 94 94 96 O2 Delivery Room Air Room Air Room Air Room Air O2 Flow Rate 6.0 09/27/21 09/27/21 09/27/21 09/27/21 08:54 11:28 15:00 19:35 Temp 97.7 98.1 98.5 97.7 98.1 98.5 Pulse 84 86 85 87 Resp 18 18 18 B/P (MAP) 178/82 169/82 (111) 163/76 (105) 163/73 (103) Pulse Ox 97 96 96 O2 Delivery Room Air Room Air Room Air 09/27/21 22:23 Resp 16 Pulse Ox 96 O2 Delivery Room Air Intake and Output 09/26/21 09/26/21 09/27/21 15:00 23:00 07:00 Intake Total 200 ml 2840 ml Output Total 250 ml Balance -50 ml 2840 ml Justifications for Admission Other Justification BUZZ BERMEO DPM Sep 27, 2021 22:31
[2021-09-27 23:12] VITALS: BP 156/76
[2021-09-28 03:00] VITALS: BP 162/79
[2021-09-28] MEDS: IV NORMAL SALINE 1000ML BAG 1,000 ML IV SCH ×2 (03:19→15:15)
[2021-09-28] MEDS: MEROPENEM 500 MG in IV NORMAL SALINE 50ML 50 ML IV SCH ×3 (05:39→20:44)
[2021-09-28] MEDS ORDERED: IV RINGERS,LACTATED 1000ML 1,000 ML IV SCH (06:00)
[2021-09-28] MEDS ORDERED: MORPHINE SULFATE 2 MG/ML INJ. IVP PRN (06:00)
[2021-09-28] MEDS ORDERED: fentaNYL PF VIAL 100 MCG/2 ML VIAL IVP PRN ×2 (06:00)
[2021-09-28] MEDS ORDERED: HYDROmorphone 2 MG/ML VIAL IVP PRN (06:00)
[2021-09-28] MEDS ORDERED: PROCHLORPERAZINE 10 MG/2 ML VIAL. IVP PRN (06:00)
[2021-09-28 07:00] VITALS: BP 140/63
[2021-09-28] MEDS: INSULIN LISPRO 300 UNITS/3 ML VIAL. SQ SCH ×3 (08:00→17:00)
[2021-09-28 08:46] LABS: BASO % 0 % (0-3); EOS # 0.8 x10^3/uL (0.0-0.7); EOS % 5 % (0-3); HEMATOCRIT 37.1 % (36.0-47.0); HEMOGLOBIN 11.9 g/dL (12.0-15.5); LYMPH # 3.8 x10^3/uL (1.0-4.8); LYMPH % 24 % (24-48); MEAN CORPUSCULAR HEMOGLOBIN 26 pg (25-35); MEAN CORPUSCULAR HGB CONC 32 g/dL (31-37); MEAN CORPUSCULAR VOLUME 80 fL (79-100); MONO # 1.4 x10^3/uL (0.0-1.1); MONO % 9 % (0-9); NEUT # 9.7 x10^3/uL (1.8-7.7); NEUT % 62 % (31-73); PLATELET COUNT 393 x10^3/uL (140-400); RED BLOOD COUNT 4.64 x10^6/uL (3.50-5.40); RED CELL DISTRIBUTION WIDTH 14.6 % (11.5-14.5); WHITE BLOOD COUNT 15.7 x10^3/uL (4.0-11.0)
--- NOTE | 2021-09-28 08:50 | PDOC ---
Infectious Disease Note Subjective: Subjective Patient feels okay Complains of hunger today She is awaiting surgery by data systems manager later today for skin graft placement Had multiple loose bowel movements yesterday Denies any fevers, nausea, vomiting, headache, sore throat, symptoms, abdominal cramps Vital Signs: Vital Signs Vital Signs Date Time Temp Pulse Resp B/P (MAP) Pulse Ox O2 Delivery O2 Flow Rate FiO2 09/28/21 08:15 74 140/63 09/28/21 07:00 97.6 18 96 Room Air 97.6 09/27/21 07:55 6.0 Physical Exam: PHYSICAL EXAM GENERAL APPEARANCE: Well-developed, well-nourished female, lying in bed comfortably, in no acute distress, nontoxic appearing. HEENT: Normocephalic, atraumatic. Normal conjunctivae. NECK: Supple, no JVD, no lymphadenopathy. LUNGS: Clear bilaterally. No wheezing. HEART: S1, S2. No gallops or murmurs. ABDOMEN: Soft, obese. Bowel sounds present, nontender, nondistended. GENITOURINARY: No Givens in place. EXTREMITIES: Right foot dressing in place along with wound VAC, not taken down. No warmth or swelling noted in the right lower extremity NEUROLOGIC: Alert and oriented x 3, grossly nonfocal. PIV looks clean. PSYCHIATRIC: Calm and cooperative. Medications: Inpatient Meds: Medications reviewed. Labs: Lab Laboratory Tests Test 09/27/21 11:53 09/27/21 16:47 09/27/21 20:45 09/28/21 06:30 Glucose (Fingerstick) 142 mg/dL (70-99) 223 mg/dL (70-99) 238 mg/dL (70-99) White Blood Count 15.7 x10^3/uL (4.0-11.0) Red Blood Count 4.64 x10^6/uL (3.50-5.40) Hemoglobin 11.9 g/dL (12.0-15.5) Hematocrit 37.1 % (36.0-47.0) Mean Corpuscular Volume 80 fL (79-100) Mean Corpuscular Hemoglobin 26 pg (25-35) Mean Corpuscular Hemoglobin Concent 32 g/dL (31-37) Red Cell Distribution Width 14.6 % (11.5-14.5) Platelet Count 393 x10^3/uL (140-400) Neutrophils (%) (Auto) 62 % (31-73) Lymphocytes (%) (Auto) 24 % (24-48) Monocytes (%) (Auto) 9 % (0-9) Eosinophils (%) (Auto) 5 % (0-3) Basophils (%) (Auto) 0 % (0-3) Neutrophils # (Auto) 9.7 x10^3/uL (1.8-7.7) Lymphocytes # (Auto) 3.8 x10^3/uL (1.0-4.8) Monocytes # (Auto) 1.4 x10^3/uL (0.0-1.1) Eosinophils # (Auto) 0.8 x10^3/uL (0.0-0.7) Basophils # (Auto) 0.0 x10^3/uL (0.0-0.2) Test 09/28/21 08:31 Glucose (Fingerstick) 53 mg/dL (70-99) Micro 1023 STAPHYLOCOCCUS AUREUS methicillin sensitive STREPTOCOCCUS AGALACTIAE GRP B UNIDENTIFIED ORGANISM LACTOBACILLUS JENSENII BETA STREP GROUP B RUN DATE: 09/21/21 [facility] *LIVE* PAGE 1 RUN TIME: 1028 Specimen Inquiry PATIENT: ANNABELLE AGGARWAL ACCT: [id number] LOC: [address] [place] [address] U: [id number] AGE/SX: 56/F ROOM: 414 RE09/16/[address]: CHRISTIANA AUSTIN MD : 1965 BED: 1 DIS: STATUS: ADM IN TLOC: SPEC #: [id number] DIPIKA: 09/17/21 STATUS: RES REQ #: [id number] RECD: 09/17/[address]: BUZZ BERMEO DPM SOURCE: FOOT ENTR: 09/17/[address]: MARLINE WHITMORE DO SPDESC: ADRIA HIGGINBOTHAM M.D., KEVIN Y MD ORDERED: ANAER/AEROB/GS COMMENTS: Has specimen been collected/obtained? Y Procedure Result GRAM STAIN Final Final GRAM POSITIVE RODS:MANY GRAM POSITIVE COCCI:MANY SQUAMOUS EPI CELL:MODERATE PMN (WBCs):NONE SEEN Unless otherwise specified, Testing Performed by: [address] [address] For Inquires, the Physician may contact the Microbiology department at [phone] ANAEROBIC-AEROBIC CULTURE Preliminary Preliminary MODERATE GRAM POSITIVE COCCI on 09/19/21 at 0745 FINAL ID= [STAPHYLOCOCCUS AUREUS (MRSA)] FINAL ID= [BETA STREP GROUP B] FEW Mixed skin josr isolated on 09/20/21 at 0859 STAPHYLOCOCCUS AUREUS (MRSA) STREPTOCOCCUS AGALACTIAE GRP B UNIDENTIFIED ORGANISM LACTOBACILLUS JENSENII BETA STREP GROUP B ANTIMICROBIAL SUSCEPTIBILITY Preliminary Comment POS MOR TYPE 38 STAPHYLOCOCCUS AUREUS (MRSA) ANTIBIOTIC RESULT INTERPRETATION AZITHROMYCIN >4 R CLINDAMYCIN <=0.25 S CEFOXITIN SCREEN >4 POS CIPROFLOXACIN <=1 S CEFTAROLINE <=0.5 S DAPTOMYCIN <=0.5 S ERYTHROMYCIN >4 R GENTAMICIN <=4 S RUN DATE: 09/21/21 [facility] *LIVE* PAGE 2 RUN TIME: 1028 Specimen Inquiry SPEC: [id number] PATIENT: ANNABELLE AGGARWAL [id number] (Continued) Procedure Result CONTINUED ON NEXT PAGE RUN DATE: 09/21/21 [facility] *LIVE* PAGE 3 RUN TIME: 1028 Specimen Inquiry SPEC: [id number] PATIENT: ANNABELLE AGGARWAL [id number] (Continued) ---- -------- Procedure Result ANTIMICROBIAL SUSCEPTIBILITY Preliminary (continued) INDUCIBLE CLINDAMYCIN <=4/0.5 NEG LINEZOLID 2 S LEVOFLOXACIN <=1 S OXACILLIN >2 R PENICILLIN >2 R* RIFAMPIN <=1 S TRIMETHOPRIM/SULFAMETHOXAZOLE <=0.5/9.5 S TETRACYCLINE <=4 S VANCOMYCIN 1 S Unless otherwise specified, Testing Performed by: [address] [address] For Inquires, the Physician may contact the Microbiology department at [phone] Objective: Assessment: 1. Sepsis from right foot infection. 2. Deep right foot infection, status post incision and drainage on September 18. And September 21 Cultures from September 21 remain negative 3. Group B streptococcal bacteremia, 2/4 bottles present on admission. 4. Fever resolved 5. Diabetes mellitus. 6. Electrolyte imbalance 7. Hypertensive urgency. 8. History of polysubstance abuse. 9. Leukocytosis could be reactive, fluctuating 10. anemia. Cultures MRSA and MSSA including others Plan: Plan of Care 1. Continue meropenem and daptomycin -was on IV vancomycin patient has polymicrobial organisms on cultures including MRSA, MSSA, lactobacillus, group B strep Patient remains on broad-spectrum antibiotics. Limited choices to cover all polymicrobial organisms. 2. Intra-operative cultures mixed josr from 09/21/2021. Awaiting skin graft placement by podiatry per patient report 3. Wound/VAC care as directed. 4. Monitor labs including weekly CPK 5 strict offload. 6.. Monitor labs and cultures. 7. Continue supportive care. Leukocytosis could be reactive from nausea and or constipation. Afebrile. HALLIE SNELL MD Sep 28, 2021 08:50
[2021-09-28] MEDS: MULTIVITAMIN with MINERAL TABLET. PO SCH (09:00)
[2021-09-28] MEDS: DOCUSATE SODIUM 100 MG CAPSULE. PO SCH (09:00)
[2021-09-28] MEDS: LACTOBACILLUS RHAMNOSUS GG 1 CAPSULE. PO SCH ×2 (09:00→20:32)
[2021-09-28] MEDS: ASCORBIC ACID 500 MG TABLET PO SCH (09:00)
[2021-09-28] MEDS: DULoxetine HCL 30 MG CAPSULE.DR PO SCH (09:00)
[2021-09-28 09:52] LABS: CREATININE 1.8 mg/dL (0.6-1.0); GFR 29.2; POTASSIUM 5.4 mmol/L (3.5-5.1)
[2021-09-28] MEDS ORDERED: PROPOFOL 10 MG/ML (20ML) VIAL. IV ONE (09:54)
[2021-09-28] MEDS ORDERED: fentaNYL PF VIAL 100 MCG/2 ML VIAL ONE (09:54)
[2021-09-28] MEDS ORDERED: LIDOCAINE 2% PF 5 ML VIAL. ONE (09:54)
--- NOTE | 2021-09-28 10:03 | PDOC ---
DATE OF SERVICE DATE: 09/28/21 TIME: 10:02 SUBJECTIVE ROS Stable , denies N/V. No SOB . OBJECTIVE Vital Signs Vital Signs Date Time Temp Pulse Resp B/P (MAP) Pulse Ox O2 Delivery O2 Flow Rate FiO2 09/28/21 08:15 74 140/63 09/28/21 08:00 Room Air 6.0 09/28/21 07:00 97.6 18 96 97.6 I & 0 Intake and Output 09/28/21 07:00 Intake Total 1490 ml Output Total 1401 ml Balance 89 ml Intake Oral 1490 ml Output Urine Total 1401 ml # Bowel Movements 1 PHYSICAL EXAM Physical Exam GENERAL: NAD HEENT: Normocephalic, atraumatic. NECK: Supple, LUNGS: Clear bilaterally. No wheezing. HEART: S1, S2. No gallops or murmurs. ABDOMEN: Soft, obese. Bowel sounds present, nontender, nondistended. GENITOURINARY: No Givens in place. EXTREMITIES: Right foot dressing in place along with wound NEUROLOGIC: Alert and oriented x 3, grossly nonfocal. PSYCHIATRIC: Calm and cooperative. No Givens DIAGNOSIS/ASSESSMENT Assessment & Plan EN - ATN vs AIN (was on Vanc) ,Baseline Creat normal. Creatinine trending down, ; supportive care, Monitor, strict I/O HyperKalemia Mild, Monitor, Kayexalate prn Sepsis from right foot infection. Deep right foot infection, status post incision and drainage on September 18. Skin graft placement by motor vehicle clerk today . Fever improving Diabetes mellitus. Hypertensive urgency POA - antihypertensives , primary managing History of polysubstance abuse. Anemia. COMMENT/RELEVANT DATA Meds Current Medications Medications (Trade) Dose Ordered Sig/Ray Start Time Stop Time Status Last Admin Dose Admin Acetaminophen (Tylenol) 650 mg QID PRN 09/24/21 10:15 Acetaminophen/ Hydrocodone Bitart (Lortab 10/325) 1 tab PRN Q6HRS PRN 09/22/21 11:45 09/24/21 10:14 DC 09/24/21 08:11 1 TAB Acetaminophen/ Hydrocodone Bitart (Lortab 5/325) 1 tab PRN QID PRN 09/24/21 10:15 09/27/21 22:23 1 TAB Acetaminophen/ Hydrocodone Bitart (Lortab 7.5/325) 1 tab PRN Q6HRS PRN 09/19/21 15:00 09/21/21 09:58 DC 09/20/21 23:48 1 TAB Amlodipine Besylate (Norvasc) 10 mg 1X ONCE 09/23/21 14:45 09/23/21 14:46 DC 09/23/21 14:45 10 MG Ascorbic Acid (Vitamin C) 500 mg DAILY 09/17/21 20:00 09/27/21 08:54 500 MG Cefazolin Sodium 1 gm/Sodium Chloride 1,000 ml @ 1,000 mls/hr 1X ONCE 09/18/21 08:30 09/18/21 09:29 DC Daptomycin 420 mg/ Sodium Chloride 50 ml @ 100 mls/hr Q24H 09/23/21 10:00 09/27/21 10:46 100 MLS/HR Dexamethasone Sodium Phosphate (Decadron) 4 mg STK-MED ONCE 09/21/21 08:11 09/21/21 08:11 DC Dextrose (Dextrose 50%-Water Syringe) 12.5 gm PRN Q15MIN PRN 09/18/21 09:45 09/19/21 10:20 DC Docusate Sodium (Colace) 100 mg DAILY 09/23/21 10:00 09/25/21 09:42 100 MG Duloxetine HCl (Cymbalta) 60 mg DAILY 09/16/21 14:00 09/24/21 09:23 60 MG Enoxaparin Sodium (Lovenox 40mg Syringe) 40 mg Q24H 09/17/21 16:00 09/27/21 15:03 40 MG Ephedrine Sulfate (ePHEDrine PF IN SALINE SYRINGE) 50 mg STK-MED ONCE 09/21/21 09:11 09/21/21 09:11 DC Fentanyl Citrate (Fentanyl 2ml Vial) 50 mcg PRN Q5MIN PRN 09/28/21 06:00 09/29/21 05:59 Glycopyrrolate (Robinul) 1 mg STK-MED ONCE 09/21/21 09:11 09/21/21 09:11 DC Hydralazine HCl (Apresoline Inj) 10 mg PRN Q4HRS PRN 09/21/21 15:00 09/26/21 17:16 10 MG Hydromorphone HCl (Dilaudid) 0.5 mg PRN Q10MIN PRN 09/28/21 06:00 09/29/21 05:59 Insulin Glargine (Lantus Syringe) 55 unit BID 09/16/21 21:00 09/27/21 21:11 55 UNIT Insulin Human Lispro (HumaLOG) 10 units 1X ONCE 09/17/21 08:30 09/17/21 08:31 DC 09/17/21 08:53 10 UNITS Insulin Human Regular (HumuLIN R VIAL) 10 unit 1X ONCE 09/16/21 03:30 09/16/21 03:31 Cancel Lactobacillus Rhamnosus (Culturelle) 1 cap BID 09/16/21 21:00 09/27/21 21:05 1 CAP Lidocaine HCl (Lidocaine 1% 20ml Vial) 20 ml STK-MED ONCE 09/16/21 01:17 09/16/21 01:17 DC Lidocaine HCl (Lidocaine Pf 2% Vial) 5 ml STK-MED ONCE 09/21/21 08:11 09/21/21 08:12 DC Lidocaine HCl (Xylocaine-Mpf 1% 2ml Vial) 2 ml STK-MED ONCE 09/21/21 08:27 09/21/21 08:27 DC Meropenem 500 mg/ Sodium Chloride 50 ml @ 100 mls/hr Q8HRS 09/26/21 14:00 09/28/21 05:39 100 MLS/HR Midazolam HCl (Versed) 2 mg STK-MED ONCE 09/21/21 08:12 09/21/21 08:13 DC Morphine Sulfate (Morphine Sulfate) 1 mg PRN Q10MIN PRN 09/28/21 06:00 09/29/21 05:59 Multivitamins (Thera M Plus) 1 tab DAILY 09/17/21 20:00 09/27/21 08:54 1 TAB Ondansetron HCl (Zofran) 4 mg PRN Q6HRS PRN 09/23/21 09:45 09/23/21 10:37 4 MG Oxycodone/ Acetaminophen (Percocet 5/325) 1 tab 1X ONCE 09/21/21 10:30 09/21/21 09:58 DC Phenylephrine HCl (PHENYLEPHRINE in 0.9% NACL PF) 1 mg STK-MED ONCE 09/21/21 08:11 09/21/21 08:11 DC Piperacillin Sod/ Tazobactam Sod (Zosyn Per Pharmacy) 1 each PRN DAILY PRN 09/16/21 00:45 09/22/21 09:42 DC Piperacillin Sod/ Tazobactam Sod 3.375 gm/Sodium Chloride 50 ml @ 100 mls/hr Q6HRS 09/16/21 01:00 09/22/21 08:12 DC 09/22/21 06:04 100 MLS/HR Prochlorperazine Edisylate (Compazine) 5 mg PACU PRN PRN 09/28/21 06:00 09/29/21 05:59 Propofol (Diprivan) 200 mg STK-MED ONCE 09/21/21 08:11 09/21/21 08:12 DC Ringer's Solution 1,000 ml @ 30 mls/hr Q24H 09/28/21 06:00 09/28/21 17:59 Sevoflurane (Ultane) 30 ml STK-MED ONCE 09/21/21 09:37 09/21/21 09:38 DC Simvastatin (Zocor) 20 mg QHS 09/16/21 21:00 09/27/21 21:05 20 MG Sodium Chloride 1,000 ml @ 100 mls/hr Q10H 09/26/21 13:15 09/28/21 03:19 100 MLS/HR Tobramycin Sulfate (Tobramycin Powder) 1.2 gm STK-MED ONCE 09/18/21 08:34 09/18/21 08:35 DC Tramadol HCl (Ultram) 50 mg PRN Q6HRS PRN 09/24/21 10:15 Vancomycin HCl (Vanco Per Pharmacy) 1 each PRN DAILY PRN 09/16/21 00:45 09/22/21 08:12 DC 09/21/21 13:29 1 EACH Vancomycin HCl (Vancomycin Trough Level) 1 each 1X ONCE 09/22/21 14:30 09/22/21 08:15 DC Vancomycin HCl (Vancomycin) 1 gm STK-MED ONCE 09/18/21 08:34 09/18/21 08:34 DC Vancomycin HCl 1.25 gm/Sodium Chloride 250 ml @ 167 mls/hr Q12H 09/16/21 15:00 09/22/21 08:12 DC 09/22/21 02:34 167 MLS/HR Vancomycin HCl 2 gm/Sodium Chloride 500 ml @ 250 mls/hr 1X ONCE 09/16/21 01:30 09/16/21 03:29 DC 09/16/21 03:12 250 MLS/HR Lab Laboratory Tests Test 09/27/21 11:53 09/27/21 16:47 09/27/21 20:45 09/28/21 06:30 Glucose (Fingerstick) 142 mg/dL (70-99) 223 mg/dL (70-99) 238 mg/dL (70-99) White Blood Count 15.7 x10^3/uL (4.0-11.0) Red Blood Count 4.64 x10^6/uL (3.50-5.40) Hemoglobin 11.9 g/dL (12.0-15.5) Hematocrit 37.1 % (36.0-47.0) Mean Corpuscular Volume 80 fL (79-100) Mean Corpuscular Hemoglobin 26 pg (25-35) Mean Corpuscular Hemoglobin Concent 32 g/dL (31-37) Red Cell Distribution Width 14.6 % (11.5-14.5) Platelet Count 393 x10^3/uL (140-400) Neutrophils (%) (Auto) 62 % (31-73) Lymphocytes (%) (Auto) 24 % (24-48) Monocytes (%) (Auto) 9 % (0-9) Eosinophils (%) (Auto) 5 % (0-3) Basophils (%) (Auto) 0 % (0-3) Neutrophils # (Auto) 9.7 x10^3/uL (1.8-7.7) Lymphocytes # (Auto) 3.8 x10^3/uL (1.0-4.8) Monocytes # (Auto) 1.4 x10^3/uL (0.0-1.1) Eosinophils # (Auto) 0.8 x10^3/uL (0.0-0.7) Basophils # (Auto) 0.0 x10^3/uL (0.0-0.2) Sodium Level 139 mmol/L (136-145) Potassium Level 5.4 mmol/L (3.5-5.1) Chloride Level 103 mmol/L (98-107) Carbon Dioxide Level 26 mmol/L (21-32) Anion Gap 10 (6-14) Blood Urea Nitrogen 32 mg/dL (7-20) Creatinine 1.8 mg/dL (0.6-1.0) Estimated GFR (Cockcroft-Gault) 29.2 Glucose Level 52 mg/dL (70-99) Calcium Level 8.0 mg/dL (8.5-10.1) Test 09/28/21 08:31 09/28/21 09:00 Glucose (Fingerstick) 53 mg/dL (70-99) 88 mg/dL (70-99) Results All relevant outside records, renal labs, imaging studies, telemetry/EKG's were reviewed. Justicifation of Admission Dx: Justifications for Admission: Justification of Admission Dx: N/A [place] MD Sep 28, 2021 10:03
[2021-09-28] MEDS ORDERED: KETOROLAC 30 MG/ML VIAL. ONE (10:11)
[2021-09-28] MEDS ORDERED: BUPIVACAINE-EPI 0.5% 30 ML VIAL KIT. ONE ×2 (10:37→11:48)
[2021-09-28] MEDS ORDERED: MINERAL OIL for SURGERY 10 ML VIAL. MC ONE ×3 (10:37→11:42)
[2021-09-28] MEDS ORDERED: BUPIVACAINE MPF 0.5% 30 ML VIAL. ONE ×2 (10:37→11:03)
[2021-09-28] MEDS: DAPTOmycin (GENERIC) IVPB 420 MG in IV NORMAL SALINE 50ML 50 ML IV SCH (11:18)
--- NOTE | 2021-09-28 11:21 | PDOC ---
[employer] PROGRESS NOTE Date of Service DOS: DATE: 09/28/21 TIME: 11:20 Chief Complaint Chief Complaint Sepsis Streptococcal bacteremia 2 out of 4 bottles Right diabetic foot infected ulcer Hypertensive urgency Hyperglycemia uncontrolled Acute electrolyte derangementhyponatremia, hypochloremia suggestive of acute volume depletion History of diabetes mellitus type 2 History of polysubstance abuse Podiatry following Continue IV antibiotics per infectious disease Wound care consult IV antihypertensive medications Inpatient systolic blood pressure goals between 140 to 180 R ISS and Accu-Cheks, resume home long-acting insulin IV electrolyte replacement as needed PAT evaluation Lovenox for DVT prophylaxis ADA diet CODE STATUS full Discussed with RN and SW Disposition inpatient management as above DPOA: Nicole Metzger History of Present Illness History of Present Illness 56-year-old female with past medical history of methamphetamine abuse, diabetes mellitus 2, depression anxiety, hypertension, dyslipidemia, chronic back pain w ho presents with right foot pain and lesion to the bottom. She reports that for the past several weeks wound has been worsening and she even tried to andrea it at home but returned and got dark. She also has a chronic ulcer over the right great toe does not regularly well. There is some probably noncompliance with diabetes. Patient states that fast acting insulin causes her to be nauseous and vomit. She was recently admitted for the wound on her right foot in June 2021. Pain worsens upon ambulation. She admits to some fever and chills. Denies nausea, vomiting, chest pain, shortness of breath, abdominal pain, urinary symptoms, cough, recent trauma, or any other complaints. 09/17/21 No acute events overnight. Patient seen and examined bedside. Resting comfortably. Pain is well controlled. Seen by wound care Dr. Love's and recommending podiatry consult for surgical debridement of necrotic tissue. Patient's chart, labs, images were reviewed and discussed with RN 09/18/21 No acute events overnight. Patient taken to the OR today for surgical debridement with Dr. Morris. No concerns with nursing. Sugars are better controlled, ranging between 106-136. Patient's chart, labs, images were reviewed and discussed with RN 09/19: Afebrile. S/P right foot I&D with placement of wound VAC. Blood cultures positive for strep agalactiae (group B strep) that is resistant to erythromycin but largely pansensitive. Wound cultures with staph aureus and group B strep. Continue current antibiotic regimen for now, follow wound cultures for final cultures and sensitivities. Patient tells me that she is having repeat surgery on Sunday. Discussed p.o. pain medication is more appropriate at this time but will leave IV morphine on for when she becomes n.p.o. for any further surgical intervention. 09/20: Afebrile. WBC improving. She will need to be NPO after midnight for repeat I&D, wound VAC application, and possible Achilles lengthening. Discussed with RN. 09/21: Patient seen postoperatively this morning. Right foot is wrapped in bed and bandaged with wound VAC in place. Follow intraoperative cultures. Patient has some questions about repeat surgical grafts; will defer to Dr. Morris. Continue IV antibiotics, per ID. 09/22: Patient seen POD #1, s/p right foot repeat I&D, with wound VAC and posterior splint application. Plan for wound VAC change tomorrow at bedside, per Dr. Morris. Will continue to follow intraoperative cultures. Encourage working with PT today. Asking for increase and dose of pain medication. 09/23: POD #2 s/p right foot repeat I&D, with wound VAC and posterior splint application. Worsening leukocytosis noted this morning. Wound cultures came back positive for MRSA. Daptomycin initiated, per ID. Also some significant hypertension today. Started on Norvasc. If blood pressure improves with pain improvement, Norvasc can likely be stopped. Poor appetite this morning that she contributes to antibiotic regimen. Recommended liquid diet and antiemetics as needed. Continue IV antibiotics, per ID. 09/24: WBC 17.0. Right diabetic foot wound growing MRSA. Continue treatment with daptomycin and meropenem, per ID. Repeat blood cultures with no growth to date. Some worsening renal function this morning. Will provide IV fluids; if no improvement will consult nephrology. She reports she has not had a bowel movement 2 days, requesting for some prune juice. She is now amenable to rehab; given wound VAC requirements, likely [facility]. 09/25: WBC 15.3. Will place consult with nephrology due to EN. Dr. Morris will plan for skin graft application for wound closure next week. Wound VAC in place; once stable will look to [facility] for rehab. Continue daptomycin and meropenem, per ID. 09/26 Patient evaluated examined at bedside. White cell trending down. Patient complaining of some tiredness this morning did not get much sleep last night. Appears planning for skin graft on Sunday. Continue wound care. Plan of care discussed with bedside RN. 09/27 Patient evaluated and examined at bedside. No major complaints says pain is controlled tolerating antibiotics well. Plan for surgery tomorrow for skin grafting and wound closure. N.p.o. midnight. Plan of care discussed with bedside RN. 09/28 Patient evaluated and examined at bedside prior to surgery. She was in bed somewhat anxious about surgery but this pain well controlled. Surgeryat some point today. Continue antibiotics. Will evaluate again after surgery. Plan of care discussed with bedside RN. Vitals/I&O Vitals/I&O: Vital Signs Date Time Temp Pulse Resp B/P (MAP) Pulse Ox O2 Delivery O2 Flow Rate FiO2 09/28/21 10:50 98.4 90 23 194/90 96 Room Air 98.4 09/28/21 08:00 6.0 I & O 09/27/21 09/27/21 09/28/21 15:00 23:00 07:00 Intake Total 150 ml 1020 ml 320 ml Output Total 801 ml 600 ml Balance 150 ml 219 ml -280 ml Physical Exam Physical Exam: GENERAL APPEARANCE: Well-developed, well-nourished female, lying in bed comfortably, in no acute distress, nontoxic appearing. HEENT: Normocephalic, atraumatic. Normal conjunctivae. NECK: Supple, no JVD, no lymphadenopathy. LUNGS: Clear bilaterally. No wheezing. HEART: S1, S2. No gallops or murmurs. ABDOMEN: Soft, obese. Bowel sounds present, nontender, nondistended. GENITOURINARY: No Givens in place. EXTREMITIES: Right foot dressing in place along with wound VAC, not taken down. No warmth or swelling noted in the right lower extremity NEUROLOGIC: Alert and oriented x 3, grossly nonfocal. PIV looks clean. PSYCHIATRIC: Calm and cooperative. General: Alert, Oriented X3, Cooperative, No acute distress Heart: Regular rate Lungs: Clear Abdomen: Normal bowel sounds, Soft, No tenderness Extremities: Other (RLE EDEMA, WOUND BANDAGED) Skin: No breakdown Labs Labs: Laboratory Tests Test 09/27/21 11:53 09/27/21 16:47 09/27/21 20:45 09/28/21 06:30 Glucose (Fingerstick) 142 mg/dL (70-99) 223 mg/dL (70-99) 238 mg/dL (70-99) White Blood Count 15.7 x10^3/uL (4.0-11.0) Red Blood Count 4.64 x10^6/uL (3.50-5.40) Hemoglobin 11.9 g/dL (12.0-15.5) Hematocrit 37.1 % (36.0-47.0) Mean Corpuscular Volume 80 fL (79-100) Mean Corpuscular Hemoglobin 26 pg (25-35) Mean Corpuscular Hemoglobin Concent 32 g/dL (31-37) Red Cell Distribution Width 14.6 % (11.5-14.5) Platelet Count 393 x10^3/uL (140-400) Neutrophils (%) (Auto) 62 % (31-73) Lymphocytes (%) (Auto) 24 % (24-48) Monocytes (%) (Auto) 9 % (0-9) Eosinophils (%) (Auto) 5 % (0-3) Basophils (%) (Auto) 0 % (0-3) Neutrophils # (Auto) 9.7 x10^3/uL (1.8-7.7) Lymphocytes # (Auto) 3.8 x10^3/uL (1.0-4.8) Monocytes # (Auto) 1.4 x10^3/uL (0.0-1.1) Eosinophils # (Auto) 0.8 x10^3/uL (0.0-0.7) Basophils # (Auto) 0.0 x10^3/uL (0.0-0.2) Sodium Level 139 mmol/L (136-145) Potassium Level 5.4 mmol/L (3.5-5.1) Chloride Level 103 mmol/L (98-107) Carbon Dioxide Level 26 mmol/L (21-32) Anion Gap 10 (6-14) Blood Urea Nitrogen 32 mg/dL (7-20) Creatinine 1.8 mg/dL (0.6-1.0) Estimated GFR (Cockcroft-Gault) 29.2 Glucose Level 52 mg/dL (70-99) Calcium Level 8.0 mg/dL (8.5-10.1) Test 09/28/21 08:31 09/28/21 09:00 09/28/21 10:46 Glucose (Fingerstick) 53 mg/dL (70-99) 88 mg/dL (70-99) 74 mg/dL (70-99) Assessment and Plan Assessmemt and Plan Problems Medical Problems: (1) Diabetic foot ulcer Status: Acute (2) Right foot infection Status: Acute Comment Review of Relevant I have reviewed the following items jose (where applicable) has been applied. Justifications for Admission Other Justification DRAGAN CARDENAS MD Sep 28, 2021 11:21
[2021-09-28] MEDS ORDERED: PHENYLEPHRINE in 0.9% NACL PF 1 MG/10 ML SYRINGE. IV ONE (11:23)
[2021-09-28] MEDS ORDERED: ONDANSETRON PF 4 MG/2 ML VIAL. ONE (11:23)
[2021-09-28] MEDS ORDERED: THROMBIN TOPICAL 5,000 UNIT VIAL. ONE (11:37)
[2021-09-28] MEDS ORDERED: BUPIVACAINE-EPI 0.5% 30 ML VIAL KIT. INJ ONE ×2 (11:42)
[2021-09-28] MEDS ORDERED: ePHEDrine PF IN SALINE 50 MG/10 ML SYRINGE. IV ONE (11:47)
[2021-09-28] MEDS ORDERED: SEVOFLURANE 61 TO 120 MINUTES. IH ONE (11:51)
--- NOTE | 2021-09-28 12:53 | PDOC4 ---
OPERATIVE NOTE Date: Date: Sep 28, 2021 Pre-Op Diagnosis: Right foot puncture wound, s/p incision and drainage, wound VAC application. Post-Op Diagnosis: Same as above Procedure Performed: Right foot incision and drainage, autograft/split thickness skin graft harvest and application, wound VAC application, posterior splint Surgeon: Buzz Bermeo DPM Anesthesia Type: General Blood Loss: 20 cc Specimans Obtained: None Findings: S/p 2 incision and drainage of the right midfoot wound. Clinically, the wound is granular, bleeding well without fluctuance, proximal streaking, undermining. The wound/infection is limited to the first layer of plantar foot compartment where the plantar fascial band was excised but underlying FDB, ABH bellies are healthy and granular. Clinically, there are no signs of residual infection or proximal tracking from the right foot wound. However patient still shows persistent leukocytosis. ID thinks this is reactive due to nausea and constipation. Other than that, patient denies any constitutional symptoms, pain to the right lower extremity, pain or tenderness to the calf, popliteal fossa or inguinal region. I consented for split thickness autograft harvest and application before surgery. Because the intraoperative finding supported healthy tissue without residual signs of infection despite the leukocytosis, I decided to pursue the split thickness graft harvest from the right upper thigh. Complications: None Operative Note: Under mild sedation, patient was brought into the operating room and placed on operating table in the supine position. A formal timeout was performed to confirm patient's identity, procedure and procedure site. Following IV general anesthesia and scheduled IV antibiotics, the right lower extremity was prepped, scrubbed and draped to the upper thigh. No tourniquet was placed. The attention was directed to the right plantar midfoot. The wound bed was granular, without necrotic tissues, proximal tracking, undermining or fluctuance. 3 L of saline solution was used to irrigate the wound bed via pulse lavage. Then the skin edges were refreshed with a #15 blade to healthy bleeding tissue. At this time, the size of the wound measured 8 x 7.5 cm. The wound bed was further prepped with brush bristles to encourage adequate bleeding. Further wound bed inspection was free from exposed tendon, deeper compartment violation, bone. The foot wound was temporarily covered with Telfa, Coban compression. The attention was then directed to the proximal anterior thigh. A rectangular provisional graft harvest site was measured and marked for 8 x 7.5 cm dimension. 15 cc of 0.25% Marcaine with epi was used to raise the borders and margins of the harvest site to ensure even graft harvest and also hemostasis as well. Then the site was prepped with mineral oil. A dermatome was used with blade set at 0.016 inch thickness. The graft was harvested in 1 piece. The donor site was dressed with 0.25% Marcaine with epi, 4 x 4 gauze, and a Tegaderm with Benoit compression. They harvested skin graft was soaked in saline and transferred to a masher 1:1.5. The graft was fenestrated and transferred to the recipient wound bed. The graft was stabilized with frank and a 3-0 nylon. Then an Adaptic was used to cover the split-thickness graft/recipient site. A black foam wound VAC was placed with pressure set 125 mmHg. Adequate seal was noted. Then the right lower extremity was then covered and dressed with 4 x 4 gauze, ABD and immobilized in a well-padded Duong compression splint with ankle held in near 90 degrees. Patient tolerated the procedure and anesthesia well with vital signs stable and neurovascular status intact. Patient was then transferred to PACU for continuous recovery. Regular continue monitoring for WBC and continue investigating other possible source of infection. BUZZ BERMEO DPM Sep 28, 2021 12:53
[2021-09-28] MEDS ORDERED: HYDROmorphone 2 MG/ML VIAL ONE (13:03)
[2021-09-28] MEDS ORDERED: PROCHLORPERAZINE 10 MG/2 ML VIAL. ONE (13:03)
[2021-09-28] MEDS: MICAFUNGIN 100 MG in IV DEXTROSE 5% 100ML 100 ML IV SCH (14:35)
[2021-09-28 15:00] VITALS: BP 159/81
[2021-09-28] MEDS: ENOXAPARIN 40 MG/0.4 ML SYRINGE. SQ SCH (16:00)
--- NOTE | 2021-09-28 16:41 | NUR ---
Clara held d/t surgical procedure.
[2021-09-28 19:00] VITALS: BP 184/66
[2021-09-28] MEDS: SIMVASTATIN 20 MG TABLET PO SCH (20:32)
[2021-09-28] MEDS: HYDROcodone/APAP 5/325MG 1 TAB TABLET PO PRN (20:47)
[2021-09-28 23:06] VITALS: BP 155/71
[2021-09-29 02:50] VITALS: BP 144/65
[2021-09-29] MEDS: HYDROcodone/APAP 5/325MG 1 TAB TABLET PO PRN ×4 (03:08→16:57)
[2021-09-29 05:09] LABS: CREATININE 1.9 mg/dL (0.6-1.0); GFR 27.4; POTASSIUM 5.2 mmol/L (3.5-5.1)
[2021-09-29] MEDS: IV NORMAL SALINE 1000ML BAG 1,000 ML IV SCH ×2 (05:15→11:15)
[2021-09-29] MEDS: MEROPENEM 500 MG in IV NORMAL SALINE 50ML 50 ML IV SCH ×3 (05:16→21:44)
[2021-09-29 07:00] VITALS: BP 151/72
[2021-09-29] MEDS: INSULIN LISPRO 300 UNITS/3 ML VIAL. SQ SCH ×3 (08:00→17:00)
--- NOTE | 2021-09-29 08:25 | PDOC ---
PROGRESS NOTES Date of Service DATE: 09/29/21 TIME: 08:24 Subjective Subjective S/p 09/28 right foot I&D, autograft split-thickness harvest from the right thigh and application to the right foot, wound VAC application and a posterior splint At bedside, patient denies pain to the right surgical lower extremity. She has tolerated the dressing, VAC and splint well. She denies any constitutional symptoms. Objective Objective Vital Signs Date Time Temp Pulse Resp B/P (MAP) Pulse Ox O2 Delivery O2 Flow Rate FiO2 09/29/21 07:00 97.8 86 18 151/72 (98) 98 Room Air 97.8 09/29/21 03:38 2.0 Intake and Output 09/29/21 07:00 Intake Total 700 ml Output Total 1620 ml Balance -920 ml IV Total 700 ml Output Urine Total 1600 ml Estimated Blood Loss 20 ml # Voids 1 # Bowel Movements 2 Physical Exam Physical Exam General: Pleasant without apparent distress, AOx3 Right foot focused Dermatology: -Dressing is clean, dry and intact to the foot -Right upper thigh dressing is also kept clean and dry without any strikethrough -VAC is functioning at 125 mmHg, minimal output sanguinous drainage -No proximal streaking, erythema, fluctuance to the tarsal tunnel or proximal leg Vascular: -Foot is warm to touch with CFT less than 3 seconds x 5 -Calf is soft and nontender Neurology: -Light touch sensation diminished MSK: -[-] TTP at the tarsal tunnel or the distal leg or foot -Able to move digits -Calf is soft and nontender -No TTP to popliteal lymph nodes Assessment Assessment Problems Medical Problems: (1) Diabetic foot ulcer Status: Acute (2) Right foot infection Status: Acute Plan Plan of Care -Explained to patient that we were able to perform the autograft harvest and application because intraoperatively the wound bed was granular without any signs of residual infection despite the elevated WBC. Now the challenges are to maintain stability avoid shear pressure to the graft site and donor site. -Strict nonweightbearing to right lower extremity -PT eval and treat, upper body mobility only -DVT prophylaxis per internal medicine -Patient currently is on meropenem and daptomycin, ID is following -Deep tissue culture 09/21: No growth to date -Deep tissue culture 09/18: + Strep B, lactobacilli -Blood culture 09/16: + Strep B, MRSA. -Repeat blood culture: neg -Please trend WBC. Patient expressed concern of possible tooth infection, swollen upper extremities. -Patient was also asking for a PICC line, please advise -Recommend dialysis social worker consult for discharge placement Dispo: Leave the upper thigh and foot dressing clean, dry and intact for 7 days without any dressing change. From my perspective, there is no further surgical intervention planned. I can see the patient as an outpatient in 7 days for dressing change and skin check. However I suspect patient may benefit from inpatient care for further medical optimization and leukocytosis management. Antibiotics per ID. Comment Review of Relevant I have reviewed the following items jose (where applicable) has been applied. Labs Laboratory Tests Test 09/27/21 11:53 09/27/21 16:47 09/27/21 20:45 09/28/21 06:30 Glucose (Fingerstick) 142 mg/dL (70-99) 223 mg/dL (70-99) 238 mg/dL (70-99) White Blood Count 15.7 x10^3/uL (4.0-11.0) Red Blood Count 4.64 x10^6/uL (3.50-5.40) Hemoglobin 11.9 g/dL (12.0-15.5) Hematocrit 37.1 % (36.0-47.0) Mean Corpuscular Volume 80 fL (79-100) Mean Corpuscular Hemoglobin 26 pg (25-35) Mean Corpuscular Hemoglobin Concent 32 g/dL (31-37) Red Cell Distribution Width 14.6 % (11.5-14.5) Platelet Count 393 x10^3/uL (140-400) Neutrophils (%) (Auto) 62 % (31-73) Lymphocytes (%) (Auto) 24 % (24-48) Monocytes (%) (Auto) 9 % (0-9) Eosinophils (%) (Auto) 5 % (0-3) Basophils (%) (Auto) 0 % (0-3) Neutrophils # (Auto) 9.7 x10^3/uL (1.8-7.7) Lymphocytes # (Auto) 3.8 x10^3/uL (1.0-4.8) Monocytes # (Auto) 1.4 x10^3/uL (0.0-1.1) Eosinophils # (Auto) 0.8 x10^3/uL (0.0-0.7) Basophils # (Auto) 0.0 x10^3/uL (0.0-0.2) Sodium Level 139 mmol/L (136-145) Potassium Level 5.4 mmol/L (3.5-5.1) Chloride Level 103 mmol/L (98-107) Carbon Dioxide Level 26 mmol/L (21-32) Anion Gap 10 (6-14) Blood Urea Nitrogen 32 mg/dL (7-20) Creatinine 1.8 mg/dL (0.6-1.0) Estimated GFR (Cockcroft-Gault) 29.2 Glucose Level 52 mg/dL (70-99) Calcium Level 8.0 mg/dL (8.5-10.1) Test 09/28/21 08:31 09/28/21 09:00 09/28/21 10:46 09/28/21 11:44 Glucose (Fingerstick) 53 mg/dL (70-99) 88 mg/dL (70-99) 74 mg/dL (70-99) 60 mg/dL (70-99) Test 09/28/21 12:47 09/28/21 16:40 09/28/21 20:25 09/29/21 04:20 Glucose (Fingerstick) 128 mg/dL (70-99) 168 mg/dL (70-99) 218 mg/dL (70-99) Sodium Level 137 mmol/L (136-145) Potassium Level 5.2 mmol/L (3.5-5.1) Chloride Level 102 mmol/L (98-107) Carbon Dioxide Level 29 mmol/L (21-32) Anion Gap 6 (6-14) Blood Urea Nitrogen 31 mg/dL (7-20) Creatinine 1.9 mg/dL (0.6-1.0) Estimated GFR (Cockcroft-Gault) 27.4 Glucose Level 166 mg/dL (70-99) Calcium Level 8.0 mg/dL (8.5-10.1) Laboratory Tests Test 09/28/21 08:31 09/28/21 09:00 09/28/21 10:46 09/28/21 11:44 Glucose (Fingerstick) 53 mg/dL (70-99) 88 mg/dL (70-99) 74 mg/dL (70-99) 60 mg/dL (70-99) Test 09/28/21 12:47 09/28/21 16:40 09/28/21 20:25 09/29/21 04:20 Glucose (Fingerstick) 128 mg/dL (70-99) 168 mg/dL (70-99) 218 mg/dL (70-99) Sodium Level 137 mmol/L (136-145) Potassium Level 5.2 mmol/L (3.5-5.1) Chloride Level 102 mmol/L (98-107) Carbon Dioxide Level 29 mmol/L (21-32) Anion Gap 6 (6-14) Blood Urea Nitrogen 31 mg/dL (7-20) Creatinine 1.9 mg/dL (0.6-1.0) Estimated GFR (Cockcroft-Gault) 27.4 Glucose Level 166 mg/dL (70-99) Calcium Level 8.0 mg/dL (8.5-10.1) Microbiology 09/21/21 Gram Stain - Final, Complete 09/21/21 Aerobic and Anaerobic Culture - Final, Complete 09/19/21 Blood Culture - Final, Complete NO GROWTH AFTER 5 DAYS Medications Current Medications Vancomycin HCl (Vanco Per Pharmacy) 1 each PRN DAILY PRN MC SEE COMMENTS Last administered on 09/21/21at 13:29; Start 09/16/21 at 00:45; Stop 09/22/21 at 08:12; Status DC Piperacillin Sod/ Tazobactam Sod (Zosyn Per Pharmacy) 1 each PRN DAILY PRN MC SEE COMMENTS; Start 09/16/21 at 00:45; Stop 09/22/21 at 09:42; Status DC Sodium Chloride 1,000 ml @ 1,000 mls/hr Q1H IV Last administered on 09/16/21at 06:05; Start 09/16/21 at 01:00; Stop 09/16/21 at 02:59; Status DC Morphine Sulfate (Morphine Sulfate) 4 mg 1X ONCE IV Last administered on 09/16/21at 02:37; Start 09/16/21 at 01:00; Stop 09/16/21 at 01:01; Status DC Acetaminophen (Tylenol) 1,000 mg 1X ONCE PO Last administered on 09/16/21at 02:35; Start 09/16/21 at 01:00; Stop 09/16/21 at 01:01; Status DC Vancomycin HCl 2 gm/Sodium Chloride 500 ml @ 250 mls/hr 1X ONCE IV Last administered on 09/16/21at 03:12; Start 09/16/21 at 01:30; Stop 09/16/21 at 03:29; Status DC Piperacillin Sod/ Tazobactam Sod 3.375 gm/Sodium Chloride 50 ml @ 100 mls/hr Q6HRS IV Last administered on 09/22/21at 06:04; Start 09/16/21 at 01:00; Stop 09/22/21 at 08:12; Status DC Lidocaine HCl (Lidocaine 1% 20ml Vial) 20 ml STK-MED ONCE .ROUTE ; Start 09/16/21 at 01:17; Stop 09/16/21 at 01:17; Status DC Ondansetron HCl (Zofran) 4 mg PRN Q8HRS PRN IVP NAUSEA/VOMITING 1ST CHOICE; Start 09/16/21 at 01:45; Stop 09/20/21 at 01:44; Status DC Morphine Sulfate (Morphine Sulfate) 4 mg PRN Q2HR PRN IVP SEVERE PAIN 7-10 Last administered on 09/19/21at 01:25; Start 09/16/21 at 01:45; Stop 09/19/21 at 01:44; Status DC Insulin Human Regular (HumuLIN R VIAL) 10 unit 1X ONCE SQ ; Start 09/16/21 at 03:30; Stop 09/16/21 at 03:31; Status Cancel Insulin Glargine (Lantus Syringe) 15 unit BID SQ Last administered on 09/16/21at 09:04; Start 09/16/21 at 09:00; Stop 09/16/21 at 13:21; Status DC Insulin Human Lispro (HumaLOG) 0-9 UNITS TIDWMEALS SQ ; Start 09/16/21 at 08:00; Stop 09/16/21 at 13:21; Status DC Dextrose (Dextrose 50%-Water Syringe) 12.5 gm PRN Q15MIN PRN IV SEE COMMENTS; Start 09/16/21 at 03:45; Stop 09/16/21 at 13:46; Status DC Insulin Human Lispro (HumaLOG) 10 units 1X ONCE SQ Last administered on 09/16/21at 04:09; Start 09/16/21 at 04:15; Stop 09/16/21 at 04:16; Status DC Vancomycin HCl 1.25 gm/Sodium Chloride 250 ml @ 167 mls/hr Q12H IV Last administered on 09/22/21at 02:34; Start 09/16/21 at 15:00; Stop 09/22/21 at 08:12; Status DC Vancomycin HCl (Vancomycin Trough Level) 1 each 1X ONCE MC Last administered on 09/17/21at 14:30; Start 09/17/21 at 14:30; Stop 09/17/21 at 14:31; Status DC Lactobacillus Rhamnosus (Culturelle) 1 cap BID PO Last administered on 09/28/21at 20:32; Start 09/16/21 at 21:00 Simvastatin (Zocor) 20 mg QHS PO Last administered on 09/28/21at 20:32; Start 09/16/21 at 21:00 Duloxetine HCl (Cymbalta) 60 mg DAILY PO Last administered on 09/24/21at 09:23; Start 09/16/21 at 14:00 Insulin Glargine (Lantus Syringe) 55 unit BID SQ Last administered on 09/27/21at 21:11; Start 09/16/21 at 21:00; Stop 09/28/21 at 11:58; Status DC Dextrose (Dextrose 50%-Water Syringe) 12.5 gm PRN Q15MIN PRN IV SEE COMMENTS Last administered on 09/28/21at 08:38; Start 09/16/21 at 13:00 Multivitamins (Thera M Plus) 1 tab DAILY PO Last administered on 09/27/21at 08:54; Start 09/17/21 at 20:00 Ascorbic Acid (Vitamin C) 500 mg DAILY PO Last administered on 09/27/21at 08:54; Start 09/17/21 at 20:00 Insulin Human Lispro (HumaLOG) 10 units 1X ONCE SQ Last administered on at 19:24; Start 09/16/21 at 19:00; Stop 09/16/21 at 19:03; Status DC Insulin Human Lispro (HumaLOG) 0-9 UNITS TIDWMEALS SQ Last administered on 09/18/21at 17:19; Start 09/17/21 at 08:00 Insulin Human Lispro (HumaLOG) 10 units 1X ONCE SQ Last administered on 09/16/21at 23:08; Start 09/16/21 at 23:30; Stop 09/16/21 at 23:31; Status DC Insulin Human Lispro (HumaLOG) 10 units 1X ONCE SQ Last administered on 09/17/21at 08:53; Start 09/17/21 at 08:30; Stop 09/17/21 at 08:31; Status DC Enoxaparin Sodium (Lovenox 40mg Syringe) 40 mg Q24H SQ Last administered on 09/27/21at 15:03; Start 09/17/21 at 16:00 Fentanyl Citrate (Fentanyl 2ml Vial) 25 mcg PRN Q5MIN PRN IVP MILD PAIN 1-3; Start 09/18/21 at 06:00; Stop 09/19/21 at 05:59; Status DC Fentanyl Citrate (Fentanyl 2ml Vial) 50 mcg PRN Q5MIN PRN IVP MODERATE PAIN 4-6 Last administered on 09/18/21at 10:26; Start 09/18/21 at 06:00; Stop 09/19/21 at 05:59; Status DC Morphine Sulfate (Morphine Sulfate) 1 mg PRN Q10MIN PRN IVP SEVERE PAIN 7-10; Start 09/18/21 at 06:00; Stop 09/19/21 at 05:59; Status DC Ringer's Solution 1,000 ml @ 30 mls/hr Q24H IV Last administered on 09/18/21at 08:50; Start 09/18/21 at 06:00; Stop 09/18/21 at 17:59; Status DC Hydromorphone HCl (Dilaudid) 0.5 mg PRN Q10MIN PRN IVP SEVERE PAIN 7-10, 2nd CHOICE; Start 09/18/21 at 06:00; Stop 09/19/21 at 05:59; Status DC Prochlorperazine Edisylate (Compazine) 5 mg PACU PRN PRN IVP NAUSEA, MRX1 Last administered on 09/18/21at 10:12; Start 09/18/21 at 06:00; Stop 09/19/21 at 05:59; Status DC Cefazolin Sodium 1 gm/Sodium Chloride 1,000 ml @ 1,000 mls/hr 1X ONCE IRR ; Start 09/18/21 at 08:30; Stop 09/18/21 at 09:29; Status DC Cefazolin Sodium 1 gm/Sodium Chloride 1,000 ml @ 1,000 mls/hr 1X ONCE IRR ; Start 09/18/21 at 08:30; Stop 09/18/21 at 09:29; Status DC Cefazolin Sodium 1 gm/Sodium Chloride 1,000 ml @ 1,000 mls/hr 1X ONCE IRR ; Start 09/18/21 at 08:30; Stop 09/18/21 at 09:29; Status DC Vancomycin HCl (Vancomycin) 1 gm STK-MED ONCE .ROUTE ; Start 09/18/21 at 08:34; Stop 09/18/21 at 08:34; Status DC Tobramycin Sulfate (Tobramycin Powder) 1.2 gm STK-MED ONCE .ROUTE ; Start 09/18/21 at 08:34; Stop 09/18/21 at 08:35; Status DC Ondansetron HCl (Zofran) 4 mg STK-MED ONCE .ROUTE ; Start 09/18/21 at 09:00; S top 09/18/21 at 09:00; Status DC Propofol (Diprivan) 200 mg STK-MED ONCE IV ; Start 09/18/21 at 09:00; Stop 09/18/21 at 09:00; Status DC Lidocaine HCl (Lidocaine Pf 2% Vial) 5 ml STK-MED ONCE .ROUTE ; Start 09/18/21 at 09:00; Stop 09/18/21 at 09:00; Status DC Dexamethasone Sodium Phosphate (Decadron) 4 mg STK-MED ONCE .ROUTE ; Start 09/18/21 at 09:00; Stop 09/18/21 at 09:01; Status DC Sevoflurane (Ultane) 60 ml STK-MED ONCE IH ; Start 09/18/21 at 09:00; Stop 09/18/21 at 09:01; Status DC Dextrose (Dextrose 50%-Water Syringe) 12.5 gm PRN Q15MIN PRN IV SEE COMMENTS; Start 09/18/21 at 09:45; Stop 09/19/21 at 10:20; Status DC Acetaminophen (Tylenol) 650 mg 1X ONCE PO Last administered on 09/18/21at 11:25; Start 09/18/21 at 09:45; Stop 09/18/21 at 09:46; Status DC Fentanyl Citrate (Fentanyl 2ml Vial) 100 mcg STK-MED ONCE .ROUTE ; Start 09/18/21 at 09:58; Stop 09/18/21 at 09:58; Status DC Prochlorperazine Edisylate (Compazine) 10 mg STK-MED ONCE .ROUTE ; Start 09/18/21 at 09:59; Stop 09/18/21 at 09:59; Status DC Acetaminophen/ Hydrocodone Bitart (Lortab 5/325) 1 tab PRN Q4HRS PRN PO MILD- MODERATE PAIN Last administered on 09/22/21at 10:37; Start 09/19/21 at 15:00; Stop 09/22/21 at 11:36; Status DC Acetaminophen/ Hydrocodone Bitart (Lortab 7.5/325) 1 tab PRN Q6HRS PRN PO SEVERE PAIN Last administered on 09/20/21at 23:48; Start 09/19/21 at 15:00; Stop 09/21/21 at 09:58; Status DC Morphine Sulfate (Morphine Sulfate) 4 mg PRN Q2HR PRN IV PAIN Last administered on 09/21/21at 02:47; Start 09/19/21 at 15:00; Stop 09/21/21 at 09:58; Status DC Hydralazine HCl (Apresoline Inj) 10 mg PRN Q4HRS PRN IVP ELEVATED BP, SEE COMMENTS Last administered on 09/20/21at 08:34; Start 09/20/21 at 08:15; Stop 09/21/21 at 09:58; Status DC Fentanyl Citrate (Fentanyl 2ml Vial) 25 mcg PRN Q5MIN PRN IVP MILD PAIN 1-3 Last administered on 09/21/21at 10:33; Start 09/21/21 at 06:00; Stop 09/22/21 at 05:59; Status DC Fentanyl Citrate (Fentanyl 2ml Vial) 50 mcg PRN Q5MIN PRN IVP MODERATE PAIN 4- 6; Start 09/21/21 at 06:00; Stop 09/21/21 at 09:58; Status DC Morphine Sulfate (Morphine Sulfate) 1 mg PRN Q10MIN PRN IVP SEVERE PAIN 7-10; Start 09/21/21 at 06:00; Stop 09/21/21 at 09:58; Status DC Ringer's Solution 1,000 ml @ 30 mls/hr Q24H IV Last administered on 09/21/21at 09:00; Start 09/21/21 at 06:00; Stop 09/21/21 at 17:59; Status DC Hydromorphone HCl (Dilaudid) 0.5 mg PRN Q10MIN PRN IVP SEVERE PAIN 7-10, 2nd CHOICE; Start 09/21/21 at 06:00; Stop 09/22/21 at 05:59; Status DC Prochlorperazine Edisylate (Compazine) 5 mg PACU PRN PRN IVP NAUSEA, MRX1; Start 09/21/21 at 06:00; Stop 09/22/21 at 05:59; Status DC Phenylephrine HCl (PHENYLEPHRINE in 0.9% NACL PF) 1 mg STK-MED ONCE IV ; Start 09/21/21 at 08:11; Stop 09/21/21 at 08:11; Status DC Dexamethasone Sodium Phosphate (Decadron) 4 mg STK-MED ONCE .ROUTE ; Start 09/21/21 at 08:11; Stop 09/21/21 at 08:11; Status DC Ondansetron HCl (Zofran) 4 mg STK-MED ONCE .ROUTE ; Start 09/21/21 at 08:11; Stop 09/21/21 at 08:11; Status DC Propofol (Diprivan) 200 mg STK-MED ONCE IV ; Start 09/21/21 at 08:11; Stop 09/21/21 at 08:12; Status DC Lidocaine HCl (Lidocaine Pf 2% Vial) 5 ml STK-MED ONCE .ROUTE ; Start 09/21/21 at 08:11; Stop 09/21/21 at 08:12; Status DC Midazolam HCl (Versed) 2 mg STK-MED ONCE .ROUTE ; Start 09/21/21 at 08:12; Stop 09/21/21 at 08:13; Status DC Lidocaine HCl (Xylocaine-Mpf 1% 2ml Vial) 2 ml STK-MED ONCE .ROUTE ; Start 09/21/21 at 08:27; Stop 09/21/21 at 08:27; Status DC Glycopyrrolate (Robinul) 1 mg STK-MED ONCE .ROUTE ; Start 09/21/21 at 09:11; Stop 09/21/21 at 09:11; Status DC Ephedrine Sulfate (ePHEDrine PF IN SALINE SYRINGE) 50 mg STK-MED ONCE IV ; Start 09/21/21 at 09:11; Stop 09/21/21 at 09:11; Status DC Fentanyl Citrate (Fentanyl 2ml Vial) 100 mcg STK-MED ONCE .ROUTE ; Start 09/21/21 at 09:28; Stop 09/21/21 at 09:28; Status DC Sevoflurane (Ultane) 30 ml STK-MED ONCE IH ; Start 09/21/21 at 09:37; Stop 09/21/21 at 09:38; Status DC Acetaminophen (Tylenol) 650 mg 1X ONCE PO ; Start 09/21/21 at 10:30; Stop 09/21/21 at 09:58; Status DC Oxycodone/ Acetaminophen (Percocet 5/325) 1 tab 1X ONCE PO ; Start 09/21/21 at 10:30; Stop 09/21/21 at 09:58; Status DC Fentanyl Citrate (Fentanyl 2ml Vial) 100 mcg STK-MED ONCE .ROUTE ; Start 09/21/21 at 10:10; Stop 09/21/21 at 10:10; Status DC Vancomycin HCl (Vancomycin Trough Level) 1 each 1X ONCE MC ; Start 09/22/21 at 14:30; Stop 09/22/21 at 08:15; Status DC Hydralazine HCl (Apresoline Inj) 10 mg PRN Q4HRS PRN IVP ELEVATED BP, SEE COMMENTS Last administered on 09/26/21at 17:16; Start 09/21/21 at 15:00 Meropenem 500 mg/ Sodium Chloride 50 ml @ 100 mls/hr Q6HRS IV Last administered on 09/26/21at 06:00; Start 09/22/21 at 12:00; Stop 09/26/21 at 11:13; Status DC Acetaminophen/ Hydrocodone Bitart (Lortab 10/325) 1 tab PRN Q6HRS PRN PO PAIN Last administered on 09/24/21at 08:11; Start 09/22/21 at 11:45; Stop 09/24/21 at 10:14; Status DC Daptomycin 420 mg/ Sodium Chloride 50 ml @ 100 mls/hr Q24H IV Last administered on 09/28/21at 11:18; Start 09/23/21 at 10:00 Ondansetron HCl (Zofran) 4 mg PRN Q6HRS PRN IVP NAUSEA/VOMITING Last administered on 09/23/21at 10:37; Start 09/23/21 at 09:45 Docusate Sodium (Colace) 100 mg DAILY PO ; Start 09/24/21 at 10:00; Stop 09/23/21 at 09:47; Status DC Docusate Sodium (Colace) 100 mg DAILY PO Last administered on 09/25/21at 09:42; Start 09/23/21 at 10:00 Amlodipine Besylate (Norvasc) 10 mg DAILY PO Last administered on 09/28/21at 08:15; Start 09/24/21 at 09:00 Amlodipine Besylate (Norvasc) 10 mg 1X ONCE PO Last administered on 09/23/21at 14:45; Start 09/23/21 at 14:45; Stop 09/23/21 at 14:46; Status DC Sodium Chloride 1,000 ml @ 125 mls/hr 1X ONCE IV Last administered on 09/24/21at 10:15; Start 09/24/21 at 10:15; Stop 09/24/21 at 18:14; Status DC Tramadol HCl (Ultram) 50 mg PRN Q6HRS PRN PO MODERATE PAIN; Start 09/24/21 at 10:15 Acetaminophen (Tylenol) 650 mg QID PRN PO MILD PAIN / TEMP > 100.3'F; Start 09/24/21 at 10:15 Acetaminophen/ Hydrocodone Bitart (Lortab 5/325) 1 tab PRN QID PRN PO SEVERE PAIN Last administered on 09/29/21at 03:08; Start 09/24/21 at 10:15 Meropenem 500 mg/ Sodium Chloride 50 ml @ 100 mls/hr Q8HRS IV Last a dministered on 09/29/21at 05:16; Start 09/26/21 at 14:00 Sodium Chloride 1,000 ml @ 100 mls/hr Q10H IV Last administered on 09/29/21at 05:15; Start 09/26/21 at 13:15 Fentanyl Citrate (Fentanyl 2ml Vial) 25 mcg PRN Q5MIN PRN IVP MILD PAIN 1-3; Start 09/28/21 at 06:00; Stop 09/29/21 at 05:59; Status DC Fentanyl Citrate (Fentanyl 2ml Vial) 50 mcg PRN Q5MIN PRN IVP MODERATE PAIN 4-6 ; Start 09/28/21 at 06:00; Stop 09/29/21 at 05:59; Status DC Morphine Sulfate (Morphine Sulfate) 1 mg PRN Q10MIN PRN IVP SEVERE PAIN 7-10; Start 09/28/21 at 06:00; Stop 09/29/21 at 05:59; Status DC Ringer's Solution 1,000 ml @ 30 mls/hr Q24H IV ; Start 09/28/21 at 06:00; Stop 09/28/21 at 17:59; Status DC Hydromorphone HCl (Dilaudid) 0.5 mg PRN Q10MIN PRN IVP SEVERE PAIN 7-10, 2nd CHOICE; Start 09/28/21 at 06:00; Stop 09/29/21 at 05:59; Status DC Prochlorperazine Edisylate (Compazine) 5 mg PACU PRN PRN IVP NAUSEA, MRX1 Last administered on 09/28/21at 13:20; Start 09/28/21 at 06:00; Stop 09/29/21 at 05:59; Status DC Micafungin Sodium 100 mg/Dextrose 100 ml @ 100 mls/hr Q24H IV Last administered on 09/28/21at 14:35; Start 09/28/21 at 12:00 Insulin Glargine (Lantus Syringe) 55 unit DAILYBFRLUN SQ ; Start 09/29/21 at 11:30 Bupivacaine HCl/ Epinephrine Bitart (Sensorcain-Epi 0.5% Kit) 30 ml STK-MED ONCE INJ Last administered on 09/28/21at 11:42; Start 09/28/21 at 11:42; Stop 09/28/21 at 14:27; Status DC Bupivacaine HCl/ Epinephrine Bitart (Sensorcain-Epi 0.5% Kit) 30 ml STK-MED ONCE INJ Last administered on 09/28/21at 11:42; Start 09/28/21 at 11:42; Stop 09/28/21 at 14:27; Status DC Mineral Oil (Muri-Lube) 10 ml STK-MED ONCE MC Last administered on 09/28/21at 11:42; Start 09/28/21 at 11:42; Stop 09/28/21 at 14:27; Status DC Active Scripts Active Glipizide 5 Mg Tablet 5 Mg PO BIDBFRMEAL 30 Days Reported Levemir (Insulin Detemir) 100 Unit/1 Ml Vial 55 Unit SQ BID Simvastatin 20 Mg Tablet 1 Tab PO QHS Metformin Hcl 500 Mg Tablet Unknown Dose PO Atenolol 25 Mg Tablet Unknown Dose PO DAILY Duloxetine HCl 40 Mg Capsule.dr 60 Mg PO DAILY Vitals/I & O Vital Sign - Last 24 Hours 09/28/21 09/28/21 09/28/21 09/28/21 10:50 12:45 12:45 13:00 Temp 98.4 98.5 98.4 98.5 Pulse 90 94 90 Resp 23 14 24 B/P (MAP) 194/90 167/79 171/86 Pulse Ox 96 95 95 O2 Delivery Room Air Mask Simple Mask Simple Mask O2 Flow Rate 8 8 8 09/28/21 09/28/21 09/28/21 09/28/21 13:15 13:30 13:45 15:00 Temp 97.9 97.9 Pulse 91 88 88 94 Resp 20 12 11 18 B/P (MAP) 154/71 137/76 152/74 159/81 (107) Pulse Ox 91 96 97 99 O2 Delivery Nasal Cannula Nasal Cannula Nasal Cannula Room Air O2 Flow Rate 2 2 2 09/28/21 09/28/21 09/28/21 09/28/21 19:00 20:10 20:47 21:52 Temp 98.1 98.1 Pulse 98 Resp 18 18 B/P (MAP) 184/66 (105) Pulse Ox 94 94 94 O2 Delivery Room Air Room Air Room Air 09/28/21 09/29/21 09/29/21 09/29/21 23:06 02:50 03:08 03:38 Temp 98.1 98.1 98.1 98.1 Pulse 90 87 Resp 20 16 B/P (MAP) 155/71 (99) 144/65 (91) Pulse Ox 94 97 97 97 O2 Delivery Room Air Room Air Room Air Room Air O2 Flow Rate 2.0 2.0 09/29/21 07:00 Temp 97.8 97.8 Pulse 86 Resp 18 B/P (MAP) 151/72 (98) Pulse Ox 98 O2 Delivery Room Air Intake and Output 09/28/21 09/28/21 09/29/21 15:00 23:00 07:00 Intake Total 700 ml Output Total 20 ml 1000 ml 600 ml Balance 680 ml -1000 ml -600 ml Justifications for Admission Other Justification BUZZ BERMEO DPKurt Sep 29, 2021 08:25
[2021-09-29] MEDS: MULTIVITAMIN with MINERAL TABLET. PO SCH (08:37)
[2021-09-29] MEDS: LACTOBACILLUS RHAMNOSUS GG 1 CAPSULE. PO SCH ×2 (08:39→21:42)
[2021-09-29] MEDS: ASCORBIC ACID 500 MG TABLET PO SCH (08:43)
[2021-09-29] MEDS: DULoxetine HCL 30 MG CAPSULE.DR PO SCH (08:44)
[2021-09-29] MEDS: DOCUSATE SODIUM 100 MG CAPSULE. PO SCH (08:44)
--- NOTE | 2021-09-29 09:11 | PDOC ---
Infectious Disease Note Subjective: Subjective Patient feels much better No further episodes of loose bowel movements Denies any fevers, nausea, vomiting, headache, sore throat, symptoms, abdominal cramps Swelling of both upper extremity and lower extremities improving Vital Signs: Vital Signs Vital Signs Date Time Temp Pulse Resp B/P (MAP) Pulse Ox O2 Delivery O2 Flow Rate FiO2 09/29/21 08:43 16 09/29/21 08:39 86 151/72 09/29/21 07:00 97.8 98 Room Air 97.8 09/29/21 03:38 2.0 Physical Exam: PHYSICAL EXAM GENERAL APPEARANCE: Well-developed, well-nourished female, lying in bed comfortably, in no acute distress, nontoxic appearing. HEENT: Normocephalic, atraumatic. Normal conjunctivae. NECK: Supple, no JVD, no lymphadenopathy. LUNGS: Clear bilaterally. No wheezing. HEART: S1, S2. No gallops or murmurs. ABDOMEN: Soft, obese. Bowel sounds present, nontender, nondistended. GENITOURINARY: No Givens in place. EXTREMITIES: Right foot dressing in place along with wound VAC, not taken down. No warmth or swelling noted in the right lower extremity. Swelling of both upper extremity and lower extremity improving though slowly, no warmth NEUROLOGIC: Alert and oriented x 3, grossly nonfocal. PIV looks clean. PSYCHIATRIC: Calm and cooperative. PIV looks okay Medications: Inpatient Meds: Medications reviewed. Labs: Lab Laboratory Tests Test 09/28/21 10:46 09/28/21 11:44 09/28/21 12:47 09/28/21 16:40 Glucose (Fingerstick) 74 mg/dL (70-99) 60 mg/dL (70-99) 128 mg/dL (70-99) 168 mg/dL (70-99) Test 09/28/21 20:25 09/29/21 04:20 Glucose (Fingerstick) 218 mg/dL (70-99) Sodium Level 137 mmol/L (136-145) Potassium Level 5.2 mmol/L (3.5-5.1) Chloride Level 102 mmol/L (98-107) Carbon Dioxide Level 29 mmol/L (21-32) Anion Gap 6 (6-14) Blood Urea Nitrogen 31 mg/dL (7-20) Creatinine 1.9 mg/dL (0.6-1.0) Estimated GFR (Cockcroft-Gault) 27.4 Glucose Level 166 mg/dL (70-99) Calcium Level 8.0 mg/dL (8.5-10.1) Micro 1023 STAPHYLOCOCCUS AUREUS methicillin sensitive STREPTOCOCCUS AGALACTIAE GRP B UNIDENTIFIED ORGANISM LACTOBACILLUS JENSENII BETA STREP GROUP B RUN DATE: 09/21/21 [facility] *LIVE* PAGE 1 RUN TIME: 1028 Specimen Inquiry PATIENT: ANNABELLE AGGARWAL ACCT: [id number] LOC: [address] [place] [address] U: [id number] AGE/SX: 56/F ROOM: [facility] RE09/16/[address]: CHRISTIANA AUSTIN MD : 1965 BED: 1 DIS: STATUS: ADM IN TLOC: SPEC #: [id number] DIPIKA: 09/17/21-1199 STATUS: RES REQ #: [id number] RECD: 09/17/211208 SUBM DR: BERMEO,ZHIPENG DPM SOURCE: FOOT ENTR: 09/17/21-[address] [facility] DR: MARLINE WHITMORE DO [facility]: ADRIA HIGGINBOTHAM M.D., KEVIN Y MD ORDERED: EDWIGE/JULIA/YANY COMMENTS: Has specimen been collected/obtained? Y Procedure Result GRAM STAIN Final Final GRAM POSITIVE RODS:MANY GRAM POSITIVE COCCI:MANY SQUAMOUS EPI CELL:MODERATE PMN (WBCs):NONE SEEN Unless otherwise specified, Testing Performed by: [address] [address] For Inquires, the Physician may contact the Microbiology department at [phone] ANAEROBIC-AEROBIC CULTURE Preliminary Preliminary MODERATE GRAM POSITIVE COCCI on 09/19/21 at 0745 FINAL ID= [STAPHYLOCOCCUS AUREUS (MRSA)] FINAL ID= [BETA STREP GROUP B] FEW Mixed skin josr isolated on 09/20/21 at 0859 STAPHYLOCOCCUS AUREUS (MRSA) STREPTOCOCCUS AGALACTIAE GRP B UNIDENTIFIED ORGANISM LACTOBACILLUS JENSENII BETA STREP GROUP B ANTIMICROBIAL SUSCEPTIBILITY Preliminary Comment POS MOR TYPE 38 STAPHYLOCOCCUS AUREUS (MRSA) ANTIBIOTIC RESULT INTERPRETATION AZITHROMYCIN >4 R CLINDAMYCIN <=0.25 S CEFOXITIN SCREEN >4 POS CIPROFLOXACIN <=1 S CEFTAROLINE <=0.5 S DAPTOMYCIN <=0.5 S ERYTHROMYCIN >4 R GENTAMICIN <=4 S RUN DATE: 09/21/21 [facility] *LIVE* PAGE 2 RUN TIME: 1028 Specimen Inquiry SPEC: [id number] PATIENT: ANNABELLE AGGARWAL [id number] (Continued) Procedure Result CONTINUED ON NEXT PAGE RUN DATE: 09/21/21 [facility] LAB *LIVE* PAGE 3 RUN TIME: 1028 Specimen Inquiry SPEC: [id number] PATIENT: ANNABELLE AGGARWAL [id number] (Continued) Procedure Result ANTIMICROBIAL SUSCEPTIBILITY Preliminary (continued) INDUCIBLE CLINDAMYCIN <=4/0.5 NEG LINEZOLID 2 S LEVOFLOXACIN <=1 S OXACILLIN >2 R PENICILLIN >2 R* RIFAMPIN <=1 S TRIMETHOPRIM/SULFAMETHOXAZOLE <=0.5/9.5 S TETRACYCLINE <=4 S VANCOMYCIN 1 S Unless otherwise specified, Testing Performed by: [address] [address] For Inquires, the Physician may contact the Microbiology department at [phone] Objective: Assessment: 1. Sepsis from right foot infection. 2. Deep right foot infection, status post incision and drainage on September 18. And September 21 Cultures from September 21 remain negative 3. Group B streptococcal bacteremia, 2/4 bottles present on admission. 4. Fever resolved 5. Diabetes mellitus. 6. Electrolyte imbalance 7. Hypertensive urgency. 8. History of polysubstance abuse. 9. Leukocytosis could be reactive, also received steroids during surgery x2 10. anemia. 11. EN Cultures MRSA and MSSA including others Plan: Plan of Care 1. Continue meropenem and daptomycin -was on IV vancomycin patient has polymicrobial organisms on cultures including MRSA, MSSA, lactobacillus, group B strep Patient remains on broad-spectrum antibiotics. Limited choices to cover all polymicrobial organisms. 2. Intra-operative cultures mixed josr from 09/21/2021. Status post I&D 09/29/2021 with graft placement 3. Wound/VAC care as directed. 4. Monitor labs including weekly CPK 5 strict offload. 6.. Monitor labs and cultures. 7. Continue supportive care. For discharge PICC line placement Patient will need IV Zosyn 13.5 g continuous infusion and daptomycin daily OR meropenem 1 g IV every 8HR and daptomycin daily, may need renal dosing depending on renal functions PICC glue line operator and complications discussed Discussed with patient to avoid abuse of PICC line, use it for antibiotic infusion only Side effects of antibiotics discussed Probiotics Prescription in chart Social work to assist with discharge antibiotics Q. Sunday labs CBC/BUN/creatinine/CPK/ESR/CRP. Fax results to [phone] Follow-up ID clinic October 13 at 2:30 PM. Clinic phone is [phone] Wound/VAC care per podiatry Discussed with nursing staff HALLIE SNELL MD Sep 29, 2021 09:11
--- NOTE | 2021-09-29 09:18 | PDOC ---
DATE OF SERVICE DATE: 09/29/21 TIME: 09:18 SUBJECTIVE ROS Stable , denies N/V. No SOB . States feeling better s/p Skin graft OBJECTIVE Vital Signs Vital Signs Date Time Temp Pulse Resp B/P (MAP) Pulse Ox O2 Delivery O2 Flow Rate FiO2 09/29/21 08:43 16 09/29/21 08:39 86 151/72 09/29/21 07:00 97.8 98 Room Air 97.8 09/29/21 03:38 2.0 I & 0 Intake and Output 09/29/21 07:00 Intake Total 700 ml Output Total 1620 ml Balance -920 ml IV Total 700 ml Output Urine Total 1600 ml Estimated Blood Loss 20 ml # Voids 1 # Bowel Movements 2 PHYSICAL EXAM Physical Exam GENERAL: NAD HEENT: Normocephalic, atraumatic. NECK: Supple, LUNGS: Clear bilaterally. No wheezing. HEART: S1, S2. No gallops or murmurs. ABDOMEN: Soft, obese. Bowel sounds present, nontender, nondistended. GENITOURINARY: No Givens in place. EXTREMITIES: Right foot dressing in place along with wound NEUROLOGIC: Alert and oriented x 3, grossly nonfocal. PSYCHIATRIC: Calm and cooperative. No Givens DIAGNOSIS/ASSESSMENT Assessment & Plan EN - ATN vs AIN (was on Vanc) ,Baseline Creat normal. Creatinine stable ? plateau ; Renal US ordered. supportive care, Monitor, strict I/O , avoid nephrotoxins HyperKalemia Mild, Monitor, Kayexalate prn Sepsis from right foot infection. Deep right foot infection, status post incision and drainage on September 18. Skin graft placement on 09/28/21 Diabetes mellitus. Hypertensive urgency POA - antihypertensives , primary managing History of polysubstance abuse. Anemia. COMMENT/RELEVANT DATA Meds Current Medications Medications (Trade) Dose Ordered Sig/Ray Start Time Stop Time Status Last Admin Dose Admin Acetaminophen (Tylenol) 650 mg QID PRN 09/24/21 10:15 Acetaminophen/ Hydrocodone Bitart (Lortab 10/325) 1 tab PRN Q6HRS PRN 09/22/21 11:45 09/24/21 10:14 DC 09/24/21 08:11 1 TAB Acetaminophen/ Hydrocodone Bitart (Lortab 5/325) 1 tab PRN QID PRN 09/24/21 10:15 09/29/21 08:43 1 TAB Acetaminophen/ Hydrocodone Bitart (Lortab 7.5/325) 1 tab PRN Q6HRS PRN 09/19/21 15:00 09/21/21 09:58 DC 09/20/21 23:48 1 TAB Amlodipine Besylate (Norvasc) 10 mg 1X ONCE 09/23/21 14:45 09/23/21 14:46 DC 09/23/21 14:45 10 MG Ascorbic Acid (Vitamin C) 500 mg DAILY 09/17/21 20:00 09/29/21 08:43 500 MG Bupivacaine HCl/ Epinephrine Bitart (Sensorcain-Epi 0.5% Kit) 30 ml STK-MED ONCE 09/28/21 11:42 09/28/21 14:27 DC 09/28/21 11:42 30 ML Cefazolin Sodium 1 gm/Sodium Chloride 1,000 ml @ 1,000 mls/hr 1X ONCE 09/18/21 08:30 09/18/21 09:29 DC Daptomycin 420 mg/ Sodium Chloride 50 ml @ 100 mls/hr Q24H 09/23/21 10:00 09/28/21 11:18 100 MLS/HR Dexamethasone Sodium Phosphate (Decadron) 4 mg STK-MED ONCE 09/21/21 08:11 09/21/21 08:11 DC Dextrose (Dextrose 50%-Water Syringe) 12.5 gm PRN Q15MIN PRN 09/18/21 09:45 09/19/21 10:20 DC Docusate Sodium (Colace) 100 mg DAILY 09/23/21 10:00 09/25/21 09:42 100 MG Duloxetine HCl (Cymbalta) 60 mg DAILY 09/16/21 14:00 09/24/21 09:23 60 MG Enoxaparin Sodium (Lovenox 40mg Syringe) 40 mg Q24H 09/17/21 16:00 09/27/21 15:03 40 MG Ephedrine Sulfate (ePHEDrine PF IN SALINE SYRINGE) 50 mg STK-MED ONCE 09/21/21 09:11 09/21/21 09:11 DC Fentanyl Citrate (Fentanyl 2ml Vial) 50 mcg PRN Q5MIN PRN 09/28/21 06:00 09/29/21 05:59 DC Glycopyrrolate (Robinul) 1 mg STK-MED ONCE 09/21/21 09:11 09/21/21 09:11 DC Hydralazine HCl (Apresoline Inj) 10 mg PRN Q4HRS PRN 09/21/21 15:00 09/26/21 17:16 10 MG Hydromorphone HCl (Dilaudid) 0.5 mg PRN Q10MIN PRN 09/28/21 06:00 09/29/21 05:59 DC Insulin Glargine (Lantus Syringe) 55 unit DAILYBFRLUN 09/29/21 11:30 Insulin Human Lispro (HumaLOG) 10 units 1X ONCE 09/17/21 08:30 09/17/21 08:31 DC 09/17/21 08:53 10 UNITS Insulin Human Regular (HumuLIN R VIAL) 10 unit 1X ONCE 09/16/21 03:30 09/16/21 03:31 Cancel Lactobacillus Rhamnosus (Culturelle) 1 cap BID 09/16/21 21:00 09/29/21 08:39 1 CAP Lidocaine HCl (Lidocaine 1% 20ml Vial) 20 ml STK-MED ONCE 09/16/21 01:17 09/16/21 01:17 DC Lidocaine HCl (Lidocaine Pf 2% Vial) 5 ml STK-MED ONCE 09/21/21 08:11 09/21/21 08:12 DC Lidocaine HCl (Xylocaine-Mpf 1% 2ml Vial) 2 ml STK-MED ONCE 09/21/21 08:27 09/21/21 08:27 DC Meropenem 500 mg/ Sodium Chloride 50 ml @ 100 mls/hr Q8HRS 09/26/21 14:00 09/29/21 05:16 100 MLS/HR Micafungin Sodium 100 mg/Dextrose 100 ml @ 100 mls/hr Q24H 09/28/21 12:00 09/28/21 14:35 100 MLS/HR Midazolam HCl (Versed) 2 mg STK-MED ONCE 09/21/21 08:12 09/21/21 08:13 DC Mineral Oil (Muri-Lube) 10 ml STK-MED ONCE 09/28/21 11:42 09/28/21 14:27 DC 09/28/21 11:42 4 ML Morphine Sulfate (Morphine Sulfate) 1 mg PRN Q10MIN PRN 09/28/21 06:00 09/29/21 05:59 DC Multivitamins (Thera M Plus) 1 tab DAILY 09/17/21 20:00 09/29/21 08:37 1 TAB Ondansetron HCl (Zofran) 4 mg PRN Q6HRS PRN 09/23/21 09:45 09/23/21 10:37 4 MG Oxycodone/ Acetaminophen (Percocet 5/325) 1 tab 1X ONCE 09/21/21 10:30 09/21/21 09:58 DC Phenylephrine HCl (PHENYLEPHRINE in 0.9% NACL PF) 1 mg STK-MED ONCE 09/21/21 08:11 09/21/21 08:11 DC Piperacillin Sod/ Tazobactam Sod (Zosyn Per Pharmacy) 1 each PRN DAILY PRN 09/16/21 00:45 09/22/21 09:42 DC Piperacillin Sod/ Tazobactam Sod 3.375 gm/Sodium Chloride 50 ml @ 100 mls/hr Q6HRS 09/16/21 01:00 09/22/21 08:12 DC 09/22/21 06:04 100 MLS/HR Prochlorperazine Edisylate (Compazine) 5 mg PACU PRN PRN 09/28/21 06:00 09/29/21 05:59 DC 09/28/21 13:20 5 MG Propofol (Diprivan) 200 mg STK-MED ONCE 09/21/21 08:11 09/21/21 08:12 DC Ringer's Solution 1,000 ml @ 30 mls/hr Q24H 09/28/21 06:00 09/28/21 17:59 DC Sevoflurane (Ultane) 30 ml STK-MED ONCE 09/21/21 09:37 09/21/21 09:38 DC Simvastatin (Zocor) 20 mg QHS 09/16/21 21:00 09/28/21 20:32 20 MG Sodium Chloride 1,000 ml @ 100 mls/hr Q10H 09/26/21 13:15 09/29/21 05:15 100 MLS/HR Tobramycin Sulfate (Tobramycin Powder) 1.2 gm STK-MED ONCE 09/18/21 08:34 09/18/21 08:35 DC Tramadol HCl (Ultram) 50 mg PRN Q6HRS PRN 09/24/21 10:15 Vancomycin HCl (Vanco Per Pharmacy) 1 each PRN DAILY PRN 09/16/21 00:45 09/22/21 08:12 DC 09/21/21 13:29 1 EACH Vancomycin HCl (Vancomycin Trough Level) 1 each 1X ONCE 09/22/21 14:30 09/22/21 08:15 DC Vancomycin HCl (Vancomycin) 1 gm STK-MED ONCE 09/18/21 08:34 09/18/21 08:34 DC Vancomycin HCl 1.25 gm/Sodium Chloride 250 ml @ 167 mls/hr Q12H 09/16/21 15:00 09/22/21 08:12 DC 09/22/21 02:34 167 MLS/HR Vancomycin HCl 2 gm/Sodium Chloride 500 ml @ 250 mls/hr 1X ONCE 09/16/21 01:30 09/16/21 03:29 DC 09/16/21 03:12 250 MLS/HR Lab Laboratory Tests Test 09/28/21 10:46 09/28/21 11:44 09/28/21 12:47 09/28/21 16:40 Glucose (Fingerstick) 74 mg/dL (70-99) 60 mg/dL (70-99) 128 mg/dL (70-99) 168 mg/dL (70-99) Test 09/28/21 20:25 09/29/21 04:20 Glucose (Fingerstick) 218 mg/dL (70-99) Sodium Level 137 mmol/L (136-145) Potassium Level 5.2 mmol/L (3.5-5.1) Chloride Level 102 mmol/L (98-107) Carbon Dioxide Level 29 mmol/L (21-32) Anion Gap 6 (6-14) Blood Urea Nitrogen 31 mg/dL (7-20) Creatinine 1.9 mg/dL (0.6-1.0) Estimated GFR (Cockcroft-Gault) 27.4 Glucose Level 166 mg/dL (70-99) Calcium Level 8.0 mg/dL (8.5-10.1) Results All relevant outside records, renal labs, imaging studies, telemetry/EKG's were reviewed. Justicifation of Admission Dx: Justifications for Admission: Justification of Admission Dx: N/A [place] B[place] MD Sep 29, 2021 09:18
[2021-09-29] MEDS: DAPTOmycin (GENERIC) IVPB 420 MG in IV NORMAL SALINE 50ML 50 ML IV SCH (10:13)
[2021-09-29 11:00] VITALS: BP 176/77
[2021-09-29] MEDS: INSULIN GLARGINE SYRINGE. SQ SCH (11:52)
--- NOTE | 2021-09-29 12:46 | PDOC ---
[employer] PROGRESS NOTE Date of Service DOS: DATE: 09/29/21 TIME: 12:45 Chief Complaint Chief Complaint Sepsis Streptococcal bacteremia 2 out of 4 bottles Right diabetic foot infected ulcer Hypertensive urgency Hyperglycemia uncontrolled Acute electrolyte derangementhyponatremia, hypochloremia suggestive of acute volume depletion History of diabetes mellitus type 2 History of polysubstance abuse Podiatry following Continue IV antibiotics per infectious disease Wound care consult IV antihypertensive medications Inpatient systolic blood pressure goals between 140 to 180 R ISS and Accu-Cheks, resume home long-acting insulin IV electrolyte replacement as needed PAT evaluation Lovenox for DVT prophylaxis ADA diet CODE STATUS full Discussed with RN and SW Disposition inpatient management as above DPOA: Nicole Metzger History of Present Illness History of Present Illness 56-year-old female with past medical history of methamphetamine abuse, diabetes mellitus 2, depression anxiety, hypertension, dyslipidemia, chronic back pain w ho presents with right foot pain and lesion to the bottom. She reports that for the past several weeks wound has been worsening and she even tried to andrea it at home but returned and got dark. She also has a chronic ulcer over the right great toe does not regularly well. There is some probably noncompliance with diabetes. Patient states that fast acting insulin causes her to be nauseous and vomit. She was recently admitted for the wound on her right foot in June 2021. Pain worsens upon ambulation. She admits to some fever and chills. Denies nausea, vomiting, chest pain, shortness of breath, abdominal pain, urinary symptoms, cough, recent trauma, or any other complaints. 09/17/21 No acute events overnight. Patient seen and examined bedside. Resting comfortably. Pain is well controlled. Seen by wound care Dr. Love's and recommending podiatry consult for surgical debridement of necrotic tissue. Patient's chart, labs, images were reviewed and discussed with RN 09/18/21 No acute events overnight. Patient taken to the OR today for surgical debridement with Dr. Morris. No concerns with nursing. Sugars are better controlled, ranging between 106-136. Patient's chart, labs, images were reviewed and discussed with RN 09/19: Afebrile. S/P right foot I&D with placement of wound VAC. Blood cultures positive for strep agalactiae (group B strep) that is resistant to erythromycin but largely pansensitive. Wound cultures with staph aureus and group B strep. Continue current antibiotic regimen for now, follow wound cultures for final cultures and sensitivities. Patient tells me that she is having repeat surgery on Sunday. Discussed p.o. pain medication is more appropriate at this time but will leave IV morphine on for when she becomes n.p.o. for any further surgical intervention. 09/20: Afebrile. WBC improving. She will need to be NPO after midnight for repeat I&D, wound VAC application, and possible Achilles lengthening. Discussed with RN. 09/21: Patient seen postoperatively this morning. Right foot is wrapped in bed and bandaged with wound VAC in place. Follow intraoperative cultures. Patient has some questions about repeat surgical grafts; will defer to Dr. Morris. Continue IV antibiotics, per ID. 09/22: Patient seen POD #1, s/p right foot repeat I&D, with wound VAC and posterior splint application. Plan for wound VAC change tomorrow at bedside, per Dr. Morris. Will continue to follow intraoperative cultures. Encourage working with PT today. Asking for increase and dose of pain medication. 09/23: POD #2 s/p right foot repeat I&D, with wound VAC and posterior splint application. Worsening leukocytosis noted this morning. Wound cultures came back positive for MRSA. Daptomycin initiated, per ID. Also some significant hypertension today. Started on Norvasc. If blood pressure improves with pain improvement, Norvasc can likely be stopped. Poor appetite this morning that she contributes to antibiotic regimen. Recommended liquid diet and antiemetics as needed. Continue IV antibiotics, per ID. 09/24: WBC 17.0. Right diabetic foot wound growing MRSA. Continue treatment with daptomycin and meropenem, per ID. Repeat blood cultures with no growth to date. Some worsening renal function this morning. Will provide IV fluids; if no improvement will consult nephrology. She reports she has not had a bowel movement 2 days, requesting for some prune juice. She is now amenable to rehab; given wound VAC requirements, likely [facility]. 09/25: WBC 15.3. Will place consult with nephrology due to EN. Dr. Morris will plan for skin graft application for wound closure next week. Wound VAC in place; once stable will look to [facility] for rehab. Continue daptomycin and meropenem, per ID. 09/26 Patient evaluated examined at bedside. White cell trending down. Patient complaining of some tiredness this morning did not get much sleep last night. Appears planning for skin graft on Sunday. Continue wound care. Plan of care discussed with bedside RN. 09/27 Patient evaluated and examined at bedside. No major complaints says pain is controlled tolerating antibiotics well. Plan for surgery tomorrow for skin grafting and wound closure. N.p.o. midnight. Plan of care discussed with bedside RN. 09/28 Patient evaluated and examined at bedside prior to surgery. She was in bed somewhat anxious about surgery but this pain well controlled. Surgeryat some point today. Continue antibiotics. Will evaluate again after surgery. Plan of care discussed with bedside RN. 09/29 Patient evaluated examined at bedside. Underwent surgery yesterday tolerated well. Says this morning feeling much better pain well controlled. Continue antibiotics. PT OT ordered. Looking for placement for patient. Plan of care discussed with bedside nurse.. Vitals/I&O Vitals/I&O: Vital Signs Date Time Temp Pulse Resp B/P (MAP) Pulse Ox O2 Delivery O2 Flow Rate FiO2 09/29/21 11:00 98.3 92 16 176/77 (110) 97 Room Air 98.3 09/29/21 03:38 2.0 I & O 09/28/21 09/28/21 09/29/21 15:00 23:00 07:00 Intake Total 700 ml Output Total 20 ml 1000 ml 600 ml Balance 680 ml -1000 ml -600 ml Physical Exam Physical Exam: GENERAL APPEARANCE: Well-developed, well-nourished female, lying in bed comfortably, in no acute distress, nontoxic appearing. HEENT: Normocephalic, atraumatic. Normal conjunctivae. NECK: Supple, no JVD, no lymphadenopathy. LUNGS: Clear bilaterally. No wheezing. HEART: S1, S2. No gallops or murmurs. ABDOMEN: Soft, obese. Bowel sounds present, nontender, nondistended. GENITOURINARY: No Givens in place. EXTREMITIES: Right foot dressing in place along with wound VAC, not taken down. No warmth or swelling noted in the right lower extremity. Swelling of both upper extremity and lower extremity improving though slowly, no warmth NEUROLOGIC: Alert and oriented x 3, grossly nonfocal. PIV looks clean. PSYCHIATRIC: Calm and cooperative. PIV looks okay General: Alert, Oriented X3, Cooperative, No acute distress Heart: Regular rate Lungs: Clear Abdomen: Normal bowel sounds, Soft, No tenderness Extremities: Other (RLE EDEMA, WOUND BANDAGED) Skin: No breakdown Labs Labs: Laboratory Tests Test 09/28/21 12:47 09/28/21 16:40 09/28/21 20:25 09/29/21 04:20 Glucose (Fingerstick) 128 mg/dL (70-99) 168 mg/dL (70-99) 218 mg/dL (70-99) Sodium Level 137 mmol/L (136-145) Potassium Level 5.2 mmol/L (3.5-5.1) Chloride Level 102 mmol/L (98-107) Carbon Dioxide Level 29 mmol/L (21-32) Anion Gap 6 (6-14) Blood Urea Nitrogen 31 mg/dL (7-20) Creatinine 1.9 mg/dL (0.6-1.0) Estimated GFR (Cockcroft-Gault) 27.4 Glucose Level 166 mg/dL (70-99) Calcium Level 8.0 mg/dL (8.5-10.1) Test 09/29/21 07:45 09/29/21 11:39 Glucose (Fingerstick) 113 mg/dL (70-99) 191 mg/dL (70-99) Assessment and Plan Assessmemt and Plan Problems Medical Problems: (1) Diabetic foot ulcer Status: Acute (2) Right foot infection Status: Acute Comment Review of Relevant I have reviewed the following items jose (where applicable) has been applied. Medications: Current Medications Medications (Trade) Dose Ordered Sig/Ray Route PRN Reason Start Time Stop Time Status Last Admin Dose Admin Insulin Glargine (Lantus Syringe) 55 unit DAILYBFRLUN SQ 09/29/21 11:30 09/29/21 11:52 Justifications for Admission Other Justification DRAGAN CARDENAS MD Sep 29, 2021 12:46
[2021-09-29] MEDS: MICAFUNGIN 100 MG in IV DEXTROSE 5% 100ML 100 ML IV SCH (13:00)
[2021-09-29] MEDS ORDERED: LIDOCAINE WITH 8.4% SOD BICARB 3 ML DISP.SYRIN. INJ ONE (13:45)
[2021-09-29] MEDS ORDERED: ALBUTEROL SULFATE 2.5 MG/3 ML NEBU. NEB PRN (14:30)
--- NOTE | 2021-09-29 14:48 | RAD ---
EXAM: RENAL ULTRASOUND CLINICAL HISTORY: Acute kidney injury COMPARISON: None available. TECHNIQUE: Ultrasound examination of the bilateral kidneys and urinary bladder was performed. FINDINGS: The right kidney measures 15.1 x 5.1 x 6.4 cm and has normal cortical thickness and echogenicity. No hydronephrosis. The left kidney is not well visualized due to bowel gas but measures approximately 11.7 x 5.9 x 6.2 c m. Grossly normal cortical thickness and echogenicity of the left kidney. No hydronephrosis. The bladder is normal appearance with bilateral ureteral jets. Bladder prevoid volume is 352 cc. IMPRESSION: 1. No hydronephrosis. 2. The right kidney is mildly enlarged relative to the left, of uncertain significance. 3. Mild limited evaluation of the left kidney due to shadowing from bowel gas. Electronically signed by: Patricia Francois MD (09/29/2021 2:46 PM) [id number]
[2021-09-29 15:00] VITALS: BP 172/86
--- NOTE | 2021-09-29 15:13 | RAD ---
Procedure: Upper extremity PICC line placement Clinical Indication: Adult female requiring central venous access Sedation: Local anesthesia only was provided Antibiotics: None Exposure: Kerma-Area Product: 1 mGycm2 Contrast: None Sterility: All elements of maximal sterile barrier technique including the use of a cap, mask, steril e gown, sterile gloves, large sterile sheet, appropriate hand hygiene, and 2% chlorhexidine for cutan eous antisepsis (or acceptable alternative antiseptic per current guidelines) were followed for this procedure. Consent: The procedure was explained in its entirety to the patient or the patients designated repres entative by a member of the treatment team, including a discussion of the risks, benefits and commonl y accepted alternatives to the procedure, as well as the expected consequences of no therapy whatsoev er. Discussion of the risks included, but was not limited to, those that are most frequent and thos e that are rare but possibly severe or life-threatening, as well as the possibility of unforeseen com plications. Technique and Findings: Following informed consent, the patient was prepped and draped in the usual s terile fashion. Ultrasound interrogation of the right arm revealed patency and compressibility of th e right basilic vein. A hard copy ultrasound image was recorded. 1% Lidocaine was used to achieve l ocal anesthesia and a 21-gauge micropuncture needle was used to gain access to the targeted vein. Th e needle was exchanged over wire for a 5 [place] peel-away sheath which was used to deploy a PICC line under fluoroscopic guidance such that the distal tip resided at the cavoatrial junction. The cathet er flushed and aspirated with ease and was sutured to the skin. Complications: No immediate Impression: 1. Ultrasound guided PICC line placement as described. Electronically signed by: Cr Grajeda MD (09/29/2021 3:11 PM) [id number]
[2021-09-29] MEDS ORDERED: diphenhydrAMINE 50 MG/ML VIAL IVP ONE (15:15)
[2021-09-29] MEDS: ENOXAPARIN 40 MG/0.4 ML SYRINGE. SQ SCH (16:00)
[2021-09-29 19:00] VITALS: BP 158/84
[2021-09-29] MEDS: SIMVASTATIN 20 MG TABLET PO SCH (21:42)
[2021-09-29 23:00] VITALS: BP 156/76
[2021-09-30 03:00] VITALS: BP 158/75
[2021-09-30] MEDS: HYDROcodone/APAP 5/325MG 1 TAB TABLET PO PRN (03:00)
[2021-09-30] MEDS: MEROPENEM 500 MG in IV NORMAL SALINE 50ML 50 ML IV SCH ×2 (06:25→14:31)
[2021-09-30 06:52] LABS: CALCIUM 8.2 mg/dL (8.5-10.1); CREATININE 1.8 mg/dL (0.6-1.0); GFR 29.2; POTASSIUM 5.2 mmol/L (3.5-5.1)
[2021-09-30 07:00] VITALS: BP 163/79
[2021-09-30] MEDS: ASCORBIC ACID 500 MG TABLET PO SCH (08:50)
[2021-09-30] MEDS: DOCUSATE SODIUM 100 MG CAPSULE. PO SCH (08:50)
[2021-09-30] MEDS: MULTIVITAMIN with MINERAL TABLET. PO SCH (08:50)
[2021-09-30] MEDS: LACTOBACILLUS RHAMNOSUS GG 1 CAPSULE. PO SCH (08:50)
--- NOTE | 2021-09-30 09:24 | PDOC ---
Infectious Disease Note Subjective: Subjective Patient feels much better No further episodes of loose bowel movements Denies any fevers, nausea, vomiting, headache, sore throat, symptoms, abdominal cramps Swelling of both upper extremity and lower extremities improving Vital Signs: Vital Signs Vital Signs Date Time Temp Pulse Resp B/P (MAP) Pulse Ox O2 Delivery O2 Flow Rate FiO2 09/30/21 08:51 96 163/79 09/30/21 07:00 98.4 18 98 Room Air 98.4 09/29/21 19:00 2.0 Physical Exam: PHYSICAL EXAM GENERAL APPEARANCE: Well-developed, well-nourished female, lying in bed comfortably, in no acute distress, nontoxic appearing. HEENT: Normocephalic, atraumatic. Normal conjunctivae. NECK: Supple, no JVD, no lymphadenopathy. LUNGS: Clear bilaterally. No wheezing. HEART: S1, S2. No gallops or murmurs. ABDOMEN: Soft, obese. Bowel sounds present, nontender, nondistended. GENITOURINARY: No Givens in place. EXTREMITIES: Right foot dressing in place along with wound VAC, not taken down. No warmth or swelling noted in the right lower extremity. Swelling of both upper extremity and lower extremity improving though slowly, no warmth NEUROLOGIC: Alert and oriented x 3, grossly nonfocal. PIV looks clean. PSYCHIATRIC: Calm and cooperative. PIV looks okay Medications: Inpatient Meds: Medications reviewed. Labs: Lab Laboratory Tests Test 09/29/21 11:39 09/29/21 17:26 09/29/21 20:25 09/30/21 06:20 Glucose (Fingerstick) 191 mg/dL (70-99) 209 mg/dL (70-99) 238 mg/dL (70-99) Sodium Level 136 mmol/L (136-145) Potassium Level 5.2 mmol/L (3.5-5.1) Chloride Level 101 mmol/L (98-107) Carbon Dioxide Level 30 mmol/L (21-32) Anion Gap 5 (6-14) Blood Urea Nitrogen 31 mg/dL (7-20) Creatinine 1.8 mg/dL (0.6-1.0) Estimated GFR (Cockcroft-Gault) 29.2 Glucose Level 127 mg/dL (70-99) Calcium Level 8.2 mg/dL (8.5-10.1) Micro 1023 STAPHYLOCOCCUS AUREUS methicillin sensitive STREPTOCOCCUS AGALACTIAE GRP B UNIDENTIFIED ORGANISM LACTOBACILLUS JENSENII BETA STREP GROUP B RUN DATE: 09/21/21 [facility] *LIVE* PAGE 1 RUN TIME: 1028 Specimen Inquiry PATIENT: ANNABELLE AGGARWAL ACCT: [id number] LOC: [address] [place] [address] U: [id number] AGE/SX: 56/F ROOM: 414 RE09/16/[address]: CHRISTIANA AUSTIN MD : 1965 BED: 1 DIS: STATUS: ADM IN TLOC: SPEC #: [id number] DIPIKA: 09/17/21 STATUS: RES REQ #: [id number] RECD: 09/17/[address]: BUZZ BERMEO DPM SOURCE: FOOT ENTR: 09/17/[address]: MARLINE WHITMORE DO SPDESC: ADRIA HIGGINBOTHAM M.D., KEVIN Y MD ORDERED: ANAER/AEROB/YANY COMMENTS: Has specimen been collected/obtained? Y Procedure Result GRAM STAIN Final Final GRAM POSITIVE RODS:MANY GRAM POSITIVE COCCI:MANY SQUAMOUS EPI CELL:MODERATE PMN (WBCs):NONE SEEN Unless otherwise specified, Testing Performed by: [address] [address] For Inquires, the Physician may contact the Microbiology department at [phone] ANAEROBIC-AEROBIC CULTURE Preliminary Preliminary MODERATE GRAM POSITIVE COCCI on 09/19/21 at 0745 FINAL ID= [STAPHYLOCOCCUS AUREUS (MRSA)] FINAL ID= [BETA STREP GROUP B] FEW Mixed skin josr isolated on 09/20/21 at 0859 STAPHYLOCOCCUS AUREUS (MRSA) STREPTOCOCCUS AGALACTIAE GRP B UNIDENTIFIED ORGANISM LACTOBACILLUS JENSENII BETA STREP GROUP B ANTIMICROBIAL SUSCEPTIBILITY Preliminary Comment POS MOR TYPE 38 STAPHYLOCOCCUS AUREUS (MRSA) ANTIBIOTIC RESULT INTERPRETATION AZITHROMYCIN >4 R CLINDAMYCIN <=0.25 S CEFOXITIN SCREEN >4 POS CIPROFLOXACIN <=1 S CEFTAROLINE <=0.5 S DAPTOMYCIN <=0.5 S ERYTHROMYCIN >4 R GENTAMICIN <=4 S RUN DATE: 09/21/21 [facility] *LIVE* PAGE 2 RUN TIME: 1028 Specimen Inquiry SPEC: [id number] PATIENT: ANNABELLE AGGARWAL [id number] (Continued) Procedure Result CONTINUED ON NEXT PAGE RUN DATE: 09/21/21 [facility] *LIVE* PAGE 3 RUN TIME: 1028 Specimen Inquiry SPEC: [id number] PATIENT: ANNABELLE AGGARWAL [id number] (Continued) Procedure Result ANTIMICROBIAL SUSCEPTIBILITY Preliminary (continued) INDUCIBLE CLINDAMYCIN <=4/0.5 NEG LINEZOLID 2 S LEVOFLOXACIN <=1 S OXACILLIN >2 R PENICILLIN >2 R* RIFAMPIN <=1 S TRIMETHOPRIM/SULFAMETHOXAZOLE <=0.5/9.5 S TETRACYCLINE <=4 S VANCOMYCIN 1 S Unless otherwise specified, Testing Performed by: [address] [address] For Inquires, the Physician may contact the Microbiology department at [phone] Objective: Assessment: 1. Sepsis from right foot infection. 2. Deep right foot infection, status post incision and drainage on September 18. And September 21 Cultures from September 21 remain negative 3. Group B streptococcal bacteremia, 2/4 bottles present on admission. 4. Fever resolved 5. Diabetes mellitus. 6. Electrolyte imbalance 7. Hypertensive urgency. 8. History of polysubstance abuse. 9. Leukocytosis could be reactive, also received steroids during surgery x2 10. anemia. 11. EN Cultures MRSA and MSSA including others Plan: Plan of Care 1. Continue meropenem and daptomycin -was on IV vancomycin patient has polymicrobial organisms on cultures including MRSA, MSSA, lactobacillus, group B strep Patient remains on broad-spectrum antibiotics. Limited choices to cover all polymicrobial organisms. 2. Intra-operative cultures mixed josr from 09/21/2021. Status post I&D 09/29/2021 with graft placement 3. Wound/VAC care as directed. 4. Monitor labs including weekly CPK 5 strict offload. 6.. Monitor labs and cultures. 7. Continue supportive care. For discharge PICC line placement Patient will need IV Zosyn 13.5 g continuous infusion and daptomycin daily OR meropenem 1 g IV every 8HR and daptomycin daily, may need renal dosing depending on renal functions PICC assembly line supervisor and complications discussed Discussed with patient to avoid abuse of PICC line, use it for antibiotic infusion only Side effects of antibiotics discussed Probiotics Prescription in chart Social work to assist with discharge antibiotics Q. Sunday labs CBC/BUN/creatinine/CPK/ESR/CRP. Fax results to [phone] Follow-up ID clinic October 13 at 2:30 PM. Clinic phone is [phone] Wound/VAC care per podiatry Discussed with nursing staff HALLIE SNELL MD Sep 30, 2021 09:24
--- NOTE | 2021-09-30 09:58 | PDOC ---
DATE OF SERVICE DATE: 09/30/21 TIME: 09:58 SUBJECTIVE ROS States feeling tired denies N/V. No SOB OBJECTIVE Vital Signs Vital Signs Date Time Temp Pulse Resp B/P (MAP) Pulse Ox O2 Delivery O2 Flow Rate FiO2 09/30/21 08:51 96 163/79 09/30/21 07:00 98.4 18 98 Room Air 98.4 09/29/21 19:00 2.0 I & 0 Intake and Output 09/30/21 07:00 Intake Total 300 ml Balance 300 ml Intake Oral 100 ml IV Total 200 ml # Voids 5 # Bowel Movements 1 PHYSICAL EXAM Physical Exam GENERAL: NAD HEENT: Normocephalic, atraumatic. NECK: Supple, LUNGS: Clear bilaterally. No wheezing. HEART: S1, S2. No gallops or murmurs. ABDOMEN: Soft, obese. Bowel sounds present, nontender, nondistended. GENITOURINARY: No Givens in place. EXTREMITIES: Right foot dressing in place along with wound NEUROLOGIC: Alert and oriented x 3, grossly nonfocal. PSYCHIATRIC: Calm and cooperative. No Givens DIAGNOSIS/ASSESSMENT Assessment & Plan EN - ATN vs AIN (was on Vanc) ,Baseline Creat normal. Creatinine stable Renal US unremarkable, UA No ovvert proteinuria or Micr hematuria supportive care, Monitor, strict I/O , avoid nephrotoxins Bladder Pre Void reported 352 cc of Urine- No Post Void done . Check Bladder scan for PVR HyperKalemia Mild, Monitor, Kayexalate prn Sepsis from right foot infection. Deep right foot infection, status post incision and drainage on September 18. Skin graft placement on 09/28/21 Diabetes mellitus. Hypertensive urgency POA - antihypertensives , primary managing History of polysubstance abuse. Anemia. Renal US 09/29/2021 The right kidney measures 15.1 x 5.1 x 6.4 cm and has normal cortical thickness and echogenicity. No hydronephrosis. The left kidney is not well visualized due to bowel gas but measures approximately 11.7 x 5.9 x 6.2 cm. Grossly normal cortical thickness and echogenicity of the left kidney. No hydronephrosis. The bladder is normal appearance with bilateral ureteral jets. Bladder prevoid volume is 352 cc. IMPRESSION: 1. No hydronephrosis. 2. The right kidney is mildly enlarged relative to the left, of uncertain significance. 3. Mild limited evaluation of the left kidney due to shadowing from bowel gas. COMMENT/RELEVANT DATA Meds Current Medications Medications (Trade) Dose Ordered Sig/Ray Start Time Stop Time Status Last Admin Dose Admin Acetaminophen (Tylenol) 650 mg QID PRN 09/24/21 10:15 Acetaminophen/ Hydrocodone Bitart (Lortab 10/325) 1 tab PRN Q6HRS PRN 09/22/21 11:45 09/24/21 10:14 DC 09/24/21 08:11 1 TAB Acetaminophen/ Hydrocodone Bitart (Lortab 5/325) 1 tab PRN QID PRN 09/24/21 10:15 09/30/21 03:00 1 TAB Acetaminophen/ Hydrocodone Bitart (Lortab 7.5/325) 1 tab PRN Q6HRS PRN 09/19/21 15:00 09/21/21 09:58 DC 09/20/21 23:48 1 TAB Albuterol Sulfate (Ventolin Neb Soln) 2.5 mg PRN QID PRN 09/29/21 14:30 09/29/21 14:48 2.5 MG Amlodipine Besylate (Norvasc) 10 mg 1X ONCE 09/23/21 14:45 09/23/21 14:46 DC 09/23/21 14:45 10 MG Ascorbic Acid (Vitamin C) 500 mg DAILY 09/17/21 20:00 09/30/21 08:50 500 MG Bupivacaine HCl/ Epinephrine Bitart (Sensorcain-Epi 0.5% Kit) 30 ml STK-MED ONCE 09/28/21 11:42 09/28/21 14:27 DC 09/28/21 11:42 30 ML Cefazolin Sodium 1 gm/Sodium Chloride 1,000 ml @ 1,000 mls/hr 1X ONCE 09/18/21 08:30 09/18/21 09:29 DC Daptomycin 420 mg/ Sodium Chloride 50 ml @ 100 mls/hr Q24H 09/23/21 10:00 09/29/21 10:13 100 MLS/HR Dexamethasone Sodium Phosphate (Decadron) 4 mg STK-MED ONCE 09/21/21 08:11 09/21/21 08:11 DC Dextrose (Dextrose 50%-Water Syringe) 12.5 gm PRN Q15MIN PRN 09/18/21 09:45 09/19/21 10:20 DC Diphenhydramine HCl (Benadryl) 50 mg 1X ONCE 09/29/21 15:15 09/29/21 15:16 DC 09/29/21 15:12 50 MG Docusate Sodium (Colace) 100 mg DAILY 09/23/21 10:00 09/30/21 08:50 100 MG Duloxetine HCl (Cymbalta) 60 mg DAILY 09/16/21 14:00 09/29/21 17:24 DC 09/24/21 09:23 60 MG Enoxaparin Sodium (Lovenox 40mg Syringe) 40 mg Q24H 09/17/21 16:00 09/29/21 16:00 40 MG Ephedrine Sulfate (ePHEDrine PF IN SALINE SYRINGE) 50 mg STK-MED ONCE 09/21/21 09:11 09/21/21 09:11 DC Fentanyl Citrate (Fentanyl 2ml Vial) 50 mcg PRN Q5MIN PRN 09/28/21 06:00 09/29/21 05:59 DC Glycopyrrolate (Robinul) 1 mg STK-MED ONCE 09/21/21 09:11 09/21/21 09:11 DC Hydralazine HCl (Apresoline Inj) 10 mg PRN Q4HRS PRN 09/21/21 15:00 09/26/21 17:16 10 MG Hydromorphone HCl (Dilaudid) 0.5 mg PRN Q10MIN PRN 09/28/21 06:00 09/29/21 05:59 DC Insulin Glargine (Lantus Syringe) 55 unit DAILYBFRLUN 09/29/21 11:30 09/29/21 11:52 55 UNIT Insulin Human Lispro (HumaLOG) 10 units 1X ONCE 09/17/21 08:30 09/17/21 08:31 DC 09/17/21 08:53 10 UNITS Insulin Human Regular (HumuLIN R VIAL) 10 unit 1X ONCE 09/16/21 03:30 09/16/21 03:31 Cancel Lactobacillus Rhamnosus (Culturelle) 1 cap BID 09/16/21 21:00 09/30/21 08:50 1 CAP Lidocaine HCl (Buffered Lidocaine 1%) 6 ml 1X ONCE 09/29/21 13:45 09/29/21 13:48 DC Lidocaine HCl (Lidocaine 1% 20ml Vial) 20 ml STK-MED ONCE 09/16/21 01:17 09/16/21 01:17 DC Lidocaine HCl (Lidocaine Pf 2% Vial) 5 ml STK-MED ONCE 09/21/21 08:11 09/21/21 08:12 DC Lidocaine HCl (Xylocaine-Mpf 1% 2ml Vial) 2 ml STK-MED ONCE 09/21/21 08:27 09/21/21 08:27 DC Meropenem 500 mg/ Sodium Chloride 50 ml @ 100 mls/hr Q8HRS 09/26/21 14:00 09/30/21 06:25 100 MLS/HR Micafungin Sodium 100 mg/Dextrose 100 ml @ 100 mls/hr Q24H 09/28/21 12:00 09/29/21 13:00 100 MLS/HR Midazolam HCl (Versed) 2 mg STK-MED ONCE 09/21/21 08:12 09/21/21 08:13 DC Mineral Oil (Muri-Lube) 10 ml STK-MED ONCE 09/28/21 11:42 09/28/21 14:27 DC 09/28/21 11:42 4 ML Morphine Sulfate (Morphine Sulfate) 1 mg PRN Q10MIN PRN 09/28/21 06:00 09/29/21 05:59 DC Multivitamins (Thera M Plus) 1 tab DAILY 09/17/21 20:00 09/30/21 08:50 1 TAB Ondansetron HCl (Zofran) 4 mg PRN Q6HRS PRN 09/23/21 09:45 09/23/21 10:37 4 MG Oxycodone/ Acetaminophen (Percocet 5/325) 1 tab 1X ONCE 09/21/21 10:30 09/21/21 09:58 DC Phenylephrine HCl (PHENYLEPHRINE in 0.9% NACL PF) 1 mg STK-MED ONCE 09/21/21 08:11 09/21/21 08:11 DC Piperacillin Sod/ Tazobactam Sod (Zosyn Per Pharmacy) 1 each PRN DAILY PRN 09/16/21 00:45 09/22/21 09:42 DC Piperacillin Sod/ Tazobactam Sod 3.375 gm/Sodium Chloride 50 ml @ 100 mls/hr Q6HRS 09/16/21 01:00 09/22/21 08:12 DC 09/22/21 06:04 100 MLS/HR Prochlorperazine Edisylate (Compazine) 5 mg PACU PRN PRN 09/28/21 06:00 09/29/21 05:59 DC 09/28/21 13:20 5 MG Propofol (Diprivan) 200 mg STK-MED ONCE 09/21/21 08:11 09/21/21 08:12 DC Ringer's Solution 1,000 ml @ 30 mls/hr Q24H 09/28/21 06:00 09/28/21 17:59 DC Sevoflurane (Ultane) 30 ml STK-MED ONCE 09/21/21 09:37 09/21/21 09:38 DC Simvastatin (Zocor) 20 mg QHS 09/16/21 21:00 09/29/21 21:42 20 MG Sodium Chloride 1,000 ml @ 100 mls/hr Q10H 09/26/21 13:15 09/29/21 17:24 DC 09/29/21 05:15 100 MLS/HR Tobramycin Sulfate (Tobramycin Powder) 1.2 gm STK-MED ONCE 09/18/21 08:34 09/18/21 08:35 DC Tramadol HCl (Ultram) 50 mg PRN Q6HRS PRN 09/24/21 10:15 Vancomycin HCl (Vanco Per Pharmacy) 1 each PRN DAILY PRN 09/16/21 00:45 09/22/21 08:12 DC 09/21/21 13:29 1 EACH Vancomycin HCl (Vancomycin Trough Level) 1 each 1X ONCE 09/22/21 14:30 09/22/21 08:15 DC Vancomycin HCl (Vancomycin) 1 gm STK-MED ONCE 09/18/21 08:34 09/18/21 08:34 DC Vancomycin HCl 1.25 gm/Sodium Chloride 250 ml @ 167 mls/hr Q12H 09/16/21 15:00 09/22/21 08:12 DC 09/22/21 02:34 167 MLS/HR Vancomycin HCl 2 gm/Sodium Chloride 500 ml @ 250 mls/hr 1X ONCE 09/16/21 01:30 09/16/21 03:29 DC 09/16/21 03:12 250 MLS/HR Lab Laboratory Tests Test 09/29/21 11:39 09/29/21 17:26 09/29/21 20:25 09/30/21 06:20 Glucose (Fingerstick) 191 mg/dL (70-99) 209 mg/dL (70-99) 238 mg/dL (70-99) Sodium Level 136 mmol/L (136-145) Potassium Level 5.2 mmol/L (3.5-5.1) Chloride Level 101 mmol/L (98-107) Carbon Dioxide Level 30 mmol/L (21-32) Anion Gap 5 (6-14) Blood Urea Nitrogen 31 mg/dL (7-20) Creatinine 1.8 mg/dL (0.6-1.0) Estimated GFR (Cockcroft-Gault) 29.2 Glucose Level 127 mg/dL (70-99) Calcium Level 8.2 mg/dL (8.5-10.1) Results All relevant outside records, renal labs, imaging studies, telemetry/EKG's were reviewed. Justicifation of Admission Dx: Justifications for Admission: Justification of Admission Dx: N/A [place] B[place] MD Sep 30, 2021 09:58
[2021-09-30] MEDS: DAPTOmycin (GENERIC) IVPB 420 MG in IV NORMAL SALINE 50ML 50 ML IV SCH (10:45)
[2021-09-30 11:00] VITALS: BP 148/88
[2021-09-30] MEDS: MICAFUNGIN 100 MG in IV DEXTROSE 5% 100ML 100 ML IV SCH (11:49)
[2021-09-30] MEDS: INSULIN GLARGINE SYRINGE. SQ SCH (11:52)
[2021-09-30 12:07] LABS: BASO # 0.2 x10^3/uL (0.0-0.2); BASO % 1 % (0-3); EOS # 0.7 x10^3/uL (0.0-0.7); EOS % 5 % (0-3); HEMATOCRIT 33.2 % (36.0-47.0); HEMOGLOBIN 10.4 g/dL (12.0-15.5); LYMPH # 2.1 x10^3/uL (1.0-4.8); LYMPH % 13 % (24-48); MEAN CORPUSCULAR HEMOGLOBIN 25 pg (25-35); MEAN CORPUSCULAR HGB CONC 31 g/dL (31-37); MEAN CORPUSCULAR VOLUME 81 fL (79-100); MONO % 6 % (0-9); NEUT # 11.8 x10^3/uL (1.8-7.7); NEUT % 75 % (31-73); PLATELET COUNT 370 x10^3/uL (140-400); RED BLOOD COUNT 4.12 x10^6/uL (3.50-5.40); RED CELL DISTRIBUTION WIDTH 14.8 % (11.5-14.5); WHITE BLOOD COUNT 15.7 x10^3/uL (4.0-11.0)
[2021-09-30 15:00] VITALS: BP 123/79
[2021-09-30] MEDS: ENOXAPARIN 40 MG/0.4 ML SYRINGE. SQ SCH (16:34)
--- NOTE | 2021-09-30 18:27 | SNU/HH DC ---
DISCHARGE ORDERS DISCHARGE INFORMATION: FINAL DIAGNOSIS Problems Medical Problems: (1) Diabetic foot ulcer Status: Acute (2) Right foot infection Status: Acute CONDITION ON DISCHARGE: Stable CODE STATUS: Code Status: Full SHELTER: SNF STAY <30 DAYS: Yes POST DISCHARGE ORDERS: ACTIVITY ORDERS: Resume previous activity, Activity as tolerated WEIGHT BEARING STATUS: As tolerated DIET AFTER DISCHARGE: Regular WOUND/INCISION CARE: Change dressing, Reinforce dressing PRN CHECKS AFTER DISCHARGE: CHECKS AFTER DISCHARGE: Check blood press - daily, Check blood sugar, ac/hs TREATMENT/EQUIPMENT ORDERS: ADAPTIVE EQUIPMENT NEEDED: Walker Physical Therapy For: Evalulation/Treatment Occupational Therapy For: Evaluation/Treatment DISCHARGE MEDICATIONS: Home Meds Active Scripts Glipizide (GLIPIZIDE) 5 Mg Tablet, 5 MG PO BIDBFRMEAL for DM2 for 30 Days, #60 TAB 2 Refills Prov:DRAGAN GARCÍA MD 07/12/21 Reported Medications Insulin Detemir (LEVEMIR) 100 Unit/1 Ml Vial, 55 UNIT SQ BID for diabetes, EACH 09/16/21 Simvastatin (SIMVASTATIN) 20 Mg Tablet, 1 TAB PO QHS, #30 TAB 5 Refills 06/24/16 Metformin Hcl (METFORMIN HCL) 500 Mg Tablet, PO for ANTI-DIABETIC, TAB 0 Refills 06/24/16 Atenolol (ATENOLOL) 25 Mg Tablet, PO DAILY, TAB 06/24/16 Duloxetine HCl (Duloxetine HCl) 40 Mg Capsule.dr, 60 MG PO DAILY 06/24/16 DRAGAN CARDENAS MD Sep 30, 2021 18:27
[2021-09-30 19:31] VITALS: BP 153/77
--- NOTE | 2021-09-30 20:07 | NUR ---
Pt picked up at approx 1930 by medical transport to transfer to [facility]. Multiple attempts by this nurse to call report at [phone]. Line continuously rings. Nsg Environmental Engineering Intern notified. Will wait for facility to contact me for report.
--- NOTE | 2021-10-16 20:58 | PDOC3 ---
[facility]-Discharge Summary Date of Admission: Date of Admission: Sep 16, 2021 Date of Discharge: Date of Discharge: Sep 30, 2021 Admission Diagnosis: Problems: (1) TYPE 2 DIABETES MELLITUS WITH FOOT ULCER Discharge Diagnosis: Discharge Diagnosis: Same Consults: Consults: ID, nephro, podiatry Hospital Course: Hospital Course: Chief Complaint Sepsis Streptococcal bacteremia 2 out of 4 bottles Right diabetic foot infected ulcer Hypertensive urgency Hyperglycemia uncontrolled Acute electrolyte derangementhyponatremia, hypochloremia suggestive of acute volume depletion History of diabetes mellitus type 2 History of polysubstance abuse Podiatry following Continue IV antibiotics per infectious disease Wound care consult IV antihypertensive medications Inpatient systolic blood pressure goals between 140 to 180 R ISS and Accu-Cheks, resume home long-acting insulin IV electrolyte replacement as needed PAT evaluation Lovenox for DVT prophylaxis ADA diet CODE STATUS full Discussed with RN and SW Disposition inpatient management as above DPOA: Nicole Metzger History of Present Illness History of Present Illness 56-year-old female with past medical history of methamphetamine abuse, diabetes mellitus 2, depression anxiety, hypertension, dyslipidemia, chronic back pain who presents with right foot pain and lesion to the bottom. She reports that for the past several weeks wound has been worsening and she even tried to andrea it at home but returned and got dark. She also has a chronic ulcer over the right great toe does not regularly well. There is some probably noncompliance with diabetes. Patient states that fast acting insulin causes her to be nauseous and vomit. She was recently admitted for the wound on her right foot in June 2021. Pain worsens upon ambulation. She admits to some fever and chills. Denies nausea, vomiting, chest pain, shortness of breath, abdominal pain, urinary symptoms, cough, recent trauma, or any other complaints. 09/17/21 No acute events overnight. Patient seen and examined bedside. Resting comforta gretchen. Pain is well controlled. Seen by wound care Dr. Love's and recommending podiatry consult for surgical debridement of necrotic tissue. Patient's chart, labs, images were reviewed and discussed with RN 09/18/21 No acute events overnight. Patient taken to the OR today for surgical debridement with Dr. Morris. No concerns with nursing. Sugars are better controlled, ranging between 106-136. Patient's chart, labs, images were reviewed and discussed with RN 09/19: Afebrile. S/P right foot I&D with placement of wound VAC. Blood cultures positive for strep agalactiae (group B strep) that is resistant to erythromycin but largely pansensitive. Wound cultures with staph aureus and group B strep. Continue current antibiotic regimen for now, follow wound cult ures for final cultures and sensitivities. Patient tells me that she is having repeat surgery on Sunday. Discussed p.o. pain medication is more appropriate at this time but will leave IV morphine on for when she becomes n.p.o. for any further surgical intervention. 09/20: Afebrile. WBC improving. She will need to be NPO after midnight for repeat I&D, wound VAC application, and possible Achilles lengthening. Discussed with RN. 09/21: Patient seen postoperatively this morning. Right foot is wrapped in bed and bandaged with wound VAC in place. Follow intraoperative cultures. Patient has some questions about repeat surgical grafts; will defer to Dr. Morris. Continue IV antibiotics, per ID. 09/22: Patient seen POD #1, s/p right foot repeat I&D, with wound VAC and posterior splint application. Plan for wound VAC change tomorrow at bedside, per Dr. Morris. Will continue to follow intraoperative cultures. Encourage working with PT today. Asking for increase and dose of pain medication. 09/23: POD #2 s/p right foot repeat I&D, with wound VAC and posterior splint application. Worsening leukocytosis noted this morning. Wound cultures came back positive for MRSA. Daptomycin initiated, per ID. Also some significant hypertension today. Started on Norvasc. If blood pressure improves with pain improvement, Norvasc can likely be stopped. Poor appetite this morning that she contributes to antibiotic regimen. Recommended liquid diet and antiemetics as needed. Continue IV antibiotics, per ID. 09/24: WBC 17.0. Right diabetic foot wound growing MRSA. Continue treatment with daptomycin and meropenem, per ID. Repeat blood cultures with no growth to date. Some worsening renal function this morning. Will provide IV fluids; if no improvement will consult nephrology. She reports she has not had a bowel movement 2 days, requesting for some prune juice. She is now amenable to rehab; given wound VAC requirements, likely [facility]. 09/25: WBC 15.3. Will place consult with nephrology due to EN. Dr. Morris will plan for skin graft application for wound closure next week. Wound VAC in place; once stable will look to [facility] for rehab. Continue daptomycin and meropenem, per ID. 09/26 Patient evaluated examined at bedside. White cell trending down. Patient complaining of some tiredness this morning did not get much sleep last night. Appears planning for skin graft on Sunday. Continue wound care. Plan of care discussed with bedside RN. 09/27 Patient evaluated and examined at bedside. No major complaints says pain is controlled tolerating antibiotics well. Plan for surgery tomorrow for skin grafting and wound closure. N.p.o. midnight. Plan of care discussed with bedside RN. 09/28 Patient evaluated and examined at bedside prior to surgery. She was in bed somewhat anxious about surgery but this pain well controlled. Surgeryat some point today. Continue antibiotics. Will evaluate again after surgery. Plan of care discussed with bedside RN. 09/29 Patient evaluated examined at bedside. Underwent surgery yesterday tolerated well. Says this morning feeling much better pain well controlled. Continue antibiotics. PT OT ordered. Looking for placement for patient. Plan of care discussed with bedside nurse.. 09/30 Patient evaluated and examined at bedside. Discharge to rehab today. Disposition: Disposition/Orders: D/C to Another Facility Activity: Activity: Resume previous activity Diet: Diet: Regular Medications: Home Meds Active Scripts Glipizide (GLIPIZIDE) 5 Mg Tablet, 5 MG PO BIDBFRMEAL for DM2 for 30 Days, #60 TAB 2 Refills Prov:DRAGAN GARCÍA MD 07/12/21 Reported Medications Insulin Detemir (LEVEMIR) 100 Unit/1 Ml Vial, 55 UNIT SQ BID for diabetes, EACH 09/16/21 Simvastatin (SIMVASTATIN) 20 Mg Tablet, 1 TAB PO QHS, #30 TAB 5 Refills 06/24/16 Metformin Hcl (METFORMIN HCL) 500 Mg Tablet, PO for ANTI-DIABETIC, TAB 0 Refills 06/24/16 Atenolol (ATENOLOL) 25 Mg Tablet, PO DAILY, TAB 06/24/16 Duloxetine HCl (Duloxetine HCl) 40 Mg Capsule.dr, 60 MG PO DAILY 06/24/16 Scheduled Atenolol (Atenolol), Unknown Dose PO DAILY, (Reported) Duloxetine HCl (Duloxetine HCl), 60 MG PO DAILY, (Reported) Glipizide (Glipizide), 5 MG PO BIDBFRMEAL Insulin Detemir (Levemir), 55 UNIT SQ BID, (Reported) Simvastatin (Simvastatin), 1 TAB PO QHS, (Reported) Miscellaneous Medications Metformin Hcl (Metformin Hcl), Unknown Dose PO, (Reported) Total Time: Total Time: 35 Justicifation of Admission Dx: Justifications for Admission: Justification of Admission Dx: N/A DRAGAN CARDENAS MD Oct 16, 2021 20:58
== END 2021-09-30 19:30 | DRG 853 ==
LOC: ER 23:23 → 4 NORTH 09-16 00:45
PROVIDERS: ADMIT Internal Medicine; ATTEND Internal Medicine
PROC: 0JBQ0ZZ Excision of Right Foot Subcutaneous Tissue and Fascia, Open Approach (ICD-10-PCS; principal; 2021-09-18 08:30)
PROC: 0J9Q0ZZ Drainage of Right Foot Subcutaneous Tissue and Fascia, Open Approach (ICD-10-PCS; 2021-09-21)
PROC: 0HRMX73 Replacement of Right Foot Skin with Autologous Tissue Substitute, Full Thickness, External Approach (ICD-10-PCS; 2021-09-28)
PROC: 0HBHXZZ Excision of Right Upper Leg Skin, External Approach (ICD-10-PCS; 2021-09-28)
PROC: 02HV33Z Insertion of Infusion Device into Superior Vena Cava, Percutaneous Approach (ICD-10-PCS; 2021-09-29)
PROC: B5181ZA Fluoroscopy of Superior Vena Cava using Low Osmolar Contrast, Guidance (ICD-10-PCS; 2021-09-29)
PROC: B548ZZA Ultrasonography of Superior Vena Cava, Guidance (ICD-10-PCS; 2021-09-29)
DX: A40.1 Sepsis due to streptococcus, group B (principal); N17.0 Acute kidney failure with tubular necrosis; L03.115 Cellulitis of right lower limb; E87.1 Hypo-osmolality and hyponatremia; L97.413 Non-pressure chronic ulcer of right heel and midfoot with necrosis of muscle; N17.9 Acute kidney failure, unspecified; D64.9 Anemia, unspecified; E11.40 Type 2 diabetes mellitus with diabetic neuropathy, unspecified; E11.621 Type 2 diabetes mellitus with foot ulcer; E11.65 Type 2 diabetes mellitus with hyperglycemia; E78.00 Pure hypercholesterolemia, unspecified; E78.5 Hyperlipidemia, unspecified; E87.6 Hypokalemia; E87.8 Other disorders of electrolyte and fluid balance, not elsewhere classified; F12.90 Cannabis use, unspecified, uncomplicated; I10 Essential (primary) hypertension; I16.0 Hypertensive urgency; K59.00 Constipation, unspecified; L97.519 Non-pressure chronic ulcer of other part of right foot with unspecified severity; M77.30 Calcaneal spur, unspecified foot; S90.859A Superficial foreign body, unspecified foot, initial encounter; S91.331A Puncture wound without foreign body, right foot, initial encounter; W45.8XXA Other foreign body or object entering through skin, initial encounter; Z83.3 Family history of diabetes mellitus; Z90.49 Acquired absence of other specified parts of digestive tract; Z90.710 Acquired absence of both cervix and uterus; Z91.19 Patient's noncompliance with other medical treatment and regimen; F32.A Depression, unspecified; F41.9 Anxiety disorder, unspecified; G89.29 Other chronic pain; M19.90 Unspecified osteoarthritis, unspecified site; E11.42 Type 2 diabetes mellitus with diabetic polyneuropathy; Z79.4 Long term (current) use of insulin; Z60.2 Problems related to living alone; E87.5 Hyperkalemia
CPT/HCPCS: 10060; 36415; 36573; 73630; 76770; 77001; 80048; 80202; 80307; 81001; 82550; 82565; 82962; 83605; 85007; 85025; 87040; 87071; 87075; 87077; 87147; 87186; 87205; 87426; 88304; 93926; 94640; A4209; A4213; A4364; A4930; A6211; A6214; A6219; A6220; A6223; A6253; A6254; A6258; A6402; A6449; A6450; A6454; A6455; C1751; C1892; J0360; J0780; J0878; J1100; J1200; J1650; J1815; J1885; J2185; J2248; J2250; J2270; J2370; J2405; J2543; J2704; J3010; J3260; J3370; J3490; J7030; J7040; J7050; J7060; J7120; U0003; U0005; 97110-GO; 97110-GP; 97116-GP; 97530-GP; 97535-GO; 99285-25; G0378; J7613

== ENCOUNTER 2021-10-24 16:41 | Inpatient (IN) | payer MEDICARE ==
[~2021-10-24] VITALS: Ht 165.1 cm; Wt 106.2 kg
[~2021-10-24 16:41] MED LIST changes: +INSU100V13 SQ
[2021-10-24] MEDS ORDERED: CEFEPIME HCL IV Push 1 GM VIAL. IVP ONE (17:00)
--- NOTE | 2021-10-24 17:23 | RAD ---
XR CHEST 1V CLINICAL INDICATIONS: Shortness of breath COMPARISON: June 24, 2016. Findings: There is a moderate size left-sided pleural effusion and associated compressive atelectasis or consolidative left lung base infiltrate. There is a new finding of right infrahilar lung infiltra te. No pleural effusion is seen on the right side. No pneumothorax is apparent. The heart size and me diastinum and pulmonary vasculature are stable. IMPRESSION: Moderate size left-sided pleural effusion and associated compressive atelectasis or conso lidative left lung base infiltrate. New finding of right infrahilar lung infiltrate. Electronically signed by: Gomez Brown MD (10/24/2021 5:20 PM) [id number]
[2021-10-24] MEDS ORDERED: VANCOMYCIN 1.5 GM in IV NORMAL SALINE 500ML BAG 500 ML IV ONE (17:30)
--- NOTE | 2021-10-24 17:45 | PHYS DOC ---
Past Medical History Past Medical History: Anxiety, Depression, Diabetes-Type II, High Cholesterol, Hypertension, Other Additional Past Medical Histor: drug abuse, sciatica, chronic back pain,neuropathy (TANNER VUONG MD) Past Surgical History: Appendectomy, Cholecystectomy, , Hysterectomy, Tonsillectomy, Other Additional Past Surgical Histo: bilateral carpal tunnel release (TANNER VUONG MD) Smoking Status: Never Smoker Alcohol Use: None Drug Use: Marijuana, Methamphetamine (TANNER VUONG MD) General Adult EDM: Chief Complaint: SHORTNESS OF BREATH HPI: HPI: Patient is a 56 year old female who presents with shortness of breath. Was recently hospitalized for an infected foot wound s/p debridement on 09/[address] Morris. That hospitalization was complicated by streptococcal bacteremia. Was discharged in the past week to a nursing facility, and was recently been diagnosed with a pneumonia and started on an antibiotic. She has had increasing shortness of breath, pleuritic chest pain, and lower extremity edema ( R>L) She has been on a prophylactic dose of enoxaparin 40 mg daily. Was discharged on 2-3 L/min nasal cannula, new oxygen requirement (TANNER VUONG MD) Review of Systems: Review of Systems: Constitutional: Reports fever and chills Eyes: Denies change in visual acuity. [] HENT: Denies nasal congestion or sore throat. [] Respiratory: Ports cough and shortness of breath Cardiovascular: Reports pleuritic chest pain and bilateral lower extremity edema GI: Denies abdominal pain, nausea, vomiting, bloody stools or diarrhea. [] Integument: Reports chronic foot wound Neurologic: Denies headache, focal weakness or sensory changes. [] Psychiatric: Reports anxiety (TANNER VUONG MD) Heart Score: C/O Chest Pain: N/A (TANNER VUONG MD) Current Medications: Current Medications Medications (Trade) Dose Ordered Sig/Ray Start Time Stop Time Status Last Admin Dose Admin Cefepime HCl (Maxipime) 1 gm 1X ONCE 10/24/21 17:00 10/24/21 17:06 DC Vancomycin HCl 1.5 gm/Sodium Chloride 500 ml @ 250 mls/hr 1X ONCE 10/24/21 17:30 10/24/21 19:29 (TANNRE VUONG MD) Allergies: Allergies: Allergies Coded Allergies Type Severity Reaction Last Updated Verified I S O L A T I O N *CONTACT* Allergy Unknown 09/22/21 Yes No Known Medication Allergies Allergy Unknown 09/22/21 Yes (TANNER VUONG MD) Physical Exam: PE: Constitutional: Anxious in respiratory distress, 23 word dyspnea Eyes: conjunctiva normal, no discharge. [] Neck: Normal range of motion, no tenderness, supple, no stridor. [] Cardiovascular:Heart rate regular rhythm, no murmur [] Lungs & Thorax: 23 word dyspnea. Bilateral crackles, diminished at the bases. Abdomen: Bowel sounds normal, soft, no tenderness, no masses, no pulsatile masses. [] Extremities: Right lower extremity bandaged, surgical wound, frank in place. Appears clean, dry, intact. Bilateral lower extremity edema, pitting (R>L) Neurologic: Alert and oriented X 3, normal motor function, normal sensory function, no focal deficits noted. [] Psychologic: Affect normal, judgement normal, mood normal. [] (TANNER VUONG MD) Current Patient Data: Vital Signs: Vital Signs Date Time Temp Pulse Resp B/P (MAP) Pulse Ox O2 Delivery O2 Flow Rate FiO2 10/24/21 16:50 97.9 105 28 169/76 (107) 90 Nasal Cannula 2.0 97.9 (TANNER VUONG MD) EKG: EKG: Sinus rhythm. Baseline wander. No obvious ST elevation or depression. PVC ec topy. [] (TANNER VUONG MD) Radiology/Procedures: Radiology/Procedures: [] Impression: [facility] [address] [place], [place] [id number] IMAGING REPORT Signed PATIENT: ANNABELLE AGGARWAL ACCOUNT: [id number] : 1965 LOCATION: ER AGE: 56 SEX: F EXAM STATUS: PRE ER ORD. PHYSICIAN: TANNER VUONG MD REASON: sob PROCEDURE: CHEST AP ONLY XR CHEST 1V CLINICAL INDICATIONS: Shortness of breath COMPARISON: June 24, 2016. Findings: There is a moderate size left-sided pleural effusion and associated compressive atelectasis or consolidative left lung base infiltrate. There is a new finding of right infrahilar lung infiltrate. No pleural effusion is seen on the right side. No pneumothorax is apparent. The heart size and mediastinum and pulmonary vasculature are stable. IMPRESSION: Moderate size left-sided pleural effusion and associated compressive atelectasis or consolidative left lung base infiltrate. New finding of right infrahilar lung infiltrate. Electronically signed by: Marline Brown MD (10/24/2021 5:20 PM) [id number] DICTATED and SIGNED BY: MARLINE BROWN MD DATE: 10/24/21 [id number] (TANNER VUONG MD) Course & Med Decision Making: Course & Med Decision Making Pertinent Labs and Imaging studies reviewed. (See chart for details) Patient 56-year-old female recently hospitalized for bacteremia, right foot wound s/p debridement on 09/29, pneumonia, who presents with increasing dyspnea and pleuritic chest pain. High risk for pneumonia and pulmonary embolism. Chart review shows renal insu fficiency at her last hospitalization, so CTA has not yet been ordered. Bilateral lower extremity ultrasound and chest x-ray was ordered. Pending labs and ultrasound imaging will consider anticoagulation. Chest x-ray shows left lower lobe infiltrate, effusion, and a new right perihilar effusion. Given her history of recent bacteremia and hospitalization vancomycin and cefepime ordered. Given her 23 word dyspnea feel she will require admission for further work-up. Will be signed out to oncoming physician with majority of work up pending. 174 (TANNER VUONG MD) Course & Med Decision Making Assumed care at shift change. Xray- new infiltrates Antibioitcs started. Patient admitted to hospitalist. (NICK HILARIO DO) Dragon Disclaimer: Dragmiracle Disclaimer: This electronic medical record was generated, in whole or in part, using a voice recognition dictation system. (TANNER VUONG MD) Departure Departure Impression: Primary Impression: Respiratory distress Additional Impressions: Pneumonia Pleural effusion Referrals: ADRIA BUSBY M.D. (PCP) TANNER VUONG MD Oct 24, 2021 17:45 NICK HILARIO DO Oct 24, 2021 20:13
--- NOTE | 2021-10-24 17:50 | RAD ---
LEFT LEG VENOUS DOPPLER STUDY: Clinical indications: Left leg swelling. Right foot skin graft 3 weeks ago. Findings: Duplex sonography (including gonzales scale evaluation and color flow and waveform spectral amarilis lysis) of the proximal aspect of the greater saphenous vein and the proximal aspect of the profunda f emoral vein and the entire length of the common femoral and superficial femoral and popliteal veins a nd the tibioperoneal trunk and the proximal aspect of the posterior tibial and peroneal veins of the left leg was performed. Normal compressibility, augmentation of color Doppler flow after calf bridget nahomy, and respiratory variation of Doppler flow is seen. Thus, there are no sonographic findings of d eep venous thrombosis within these veins. Impression: There are no sonographic findings of deep venous thrombosis within the veins discussed ab ove of the left lower extremity. RIGHT LEG VENOUS DOPPLER STUDY: Clinical indications: Right leg swelling. Right foot skin graft 3 weeks ago. Findings: Duplex sonography (including gonzales scale evaluation and color flow and waveform spectral amarilis lysis) of the proximal aspect of the greater saphenous vein and proximal aspect of the profunda femor al vein and the entire length of the common femoral and superficial femoral and popliteal veins and t he tibioperoneal trunk and the proximal aspect of the posterior tibial and peroneal veins of the righ t leg was performed. Normal compressibility, augmentation of color Doppler flow after calf compressio n, and respiratory variation of Doppler flow is seen. Thus, there are no sonographic findings of deep venous thrombosis within these veins. Impression: There are no sonographic findings of deep venous thrombosis within the veins discussed ab ove of the right lower extremity. Electronically signed by: Gomez Brown MD (10/24/2021 5:48 PM) [place] [id number]
[2021-10-24 18:08] LABS: BASO # 0.1 x10^3/uL (0.0-0.2); BASO % 1 % (0-3); EOS # 0.6 x10^3/uL (0.0-0.7); EOS % 5 % (0-3); HEMATOCRIT 31.2 % (36.0-47.0); HEMOGLOBIN 10.3 g/dL (12.0-15.5); LYMPH # 1.6 x10^3/uL (1.0-4.8); LYMPH % 13 % (24-48); MEAN CORPUSCULAR HEMOGLOBIN 26 pg (25-35); MEAN CORPUSCULAR HGB CONC 33 g/dL (31-37); MEAN CORPUSCULAR VOLUME 78 fL (79-100); MONO # 0.7 x10^3/uL (0.0-1.1); MONO % 6 % (0-9); NEUT % 75 % (31-73); PLATELET COUNT 268 x10^3/uL (140-400); RED BLOOD COUNT 4.03 x10^6/uL (3.50-5.40); RED CELL DISTRIBUTION WIDTH 14.3 % (11.5-14.5)
[2021-10-24 18:26] LABS: CALCIUM 9.1 mg/dL (8.5-10.1); CREATININE 1.4 mg/dL (0.6-1.0); POTASSIUM 4.5 mmol/L (3.5-5.1)
[2021-10-24 18:33] LABS: ALBUMIN 3.3 g/dL (3.4-5.0); ALBUMIN/GLOBULIN RATIO 0.6 (1.0-1.7); TOTAL BILIRUBIN 0.3 mg/dL (0.2-1.0); TOTAL PROTEIN 8.5 g/dL (6.4-8.2)
--- NOTE | 2021-10-24 19:13 | EKG ---
[facility] [address] [place] [address] Test Date: 2021-10-24 Test Time: 17:00:47 Pat Name: ANNABELLE AGGARWAL Department: Room: Gender: F Furniture Manager: : 1965 Requested By: TANNER VUONG Order Number: [id number] Reading MD: Manolo Lynne MD Measurements Intervals [place]ley Rate: 98 P: -20 MS: 106 QRS: -5 QRSD: 80 T: 64 QT: 332 QTc: 426 Interpretive Statements SINUS RHYTHM NON-SPECIFIC ST/T CHANGES Electronically Signed On 10-31-2021 11:54:17 EMERGENCY DETAIL DRIVER by Manolo Lynne MD
[2021-10-24] MEDS ORDERED: ONDANSETRON PF 4 MG/2 ML VIAL. IVP PRN (19:30)
[2021-10-24] MEDS ORDERED: SIMV20TA18 PO (22:33)
[2021-10-24] MEDS ORDERED: ENOX40DI SQ (22:33)
[2021-10-24] MEDS ORDERED: HYDR-2761 PO (22:33)
[2021-10-24] MEDS ORDERED: AMLO-187 PO (22:33)
[2021-10-24] MEDS ORDERED: INSU100I27 SQ (22:33)
[2021-10-24] MEDS ORDERED: LINE600T12 PO (22:33)
[2021-10-24] MEDS ORDERED: AMOX1TAB11 PO (22:33)
[2021-10-24] MEDS ORDERED: ONDA4TAB7 PO (22:33)
[2021-10-24] MEDS: HYDROcodone/APAP 5/325MG 1 TAB TABLET PO PRN (22:39)
[2021-10-24 23:00] VITALS: BP 102/57
[2021-10-24] MEDS ORDERED: DEXTROSE 50% 25 GM / 50ML DISP.SYRIN. IV PRN (23:15)
[2021-10-24] MEDS: INSULIN GLARGINE SYRINGE. SQ SCH (23:17)
[2021-10-25 03:00] VITALS: BP 134/73
[2021-10-25] MEDS ORDERED: C.DIFF MED SCREEN BY RX. MC ONE (03:45)
--- NOTE | 2021-10-25 06:00 | NUR ---
Pt with surgical wound noted on right foot, dressing changed and picture taken of graft site. Sunil noted at site, no s/s of drainage noted, no s/s of infection noted. 4x4 gauze placed and wrapped with kerlix and sammy bandage. Will continue to monitor.
--- NOTE | 2021-10-25 06:52 | NUR ---
Pharmacy Medication Review S: Consulted for medication review re: C.diff Risk Assessment score of 4 O: ANNABELLE AGGARWAL is a 56 year old with: Previous C.diff infection: No Previous hospitalization: Within 30 days Recent antibiotics: Within 30 days Use of gastric acid suppressor: No Transfer from [facility]/LTAC: No Current antibiotic regimen: VANC X 1 Current acid suppression regimen: NONE A: Patient has been identified as having risk factors for C.diff infection as noted above. P: ABX DE-ESCALATION RECOMMENDED: NO, PT WITH POSSIBLE PNA. PROBIOTIC ORDERED: NO; NO ONGOING ABX YET PPI CHANGED TO [id number]: NO, PT NOT ON THIS THERAPY NIC CARDENAS [facility], 10/25/21 [id number]
[2021-10-25 07:00] VITALS: BP 146/70
[2021-10-25] MEDS ORDERED: INSULIN LISPRO 300 UNITS/3 ML VIAL. SQ SCH (08:00)
[2021-10-25] MEDS ORDERED: DEXTROSE 50% 25 GM / 50ML DISP.SYRIN. IV PRN (09:00)
--- NOTE | 2021-10-25 09:12 | PDOC1 ---
History and Physical Date of Service: DOS: DATE: 10/25/21 TIME: 09:12 Chief Complaint: Chief Complain: SOB History of Present Illness: HPI: Patient is a 56-year-old white female who presents to the emergency room overnight due to shortness of breath. Patient recently discharged from here for group B strep bacteremia related to right diabetic wound infection. She underwent surgical intervention during that admission see details on previous discharge summary. Patient was discharged to rehab on Zyvox and Augmentin. She reports she finished these medications. Was discharged home a couple days before Thanksgiving. She reports after she returned home her shortness of breath gotten notably worse along with lower extremity swelling. Return to the hospital concerned for her breathing. And emergency room patient noted to have right lower lung infiltrate. Patient had received vancomycin and cefepime in emergency room. I evaluated her she was resting in bed complaining of some shortness of breath. Said her legs are very tight. Otherwise she is denying chest pain dizziness abdominal pain dysuria Past Medical/Surgical History: PMH/PSH: Past Medical History: Anxiety, Depression, Diabetes-Type II, High Cholesterol, Hypertension, Other Additional Past Medical Histor: drug abuse, sciatica, chronic back pain,neuropathy Allergies: Allergies: Coded Allergies: I S O L A T I O N *CONTACT* (Verified Allergy, Unknown, 09/22/21) mrsa No Known Medication Allergies (Verified Allergy, Unknown, 09/22/21) Family History: Family History: Diabetes hypertension Social History: Social History: Previous methamphetamine use reports not having used in a "long time.". Denies alcohol tobacco use Current Medications: Current Medications Current Medications Vancomycin HCl 1.5 gm/Sodium Chloride 500 ml @ 250 mls/hr 1X ONCE IV Last a dministered on 10/24/21at 18:15; Start 10/24/21 at 17:30; Stop 10/24/21 at 19:29; Status DC Cefepime HCl (Maxipime) 1 gm 1X ONCE IVP Last administered on 10/24/21at 18:12; Start 10/24/21 at 17:00; Stop 10/24/21 at 17:06; Status DC Ondansetron HCl (Zofran) 4 mg PRN Q8HRS PRN IVP NAUSEA/VOMITING; Start 10/24/21 at 19:30; Stop 10/25/21 at 19:29 Acetaminophen/ Hydrocodone Bitart (Lortab 5/325) 1 tab PRN Q6HRS PRN PO PAIN Last administered on 10/24/21at 22:39; Start 10/24/21 at 22:15 Morphine Sulfate (Morphine Sulfate) 2 mg PRN Q2HR PRN IVP BREAKTHROUGH PAIN; Start 10/24/21 at 22:15 Insulin Glargine (Lantus Syringe) 25 unit BID SQ Last administered on 10/24/21at 23:17; Start 10/24/21 at 23:20 Dextrose (Dextrose 50%-Water Syringe) 12.5 gm PRN Q15MIN PRN IV SEE COMMENTS; Start 10/24/21 at 23:15 Insulin Human Lispro (HumaLOG) 0-7 UNITS TIDWMEALS SQ ; Start 10/25/21 at 08:00 Pharmacy Consult ([facility] Screen By Rx) 1 each PRN 1X ONCE [facility] ; Start 10/25/21 at 03:45; Stop 10/25/21 at 03:46; Status DC Insulin Human Lispro (HumaLOG) 0-7 UNITS TIDWMEALS SQ ; Start 10/25/21 at 12:00 Dextrose (Dextrose 50%-Water Syringe) 12.5 gm PRN Q15MIN PRN IV SEE COMMENTS; Start 10/25/21 at 09:00 Active Scripts Active Reported Zofran (Ondansetron Hcl) 4 Mg Tablet 1 Tab PO Q6HRS Lovenox (Enoxaparin Sodium) 40 Mg/0.4 Ml Disp.syrin 40 Mg SQ DAILY Amox Tr-K Clv 875-125 Mg Tab (Amoxicillin/Potassium Clav) 1 Each Tablet 1 Tab PO BID Simvastatin 20 Mg Tablet 1 Tab PO QHS Amlodipine Besylate 10 Mg Tablet 10 Mg PO DAILY Zyvox (Linezolid) 600 Mg Tablet 600 Mg PO BID Hydrocodone-Apap 5-325 (Hydrocodone Bit/Acetaminophen) 1 Tab Tablet 1 Tab PO PRN Q4HRS PRN Levemir (Insulin Detemir) 100 Unit/1 Ml Vial 55 Unit SQ BID Simvastatin 20 Mg Tablet 1 Tab PO QHS ROS: Review of Systems Review of System Unless noted in HPI a 14 point review of systems was negative Physical Exam: Vital Signs: Vital Signs Date Time Temp Pulse Resp B/P (MAP) Pulse Ox O2 Delivery O2 Flow Rate FiO2 11/30/21 07:00 98.3 100 20 146/70 (95) 95 Nasal Cannula 3.0 98.3 Physcial Exam: GEN: No apparent distress. Alert and oriented HEENT: Normal cephalic, atraumatic, external auditory canals are patent EYES: Extraocular muscles are intact, pupil are equally round and reactive to light and accommodation MUSCULOSKELETAL: Well developed , well nourished, limited range of motion ENDOCRINE: No thyromegaly was palpated LYMPHATICS: No cervical chain or axillary nodes were noted HEMATOPOIETIC: No bruising NECK: Supple, no JVD, no thyromegaly was noted LUNGS: Coarse and decreased air entry throughout HEART: RRR, S1, S2 present. Peripheral pulses intact, no obvious murmurs noted ABDOMEN: Soft, nontender. Positive bowel sounds, no organomegaly, normal bowel sounds EXTREMITIES: Bilateral lower extremity edema NEUROLOGIC: Normal speech and tone. A&O x 3, moves all extremities, no obvious focal deficits PSYCHIATRIC: Normal affect, normal mood. Stable SKIN: No ulcerations or rashes, good skin turgor, no jaundice VASCULAR: Good capillary refill, neurovascular bundle appears to be intact Labs: Labs: Laboratory Tests Test 10/24/21 17:55 10/24/21 18:55 10/24/21 21:26 10/25/21 07:54 White Blood Count 12.0 x10^3/uL (4.0-11.0) Red Blood Count 4.03 x10^6/uL (3.50-5.40) Hemoglobin 10.3 g/dL (12.0-15.5) Hematocrit 31.2 % (36.0-47.0) Mean Corpuscular Volume 78 fL (79-100) Mean Corpuscular Hemoglobin 26 pg (25-35) Mean Corpuscular Hemoglobin Concent 33 g/dL (31-37) Red Cell Distribution Width 14.3 % (11.5-14.5) Platelet Count 268 x10^3/uL (140-400) Neutrophils (%) (Auto) 75 % (31-73) Lymphocytes (%) (Auto) 13 % (24-48) Monocytes (%) (Auto) 6 % (0-9) Eosinophils (%) (Auto) 5 % (0-3) Basophils (%) (Auto) 1 % (0-3) Neutrophils # (Auto) 9.0 x10^3/uL (1.8-7.7) Lymphocytes # (Auto) 1.6 x10^3/uL (1.0-4.8) Monocytes # (Auto) 0.7 x10^3/uL (0.0-1.1) Eosinophils # (Auto) 0.6 x10^3/uL (0.0-0.7) Basophils # (Auto) 0.1 x10^3/uL (0.0-0.2) Activated Partial Thromboplast Time 32 SEC (24-38) Sodium Level 140 mmol/L (136-145) Potassium Level 4.5 mmol/L (3.5-5.1) Chloride Level 100 mmol/L (98-107) Carbon Dioxide Level 30 mmol/L (21-32) Anion Gap 10 (6-14) Blood Urea Nitrogen 39 mg/dL (7-20) Creatinine 1.4 mg/dL (0.6-1.0) Estimated GFR (Cockcroft-Gault) 39.0 BUN/Creatinine Ratio 28 (6-20) Glucose Level 211 mg/dL (70-99) Lactic Acid Level 1.4 mmol/L (0.4-2.0) Calcium Level 9.1 mg/dL (8.5-10.1) Total Bilirubin 0.3 mg/dL (0.2-1.0) Aspartate Amino Transf (AST/SGOT) 11 U/L (15-37) Alanine Aminotransferase (ALT/SGPT) 20 U/L (14-59) Alkaline Phosphatase 91 U/L (46-116) Troponin I High Sensitivity 39 ng/L (4-50) RN-Xez-Q-Type Natriuretic Peptide 4288 pg/mL (0-124) Total Protein 8.5 g/dL (6.4-8.2) Albumin 3.3 g/dL (3.4-5.0) Albumin/Globulin Ratio 0.6 (1.0-1.7) SARS-CoV-2 Antigen (Rapid) Negative (NEGATIVE) Glucose (Fingerstick) 204 mg/dL (70-99) 174 mg/dL (70-99) Laboratory Tests Test 10/24/21 17:55 10/24/21 18:55 10/24/21 21:26 10/25/21 07:54 White Blood Count 12.0 x10^3/uL (4.0-11.0) Red Blood Count 4.03 x10^6/uL (3.50-5.40) Hemoglobin 10.3 g/dL (12.0-15.5) Hematocrit 31.2 % (36.0-47.0) Mean Corpuscular Volume 78 fL (79-100) Mean Corpuscular Hemoglobin 26 pg (25-35) Mean Corpuscular Hemoglobin Concent 33 g/dL (31-37) Red Cell Distribution Width 14.3 % (11.5-14.5) Platelet Count 268 x10^3/uL (140-400) Neutrophils (%) (Auto) 75 % (31-73) Lymphocytes (%) (Auto) 13 % (24-48) Monocytes (%) (Auto) 6 % (0-9) Eosinophils (%) (Auto) 5 % (0-3) Basophils (%) (Auto) 1 % (0-3) Neutrophils # (Auto) 9.0 x10^3/uL (1.8-7.7) Lymphocytes # (Auto) 1.6 x10^3/uL (1.0-4.8) Monocytes # (Auto) 0.7 x10^3/uL (0.0-1.1) Eosinophils # (Auto) 0.6 x10^3/uL (0.0-0.7) Basophils # (Auto) 0.1 x10^3/uL (0.0-0.2) Activated Partial Thromboplast Time 32 SEC (24-38) Sodium Level 140 mmol/L (136-145) Potassium Level 4.5 mmol/L (3.5-5.1) Chloride Level 100 mmol/L (98-107) Carbon Dioxide Level 30 mmol/L (21-32) Anion Gap 10 (6-14) Blood Urea Nitrogen 39 mg/dL (7-20) Creatinine 1.4 mg/dL (0.6-1.0) Estimated GFR (Cockcroft-Gault) 39.0 BUN/Creatinine Ratio 28 (6-20) Glucose Level 211 mg/dL (70-99) Lactic Acid Level 1.4 mmol/L (0.4-2.0) Calcium Level 9.1 mg/dL (8.5-10.1) Total Bilirubin 0.3 mg/dL (0.2-1.0) Aspartate Amino Transf (AST/SGOT) 11 U/L (15-37) Alanine Aminotransferase (ALT/SGPT) 20 U/L (14-59) Alkaline Phosphatase 91 U/L (46-116) Troponin I High Sensitivity 39 ng/L (4-50) EH-Stu-B-Type Natriuretic Peptide 4288 pg/mL (0-124) Total Protein 8.5 g/dL (6.4-8.2) Albumin 3.3 g/dL (3.4-5.0) Albumin/Globulin Ratio 0.6 (1.0-1.7) SARS-CoV-2 Antigen (Rapid) Negative (NEGATIVE) Glucose (Fingerstick) 204 mg/dL (70-99) 174 mg/dL (70-99) Assessment/Plan Assessment/Plan Acute hypoxic respiratory failure secondary to pneumonia suspect gram-negative versus atypical, history of bacteremia diabetic foot ulcers, diabetes hypertension hyperlipidemia -Patient presented with shortness of breath. Recently discharged from here went to rehab went home. Appears a new pneumonia on imaging. Leukocytosis on labs -Patient received Vanc cefepime in ER. Should be covered for a few more hours will consult ID given patient was just discharged here to bacteremia. Please obtain blood cultures -Patient reports she has completed a few rounds of IV antibiotics through PICC line for several weeks. Possible resistance related to current infection? Infectious disease consult -Podiatry consult to evaluate recent surgical site for infection -Antibiotics per infectious disease -Home meds resumed as indicated. Wound care nutrition consult to optimize wound healing -DVT prophylaxis -Home meds resumed as indicated Justifications for Admission Other Justification DRAGAN CARDENAS MD Oct 25, 2021 09:12
[2021-10-25] MEDS ORDERED: ONDANSETRON PF 4 MG/2 ML VIAL. IVP PRN (09:15)
[2021-10-25] MEDS ORDERED: oxyCODONE/APAP 5/325 1 TAB TABLET PO PRN (09:15)
[2021-10-25] MEDS ORDERED: ELECTROLYTE (NON-ICU) PROTOCOL. MC PRN (09:15)
[2021-10-25] MEDS ORDERED: ZOLPIDEM 5 MG TABLET. PO PRN (09:15)
[2021-10-25] MEDS ORDERED: FUROSEMIDE 40 MG/4 ML VIAL. IVP ONE ×2 (09:15→20:45)
[2021-10-25] MEDS ORDERED: CALCIUM CARBONATE 500 MG TAB.CHEW PO PRN (09:15)
[2021-10-25] MEDS: SENNOSIDES/DOCUSATE 8.6/50MG TABLET. PO SCH ×2 (10:02→19:21)
[2021-10-25] MEDS: HYDROcodone/APAP 5/325MG 1 TAB TABLET PO PRN ×2 (10:41→19:21)
[2021-10-25] MEDS: HEPARIN for SUB-Q USE 5,000 UNIT/ML VIAL. SQ SCH ×3 (10:55→21:45)
[2021-10-25] MEDS: INSULIN GLARGINE SYRINGE. SQ SCH ×2 (10:55→21:46)
[2021-10-25 11:00] VITALS: BP 149/80
--- NOTE | 2021-10-25 11:19 | CONS ---
DATE OF CONSULTATION: 10/25/2021 REFERRING PHYSICIAN: Ambrosio Cronin MD REASON FOR CONSULTATION: Recently discontinued on IV antibiotics. History of diabetic foot bacteremia. HISTORY OF PRESENT ILLNESS: This is a 56-year-old female who presented to the ER on 10/24/2021 with shortness of breath. The patient was recently discharged to custodial facility with right foot infection, status post I and D on 09/18 and with group B streptococcal bacteremia. The patient was discharged on IV antibiotics. She was seen in outpatient clinic. She underwent graft placement by Dr. Morris on 09/29, which is healing well. She was transitioned to p.o. Zyvox and Augmentin. The patient was discharged 2 days prior to Thanksgiving at home. She started having swelling of both lower extremities. Her O2 requirement went up. So she presented to the ER for the same. Her white count was 12.0, hemoglobin of 10.3, platelets of 268. The patient had some nausea prior to admission. Lactate was normal. BNP 4288. Creatinine was down to 1.4 from last admission where she had acute kidney injury and had come down to 1.8 prior to discharge. SARS-COVID rapid was negative. The patient received a dose of vancomycin and cefepime in the ER. Chest x-ray revealed a new finding of right infrahilar lung infiltrate and moderate sized left-sided pleural effusion. No associated compressive atelectasis or consolidative lung base infiltrate. The patient underwent ultrasound of the lower extremity, which was negative for DVT. ID consultation has been requested for antibiotic management. REVIEW OF SYSTEMS: Negative except for above in HPI. PAST MEDICAL HISTORY: Diabetes, history of polysubstance dependence, history of right foot infection, status post debridement and skin graft placement last admission, history of group B streptococcal bacteremia, hypertension, EN, anemia. CURRENT MEDICATIONS: Currently on no antibiotics. Was on Zyvox and Augmentin prior to admission, which she stopped on her own couple of days prior to admission. ALLERGIES: No known drug allergies. SOCIAL HISTORY: Denies smoking, ETOH, or current illicit drug use. PHYSICAL EXAMINATION: VITAL SIGNS: Noted. GENERAL: Alert, oriented x 3, anxious female, sitting upright in bed, nontoxic appearing on 2-3 liters O2 by nasal cannula. HEENT: Normocephalic, atraumatic. Anicteric. NECK: Supple, no JVD. LUNGS: Decreased breath sounds at bases, otherwise clear. No accessory muscle use. CARDIOVASCULAR: S1, S2. No gallops or murmurs. ABDOMEN: Soft, obese. Bowel sounds present, nontender, nondistended. GENITOURINARY: No Givens in place. EXTREMITIES: Bilateral lower extremity swelling present. Right foot dressing present, intact, not taken down. Wound pictures noted, graft in place. Some skin breakdown on the inferior margin. No drainage noted. No cyanosis, no clubbing. DERMATOLOGIC: Warm, dry, no generalized rash except for above. NEUROLOGIC: Alert and oriented x 3, grossly nonfocal. PSYCHIATRIC: Calm and cooperative. HUBER looks okay. LABORATORY DATA: WBC 12.0, hemoglobin 10.3, platelets 268. Sodium 140, BUN 39, creatinine 1.4, glucose 211. Albumin 3.3. SARS-COVID negative. MICRO: None. IMAGING: Lower extremity ultrasound negative for DVT. Chest x-ray reviewed. IMPRESSION: 1. Pulmonary infiltrates, appears likely CHF and or possible aspiration 2. Nausea and vomiting prior to admission 3. Chronic respiratory failure, on home O2 at 2 liters. 4. Pleural effusion. 5. Congestive heart failure. 6. Diabetes mellitus. 7. Renal insufficiency. 8. Leukocytosis. 9. History of right foot deep infection, status post incision and debridement, 09/18 and with a skin graft placement by Dr. Morris prior to discharge last admission. 10. History of group B streptococcal bacteremia, resolved. 11. Hypertension. 12. History of polysubstance abuse. 13. Anemia. RECOMMENDATIONS: 1. Start Zyvox and Zosyn for possible aspiration pneumonia 2. Continue local wound care as directed. 3. Optimal edema control. 4. Follow up labs and cultures. 5. Continue supportive care. 6. If no improvement in dyspnea, the patient may need further imaging. Thank you for allowing me to participate in this patient's care. If you have any questions, do not hesitate to contact me. CARLOS A/NNAMDI DURAND: Олег TID: [id number] [facility]
[2021-10-25] MEDS: INSULIN LISPRO 300 UNITS/3 ML VIAL. SQ SCH ×2 (11:55→16:46)
[2021-10-25] MEDS ORDERED: PIPERACILLIN/TAZOBACTAM 3.375 GM in IV NORMAL SALINE 50ML 50 ML IV SCH (12:00)
[2021-10-25] MEDS: PIPERACILLIN/TAZOBACTAM 4.5 GM in IV NORMAL SALINE 100ML 100 ML IV SCH ×2 (12:29→17:49)
[2021-10-25] MEDS: LINEZOLID 600 MG TABLET PO SCH ×2 (12:29→19:21)
--- NOTE | 2021-10-25 14:12 | PDOC2 ---
CONSULT Date of Consult Date of Consult DATE: 10/25/21 TIME: 14:04 Reason for Consult Reason for Consult: Right foot wound Source Source: Patient History of Present Illness Reason for Visit: S/p right split thickness autograft harvest and application to the right plantar foot wound. Patient has been treating the donor site with antibiotic cream without complications, pain. She has been treating the recipient site with [place]in wet-to-dry daily without any drainage, redness or swelling. Patient was admitted on October 24, 2021 for bilateral lower extremity edema, dyspne in the setting of recently diagnosed pneumonia. At bedside, patient denies any pain to the right foot or donor site. She denies any constitutional symptoms. She has been compliant with nonweightbearing restriction for the most part. Per chart review, she is currently on linezolid and Zosyn per IDs recommendation. Past Medical History Cardiovascular: HTN, Hyperlipidemia CENTRAL NERVOUS SYSTEM: Periperal neuropathy GI: Constipation Musculoskeletal: Osteoarthritis Endocrine: Diabetes Past Surgical History Past Surgical History: Appendectomy, Cholecystectomy Family History Family History: Diabetes, Heart Disease Social History ALCOHOL: rare Drugs: Crystal meth Lives: with Family Current Problem List Problem List Problems Medical Problems: (1) Pleural effusion Status: Acute (2) Pneumonia Status: Acute (3) Respiratory distress Status: Acute Current Medications Current Medications Current Medications Vancomycin HCl 1.5 gm/Sodium Chloride 500 ml @ 250 mls/hr 1X ONCE IV Last administered on 10/24/21at 18:15; Start 10/24/21 at 17:30; Stop 10/24/21 at 19:29; Status DC Cefepime HCl (Maxipime) 1 gm 1X ONCE IVP Last administered on 10/24/21at 18:12; Start 10/24/21 at 17:00; Stop 10/24/21 at 17:06; Status DC Ondansetron HCl (Zofran) 4 mg PRN Q8HRS PRN IVP NAUSEA/VOMITING; Start 10/24/21 at 19:30; Stop 10/25/21 at 11:52; Status DC Acetaminophen/ Hydrocodone Bitart (Lortab 5/325) 1 tab PRN Q6HRS PRN PO MILD PAIN 1-3 Last administered on 10/25/21at 10:41; Start 10/24/21 at 22:15 Morphine Sulfate (Morphine Sulfate) 2 mg PRN Q2HR PRN IVP BREAKTHROUGH PAIN; Start 10/24/21 at 22:15 Insulin Glargine (Lantus Syringe) 25 unit BID SQ Last administered on 10/25/21at 10:55; Start 10/24/21 at 23:20 Dextrose (Dextrose 50%-Water Syringe) 12.5 gm PRN Q15MIN PRN IV SEE COMMENTS; Start 10/24/21 at 23:15; Stop 10/25/21 at 11:53; Status DC Insulin Human Lispro (HumaLOG) 0-7 UNITS TIDWMEALS SQ ; Start 10/25/21 at 08:00; Stop 10/25/21 at 11:53; Status DC Pharmacy Consult (C.diff Med Screen By Rx) 1 each PRN 1X ONCE MC Last administered on 10/25/21at 03:45; Start 10/25/21 at 03:45; Stop 10/25/21 at 03:46; Status DC Insulin Human Lispro (HumaLOG) 0-7 UNITS TIDWMEALS SQ ; Start 10/25/21 at 12:00 Dextrose (Dextrose 50%-Water Syringe) 12.5 gm PRN Q15MIN PRN IV SEE COMMENTS; Start 10/25/21 at 09:00 Simvastatin (Zocor) 20 mg QHS PO ; Start 10/25/21 at 21:00 Furosemide (Lasix) 40 mg 1X ONCE IVP Last administered on 10/25/21at 10:03; Start 10/25/21 at 09:15; Stop 10/25/21 at 09:17; Status DC Ondansetron HCl (Zofran) 4 mg PRN Q6HRS PRN IVP NAUSEA/VOMITING; Start 10/25/21 at 09:15 Calcium Carbonate/ Glycine (Tums) 500 mg PRN Q3HRS PRN PO UPSET STOMACH; Start 10/25/21 at 09:15 Zolpidem Tartrate (Ambien) 5 mg PRN QHS PRN PO INSOMNIA, MAY REPEAT IN 1HR; Start 10/25/21 at 09:15 Info (Non-Icu Electrolyte Protocol) 1 ea PRN DAILY PRN MC SEE COMMENTS; Start 10/25/21 at 09:15 Oxycodone/ Acetaminophen (Percocet 5/325) 1 tab PRN Q4HRS PRN PO MODERATE PAIN; Start 10/25/21 at 09:15 Oxycodone/ Acetaminophen (Percocet 5/325) 2 tab PRN Q4HRS PRN PO SEVERE PAIN; Start 10/25/21 at 09:15 Senna/Docusate Sodium (Senna Plus) 1 tab BID PO Last administered on 10/25/21at 10:02; Start 10/25/21 at 10:00 Heparin Sodium (Porcine) (Heparin Sodium) 5,000 unit Q8HRS SQ Last administered on 10/25/21at 10:55; Start 10/25/21 at 10:00 Piperacillin Sod/ Tazobactam Sod 3.375 gm/Sodium Chloride 50 ml @ 100 mls/hr Q6HRS IV ; Start 10/25/21 at 12:00; Stop 10/25/21 at 12:02; Status DC Linezolid (Zyvox) 600 mg BID PO Last administered on 10/25/21at 12:29; Start 10/25/21 at 11:00 Lactobacillus Rhamnosus (Culturelle) 1 cap BID PO ; Start 10/25/21 at 21:00 Piperacillin Sod/ Tazobactam Sod 4.5 gm/Sodium Chloride 100 ml @ 200 mls/hr Q6HRS IV Last administered on 10/25/21at 12:29; Start 10/25/21 at 12:30 Active Scripts Active Reported Zofran (Ondansetron Hcl) 4 Mg Tablet 1 Tab PO Q6HRS Lovenox (Enoxaparin Sodium) 40 Mg/0.4 Ml Disp.syrin 40 Mg SQ DAILY Amox Tr-K Clv 875-125 Mg Tab (Amoxicillin/Potassium Clav) 1 Each Tablet 1 Tab PO BID Simvastatin 20 Mg Tablet 1 Tab PO QHS Amlodipine Besylate 10 Mg Tablet 10 Mg PO DAILY Zyvox (Linezolid) 600 Mg Tablet 600 Mg PO BID Hydrocodone-Apap 5-325 (Hydrocodone Bit/Acetaminophen) 1 Tab Tablet 1 Tab PO PRN Q4HRS PRN Levemir (Insulin Detemir) 100 Unit/1 Ml Vial 55 Unit SQ BID Simvastatin 20 Mg Tablet 1 Tab PO QHS Allergies Allergies: Coded Allergies: I S O L A T I O N *CONTACT* (Verified Allergy, Unknown, 09/22/21) mrsa No Known Medication Allergies (Verified Allergy, Unknown, 09/22/21) ROS Review of System CONSTITUTIONAL: No fever. No chills. No dizziness. No weakness. CARDIOVASCULAR: No chest pain. No palpitations. No lower extremity edema. RESPIRATORY: No shortness of breath, cough, pain with respiration. No hemoptysis. No dyspnea. GASTROINTESTINAL: Normal appetite. No nausea, vomiting, diarrhea. GENITOURINARY: No frequency, urgency, nocturia. No hematuria or dysuria. MUSCULOSKELETAL: No arthralgias or myalgias. INTEGUMENTARY: Refer to HPI NEUROLOGIC: No numbness or tingling of the extremities. No weakness. PSYCHIATRIC: No confusion. ENDOCRINE: No fatigue. No weakness. HEMATOLOGICAL: No bleeding. No petechiae. No bruising. ALLERGIES: No asthma. No urticaria Physical Exam Physical Exam General: Pleasant without apparent distress, AOx3 Right lower extremity focused Dermatology: -Upon dressing removal, the donor site at the proximal thigh has completely epithelialized without any edema, erythema, fluctuance or discharge. -The recipient site shows at least 95% autograft integration without any open lesion. However at the posterior margin/interface between the graft and the [place] skin flap shows incomplete integration/epithelialization. However, there is no fluctuance, discharge, proximal streaking or erythema. There is no full- thickness wound but of other partial-thickness incomplete epithelialization. Vascular: -DP/PT palpable -Foot is warm to touch with CFT less than 3 seconds x 5 -Nonpitting moderate edema to the level of the proximal legs, bilateral Neurology: -Light touch sensation diminished to the level of digits 1 through 5 MSK: -[-] TTP at plantar mid arch, tarsal tunnel or deep flexor compartment -Able to move digits -Muscle strength 5 out of 5 across ankle joint -Calf is soft and nontender Vitals VITALS Vital Signs Date Time Temp Pulse Resp B/P (MAP) Pulse Ox O2 Delivery O2 Flow Rate FiO2 10/25/21 11:00 98.0 107 20 149/80 (103) 95 Nasal Cannula 3.0 98.0 Labs Labs Laboratory Tests Test 10/24/21 17:55 10/24/21 18:55 10/24/21 21:26 10/25/21 07:54 White Blood Count 12.0 x10^3/uL (4.0-11.0) Red Blood Count 4.03 x10^6/uL (3.50-5.40) Hemoglobin 10.3 g/dL (12.0-15.5) Hematocrit 31.2 % (36.0-47.0) Mean Corpuscular Volume 78 fL (79-100) Mean Corpuscular Hemoglobin 26 pg (25-35) Mean Corpuscular Hemoglobin Concent 33 g/dL (31-37) Red Cell Distribution Width 14.3 % (11.5-14.5) Platelet Count 268 x10^3/uL (140-400) Neutrophils (%) (Auto) 75 % (31-73) Lymphocytes (%) (Auto) 13 % (24-48) Monocytes (%) (Auto) 6 % (0-9) Eosinophils (%) (Auto) 5 % (0-3) Basophils (%) (Auto) 1 % (0-3) Neutrophils # (Auto) 9.0 x10^3/uL (1.8-7.7) Lymphocytes # (Auto) 1.6 x10^3/uL (1.0-4.8) Monocytes # (Auto) 0.7 x10^3/uL (0.0-1.1) Eosinophils # (Auto) 0.6 x10^3/uL (0.0-0.7) Basophils # (Auto) 0.1 x10^3/uL (0.0-0.2) Activated Partial Thromboplast Time 32 SEC (24-38) Sodium Level 140 mmol/L (136-145) Potassium Level 4.5 mmol/L (3.5-5.1) Chloride Level 100 mmol/L (98-107) Carbon Dioxide Level 30 mmol/L (21-32) Anion Gap 10 (6-14) Blood Urea Nitrogen 39 mg/dL (7-20) Creatinine 1.4 mg/dL (0.6-1.0) Estimated GFR (Cockcroft-Gault) 39.0 BUN/Creatinine Ratio 28 (6-20) Glucose Level 211 mg/dL (70-99) Lactic Acid Level 1.4 mmol/L (0.4-2.0) Calcium Level 9.1 mg/dL (8.5-10.1) Total Bilirubin 0.3 mg/dL (0.2-1.0) Aspartate Amino Transf (AST/SGOT) 11 U/L (15-37) Alanine Aminotransferase (ALT/SGPT) 20 U/L (14-59) Alkaline Phosphatase 91 U/L (46-116) Troponin I High Sensitivity 39 ng/L (4-50) QB-Tge-L-Type Natriuretic Peptide 4288 pg/mL (0-124) Total Protein 8.5 g/dL (6.4-8.2) Albumin 3.3 g/dL (3.4-5.0) Albumin/Globulin Ratio 0.6 (1.0-1.7) SARS-CoV-2 RNA (EDVIN) Negative (Negative) SARS-CoV-2 Antigen (Rapid) Negative (NEGATIVE) Glucose (Fingerstick) 204 mg/dL (70-99) 174 mg/dL (70-99) Test 10/25/21 11:40 Glucose (Fingerstick) 168 mg/dL (70-99) Laboratory Tests Test 10/24/21 17:55 10/24/21 18:55 10/24/21 21:26 10/25/21 07:54 White Blood Count 12.0 x10^3/uL (4.0-11.0) Red Blood Count 4.03 x10^6/uL (3.50-5.40) Hemoglobin 10.3 g/dL (12.0-15.5) Hematocrit 31.2 % (36.0-47.0) Mean Corpuscular Volume 78 fL (79-100) Mean Corpuscular Hemoglobin 26 pg (25-35) Mean Corpuscular Hemoglobin Concent 33 g/dL (31-37) Red Cell Distribution Width 14.3 % (11.5-14.5) Platelet Count 268 x10^3/uL (140-400) Neutrophils (%) (Auto) 75 % (31-73) Lymphocytes (%) (Auto) 13 % (24-48) Monocytes (%) (Auto) 6 % (0-9) Eosinophils (%) (Auto) 5 % (0-3) Basophils (%) (Auto) 1 % (0-3) Neutrophils # (Auto) 9.0 x10^3/uL (1.8-7.7) Lymphocytes # (Auto) 1.6 x10^3/uL (1.0-4.8) Monocytes # (Auto) 0.7 x10^3/uL (0.0-1.1) Eosinophils # (Auto) 0.6 x10^3/uL (0.0-0.7) Basophils # (Auto) 0.1 x10^3/uL (0.0-0.2) Activated Partial Thromboplast Time 32 SEC (24-38) Sodium Level 140 mmol/L (136-145) Potassium Level 4.5 mmol/L (3.5-5.1) Chloride Level 100 mmol/L (98-107) Carbon Dioxide Level 30 mmol/L (21-32) Anion Gap 10 (6-14) Blood Urea Nitrogen 39 mg/dL (7-20) Creatinine 1.4 mg/dL (0.6-1.0) Estimated GFR (Cockcroft-Gault) 39.0 BUN/Creatinine Ratio 28 (6-20) Glucose Level 211 mg/dL (70-99) Lactic Acid Level 1.4 mmol/L (0.4-2.0) Calcium Level 9.1 mg/dL (8.5-10.1) Total Bilirubin 0.3 mg/dL (0.2-1.0) Aspartate Amino Transf (AST/SGOT) 11 U/L (15-37) Alanine Aminotransferase (ALT/SGPT) 20 U/L (14-59) Alkaline Phosphatase 91 U/L (46-116) Troponin I High Sensitivity 39 ng/L (4-50) WX-Fgi-S-Type Natriuretic Peptide 4288 pg/mL (0-124) Total Protein 8.5 g/dL (6.4-8.2) Albumin 3.3 g/dL (3.4-5.0) Albumin/Globulin Ratio 0.6 (1.0-1.7) SARS-CoV-2 RNA (EDVIN) Negative (Negative) SARS-CoV-2 Antigen (Rapid) Negative (NEGATIVE) Glucose (Fingerstick) 204 mg/dL (70-99) 174 mg/dL (70-99) Test 10/25/21 11:40 Glucose (Fingerstick) 168 mg/dL (70-99) Assessment/Plan Assessment/Plan S/p partial thickness skin autograft harvest and application to the right foot wound -Clinically, there are no signs of cellulitis, deep tissue abscess to the right donor site or the recipient site -Dressing change: Donor site: Daily topical antibiotics application to the wound bed Recipient site: Light layer of topical antibiotics daily application to the recipient site especially at the proximal wound margin. Then cover with 4 x 4 gauze, Kerlix and tape. -Antibiotics: Zyvox and Zosyn per infectious disease -Family to bring the E boot to the hospital, touchdown, flatfoot or forefoot, for short distance ambulation to the bathroom only. Okay to remove the boot while at rest in bed -PT eval and treat for sit, pivot and transfer. Short distance ambulation with a gait aid well the surgical foot is protected in the E boot with minimal touchdown for balance only -Patient to follow-up for postoperative skin care in 2 weeks at the clinic as an outpatient BUZZ BERMEO DPM Oct 25, 2021 14:12
[2021-10-25 15:00] VITALS: BP 136/81
--- NOTE | 2021-10-25 15:30 | NUR ---
SW following. Discussed with RN, pt from home, 3L (uses oxygen at home), renal diet, COVID-19 negative. RN advised no SW needs at this time. SW will continue to follow.
--- NOTE | 2021-10-25 15:55 | NUR ---
Wound Care patient seen per wound care consult. patient stated Dr. Morris already changed the dressing. patient has orders for dressing from Dr. Morris. wound care is signing off at this time.
[2021-10-25 19:00] VITALS: BP 152/80
[2021-10-25] MEDS: SIMVASTATIN 20 MG TABLET PO SCH (19:21)
[2021-10-25] MEDS: LACTOBACILLUS RHAMNOSUS GG 1 CAPSULE. PO SCH (19:21)
[2021-10-25 23:00] VITALS: BP 167/90
[2021-10-26] MEDS: HYDROcodone/APAP 5/325MG 1 TAB TABLET PO PRN (00:55)
[2021-10-26] MEDS: PIPERACILLIN/TAZOBACTAM 4.5 GM in IV NORMAL SALINE 100ML 100 ML IV SCH ×6 (00:55→23:58)
[2021-10-26 03:00] VITALS: BP 139/74
[2021-10-26] MEDS: HEPARIN for SUB-Q USE 5,000 UNIT/ML VIAL. SQ SCH ×3 (05:55→23:02)
[2021-10-26 07:00] VITALS: BP 138/84
[2021-10-26] MEDS: INSULIN LISPRO 300 UNITS/3 ML VIAL. SQ SCH ×3 (07:43→17:00)
--- NOTE | 2021-10-26 08:02 | PDOC ---
Infectious Disease Note Subjective: Subjective Patient complains of low back pain Feels better when she lays on her side Denies worsening cough or shortness of breath No fevers or chest pain or nausea or vomiting Vital Signs: Vital Signs Vital Signs Date Time Temp Pulse Resp B/P (MAP) Pulse Ox O2 Delivery O2 Flow Rate FiO2 10/26/21 03:00 98.0 85 18 139/74 (95) 97 Nasal Cannula 3.0 98.0 Physical Exam: PHYSICAL EXAM GENERAL: Alert, oriented x 3, anxious female, , nontoxic appearing on 2-3 liters O2 by nasal cannula. HEENT: Normocephalic, atraumatic. Anicteric. NECK: Supple, no JVD. LUNGS: Decreased breath sounds at bases, otherwise clear. No accessory muscle use. CARDIOVASCULAR: S1, S2. No gallops or murmurs. ABDOMEN: Soft, obese. Bowel sounds present, nontender, nondistended. GENITOURINARY: No Gviens in place. EXTREMITIES: Bilateral lower extremity swelling present. Right foot dressing present, intact, not taken down. Wound pictures noted, graft in place. Some skin breakdown on the inferior margin. No cyanosis, no clubbing. DERMATOLOGIC: Warm, dry, no generalized rash except for above. NEUROLOGIC: Alert and oriented x 3, grossly nonfocal. PSYCHIATRIC: Calm and cooperative. HUBER looks okay. Medications: Inpatient Meds: Medications reviewed. Labs: Lab Laboratory Tests Test 10/25/21 11:40 10/25/21 16:32 10/25/21 21:50 10/26/21 07:27 Glucose (Fingerstick) 168 mg/dL (70-99) 176 mg/dL (70-99) 207 mg/dL (70-99) 95 mg/dL (70-99) Objective: Assessment: LABORATORY DATA: WBC 12.0, hemoglobin 10.3, platelets 268. Sodium 140, BUN 39, creatinine 1.4, glucose 211. Albumin 3.3. SARS-COVID negative. MICRO: None. IMAGING: Lower extremity ultrasound negative for DVT. Chest x-ray reviewed. IMPRESSION: 1. Pulmonary infiltrates, likely CHF and or possible aspiration 2. Nausea and vomiting prior to admission 3. Chronic respiratory failure, on home O2 at 2 liters. 4. Pleural effusion. 5. Congestive heart failure. 6. Diabetes mellitus. 7. Renal insufficiency. 8. Leukocytosis. 9. Right foot deep infection, status post incision and debridement, 09/18 and with a skin graft placement by Dr. Morris prior to discharge last admission. 10. History of group B streptococcal bacteremia, resolved. 11. Hypertension. 12. History of polysubstance abuse. 13. Anemia. Plan: Plan of Care Continue Zyvox and Zosyn for possible aspiration pneumonia for now Podiatry following Optimal edema control If no improvement in dyspnea patient may need further imaging HALLIE SNELL MD Oct 26, 2021 08:02
[2021-10-26] MEDS: SENNOSIDES/DOCUSATE 8.6/50MG TABLET. PO SCH ×2 (09:00→22:45)
[2021-10-26] MEDS: LACTOBACILLUS RHAMNOSUS GG 1 CAPSULE. PO SCH ×2 (09:59→22:43)
[2021-10-26] MEDS: LINEZOLID 600 MG TABLET PO SCH ×2 (09:59→22:43)
[2021-10-26] MEDS: LIDOCAINE (700MG/PATCH) PATCH. TD SCH (10:19)
--- NOTE | 2021-10-26 10:22 | PDOC ---
[facility] [facility] PROGRESS NOTE Date of Service DOS: DATE: 10/26/21 TIME: 10:19 Chief Complaint Chief Complaint Acute hypoxic respiratory failure secondary to pneumonia suspect gram-negative versus atypical vs CHF? fluid overload, history of bacteremia diabetic foot ulcers, diabetes hypertension hyperlipidemia -Patient presented with shortness of breath. Recently discharged from here went to rehab went home. Appears a new pneumonia on imaging. Leukocytosis on labs -Patient received Vanc cefepime in ER. Should be covered for a few more hours will consult ID given patient was just discharged here to bacteremia. Please obtain blood cultures -Patient reports she has completed a few rounds of IV antibiotics through PICC line for several weeks. Possible resistance related to current infection? Infectious disease consult -Podiatry consult to evaluate recent surgical site for infection -Antibiotics per infectious disease -ECHO ordered -Home meds resumed as indicated. Wound care nutrition consult to optimize wound healing -DVT prophylaxis -Home meds resumed as indicated History of Present Illness History of Present Illness PI: Patient is a 56-year-old white female who presents to the emergency room overnight due to shortness of breath. Patient recently discharged from here for group B strep bacteremia related to right diabetic wound infection. She underwent surgical intervention during that admission see details on previous discharge summary. Patient was discharged to rehab on Zyvox and Augmentin. She reports she finished these medications. Was discharged home a couple days before . She reports after she returned home her shortness of breat h gotten notably worse along with lower extremity swelling. Return to the hospital concerned for her breathing. And emergency room patient noted to have right lower lung infiltrate. Patient had received vancomycin and cefepime in emergency room. I evaluated her she was resting in bed complaining of some shortness of breath. Said her legs are very tight. Otherwise she is denying chest pain dizziness abdominal pain dysuria 10/26 Patient evaluated at bedside. Still requiring nasal cannula but short of breath still. Pretty edematous throughout will give dose of Lasix today and then schedule oral. ID following. Podiatry following said foot from previous surgery looks good. Patient complaining of a lot of back pain she can only lay on one side due to pain. We will try some Lidoderm patches and one-time morphine for breakthrough. If pain does not improve as the infection clears and fluid diuresis we will investigate further. Vitals/I&O Vitals/I&O: Vital Signs Date Time Temp Pulse Resp B/P (MAP) Pulse Ox O2 Delivery O2 Flow Rate FiO2 10/26/21 07:00 98.1 92 18 138/84 (102) 97 Nasal Cannula 3.0 98.1 I & O 10/25/21 10/25/21 10/26/21 15:00 23:00 07:00 Intake Total 400 ml 420 ml 800 ml Output Total 500 ml Balance 400 ml -80 ml 800 ml Physical Exam General: Alert, Oriented X3, Cooperative Heart: Regular rate, Normal S1, Normal S2 Lungs: Crackles Abdomen: Normal bowel sounds, Soft, No tenderness Extremities: Normal pulses, Other (bilateral lower extremity edema) Skin: No significant lesion Labs Labs: Laboratory Tests Test 10/25/21 11:40 10/25/21 16:32 10/25/21 21:50 10/26/21 07:27 Glucose (Fingerstick) 168 mg/dL (70-99) 176 mg/dL (70-99) 207 mg/dL (70-99) 95 mg/dL (70-99) Assessment and Plan Assessmemt and Plan Problems Medical Problems: (1) Pleural effusion Status: Acute (2) Pneumonia Status: Acute (3) Respiratory distress Status: Acute Comment Review of Relevant I have reviewed the following items ojse (where applicable) has been applied. Medications: Current Medications Medications (Trade) Dose Ordered Sig/Ray Route PRN Reason Start Time Stop Time Status Last Admin Dose Admin Simvastatin (Zocor) 20 mg QHS PO 10/25/21 21:00 10/25/21 19:21 Linezolid (Zyvox) 600 mg BID PO 10/25/21 11:00 10/26/21 09:59 Lactobacillus Rhamnosus (Culturelle) 1 cap BID PO 10/25/21 21:00 10/26/21 09:59 Piperacillin Sod/ Tazobactam Sod 4.5 gm/Sodium Chloride 100 ml @ 200 mls/hr Q6HRS IV 10/25/21 12:30 10/26/21 05:52 Furosemide (Lasix) 40 mg 1X ONCE IVP 10/25/21 20:45 10/25/21 20:46 DC 10/25/21 21:41 Justifications for Admission Other Justification DRAGAN CARDENAS MD Oct 26, 2021 10:22
[2021-10-26] MEDS: INSULIN GLARGINE SYRINGE. SQ SCH ×2 (10:32→22:31)
[2021-10-26 11:00] VITALS: BP 145/72
[2021-10-26] MEDS: FUROSEMIDE 40 MG/4 ML VIAL. IVP ONE ×2 (11:29→14:51)
[2021-10-26] MEDS: MORPHINE SULFATE 4 MG/ML INJ. IVP ONE ×2 (11:29→17:51)
[2021-10-26] MEDS: oxyCODONE/APAP 5/325 1 TAB TABLET PO PRN ×2 (11:33→22:54)
[2021-10-26 15:00] VITALS: BP 136/66
--- NOTE | 2021-10-26 15:06 | NUR ---
Nurse's note: No IV access at 1200, peripheral line inserted by the PICC team; IV meds administered at 1450
--- NOTE | 2021-10-26 17:43 | CARD ---
MR#: [id number] Date of Study: 10/26/2021 Ordering Physician: DRAGAN CARDENAS, Referring Physician: DRAGAN CARDENAS, Tech: Tyra Deshawnuday, [facility] APPROVED REPORT EXAM: Two-dimensional and M-mode echocardiogram with Doppler and color Doppler. Other Information Quality : AverageHR: 94bpm Technically limited study due to body habitus. INDICATION Dyspnea Congestive Heart Failure RISK FACTORS Diabetes 2D DIMENSIONS RVDd2.9 (2.9-3.5cm)Left Atrium(2D)4.2 (1.6-4.0cm) IVSd1.0 (0.7-1.1cm)Aortic Root(2D)2.7 (2.0-3.7cm) LVDd5.8 (3.9-5.9cm)LVOT Diameter2.1 (1.8-2.4cm) PWd0.9 (0.7-1.1cm)LVDs4.3 (2.5-4.0cm) FS (%) 25.7 %SV84.1 ml Aortic Valve AoV Peak Kory.158.1cm/sAoV VTI30.2cm AO Peak GR.10.0mmHgLVOT VTI 21.71cm AO Mean GR.5mmHg Mitral Valve MV E Rrdzzoyo06.1cm/sMV E Peak Gr.4mmHg MV DECEL [id number] A Yawxjwxh99.8cm/s MV E Mean Gr.2mmHgE/A Ratio1.0 TDI Lateral E' P. V6.56cm/sMedial E' P. V6.69cm/s E/Lateral E'14.3E/Medial E'14.1 Tricuspid Valve TR P. [id number]/sRAP [id number] TR Peak Gr.[id number] LEFT VENTRICLE The left ventricle is normal size. There is normal left ventricular wall thickness. The left ventricu lar systolic function is normal and the ejection fraction is within normal range. The Ejection Fracti on is 50-55%. Septal motion consistent with conduction abnormality. Transmitral Doppler flow pattern is Grade II-pseudonormal filling dynamics. RIGHT VENTRICLE The right ventricle is normal size. There is normal right ventricular wall thickness. The right ventr icular systolic function is normal. ATRIA The left atrium is borderline dilated. The right atrium size is normal. The interatrial septum is int act with no evidence for an atrial septal defect or patent foramen ovale as noted on 2-D or Doppler i maging. AORTIC VALVE The aortic valve is normal in structure and function. Doppler and Color Flow revealed no significant aortic regurgitation. There is no significant aortic valvular stenosis. Calculated aortic valve area is 2.57 cm2 with maximum pressure gradient of 13 mmHg and mean pressure gradient of 7 mmHg. MITRAL VALVE The mitral valve is normal in structure and function. There is no evidence of mitral valve prolapse. There is no mitral valve stenosis. Doppler and Color-flow revealed trace mitral regurgitation. TRICUSPID VALVE The tricuspid valve is normal in structure and function. Doppler and Color Flow revealed trace to mil d tricuspid regurgitation with an estimated PAP of 46 mmHg. There is no tricuspid valve stenosis. PULMONIC VALVE The pulmonic valve is not well visualized. Doppler and Color Flow revealed trace pulmonic valvular re gurgitation. GREAT VESSELS The aortic root is normal in size. The IVC is dilated. PERICARDIAL EFFUSION There is small left pleural effusion. There is no evidence of significant pericardial effusion. Critical Notification Critical Value: No <Conclusion> The left ventricle is normal size. The left ventricular systolic function is normal and the ejection fraction is within normal range. The Ejection Fraction is 50-55%. Doppler and Color Flow revealed no significant aortic regurgitation. There is no significant aortic valvular stenosis. Doppler and Color-flow revealed trace mitral regurgitation. Doppler and Color Flow revealed trace to mild tricuspid regurgitation with an estimated PAP of 46 mmH g. Signed by : Torito Funes MD Electronically Approved : 10/26/2021 17:42:46
[2021-10-26] MEDS: NEOMY/BACITR/POLYMYXIN OINT PACKET. TP SCH (18:42)
[2021-10-26 19:00] VITALS: BP 124/50
[2021-10-26] MEDS: SIMVASTATIN 20 MG TABLET PO SCH (22:43)
[2021-10-26] MEDS: MORPHINE SULFATE 2 MG/ML INJ. IVP PRN (22:54)
[2021-10-26 23:00] VITALS: BP 102/43
[2021-10-26] MEDS: PATCH REMOVAL. MC SCH (23:02)
[2021-10-27 03:00] VITALS: BP 140/75
[2021-10-27] MEDS: PIPERACILLIN/TAZOBACTAM 4.5 GM in IV NORMAL SALINE 100ML 100 ML IV SCH ×3 (06:00→17:38)
[2021-10-27 06:27] LABS: HEMOGLOBIN 8.7 g/dL (12.0-15.5); RED BLOOD COUNT 3.46 x10^6/uL (3.50-5.40); RED CELL DISTRIBUTION WIDTH 14.6 % (11.5-14.5); WHITE BLOOD COUNT 10.3 x10^3/uL (4.0-11.0)
[2021-10-27 06:45] LABS: CALCIUM 8.6 mg/dL (8.5-10.1); CREATININE 1.3 mg/dL (0.6-1.0); GFR 42.5; POTASSIUM 3.8 mmol/L (3.5-5.1)
[2021-10-27 07:00] VITALS: BP 139/68
[2021-10-27] MEDS: HEPARIN for SUB-Q USE 5,000 UNIT/ML VIAL. SQ SCH ×3 (07:03→23:17)
[2021-10-27] MEDS: INSULIN LISPRO 300 UNITS/3 ML VIAL. SQ SCH ×3 (08:00→17:00)
[2021-10-27] MEDS: LACTOBACILLUS RHAMNOSUS GG 1 CAPSULE. PO SCH ×2 (08:37→23:09)
[2021-10-27] MEDS: oxyCODONE/APAP 5/325 1 TAB TABLET PO PRN ×3 (08:37→19:41)
[2021-10-27] MEDS: NEOMY/BACITR/POLYMYXIN OINT PACKET. TP SCH (08:38)
[2021-10-27] MEDS: LINEZOLID 600 MG TABLET PO SCH ×2 (08:38→23:09)
[2021-10-27] MEDS: LIDOCAINE (700MG/PATCH) PATCH. TD SCH (08:38)
[2021-10-27] MEDS: FUROSEMIDE 40 MG TABLET. PO SCH (08:38)
[2021-10-27] MEDS: SENNOSIDES/DOCUSATE 8.6/50MG TABLET. PO SCH ×2 (08:38→21:00)
[2021-10-27] MEDS: INSULIN GLARGINE SYRINGE. SQ SCH ×2 (09:00→23:17)
--- NOTE | 2021-10-27 10:18 | PDOC ---
Infectious Disease Note Subjective: Subjective Patient feels better today Low back pain is under control with pain patch Shortness of breath and cough are improving No fevers, nausea, vomiting or diarrhea Vital Signs: Vital Signs Vital Signs Date Time Temp Pulse Resp B/P (MAP) Pulse Ox O2 Delivery O2 Flow Rate FiO2 10/27/21 03:00 98.8 85 18 140/75 (96) 98 Room Air 98.8 10/26/21 21:00 3.0 Physical Exam: PHYSICAL EXAM GENERAL: Alert, oriented x 3, anxious female, sitting upright in bed, nontoxic appearing, comfortable HEENT: Normocephalic, atraumatic. Anicteric. NECK: Supple, no JVD. LUNGS: Decreased breath sounds at bases, otherwise clear. No accessory muscle use. CARDIOVASCULAR: S1, S2. No gallops or murmurs. ABDOMEN: Soft, obese. Bowel sounds present, nontender, nondistended. GENITOURINARY: No Givens in place. EXTREMITIES: Bilateral lower extremity swelling present. Right foot dressing present, intact, not taken down. Wound pictures noted, graft in place. Some skin breakdown on the inferior margin. No drainage noted. No cyanosis, no clubbing. DERMATOLOGIC: Warm, dry, no generalized rash except for above. NEUROLOGIC: Alert and oriented x 3, grossly nonfocal. PSYCHIATRIC: Calm and cooperative. HUBER looks okay. Medications: Inpatient Meds: Medications reviewed. Labs: Lab Laboratory Tests Test 10/26/21 11:18 10/26/21 16:11 10/26/21 21:24 10/27/21 05:35 Glucose (Fingerstick) 183 mg/dL (70-99) 137 mg/dL (70-99) 155 mg/dL (70-99) White Blood Count 10.3 x10^3/uL (4.0-11.0) Red Blood Count 3.46 x10^6/uL (3.50-5.40) Hemoglobin 8.7 g/dL (12.0-15.5) Hematocrit 27.0 % (36.0-47.0) Mean Corpuscular Volume 78 fL (79-100) Mean Corpuscular Hemoglobin 25 pg (25-35) Mean Corpuscular Hemoglobin Concent 32 g/dL (31-37) Red Cell Distribution Width 14.6 % (11.5-14.5) Platelet Count 171 x10^3/uL (140-400) Sodium Level 140 mmol/L (136-145) Potassium Level 3.8 mmol/L (3.5-5.1) Chloride Level 100 mmol/L (98-107) Carbon Dioxide Level 31 mmol/L (21-32) Anion Gap 9 (6-14) Blood Urea Nitrogen 27 mg/dL (7-20) Creatinine 1.3 mg/dL (0.6-1.0) Estimated GFR (Cockcroft-Gault) 42.5 Glucose Level 62 mg/dL (70-99) Calcium Level 8.6 mg/dL (8.5-10.1) Test 10/27/21 08:27 Glucose (Fingerstick) 105 mg/dL (70-99) Objective: Assessment: 1. Pulmonary infiltrates, likely CHF and or possible aspiration 2. Nausea and vomiting prior to admission 3. Chronic respiratory failure, on home O2 at 2 liters. 4. Pleural effusion. 5. Congestive heart failure. 6. Diabetes mellitus. 7. Renal insufficiency. 8. Leukocytosis. 9. Right foot deep infection, status post incision and debridement, 09/18 and with a skin graft placement by Dr. Morris prior to discharge last admission. Treated 10. History of group B streptococcal bacteremia, resolved. Treated 11. Hypertension. 12. History of polysubstance abuse. 13. Anemia. Plan: Plan of Care Change Zyvox and Zosyn to Augmentin and doxycycline for 5 days Wound care as directed Optimal edema control HALLIE SNELL MD Oct 27, 2021 10:18
[2021-10-27 11:00] VITALS: BP 142/67
--- NOTE | 2021-10-27 11:49 | PDOC ---
[facility] PROGRESS NOTE Date of Service DOS: DATE: 10/27/21 TIME: 11:48 Chief Complaint Chief Complaint Acute hypoxic respiratory failure secondary to pneumonia suspect gram-negative versus atypical vs CHF? fluid overload, history of bacteremia diabetic foot ulcers, diabetes hypertension hyperlipidemia -Patient presented with shortness of breath. Recently discharged from here went to rehab went home. Appears a new pneumonia on imaging. Leukocytosis on labs -Patient received Vanc cefepime in ER. Should be covered for a few more hours will consult ID given patient was just discharged here to bacteremia. Please obtain blood cultures -Patient reports she has completed a few rounds of IV antibiotics through PICC line for several weeks. Possible resistance related to current infection? Infectious disease consult -Podiatry consult to evaluate recent surgical site for infection -Antibiotics per infectious disease -ECHO ordered -Home meds resumed as indicated. Wound care nutrition consult to optimize wound healing -DVT prophylaxis -Home meds resumed as indicated History of Present Illness History of Present Illness PI: Patient is a 56-year-old white female who presents to the emergency room overnight due to shortness of breath. Patient recently discharged from here for group B strep bacteremia related to right diabetic wound infection. She underwent surgical intervention during that admission see details on previous discharge summary. Patient was discharged to rehab on Zyvox and Augmentin. She reports she finished these medications. Was discharged home a couple days before . She reports after she returned home her shortness of breat h gotten notably worse along with lower extremity swelling. Return to the hospital concerned for her breathing. And emergency room patient noted to have right lower lung infiltrate. Patient had received vancomycin and cefepime in emergency room. I evaluated her she was resting in bed complaining of some shortness of breath. Said her legs are very tight. Otherwise she is denying chest pain dizziness abdominal pain dysuria 10/26 Patient evaluated at bedside. Still requiring nasal cannula but short of breath still. Pretty edematous throughout will give dose of Lasix today and then schedule oral. ID following. Podiatry following said foot from previous surgery looks good. Patient complaining of a lot of back pain she can only lay on one side due to pain. We will try some Lidoderm patches and one-time morphine for breakthrough. If pain does not improve as the infection clears and fluid diuresis we will investigate further. 10/27 Patient evaluated examined at bedside. Resting in bed but definitely improved from yesterday. Says back pain improved with lidocaine patch. Antibiotics over to orals today. Continue diuresis. Possible discharge in next 24 to 48 hours. Plan of care discussed with bedside RN. Vitals/I&O Vitals/I&O: Vital Signs Date Time Temp Pulse Resp B/P (MAP) Pulse Ox O2 Delivery O2 Flow Rate FiO2 10/27/21 08:00 Nasal Cannula 3.0 10/27/21 03:00 98.8 85 18 140/75 (96) 98 98.8 I & O 10/26/21 10/26/21 10/27/21 15:00 23:00 07:00 Intake Total 480 ml 240 ml Output Total 500 ml 200 ml Balance -20 ml 40 ml Physical Exam Physical Exam: GENERAL: Alert, oriented x 3, anxious female, sitting upright in bed, nontoxic appearing, comfortable HEENT: Normocephalic, atraumatic. Anicteric. NECK: Supple, no JVD. LUNGS: Decreased breath sounds at bases, otherwise clear. No accessory muscle use. CARDIOVASCULAR: S1, S2. No gallops or murmurs. ABDOMEN: Soft, obese. Bowel sounds present, nontender, nondistended. GENITOURINARY: No Givens in place. EXTREMITIES: Bilateral lower extremity swelling present. Right foot dressing present, intact, not taken down. Wound pictures noted, graft in place. Some skin breakdown on the inferior margin. No drainage noted. No cyanosis, no clubbing. DERMATOLOGIC: Warm, dry, no generalized rash except for above. NEUROLOGIC: Alert and oriented x 3, grossly nonfocal. PSYCHIATRIC: Calm and cooperative. HUBER looks okay. General: Alert, Oriented X3, Cooperative Heart: Regular rate, Normal S1, Normal S2 Lungs: Crackles Abdomen: Normal bowel sounds, Soft, No tenderness Extremities: Normal pulses, Other (bilateral lower extremity edema) Skin: No significant lesion Labs Labs: Laboratory Tests Test 10/26/21 16:11 10/26/21 21:24 10/27/21 05:35 10/27/21 08:27 Glucose (Fingerstick) 137 mg/dL (70-99) 155 mg/dL (70-99) 105 mg/dL (70-99) White Blood Count 10.3 x10^3/uL (4.0-11.0) Red Blood Count 3.46 x10^6/uL (3.50-5.40) Hemoglobin 8.7 g/dL (12.0-15.5) Hematocrit 27.0 % (36.0-47.0) Mean Corpuscular Volume 78 fL (79-100) Mean Corpuscular Hemoglobin 25 pg (25-35) Mean Corpuscular Hemoglobin Concent 32 g/dL (31-37) Red Cell Distribution Width 14.6 % (11.5-14.5) Platelet Count 171 x10^3/uL (140-400) Sodium Level 140 mmol/L (136-145) Potassium Level 3.8 mmol/L (3.5-5.1) Chloride Level 100 mmol/L (98-107) Carbon Dioxide Level 31 mmol/L (21-32) Anion Gap 9 (6-14) Blood Urea Nitrogen 27 mg/dL (7-20) Creatinine 1.3 mg/dL (0.6-1.0) Estimated GFR (Cockcroft-Gault) 42.5 Glucose Level 62 mg/dL (70-99) Calcium Level 8.6 mg/dL (8.5-10.1) Test 10/27/21 11:42 Glucose (Fingerstick) 106 mg/dL (70-99) Assessment and Plan Assessmemt and Plan Problems Medical Problems: (1) Pleural effusion Status: Acute (2) Pneumonia Status: Acute (3) Respiratory distress Status: Acute Comment Review of Relevant I have reviewed the following items jose (where applicable) has been applied. Medications: Current Medications Medications (Trade) Dose Ordered Sig/Ray Route PRN Reason Start Time Stop Time Status Last Admin Dose Admin Furosemide (Lasix) 40 mg DAILY PO 10/27/21 09:00 10/27/21 08:38 Neomycin/ Polymyxin/ Bacitracin (Triple Antibiotic Ointment) 1 pkt DAILY TP 10/26/21 17:00 10/27/21 08:38 Justifications for Admission Other Justification DRAGAN CARDENAS MD Oct 27, 2021 11:48
[2021-10-27 15:00] VITALS: BP 136/61
[2021-10-27 19:00] VITALS: BP 140/58
[2021-10-27] MEDS: PATCH REMOVAL. MC SCH (21:00)
[2021-10-27 23:04] VITALS: BP 140/63
[2021-10-27] MEDS: SIMVASTATIN 20 MG TABLET PO SCH (23:10)
[2021-10-27] MEDS: MORPHINE SULFATE 2 MG/ML INJ. IVP PRN (23:26)
[2021-10-28] MEDS: PIPERACILLIN/TAZOBACTAM 4.5 GM in IV NORMAL SALINE 100ML 100 ML IV SCH ×2 (00:22→06:28)
[2021-10-28 03:16] VITALS: BP 132/62
[2021-10-28] MEDS: oxyCODONE/APAP 5/325 1 TAB TABLET PO PRN ×3 (04:13→20:18)
[2021-10-28] MEDS: HEPARIN for SUB-Q USE 5,000 UNIT/ML VIAL. SQ SCH ×3 (06:33→20:53)
[2021-10-28 07:00] VITALS: BP 106/37
[2021-10-28] MEDS: INSULIN LISPRO 300 UNITS/3 ML VIAL. SQ SCH ×3 (07:56→16:54)
--- NOTE | 2021-10-28 08:13 | PDOC ---
Infectious Disease Note Subjective: Subjective Patient continues to complain of cough and shortness of breath Has diarrhea Low back pain is under control with pain patch Vital Signs: Vital Signs Vital Signs Date Time Temp Pulse Resp B/P (MAP) Pulse Ox O2 Delivery O2 Flow Rate FiO2 10/28/21 04:43 16 96 Nasal Cannula 3.0 10/28/21 03:16 98.1 93 132/62 (85) 98.1 Physical Exam: PHYSICAL EXAM GENERAL: Alert, oriented x 3, anxious female, sitting upright in bed, nontoxic appearing, comfortable HEENT: Normocephalic, atraumatic. Anicteric. NECK: Supple, no JVD. LUNGS: Decreased breath sounds at bases, otherwise clear. No accessory muscle use. CARDIOVASCULAR: S1, S2. No gallops or murmurs. ABDOMEN: Soft, obese. Bowel sounds present, nontender, nondistended. GENITOURINARY: No Givens in place. EXTREMITIES: Bilateral lower extremity swelling present. Right foot dressing present, intact, not taken down. Wound pictures noted, graft in place. Some skin breakdown on the inferior margin. No drainage noted. No cyanosis, no clubbing. DERMATOLOGIC: Warm, dry, no generalized rash except for above. NEUROLOGIC: Alert and oriented x 3, grossly nonfocal. PSYCHIATRIC: Calm and cooperative. HUBER looks okay. Medications: Inpatient Meds: Medications reviewed. Labs: Lab Laboratory Tests Test 10/27/21 08:27 10/27/21 11:42 10/27/21 17:17 10/27/21 20:27 Glucose (Fingerstick) 105 mg/dL (70-99) 106 mg/dL (70-99) 158 mg/dL (70-99) 200 mg/dL (70-99) Test 10/28/21 04:08 10/28/21 07:46 Glucose (Fingerstick) 119 mg/dL (70-99) 97 mg/dL (70-99) Objective: Assessment: 1. Pulmonary infiltrates, likely CHF and or possible aspiration 2. Nausea and vomiting prior to admission 3. Chronic respiratory failure, on home O2 at 2 liters. 4. Pleural effusion. 5. Congestive heart failure. 6. Diabetes mellitus. 7. Renal insufficiency. 8. Leukocytosis. 9. Right foot deep infection, status post incision and debridement, 09/18 and with a skin graft placement by Dr. Morris prior to discharge last admission. Treated 10. History of group B streptococcal bacteremia, resolved. Treated 11. Hypertension. 12. History of polysubstance abuse. 13. Anemia. Plan: Plan of Care Continue Augmentin and doxycycline Follow-up C. difficile PCR Wound care as directed per podiatry Optimal edema control Repeat chest x-ray for follow-up of pleural effusion May need pulmonary consult HALLIE SNELL MD Oct 28, 2021 08:13
[2021-10-28] MEDS ORDERED: AMOXICILLIN/K CLAV 875/125MG TABLET. PO SCH (09:00)
[2021-10-28] MEDS: LACTOBACILLUS RHAMNOSUS GG 1 CAPSULE. PO SCH ×2 (09:00→20:17)
[2021-10-28] MEDS: INSULIN GLARGINE SYRINGE. SQ SCH ×2 (09:00→20:55)
[2021-10-28] MEDS: SENNOSIDES/DOCUSATE 8.6/50MG TABLET. PO SCH ×2 (09:00→20:11)
[2021-10-28] MEDS: FUROSEMIDE 40 MG TABLET. PO SCH (09:10)
[2021-10-28] MEDS: DOXYCYCLINE HYCLATE 100 MG TABLET PO SCH ×2 (09:10→20:17)
[2021-10-28] MEDS: NEOMY/BACITR/POLYMYXIN OINT PACKET. TP SCH (09:11)
[2021-10-28] MEDS: LIDOCAINE (700MG/PATCH) PATCH. TD SCH (09:12)
[2021-10-28 11:00] VITALS: BP 140/75
--- NOTE | 2021-10-28 11:39 | PDOC ---
[facility] PROGRESS NOTE Date of Service DOS: DATE: 10/28/21 TIME: 11:33 Chief Complaint Chief Complaint Acute hypoxic respiratory failure secondary to pneumonia suspect gram-negative versus atypical vs CHF? fluid overload, history of bacteremia diabetic foot ulcers, diabetes hypertension hyperlipidemia -Patient presented with shortness of breath. Recently discharged from here went to rehab went home. Appears a new pneumonia on imaging. Leukocytosis on labs -Patient received Vanc cefepime in ER. Should be covered for a few more hours will consult ID given patient was just discharged here to bacteremia. Please obtain blood cultures -Patient reports she has completed a few rounds of IV antibiotics through PICC line for several weeks. Possible resistance related to current infection? Infectious disease consult -Podiatry consult to evaluate recent surgical site for infection -Antibiotics per infectious disease -ECHO ordered -Home meds resumed as indicated. Wound care nutrition consult to optimize wound healing -DVT prophylaxis -Home meds resumed as indicated History of Present Illness History of Present Illness PI: Patient is a 56-year-old white female who presents to the emergency room overnight due to shortness of breath. Patient recently discharged from here for group B strep bacteremia related to right diabetic wound infection. She underwent surgical intervention during that admission see details on previous discharge summary. Patient was discharged to rehab on Zyvox and Augmentin. She reports she finished these medications. Was discharged home a couple days before . She reports after she returned home her shortness of breat h gotten notably worse along with lower extremity swelling. Return to the hospital concerned for her breathing. And emergency room patient noted to have right lower lung infiltrate. Patient had received vancomycin and cefepime in emergency room. I evaluated her she was resting in bed complaining of some shortness of breath. Said her legs are very tight. Otherwise she is denying chest pain dizziness abdominal pain dysuria 10/28/2021 Patient seen and examined Patient is resting, appears well and in NAD Reports lidocaine patch helped with back pain Discussed with RN Chart reviewed 10/27 Patient evaluated examined at bedside. Resting in bed but definitely improved from yesterday. Says back pain improved with lidocaine patch. Antibiotics over to orals today. Continue diuresis. Possible discharge in next 24 to 48 hours. Plan of care discussed with bedside RN. 10/26 Patient evaluated at bedside. Still requiring nasal cannula but short of breath still. Pretty edematous throughout will give dose of Lasix today and then schedule oral. ID following. Podiatry following said foot from previous surgery looks good. Patient complaining of a lot of back pain she can only lay on one side due to pain. We will try some Lidoderm patches and one-time morphine for breakthrough. If pain does not improve as the infection clears and fluid diuresis we will investigate further. Vitals/I&O Vitals/I&O: Vital Signs Date Time Temp Pulse Resp B/P (MAP) Pulse Ox O2 Delivery O2 Flow Rate FiO2 10/28/21 11:00 97.9 92 20 140/75 (96) 96 Room Air 97.9 10/28/21 08:00 2.0 I & O 10/27/21 10/27/21 10/28/21 15:00 23:00 07:00 Intake Total 100 ml Balance 100 ml Physical Exam Physical Exam: GENERAL: Alert, oriented x 3, anxious female, sitting upright in bed, nontoxic appearing, comfortable HEENT: Normocephalic, atraumatic. Anicteric. NECK: Supple, no JVD. LUNGS: Decreased breath sounds at bases, otherwise clear. No accessory muscle use. CARDIOVASCULAR: S1, S2. No gallops or murmurs. ABDOMEN: Soft, obese. Bowel sounds present, nontender, nondistended. GENITOURINARY: No Givens in place. EXTREMITIES: Bilateral lower extremity swelling present. Right foot dressing present, intact, not taken down. Wound pictures noted, graft in place. Some skin breakdown on the inferior margin. No drainage noted. No cyanosis, no clubbing. DERMATOLOGIC: Warm, dry, no generalized rash except for above. NEUROLOGIC: Alert and oriented x 3, grossly nonfocal. PSYCHIATRIC: Calm and cooperative. HUBER looks okay. General: Alert, Oriented X3, Cooperative Heart: Regular rate, Normal S1, Normal S2 Lungs: Crackles Abdomen: Normal bowel sounds, Soft, No tenderness Extremities: Normal pulses, Other (bilateral lower extremity edema) Skin: No significant lesion Labs Labs: Laboratory Tests Test 10/27/21 11:42 10/27/21 17:17 10/27/21 20:27 10/28/21 04:08 Glucose (Fingerstick) 106 mg/dL (70-99) 158 mg/dL (70-99) 200 mg/dL (70-99) 119 mg/dL (70-99) Test 10/28/21 07:46 Glucose (Fingerstick) 97 mg/dL (70-99) Assessment and Plan Assessmemt and Plan Problems Medical Problems: (1) Pleural effusion Status: Acute (2) Pneumonia Status: Acute (3) Respiratory distress Status: Acute Acute hypoxic respiratory failure; secondary to pneumonia suspect gram-negative versus atypical vs CHF? fluid overload history of bacteremia diabetic foot ulcers diabetes hypertension hyperlipidemia Plan: IV antibiotics Breathing treatment Continue O2 @ 2L Continue diuresis Ativan for anxiety Flonase continue home meds DVT prophylaxis Monitor back pain; lidoderm patches PRN Encourage PO intake Hope to discharge tomorrow if stable Comment Review of Relevant I have reviewed the following items jose (where applicable) has been applied. Medications: Current Medications Medications (Trade) Dose Ordered Sig/Ray Route PRN Reason Start Time Stop Time Status Last Admin Dose Admin Doxycycline Hyclate (Vibra-Tab) 100 mg BID PO 10/28/21 09:00 10/28/21 09:10 Justifications for Admission Other Justification BREANNA VINCENT III DO Oct 28, 2021 11:39
[2021-10-28] MEDS: MORPHINE SULFATE 2 MG/ML INJ. IVP PRN (14:17)
[2021-10-28 15:00] VITALS: BP 137/70
--- NOTE | 2021-10-28 15:23 | RAD ---
XR CHEST 1V History: Reason: F/U FOR PLEURAL EFFUSION / Spl. Instructions: / History: Comparison: October 24, 2021 Findings: Moderate left pleural effusion. Increased small right pleural effusion. Increased diffuse interstitia l thickening with bibasilar consolidations. Unchanged heart size. No pneumothorax. Impression: 1. Increased diffuse interstitial thickening with bibasilar consolidations, may represent worsening pulmonary edema or infection. 2. Moderate left and small right pleural effusion. Electronically signed by: Rogerio Jackson DO (10/28/2021 3:20 PM) [id number]
[2021-10-28 19:00] VITALS: BP 148/80
[2021-10-28] MEDS: SIMVASTATIN 20 MG TABLET PO SCH (20:17)
[2021-10-28] MEDS: PATCH REMOVAL. MC SCH (21:00)
[2021-10-28 23:00] VITALS: BP 133/78
[2021-10-29 03:00] VITALS: BP 123/57
[2021-10-29] MEDS: MORPHINE SULFATE 2 MG/ML INJ. IVP PRN ×2 (03:29→15:08)
[2021-10-29] MEDS: HEPARIN for SUB-Q USE 5,000 UNIT/ML VIAL. SQ SCH ×3 (06:12→21:56)
[2021-10-29 07:00] VITALS: BP 152/80
--- NOTE | 2021-10-29 07:47 | PDOC ---
Infectious Disease Note Subjective: Subjective Patient complains of diarrhea Continues to have intermittent low back pain On 2 L O2 by nasal cannula per RN Vital Signs: Vital Signs Vital Signs Date Time Temp Pulse Resp B/P (MAP) Pulse Ox O2 Delivery O2 Flow Rate FiO2 10/29/21 03:59 16 97 Nasal Cannula 3.0 10/29/21 03:00 98.1 95 123/57 (79) 98.1 Physical Exam: PHYSICAL EXAM GENERAL: Alert, oriented x 3, anxious female, sitting upright in bed, nontoxic appearing, comfortable HEENT: Normocephalic, atraumatic. Anicteric. NECK: Supple, no JVD. LUNGS: Decreased breath sounds at bases, otherwise clear. No accessory muscle use. CARDIOVASCULAR: S1, S2. No gallops or murmurs. ABDOMEN: Soft, obese. Bowel sounds present, nontender, nondistended. GENITOURINARY: No Givens in place. EXTREMITIES: Bilateral lower extremity swelling present. Right foot dressing present, intact, not taken down. Wound pictures noted, graft in place. Some skin breakdown on the inferior margin. No drainage noted. No cyanosis, no clubbing. DERMATOLOGIC: Warm, dry, no generalized rash except for above. NEUROLOGIC: Alert and oriented x 3, grossly nonfocal. PSYCHIATRIC: Calm and cooperative. HUBER looks okay. Medications: Inpatient Meds: Medications reviewed. Labs: Lab Laboratory Tests Test 10/28/21 07:46 10/28/21 11:47 10/28/21 16:45 10/28/21 20:03 Glucose (Fingerstick) 97 mg/dL (70-99) 104 mg/dL (70-99) 152 mg/dL (70-99) 165 mg/dL (70-99) Test 10/29/21 03:39 Glucose (Fingerstick) 77 mg/dL (70-99) Objective: Assessment: 1. Pulmonary infiltrates, likely CHF 2. Nausea and vomiting prior to admission, resolved 3. Chronic respiratory failure, on home O2 at 2 liters. 4. Pleural effusion. 5. Congestive heart failure. 6. Diabetes mellitus. 7. Renal insufficiency. 8. Leukocytosis. 9. Right foot deep infection, status post incision and debridement, 09/18 and with a skin graft placement by Dr. Morris prior to discharge last admission. Treated 10. History of group B streptococcal bacteremia, resolved. Treated 11. Hypertension. 12. History of polysubstance abuse. 13. Anemia. Plan: Plan of Care DC Augmentin and doxycycline as pt had been on zyvox and augmentin previously including levaquin by [facility] prior to that Foot wound has healed CXR unchanged , likely chf as pt has been treated with prolonged antibiotic tx C. difficile PCR negative Wound care as directed per podiatry Optimal edema control Discussed with HALLIE SHCILLING MD Oct 29, 2021 07:46
[2021-10-29] MEDS: INSULIN LISPRO 300 UNITS/3 ML VIAL. SQ SCH ×3 (08:00→17:00)
[2021-10-29] MEDS: SENNOSIDES/DOCUSATE 8.6/50MG TABLET. PO SCH ×2 (09:00→21:00)
[2021-10-29] MEDS: FUROSEMIDE 40 MG TABLET. PO SCH (09:39)
[2021-10-29] MEDS: LIDOCAINE (700MG/PATCH) PATCH. TD SCH (09:39)
[2021-10-29] MEDS: LACTOBACILLUS RHAMNOSUS GG 1 CAPSULE. PO SCH ×2 (09:39→20:28)
[2021-10-29] MEDS: NEOMY/BACITR/POLYMYXIN OINT PACKET. TP SCH (09:39)
[2021-10-29] MEDS: INSULIN GLARGINE SYRINGE. SQ SCH ×2 (09:43→20:34)
[2021-10-29 10:11] LABS: ALBUMIN 2.9 g/dL (3.4-5.0); ALBUMIN/GLOBULIN RATIO 0.6 (1.0-1.7); CALCIUM 8.6 mg/dL (8.5-10.1); CREATININE 1.2 mg/dL (0.6-1.0); GFR 46.6; POTASSIUM 3.7 mmol/L (3.5-5.1); TOTAL BILIRUBIN 0.3 mg/dL (0.2-1.0); TOTAL PROTEIN 7.7 g/dL (6.4-8.2)
[2021-10-29 11:00] VITALS: BP 138/78
[2021-10-29 16:45] VITALS: BP 125/61
--- NOTE | 2021-10-29 17:25 | PDOC ---
[facility] PROGRESS NOTE Date of Service DOS: DATE: 10/29/21 TIME: 17:24 Chief Complaint Chief Complaint Acute hypoxic respiratory failure secondary to pneumonia suspect gram-negative versus atypical vs CHF? fluid overload, history of bacteremia diabetic foot ulcers, diabetes hypertension hyperlipidemia -Patient presented with shortness of breath. Recently discharged from here went to rehab went home. Appears a new pneumonia on imaging. Leukocytosis on labs -Patient received Vanc cefepime in ER. Should be covered for a few more hours will consult ID given patient was just discharged here to bacteremia. Please obtain blood cultures -Patient reports she has completed a few rounds of IV antibiotics through PICC line for several weeks. Possible resistance related to current infection? Infectious disease consult -Podiatry consult to evaluate recent surgical site for infection -Antibiotics per infectious disease -ECHO ordered -Home meds resumed as indicated. Wound care nutrition consult to optimize wound healing -DVT prophylaxis -Home meds resumed as indicated History of Present Illness History of Present Illness PI: Patient is a 56-year-old white female who presents to the emergency room overnight due to shortness of breath. Patient recently discharged from here for group B strep bacteremia related to right diabetic wound infection. She underwent surgical intervention during that admission see details on previous discharge summary. Patient was discharged to rehab on Zyvox and Augmentin. She reports she finished these medications. Was discharged home a couple days before . She reports after she returned home her shortness of breat h gotten notably worse along with lower extremity swelling. Return to the hospital concerned for her breathing. And emergency room patient noted to have right lower lung infiltrate. Patient had received vancomycin and cefepime in emergency room. I evaluated her she was resting in bed complaining of some shortness of breath. Said her legs are very tight. Otherwise she is denying chest pain dizziness abdominal pain dysuria 10/29 Patient evaluated examined at bedside. She was resting in bed I allowed her to rest when seen. No major changes to current plan anyways. Discussed with bedside RN. 10/28/2021 Patient seen and examined Patient is resting, appears well and in NAD Reports lidocaine patch helped with back pain Discussed with RN Chart reviewed 10/27 Patient evaluated examined at bedside. Resting in bed but definitely improved from yesterday. Says back pain improved with lidocaine patch. Antibiotics over to orals today. Continue diuresis. Possible discharge in next 24 to 48 hours. Plan of care discussed with bedside RN. 10/26 Patient evaluated at bedside. Still requiring nasal cannula but short of breath still. Pretty edematous throughout will give dose of Lasix today and then schedule oral. ID following. Podiatry following said foot from previous surgery looks good. Patient complaining of a lot of back pain she can only lay on one side due to pain. We will try some Lidoderm patches and one-time morphine for breakthrough. If pain does not improve as the infection clears and fluid diuresis we will investigate further. Vitals/I&O Vitals/I&O: Vital Signs Date Time Temp Pulse Resp B/P (MAP) Pulse Ox O2 Delivery O2 Flow Rate FiO2 10/29/21 16:45 98.2 92 17 125/61 (82) 97 Nasal Cannula 3.0 98.2 I & O 10/28/21 10/28/21 10/29/21 15:00 23:00 07:00 Intake Total 100 ml Output Total 0 ml Balance 100 ml 0 ml Physical Exam Physical Exam: GENERAL: Alert, oriented x 3, anxious female, sitting upright in bed, nontoxic appearing, comfortable HEENT: Normocephalic, atraumatic. Anicteric. NECK: Supple, no JVD. LUNGS: Decreased breath sounds at bases, otherwise clear. No accessory muscle use. CARDIOVASCULAR: S1, S2. No gallops or murmurs. ABDOMEN: Soft, obese. Bowel sounds present, nontender, nondistended. GENITOURINARY: No Givens in place. EXTREMITIES: Bilateral lower extremity swelling present. Right foot dressing present, intact, not taken down. Wound pictures noted, graft in place. Some skin breakdown on the inferior margin. No drainage noted. No cyanosis, no clubbing. DERMATOLOGIC: Warm, dry, no generalized rash except for above. NEUROLOGIC: Alert and oriented x 3, grossly nonfocal. PSYCHIATRIC: Calm and cooperative. HUBER looks okay. General: Alert, Oriented X3, Cooperative Heart: Regular rate, Normal S1, Normal S2 Lungs: Crackles Abdomen: Normal bowel sounds, Soft, No tenderness Extremities: Normal pulses, Other (bilateral lower extremity edema) Skin: No significant lesion Labs Labs: Laboratory Tests Test 10/28/21 20:03 10/29/21 03:39 10/29/21 08:44 10/29/21 08:50 Glucose (Fingerstick) 165 mg/dL (70-99) 77 mg/dL (70-99) 112 mg/dL (70-99) Sodium Level 138 mmol/L (136-145) Potassium Level 3.7 mmol/L (3.5-5.1) Chloride Level 98 mmol/L (98-107) Carbon Dioxide Level 32 mmol/L (21-32) Anion Gap 8 (6-14) Blood Urea Nitrogen 23 mg/dL (7-20) Creatinine 1.2 mg/dL (0.6-1.0) Estimated GFR (Cockcroft-Gault) 46.6 BUN/Creatinine Ratio 19 (6-20) Glucose Level 103 mg/dL (70-99) Calcium Level 8.6 mg/dL (8.5-10.1) Total Bilirubin 0.3 mg/dL (0.2-1.0) Aspartate Amino Transf (AST/SGOT) 8 U/L (15-37) Alanine Aminotransferase (ALT/SGPT) 17 U/L (14-59) Alkaline Phosphatase 96 U/L (46-116) EM-Tcu-T-Type Natriuretic Peptide 4830 pg/mL (0-124) Total Protein 7.7 g/dL (6.4-8.2) Albumin 2.9 g/dL (3.4-5.0) Albumin/Globulin Ratio 0.6 (1.0-1.7) Test 10/29/21 12:12 10/29/21 17:20 Glucose (Fingerstick) 160 mg/dL (70-99) 144 mg/dL (70-99) Assessment and Plan Assessmemt and Plan Problems Medical Problems: (1) Pleural effusion Status: Acute (2) Pneumonia Status: Acute (3) Respiratory distress Status: Acute Comment Review of Relevant I have reviewed the following items jose (where applicable) has been applied. Justifications for Admission Other Justification DRAGAN CARDENAS MD Oct 29, 2021 17:25
[2021-10-29 19:00] VITALS: BP 140/71
[2021-10-29] MEDS: oxyCODONE/APAP 5/325 1 TAB TABLET PO PRN (20:28)
[2021-10-29] MEDS: SIMVASTATIN 20 MG TABLET PO SCH (20:28)
[2021-10-29] MEDS: PATCH REMOVAL. MC SCH (21:00)
[2021-10-29 23:00] VITALS: BP 135/60
[2021-10-30 03:00] VITALS: BP 134/58
[2021-10-30] MEDS: HEPARIN for SUB-Q USE 5,000 UNIT/ML VIAL. SQ SCH ×3 (05:54→20:44)
--- NOTE | 2021-10-30 06:44 | PDOC ---
Infectious Disease Note Subjective: Subjective Patient feels better On 2 L O2 by nasal cannula per RN Vital Signs: Vital Signs Vital Signs Date Time Temp Pulse Resp B/P (MAP) Pulse Ox O2 Delivery O2 Flow Rate FiO2 10/30/21 03:00 98.1 86 20 134/58 (83) 99 Nasal Cannula 3.0 98.1 Physical Exam: PHYSICAL EXAM GENERAL: Alert, oriented x 3, anxious female, sitting upright in bed, nontoxic appearing, comfortable HEENT: Normocephalic, atraumatic. Anicteric. NECK: Supple, no JVD. LUNGS: Decreased breath sounds at bases, otherwise clear. No accessory muscle use. CARDIOVASCULAR: S1, S2. No gallops or murmurs. ABDOMEN: Soft, obese. Bowel sounds present, nontender, nondistended. GENITOURINARY: No Givens in place. EXTREMITIES: Bilateral lower extremity swelling present. Right foot dressing present, intact, not taken down. Wound pictures noted, graft in place. Some skin breakdown on the inferior margin. No drainage noted. No cyanosis, no clubbing. DERMATOLOGIC: Warm, dry, no generalized rash except for above. NEUROLOGIC: Alert and oriented x 3, grossly nonfocal. PSYCHIATRIC: Calm and cooperative. HUBER looks okay. Medications: Inpatient Meds: Medications reviewed. Labs: Lab Laboratory Tests Test 10/29/21 08:44 10/29/21 08:50 10/29/21 12:12 10/29/21 17:20 Glucose (Fingerstick) 112 mg/dL (70-99) 160 mg/dL (70-99) 144 mg/dL (70-99) Sodium Level 138 mmol/L (136-145) Potassium Level 3.7 mmol/L (3.5-5.1) Chloride Level 98 mmol/L (98-107) Carbon Dioxide Level 32 mmol/L (21-32) Anion Gap 8 (6-14) Blood Urea Nitrogen 23 mg/dL (7-20) Creatinine 1.2 mg/dL (0.6-1.0) Estimated GFR (Cockcroft-Gault) 46.6 BUN/Creatinine Ratio 19 (6-20) Glucose Level 103 mg/dL (70-99) Calcium Level 8.6 mg/dL (8.5-10.1) Total Bilirubin 0.3 mg/dL (0.2-1.0) Aspartate Amino Transf (AST/SGOT) 8 U/L (15-37) Alanine Aminotransferase (ALT/SGPT) 17 U/L (14-59) Alkaline Phosphatase 96 U/L (46-116) HS-Pie-B-Type Natriuretic Peptide 4830 pg/mL (0-124) Total Protein 7.7 g/dL (6.4-8.2) Albumin 2.9 g/dL (3.4-5.0) Albumin/Globulin Ratio 0.6 (1.0-1.7) Test 10/29/21 20:00 Glucose (Fingerstick) 177 mg/dL (70-99) Objective: Assessment: 1. Pulmonary infiltrates, likely CHF 2. Nausea and vomiting prior to admission, resolved 3. Chronic respiratory failure, on home O2 at 2 liters. 4. Pleural effusion. 5. Congestive heart failure. 6. Diabetes mellitus. 7. Renal insufficiency. 8. Leukocytosis. 9. Right foot deep infection, status post incision and debridement, 09/18 and with a skin graft placement by Dr. Morris prior to discharge last admission. Treated 10. History of group B streptococcal bacteremia, resolved. Treated 11. Hypertension. 12. History of polysubstance abuse. 13. Anemia. Plan: Plan of Care DC Augmentin and doxycycline as pt had been on zyvox and augmentin previously including levaquin by [facility] prior to that Foot wound has healed CXR unchanged , likely chf C. difficile PCR negative Wound care as directed per podiatry Optimal edema control Ready for dc home per team HALLIE SNELL MD Oct 30, 2021 06:44
[2021-10-30 07:00] VITALS: BP 132/63
[2021-10-30] MEDS: INSULIN LISPRO 300 UNITS/3 ML VIAL. SQ SCH ×3 (08:00→17:00)
[2021-10-30] MEDS ORDERED: SODIUM CHLORIDE 0.65% NASAL SPRAY 45ML BOTTLE. NS PRN (09:00)
[2021-10-30] MEDS: SENNOSIDES/DOCUSATE 8.6/50MG TABLET. PO SCH ×2 (09:00→20:40)
[2021-10-30] MEDS: LACTOBACILLUS RHAMNOSUS GG 1 CAPSULE. PO SCH ×2 (09:03→20:40)
[2021-10-30] MEDS: FUROSEMIDE 40 MG TABLET. PO SCH (09:04)
[2021-10-30] MEDS: oxyCODONE/APAP 5/325 1 TAB TABLET PO PRN ×3 (09:04→20:41)
[2021-10-30] MEDS: LIDOCAINE (700MG/PATCH) PATCH. TD SCH (09:05)
[2021-10-30] MEDS: NEOMY/BACITR/POLYMYXIN OINT PACKET. TP SCH (09:06)
[2021-10-30] MEDS: INSULIN GLARGINE SYRINGE. SQ SCH ×2 (09:06→20:44)
[2021-10-30 11:00] VITALS: BP 140/62
--- NOTE | 2021-10-30 11:57 | PDOC ---
[employer] PROGRESS NOTE Date of Service DOS: DATE: 10/30/21 TIME: 11:56 Chief Complaint Chief Complaint Acute hypoxic respiratory failure secondary to pneumonia suspect gram-negative versus atypical vs CHF? fluid overload, history of bacteremia diabetic foot ulcers, diabetes hypertension hyperlipidemia History of Present Illness History of Present Illness 10/30/2021 Patient seen exam Discussed with RN Chart reviewed HPI: Patient is a 56-year-old white female [facility]. Patient recently discharged from here for group B strep bacteremia related to right diabetic wound infection. She underwent surgical intervention during that admission see details on previous discharge summary. Patient was discharged to rehab on Zyvox and Augmentin. She reports she finished these medications. Was discharged home a couple days b . She reports after she returned home her shortness of breath gotten notably worse along with lower extremity swelling. Return to the hospital concerned for her breathing. And emergency room patient noted to have right lower lung infiltrate. Patient had received vancomycin and cefepime in emergency room. I evaluated her she was resting in bed complaining of some shortness of breath. Said her legs are very tight. Otherwise she is denying chest pain dizziness abdominal pain dysuria 10/29 Patient evaluated examined at bedside. She was resting in bed I allowed her to rest when seen. No major changes to current plan anyways. Discussed with bedside RN. 10/28/2021 Patient seen and examined Patient is resting, appears well and in NAD Reports lidocaine patch helped with back pain Discussed with RN Chart reviewed 10/27 Patient evaluated examined at bedside. Resting in bed but definitely improved from yesterday. Says back pain improved with lidocaine patch. Antibiotics over to orals today. Continue diuresis. Possible discharge in next 24 to 48 hours. Plan of care discussed with bedside RN. 10/26 Patient evaluated at bedside. Still requiring nasal cannula but short of breath still. Pretty edematous throughout will give dose of Lasix today and then schedule oral. ID following. Podiatry following said foot from previous surgery looks good. Patient complaining of a lot of back pain she can only lay on one side due to pain. We will try some Lidoderm patches and one-time morphine for breakthrough. If pain does not improve as the infection clears and fluid diuresis we will investigate further. Vitals/I&O Vitals/I&O: Vital Signs Date Time Temp Pulse Resp B/P (MAP) Pulse Ox O2 Delivery O2 Flow Rate FiO2 10/30/21 09:04 18 95 Nasal Cannula 2.0 10/30/21 07:00 98.6 90 132/63 (86) 98.6 I & O 10/29/21 10/29/21 10/30/21 15:00 23:00 07:00 Intake Total 120 ml 0 ml Output Total 1 ml Balance 120 ml 0 ml -1 ml Physical Exam Physical Exam: GENERAL: Alert, oriented x 3, anxious female, sitting upright in bed, nontoxic appearing, comfortable HEENT: Normocephalic, atraumatic. Anicteric. NECK: Supple, no JVD. LUNGS: Decreased breath sounds at bases, otherwise clear. No accessory muscle use. CARDIOVASCULAR: S1, S2. No gallops or murmurs. ABDOMEN: Soft, obese. Bowel sounds present, nontender, nondistended. GENITOURINARY: No Givens in place. EXTREMITIES: Bilateral lower extremity swelling present. Right foot dressing present, intact, not taken down. Wound pictures noted, graft in place. Some skin breakdown on the inferior margin. No drainage noted. No cyanosis, no clubbing. DERMATOLOGIC: Warm, dry, no generalized rash except for above. NEUROLOGIC: Alert and oriented x 3, grossly nonfocal. PSYCHIATRIC: Calm and cooperative. HUBER looks okay. General: Alert, Oriented X3, Cooperative Heart: Regular rate, Normal S1, Normal S2 Lungs: Crackles Abdomen: Normal bowel sounds, Soft, No tenderness Extremities: Normal pulses, Other (bilateral lower extremity edema) Skin: No significant lesion Labs Labs: Laboratory Tests Test 10/29/21 12:12 10/29/21 17:20 10/29/21 20:00 Glucose (Fingerstick) 160 mg/dL (70-99) 144 mg/dL (70-99) 177 mg/dL (70-99) Assessment and Plan Assessmemt and Plan Problems Medical Problems: (1) Pleural effusion Status: Acute (2) Pneumonia Status: Acute (3) Respiratory distress Status: Acute Acute hypoxic respiratory failure secondary to pneumonia suspect gram-negative v ersus atypical vs CHF? fluid overload, history of bacteremia diabetic foot ulcers, diabetes hypertension hyperlipidemia -Patient presented with shortness of breath. Recently discharged from here went to rehab went home. Appears a new pneumonia on imaging. Leukocytosis on labs -Patient received Vanc cefepime in ER. Should be covered for a few more hours will consult ID given patient was just discharged here to bacteremia. Please obtain blood cultures -Patient reports she has completed a few rounds of IV antibiotics through PICC line for several weeks. Possible resistance related to current infection? Infectious disease consult -Podiatry consult to evaluate recent surgical site for infection -Antibiotics per infectious disease -ECHO ordered -Home meds resumed as indicated. Wound care nutrition consult to optimize wound healing -DVT prophylaxis -Home meds resumed as indicated Trend labs Encourage p.o. intake Appreciate subspecialist input Comment Review of Relevant I have reviewed the following items jose (where applicable) has been applied. Medications: Current Medications Medications (Trade) Dose Ordered Sig/Ray Route PRN Reason Start Time Stop Time Status Last Admin Dose Admin Sodium Chloride (Saline Mist Nasal) 1 marcelo PRN Q1HR PRN NS NASAL CONGESTION 10/30/21 09:00 10/30/21 10:17 Justifications for Admission Other Justification BREANNA VINCENT III DO Oct 30, 2021 11:57
[2021-10-30 15:00] VITALS: BP_SYST 108; BP_SYST 139; BP_DIAS 68; BP_DIAS 70
[2021-10-30 19:00] VITALS: BP 135/66
[2021-10-30] MEDS: SIMVASTATIN 20 MG TABLET PO SCH (20:40)
[2021-10-30] MEDS: PATCH REMOVAL. MC SCH (20:45)
[2021-10-30 23:00] VITALS: BP 130/94
[2021-10-31] MEDS: oxyCODONE/APAP 5/325 1 TAB TABLET PO PRN ×4 (01:25→16:34)
[2021-10-31 03:00] VITALS: BP 146/95
[2021-10-31] MEDS: HEPARIN for SUB-Q USE 5,000 UNIT/ML VIAL. SQ SCH ×2 (05:51→15:00)
[2021-10-31 07:00] VITALS: BP 106/86
[2021-10-31] MEDS: INSULIN LISPRO 300 UNITS/3 ML VIAL. SQ SCH ×3 (08:00→17:00)
[2021-10-31] MEDS: SENNOSIDES/DOCUSATE 8.6/50MG TABLET. PO SCH (09:00)
[2021-10-31] MEDS: FUROSEMIDE 40 MG TABLET. PO SCH (09:16)
[2021-10-31] MEDS: LACTOBACILLUS RHAMNOSUS GG 1 CAPSULE. PO SCH (09:16)
[2021-10-31] MEDS: LIDOCAINE (700MG/PATCH) PATCH. TD SCH (09:17)
[2021-10-31] MEDS: INSULIN GLARGINE SYRINGE. SQ SCH (09:26)
[2021-10-31 11:00] VITALS: BP 144/82
[2021-10-31] MEDS ORDERED: FURO40TA4 PO (12:21)
[2021-10-31] MEDS ORDERED: OXYC1TAB15 PO (12:21)
[2021-10-31] MEDS ORDERED: LIDO700A21 TD (12:21)
--- NOTE | 2021-10-31 14:44 | DS ---
DATE OF DISCHARGE: 10/31/2021 ADMISSION DIAGNOSIS: Pneumonia. DISCHARGE DIAGNOSES: Resolving pneumonia, history of hyperlipidemia, hypertension, chronic pain, arthritis. CONSULTS: Podiatry and Infectious Disease. PROCEDURES: None. HOSPITAL COURSE: The patient is a pleasant middle-aged female who presented with pneumonia. She was short of breath and coughing. We gave her IV antibiotics and breathing treatments. The above consults were obtained. Today, I saw and examined her. She is back to her baseline. We plan to discharge to home. DISPOSITION: Home. ACTIVITY: As tolerated. DIET: Low sodium. DISCHARGE MEDICATIONS: Please see the MRAD. TOTAL TIME: [address]: Yung TID: [id number]
[2021-10-31] MEDS: NEOMY/BACITR/POLYMYXIN OINT PACKET. TP SCH (15:00)
--- NOTE | 2021-10-31 18:00 | NUR ---
DISCHARGE INSTRUCTIONS GIVEN, QUESTIONS AND CONCERNS ANSWERED, PATIENT VERBALIZED UNDERSTANDING OF DISCHARGE INFORMATION INCLUDING TAKING ALL MEDICATIONS INSTRUCTED AND FOLLOWING UP WITH HER PRIMARY PROVIDER AND OTHER CONSULTS INSTRUCTED, ALL PERSONAL BELONGINGS GATHERED BY THE PATIENT AND PLACED IN BAGS FOR DISCHARGE. DRESSING CHANGE COMPLETED TO PATIENTS' RIGHT FOOT ORDERED, PATIENT TOLERATED WITHOUT COMPLAINTS.
--- NOTE | 2021-10-31 18:35 | NUR ---
PATIENT LEAVES THE UNIT PER W/C AND ACCOMPANIED BY THIS COPYING MACHINE MECHANIC AND HER MOTHER, EMOTIONAL SUPPORT GIVEN.
--- NOTE | 2021-11-01 10:26 | SNU/HH DC ---
DISCHARGE WITH HOME HEALTH DISCHARGE INFORMATION: Final Diagnosis: Problems Medical Problems: (1) Pleural effusion Status: Acute (2) Pneumonia Status: Acute (3) Respiratory distress Status: Acute Condition on Discharge: Stable CODE STATUS: Code Status: Full HOME HEALTH: Face to Face: I certify this patient is under my care and that I, or a nurse practitioner or physician's assistant produce manager working with me, had a face to face encounter that meets the physician face to face encounter requirements with this patient on []. Medical Complications: Other (debility) RN For Eval/Treatment: Yes Physical Therapy For: Evalulation/Treatment Occupational Therapy For: Evaluation/Treatment Home Health Aide For: Self-care RUNWAY MODEL For: Community Resources Pt Meets Homebound Status: Unsteady balance w/ amb, POST DISCHARGE ORDERS: Activity Instructions for Disc: Activity as tolerated Weight Bearing Status after Di: As tolerated DIET AFTER DISCHARGE: Regular Wound/Incision Care: Other, see below Other wound/incision instructi: CLEAN RIGHT FOOT WOUND AND APPLY TIPLE ANTIBIOTIC OINTMENT DAILY COVER . CHECKS AFTER DISCHARGE: Checks after discharge: Check blood press - daily, Check blood sugar, ac/hs FOLLOW-UP: Follow up with: DR. Brice SNELL INSTRUCED. Follow Up With: DR. GOYAL INSTRUCTED. TREATMENT/EQUIPMENT ORDERS: Adaptive Equipment Issued: None CERTIFICATION STATEMENT: Certification Statement: Certification Statement: Based on the above finding, I certify that this patient is confined to the home and needs intermittent penitentiary care, physical therapy and/or speech therapy, or continues to need occupational therapy.~ This patient is under my care, and I have initiated the establishment of the plan of care.~ This patient will be followed by myself or a community physician who will periodically review the plan of care. Home Meds Active Scripts Lidocaine (Lidocaine PATCH ) 1 Each Adh..patch, 1 PATCH TD DAILY for . for 7 Days, #7 PATCH Prov:CASTLE,NIAL K III DO 10/31/21 Oxycodone/Apap 5-325 (PERCOCET 5-325 MG TABLET ) 1 Each Tablet, 1 TAB PO PRN Q4HRS PRN for MODERATE PAIN for 7 Days, #14 TAB Prov:CASTLE,NIAL K III DO 10/31/21 Furosemide (FUROSEMIDE) 40 Mg Tablet, 40 MG PO DAILY for . for 30 Days, #30 TAB Prov:CASTLE,NIAL K III DO 10/31/21 Reported Medications Ondansetron Hcl (ZOFRAN) 4 Mg Tablet, 1 TAB PO Q6HRS for NAUSEA, #20 TAB 10/24/21 Enoxaparin Sodium (LOVENOX) 40 Mg/0.4 Ml Disp.syrin, 40 MG SQ DAILY for ANTI- COAGULANT, DIS.SYR 10/24/21 Amoxicillin/Potassium Clav (AMOX TR-K CLV 875-125 MG TAB) 1 Each Tablet, 1 TAB PO BID for INFECTION, #20 TAB 10/24/21 Amlodipine Besylate (AMLODIPINE BESYLATE) 10 Mg Tablet, 10 MG PO DAILY for BP, TAB 10/24/21 Linezolid (ZYVOX) 600 Mg Tablet, 600 MG PO BID for INFECTION, TAB 10/24/21 Hydrocodone Bit/Acetaminophen (HYDROCODONE-APAP 5-325 ) 1 Tab Tablet, 1 TAB PO PRN Q4HRS PRN for PAIN, TAB 0 Refills 10/24/21 Insulin Detemir (LEVEMIR) 100 Unit/1 Ml Vial, 55 UNIT SQ BID for diabetes, EACH 09/16/21 Simvastatin (SIMVASTATIN) 20 Mg Tablet, 1 TAB PO QHS, #30 TAB 5 Refills 06/24/16 Discontinued Reported Medications Simvastatin (SIMVASTATIN) 20 Mg Tablet, 1 TAB PO QHS for CHOLESTEROL, #30 TAB 5 Refills 10/24/21 BREANNA VINCENT III DO Nov 01, 2021 10:26
== END 2021-10-31 18:35 | disposition home health service (06) | DRG 177 ==
LOC: ER 16:41 → 5 SOUTH 18:58
PROVIDERS: ADMIT Internal Medicine; ATTEND Internal Medicine
DX: J15.6 Pneumonia due to other Gram-negative bacteria (principal); J96.21 Acute and chronic respiratory failure with hypoxia; I50.23 Acute on chronic systolic (congestive) heart failure; J98.11 Atelectasis; N17.9 Acute kidney failure, unspecified; R78.81 Bacteremia; B95.1 Streptococcus, group B, as the cause of diseases classified elsewhere; D64.9 Anemia, unspecified; E11.621 Type 2 diabetes mellitus with foot ulcer; E78.00 Pure hypercholesterolemia, unspecified; E78.5 Hyperlipidemia, unspecified; I11.0 Hypertensive heart disease with heart failure; L97.509 Non-pressure chronic ulcer of other part of unspecified foot with unspecified severity; Z20.822 Contact with and (suspected) exposure to COVID-19; Z82.49 Family history of ischemic heart disease and other diseases of the circulatory system; Z83.3 Family history of diabetes mellitus; Z90.49 Acquired absence of other specified parts of digestive tract; Z90.710 Acquired absence of both cervix and uterus; F32.A Depression, unspecified; F41.9 Anxiety disorder, unspecified; G89.29 Other chronic pain; M19.90 Unspecified osteoarthritis, unspecified site
CPT/HCPCS: 36415; 71045; 80048; 80053; 82962; 83605; 83880; 84484; 85025; 85027; 85730; 87040; 87426; 87493; 93005; 93306; 93970; 96365; 96375; J0692; J1644; J1815; J1940; J2270; J2543; J3370; J7040; U0003; U0005; 97530-GP; 97535-GO; 99285-25; G0378

== ENCOUNTER → 2022-01-06 | Outpatient (CLI) | payer MEDICARE ==
[2021-11-11 11:00] VITALS: BP 144/73
[~2022-01-06] MED LIST changes: +AMLO-187 PO; +AMOX1TAB11 PO; +CEFD300C PO; +CYCL10TA19 PO; +ENOX40DI SQ; +FURO40TA4 PO; +FURO80TA3 PO; +HYDR-2761 PO; +INSU100I27 SQ; +LIDO700A21 TD; +LINE600T12 PO; +METO2.5T PO; +ONDA4TAB7 PO; +OXYC1TAB15 PO
[2022-01-06] MEDS: REGADENOSON 0.4 MG/5 ML DISP.SYRIN. IV ONE ×2 (08:30→08:45)
--- NOTE | 2022-01-06 14:57 | RAD ---
MR#: [id number] Date of Study: 01/06/2022 Ordering Physician: ANURADHA BLANDON, Referring Physician: HARLAN CASTORENA Tech: SHANEKA Sung APPROVED REPORT Test Type: Pharmacological Stress Nurse/Tech: Jeane Ordoñez R.N. Test Indications: chronic diastolic heart failure Cardiac History: home O2- 2 L n/c,htn, DM Medications: See Electronic Medical Record Medical History: See Electronic Medical Record Resting ECG: SR Resting Heart Rate: 84 bpm Resting Blood Pressure: 188/83mmHg Pretest Chest Pain: No chest pain Nurse/Tech Notes S1S2, lungs CTA but deminished Consent: The procedure was explained to the patient in lay terms. Informed consent was witnessed. Rusty eout was entered into [employer]. History and Stress Test performed by RT Pablito (R) (N) Pharm. Details Pharmacologic stress testing was performed using 0.4mg per 5ml of regadenoson given intravenously ove r 7-10 seconds. Stress Symptoms SOA POST EXERCISE Reason for Termination: Infusion complete Max HR: 103 bpm Max Blood Pressure: 161/47mmHg Blood Pressure response to exercise: Normal blood pressure response during stress. Heart Rate response to exercise: wnl Chest Pain: No. Arrhythmia: No. ST Change: No. INTERPRETATION Stress EKG Conclusion: The resting EKG shows a sinus rhythm with mild nonspecific ST segment changes. The stress EKG shows no significant changes from baseline. No EKG evidence of stress-induced ischemia. Imaging Protocol IMAGE PROTOCOL: Rest Tc-99m/stress Tc-99m 1 day Rest: Stress: Viability: Radiopharm.Tc99m [id number] Sestamibi Ouar66iEu 32mCi Duration 15min. 13min. Img Date 01/06/2022 01/06/2022 Inj-Img [id number]. 60min. Rest Admin Site:IV - Right HandAdministrator:RT Pablito (R)(N) Stress Admin Site: IV - Right HandAdministrator: RT Geri (R)(N) STRESS DATA End Diast. Vol.173.0mlLVEDV index BSA86.0ml End Syst. Vol.125.0mlLVESV index BSA62.0ml Myocardial Yyri730.0gEject. Ograqark15.0% Stress Scores Regional WT1.00Summed WT35.00 Regional WM0.00Summed WM27.00 LV Perfusion The stress images show a large distal anterior apical defect as well as a smaller inferior defect The rest images show a slightly less large distal anterior apical defect as well as a small inferior defect. Nuclear imaging is most consistent with a large anterior apical infarct with some maikel-infarct revers ible ischemia. There is a smaller fixed inferior wall defect suggestive of a previous small infarct. Wall Motion LV systolic function is significantly decreased with anterior apical hypokinesis and an ejection frac tion of 28%. LV Perf. Quant 17 Seg. SSS23.00 17 Seg. SRS14.00 17 Seg. SDS9.00 Stress Defect Extent (% LAD)61.90Rest Defect Extent (% LAD)40.00Rev. Defect Extent (% LAD)51.30 Stress Defect Extent (% LCX) 38.80Rest Defect Extent (% LCX)20.00Rev. Defect Extent (% LCX)17.50 Stress Defect Extent (% RCA)28.90Rest Defect Extent (% RCA)15.60Rev. Defect Extent (% RCA)20.00 Stress Defect Extent (% BERNARDO)49.60Rest Defect Extent (% BERNARDO)31.70Rev. Defect Extent (% BERNARDO)32.40 Conclusion 1. No EKG evidence of stress-induced ischemia. 2. Nuclear imaging is consistent with the previous large distal anterior apical infarct with some per i-infarct reversibility. 3. Nuclear imaging also shows a probable small inferior infarct. 4. LV systolic function is significantly decreased with an ejection fraction of 28%. 5. Moderate risk Lexiscan nuclear stress test. Signed by : Torito Funes MD Electronically Approved : 01/06/2022 14:57:14
== END ==
LOC: NM 08:09
PROVIDERS: ATTEND Internal Medicine Cardiovascular Disease
DX: I50.32 Chronic diastolic (congestive) heart failure (principal)
CPT/HCPCS: 78452; 93017; A9500; J2785

== ENCOUNTER 2022-03-03 08:03 | Outpatient (CLI) | payer MEDICARE ==
[2022-03-03] VITALS (15 sets, daily range): BP systolic 90–162; BP diastolic 51–80
[~2022-03-03] VITALS: Ht 167.6 cm; Wt 95.5 kg
[~2022-03-03 08:03] MED LIST changes: +IODIXANOL 320 MG/ML 100 ML VIAL. ONE; +LIDOCAINE 1% PF 2 ML VIAL. ONE
[2022-03-03] MEDS ORDERED: LIDOCAINE 1% Multi-Dose 20 ML VIAL. ONE (08:04)
[2022-03-03] MEDS ORDERED: LISI2.5T12 PO (08:30)
[2022-03-03 08:32] LABS: HEMATOCRIT 38.3 % (36.0-47.0); HEMOGLOBIN 12.6 g/dL (12.0-15.5); RED BLOOD COUNT 4.97 x10^6/uL (3.50-5.40); RED CELL DISTRIBUTION WIDTH 13.5 % (11.5-14.5); WHITE BLOOD COUNT 8.3 x10^3/uL (4.0-11.0)
[2022-03-03 08:43] LABS: CALCIUM 9.1 mg/dL (8.5-10.1); CREATININE 1.2 mg/dL (0.6-1.0); GFR 46.5; POTASSIUM 4.6 mmol/L (3.5-5.1)
[2022-03-03] MEDS ORDERED: INSULIN LISPRO 300 UNITS/3 ML VIAL. SQ ONE (09:30)
[2022-03-03] MEDS ORDERED: ONDANSETRON PF 4 MG/2 ML VIAL. IVP ONE (09:30)
[2022-03-03] MEDS ORDERED: ONDANSETRON PF 4 MG/2 ML VIAL. ONE (09:57)
[2022-03-03] MEDS ORDERED: MIDAZOLAM HCL/PF 2 MG/2 ML VIAL. ONE ×2 (10:20→10:42)
[2022-03-03] MEDS ORDERED: VERAPAMIL 5 MG/2 ML VIAL. ONE (10:20)
[2022-03-03] MEDS ORDERED: NITROGLYCERIN 200 MCG/2 ML SYRINGE FOR CATH/VASC LAB. ONE (10:20)
[2022-03-03] MEDS ORDERED: HEPARIN for IV BOLUS 10,000 UNIT/10 ML VIAL. ONE (10:20)
[2022-03-03] MEDS ORDERED: fentaNYL PF VIAL 100 MCG/2 ML VIAL ONE (10:20)
[2022-03-03] MEDS ORDERED: VERAPAMIL 5 MG/2 ML VIAL. IART ONE (11:15)
[2022-03-03] MEDS ORDERED: HEPARIN for IV BOLUS 10,000 UNIT/10 ML VIAL. IART ONE (11:15)
[2022-03-03] MEDS ORDERED: NITROGLYCERIN 200 MCG/2 ML SYRINGE FOR CATH/VASC LAB. IART ONE (11:15)
[2022-03-03] MEDS ORDERED: LIDOCAINE 1% PF 2 ML VIAL. INJ ONE (11:15)
[2022-03-03] MEDS ORDERED: IODIXANOL 320 MG/ML 100 ML VIAL. IART ONE (11:15)
[2022-03-03] MEDS ORDERED: MIDAZOLAM HCL/PF 2 MG/2 ML VIAL. IV ONE (11:15)
[2022-03-03] MEDS ORDERED: fentaNYL PF VIAL 100 MCG/2 ML VIAL IV ONE (11:15)
[2022-03-03] MEDS ORDERED: CONTRAST GIVEN. MC PRN (11:30)
[2022-03-03] MEDS ORDERED: IV 1/2 NORMAL SALINE 1,000 ML IV SCH (12:30)
--- NOTE | 2022-03-03 12:30 | NUR ---
Pt stated that she would like to be referred to [facility] for possible CABG
--- NOTE | 2022-03-03 12:44 | CARD ---
MR#: [id number] Date of Study: 03/03/2022 Ordering Physician: ANURADHA ODROÑEZ, Referring Physician: ANURADHA ORDOÑEZ Tech: RT Paul(R) APPROVED REPORT Technologist: RT Paul(R) Nurse: Sasha Dutton RN Procedure(s) performed: Left heart catheterization, selective coronary angiography via right transrad ial approach fluoro time: 15.8min dose: 90poim5 contrast: 109cc moderate sedation: 39 MINS INDICATION The indication(s) include : Unstable angina, positive stress test. [facility] Clinical Frailty Scale [facility] Clinical Frailty Scale: Mildly Frail Heart Failure Heart Failure: Yes If Yes, Newly Diagnosed: No If Yes, HF Type: Diastolic If Yes, NYHA Class: Class III CASE TECHNIQUE IV conscious sedation was used throughout procedure with appropriate monitoring and was performed in the presence of a registered nurse who was an independent trained observer other than the physician p erforming the procedure. During this case, Fluoroscopy and low osmolar contrast were used for imaging . Specimen(s) Removed: No Estimated Blood loss: 15 cc's. PROCEDURE NARRATIVE After explaining the risks, benefits and alternative options, informed consent was obtained from fabian ent. Patient was brought to the cardiac [employer] and right wrist was prepped and draped in the usual fashion after confirming a positive modified Eladio's test. Arterial access was obtained in the rig t radial artery and a [place] sheath was inserted. [place] Luiz catheter was used to perform marcell ective angiography of the left and right coronary artery. After initial unsuccessful attempt at inte rvention to the left main coronary artery [place] artery, [place] JL 3.5 catheters, this was succes sfully engaged with [place] AL 0.75 catheter and angiography was performed. LVEDP and transaortic g radients were measured. Patient tolerated the procedure well. Hemostasis was achieved using TR band. There were no immediate complications. The following findings were noted. FINDINGS 1. Hemodynamics: Left ventricular end-diastolic pressure of 6 mmHg. No pullback gradient across the aortic valve. 2. Coronary angiography: a. The left main coronary artery arose from the left sinus of Valsalva, gave rise to the left anteri or descending and left circumflex arteries and did not show any significant stenosis. b. The left anterior descending artery showed 90% stenosis involving the mid segment. There is tiffany re diffuse disease in the very distal segment. c. The left circumflex artery showed 70% stenosis involving the proximal to mid segment. The first obtuse marginal branch showed 90% proximal segment stenosis. The third obtuse marginal branch which is a small to medium caliber vessel showed a long 80% stenosis in the proximal to mid segment. d. The right coronary artery was a large and dominant vessel arising from the right sinus of Valsalv a that showed 30% stenosis in the midsegment and 80% stenosis involving the mid to distal segment. Conclusion Severe three-vessel coronary artery disease Recommendations Cardiothoracic surgery team referral for possible coronary artery bypass. Cardiovascular risk factor modification Signed by : Anuradha Ordoñez, Electronically Approved : 03/03/2022 12:43:44
--- NOTE | 2022-03-03 14:10 | NUR ---
Discharge Note: ANNABELLE AGGARWAL Discharge instructions and discharge home medications reviewed with Patient and a copy given. All questions have been answered and understanding verbalized. The following instructions and handouts were given: MODERATE SEDATION AND RADIAL SITE CARE. RIGHT RADIAL DRESSING CHANGED, NO COMPLICATIONS AND ARM BOARD REAPPLIED. LEFT HAND PIV LEFT INTACT, FOR THE CABLE ENGINEER TO USE DURING HER ECHOCARDIOGRAM. DANIEL LEMOS STATED HE WOULD REMOVE THE PERIPHERAL IV AFTER USE. Patient TRANSPORTED to ECHO, VIA WHEELCHAIR. PT'S MOTHER TAKEN TO THE CARDIAC CENTER WAITING ROOM.
--- NOTE | 2022-03-03 18:36 | CARD ---
MR#: [id number] Date of Study: 03/03/2022 Ordering Physician: ANURADHA ORDOÑEZ, Referring Physician: Alejandro CASTORENA: Tobi Leon [facility] APPROVED REPORT EXAM: Two-dimensional and M-mode echocardiogram with Doppler and color Doppler. Other Information Quality : FairHR: 79bpm Rhythm : NSR INDICATION Pre-Op Unstable Angina RISK FACTORS Hypertension Hyperlipidemia Diabetes 2D DIMENSIONS Left Atrium(2D)4.5 (1.6-4.0cm)IVSd1.3 (0.7-1.1cm) Aortic Root(2D)3.1 (2.0-3.7cm)LVDd5.2 (3.9-5.9cm) LVOT Diameter2.0 (1.8-2.4cm)PWd1.3 (0.7-1.1cm) LVDs3.9 (2.5-4.0cm)FS (%) 25.6 % SV64.6 mlLVEF(%)50.1 (>50%) Aortic Valve AoV Peak Kory.149.1cm/sAoV VTI24.4cm AO Peak GR.8.9mmHgLVOT Peak Kory.89.0cm/s LVOT VTI 14.76cmAO Mean GR.4mmHg MARIKA (VMAX)1.21mx4PBT (VTI)1.92cm2 Mitral Valve MV E Wedvnyvo24.6cm/sMV DECEL JLUP143je MV A Tafooqwc257.2cm/sMV OTG90cl E/A Ratio0.5MVA (PHT)3.03cm2 TDI E/Lateral E'18.3E/Medial E'12.8 Pulmonary Valve PV Peak Isbwikrp812.6cm/sPV Peak Grad.6mmHg Tricuspid Valve TR P. Cwvqgzca200xd/sTR Peak Gr.22mmHg Pulmonary Vein S1 Zazqpwmb75.6cm/sD2 Laephejy05.6cm/s LEFT VENTRICLE The left ventricle is normal size. There is mild concentric left ventricular hypertrophy. Mid to dist al anterior and anteroseptal wall hypokinesis. The Ejection Fraction is 40-45%. Transmitral Doppler f low pattern is Grade I-abnormal relaxation pattern. No left ventricle thrombus noted on this study. T here is no ventricular septal defect visualized. There is no left ventricular aneurysm. There is no m ass noted in the left ventricle. RIGHT VENTRICLE The right ventricle is normal size. There is normal right ventricular wall thickness. The right ventr icular systolic function is normal. ATRIA The left atrium size is normal. The right atrium size is normal. The interatrial septum is intact wit h no evidence for an atrial septal defect or patent foramen ovale as noted on 2-D or Doppler imaging. AORTIC VALVE The aortic valve is normal in structure and function. Doppler and Color Flow revealed no significant aortic regurgitation. There is no significant aortic valvular stenosis. There is no aortic valvular v egetation. MITRAL VALVE The mitral valve is thickened but opens well. There is no evidence of mitral valve prolapse. There is no mitral valve stenosis. Doppler and Color-flow revealed mild mitral regurgitation. TRICUSPID VALVE The tricuspid valve is normal in structure and function. Doppler and Color Flow revealed trace tricus pid regurgitation. There is no tricuspid valve prolapse or vegetation. There is no tricuspid valve st enosis. PULMONIC VALVE The pulmonary valve is normal in structure and function. Doppler and Color Flow revealed no pulmonic valvular regurgitation. There is no pulmonic valvular stenosis. GREAT VESSELS The aortic root is normal in size. The ascending aorta is normal in size. The pulmonary artery is nor mal. The IVC is normal in size and collapses >50% with inspiration. PERICARDIAL EFFUSION There is no pleural effusion. There is no evidence of significant pericardial effusion. Critical Notification Critical Value: No <Conclusion> Mid to distal anterior and anteroseptal wall hypokinesis. The Ejection Fraction is 40-45%. Transmitral Doppler flow pattern is Grade I-abnormal relaxation pattern. Mild mitral regurgitation. Trace tricuspid regurgitation. There is no evidence of significant pericardial effusion. Signed by : Anuradha Ordoñez, Electronically Approved : 03/03/2022 18:36:11
== END 2022-03-03 14:40 | disposition home or self-care (01) ==
LOC: CCL 08:03
PROVIDERS: ATTEND Internal Medicine Cardiovascular Disease
DX: I25.110 Atherosclerotic heart disease of native coronary artery with unstable angina pectoris (principal); I34.0 Nonrheumatic mitral (valve) insufficiency; I10 Essential (primary) hypertension; E78.00 Pure hypercholesterolemia, unspecified; E66.9 Obesity, unspecified; E11.9 Type 2 diabetes mellitus without complications; M19.90 Unspecified osteoarthritis, unspecified site; F41.9 Anxiety disorder, unspecified; F32.9 Major depressive disorder, single episode, unspecified; Z87.440 Personal history of urinary (tract) infections; Z90.710 Acquired absence of both cervix and uterus; Z98.890 Other specified postprocedural states; Z79.4 Long term (current) use of insulin; Z79.899 Other long term (current) drug therapy; Z87.891 Personal history of nicotine dependence; Z88.8 Allergy status to other drugs, medicaments and biological substances
CPT/HCPCS: 36415; 80048; 82962; 85027; 85610; 93306; 93458; 99152; 99153; C1769; C1887; C1894; J1644; J1815; J2250; J2405; J3010; J3490; Q9967; C8929